=== PATIENT | male | born 1965 | race Caucasian/White ===

== ENCOUNTER 2022-02-18 18:05 | Inpatient (IN) | payer OTHER, SELFPAY ==
--- NOTE | ~2022-02-18 | US_ITS ---
EXAMINATION: US VENOUS ULTRASOUND WITH DOPPLER LOWER EXTREMITY, BILATERAL CLINICAL INFORMATION: Bilateral lower extremity pain and swelling COMPARISON: None TECHNIQUE: Ultrasound of the deep veins is performed from the hip to the calf with compression sonography and color and pulse Doppler assessment. Spectral analysis with color-flow imaging is performed. FINDINGS: RIGHT: There is normal venous compression and respiratory variation and augmented flow. The visualized common femoral vein, superficial femoral vein, profunda femoral vein, popliteal vein, and the trifurcation region shows no evidence of deep venous thrombosis. There is no significant popliteal fossa cyst. LEFT: There is normal venous compression and respiratory variation and augmented flow. The visualized common femoral vein, superficial femoral vein, profunda femoral vein, popliteal vein, and the trifurcation region shows no evidence of deep venous thrombosis. There is no significant popliteal fossa cyst. If the patient's symptoms persist, followup ultrasound in 5 days 7 days might be of value to exclude proximal propagation from a non-visualized calf vein. US/US venous duplex LE BI IMPRESSION: No DVT demonstrated in the bilateral lower extremities.
--- NOTE | ~2022-02-18 | XR_ITS ---
EXAMINATION: XR CHEST CLINICAL INFORMATION: Shortness of breath COMPARISON: None TECHNIQUE: Frontal view of the chest was obtained. FINDINGS: There is mild cardiomegaly. No evidence of CHF. There is patchy infiltrate present at the right lung base with obscuration of the right hemidiaphragm consistent with a small pneumonia. There are multiple old healed rib fractures are seen in the left chest. No pleural effusions. XR/XR chest 1V IMPRESSION: Cardiomegaly. Small area of infiltrate right lung base. Unfortunately, no prior radiographs are available for comparison.
--- NOTE | ~2022-02-18 | US_ITS ---
EXAMINATION: US ABDOMEN LIMITED CLINICAL INFORMATION: Abnormal gallbladder on previous CT scan. COMPARISON: CT scan of the abdomen and pelvis from earlier today. TECHNIQUE: Real-time imaging of the right upper quadrant abdominal viscera. FINDINGS: PANCREAS: Visualized portions unremarkable. LIVER: Unremarkable. Portal vein is patent. GALLBLADDER: Echogenic gallstone measuring up to 2.6 cm. Incompletely distended with mild mural thickening measuring up to 0.3 cm. COMMON BILE DUCT: Normal in caliber measuring 0.4 cm in diameter. RIGHT KIDNEY: 9.9 cm. A cortically based echogenic focus in the mid to upper pole measures 0.5 cm. An exophytic anechoic cyst off of the upper pole measures 1.4 cm. A smaller upper pole cyst measures 0.9 cm. Color Doppler showed no abnormal vascular flow. FREE FLUID: None. US/US abdomen limited IMPRESSION: 1. Cholelithiasis. Gallbladder wall and pericolonic changes are less pronounced compared to the CT scan and could represent chronic changes due to the presence of the larger gallstone. Mild acute cholecystitis cannot be excluded. Correlate clinically. 2. Nonobstructing right intrarenal calculus and small renal cysts demonstrate benign features.
--- NOTE | ~2022-02-18 | CT_ITS ---
EXAMINATION: CT ANGIOGRAM OF THE CHEST WITH AND WITHOUT CONTRAST (CT PULMONARY ANGIOGRAM FOR PE) CT ABDOMEN AND PELVIS WITH CONTRAST CLINICAL INFORMATION: Shortness of breath. Positive d-dimer. Right upper quadrant abdominal pain. COMPARISON: None TECHNIQUE: Prior to contrast administration, noncontrast localization images were obtained. Subsequently, multidetector volumetric imaging was performed from the thoracic inlet to the pubic symphysis following the administration of 100 mL Omnipaque 350 intravenous contrast. This was followed by multidetector acquisition of the abdomen and pelvis. No contrast reaction reported Sagittal, coronal, and MIP oblique sagittal reformatted images were obtained on the CT workstation, uploaded to PACS, and reviewed. This CT examination was performed using dose optimization techniques as appropriate, variously including the following: *Automated exposure control *Adjustment of mA and/or kV according to patient size (this includes techniques or standardized protocols for targeted exams where dose is matched to indication/reason for exam; i.e. extremities or head) *Use of iterative reconstruction technique Total exam dose-length product 829 mGy-cm FINDINGS: QUALITY OF STUDY/CONTRAST BOLUS: Satisfactory. PULMONARY ARTERIES: No central or segmental pulmonary emboli. THORACIC AORTA: No aneurysm or dissection. LUNG: The central airways are patent. Moderate centrilobular and paraseptal emphysema. Mild interlobular septal thickening. Bronchial wall thickening noted. Mild patchy opacity anteriorly in the right lower lobe along the fissure. PLEURA: No pleural effusion or pneumothorax. MEDIASTINUM: Enlarged heart size. No pericardial effusion. Prominent mediastinal lymph nodes. Precarinal node measures 1.2 cm in short axis. Subcarinal node measures 1.7 cm in short axis. No evidence of septal bowing or right heart strain. CHEST WALL/AXILLA: No axillary or internal mammary lymphadenopathy. LIVER, GALLBLADDER, AND BILIARY TREE: The liver is normal in size, shape, and attenuation. No focal hepatic lesion or biliary ductal dilatation is present. Prominent stone in the gallbladder lumen. Mild inflammation adjacent to the gallbladder noted. PANCREAS: Mild atrophy with no focal abnormality. SPLEEN: Unremarkable. ADRENAL GLANDS: 1 cm right adrenal gland nodule noted, indeterminate by Hounsfield unit measurement on this study. The left adrenal gland is unremarkable. KIDNEYS AND URETERS: The kidneys are normal in size, shape, and attenuation. No hydronephrosis, hydroureter, or calculi seen. Symmetric perinephric stranding. Simple cyst of the left kidney. No follow-up imaging recommended. Additional hypoattenuating lesions of both kidneys are too small to characterize otherwise. BLADDER: Unremarkable. GASTROINTESTINAL TRACT: The stomach is unremarkable. Normal caliber small bowel. No obstruction. No colonic wall thickening or inflammation. ABDOMINAL WALL: No significant hernia is appreciated. LYMPH NODES: Normal. VASCULAR: Reflux of contrast is seen into the hepatic veins, suggesting elevated right heart pressures. Normal size aorta. Mild atherosclerotic calcifications.. PELVIC VISCERA: The prostate and seminal vesicles are unremarkable. OSSEOUS STRUCTURES: No acute or suspicious osseous abnormality. Mild degenerative changes of the spine. CT/CT angio chest PE protocol IMPRESSION: 1. No pulmonary embolism. 2. Moderate emphysema. Mild interlobular septal thickening and bronchial wall thickening could be associated with fluid overload. Right lower lobe opacity favors atelectasis, though pneumonia is possible. 3. Prominent mediastinal lymph nodes, likely reactive. 4. Cholelithiasis. Associated inflammation around the gallbladder. This may represent acute cholecystitis. Consider ultrasound evaluation. 5. Enlarged heart. Reflux of contrast into the IVC and hepatic veins, suggesting elevated right heart pressures. 6 . Indeterminant right adrenal gland nodule. Suggest nonemergent adrenal protocol CT evaluation. VTE: negative
--- NOTE | ~2022-02-18 | NM_ITS ---
EXAMINATION: NM BILIARY TRACT WITH ORAL FATTY MEAL CLINICAL INFORMATION: Abdominal pain right upper quadrant, large gallstone, CHF. COMPARISON: No previous biliary scan is available for comparison. Abdominal ultrasound dated 02/19/[address] scan of the abdomen and pelvis dated 02/19/2022 are available for comparison. TECHNIQUE: Serial gamma scintillation camera images were obtained over the abdomen for a total observation period of 125 minutes following the intravenous administration of 5 mCi Tc-99m Mebrofenin. FINDINGS: There is good concentration of activity in the liver by 5 minutes post injection. Biliary activity is visualized by 10 minutes. The gallbladder is well visualized by 15 minutes. Small bowel is well visualized by 10 minutes. At 60 minutes post Mebrofenin injection, 8 ounces of Ensure-plus Brand was administered orally and an additional 60 minutes of images were obtained. There is good emptying of the gallbladder following ingestion of the fatty meal. At the end of the study there is good clearance of activity from the liver and visualization of diffuse small bowel activity. The calculated gallbladder ejection fraction is 71% (normal gallbladder ejection fraction using Ensure supplement orally is greater than 33%). NM/NM hepatobiliary wo pharm IMPRESSION: Visualization of the gallbladder is evidence of a patent cystic duct and strong evidence against the diagnosis of acute cholecystitis. The common bile duct is patent. Gallbladder emptying and ejection fraction are normal. Liver function appears normal.
[2022-02-18 18:09] VITALS: BP 145/89; PULSE 101; RESP 18; TEMP 36.7; O2SAT 97; BMI 26.5
--- NOTE | 2022-02-18 18:30 | ECG_ITS ---
Test Reason : ABDOMINALPAIN Blood Pressure : / mmHG Vent. Rate : 090 BPM Atrial Rate : 090 BPM P-R Int : 140 ms QRS Dur : 106 ms QT Int : 402 ms P-R-T Axes : 052 -19 103 degrees QTc Int : 491 ms Normal sinus rhythm Left atrial enlargement Left ventricular hypertrophy ( Greenfield product ) Nonspecific T wave abnormality Prolonged QT Abnormal ECG No previous ECGs available Referred By: Sweetie Montalvo Electronically Signed By:INGRID VILLEGAS
[2022-02-18 22:49] LABS: MANUAL DIFF FLAG NO
[2022-02-18 22:58] LABS: Basophils Absolute Auto 0.1 X10*3/uL (0.0-0.2); Basophils Percent Auto 0.5 % (0-2); Eosinophils Absolute Auto 0.2 X10*3/uL (0.0-0.4); Hematocrit 39.2 % (42.0-52.0); Hemoglobin 12.3 g/dl (14.0-18.0); Imm Gran Abs Auto 0.04 X10*3/uL (0.00-0.03); Imm Gran Pct Auto 0.4 % (0.0-0.4); Lymphocytes Absolute Auto 1.9 X10*3/uL (1.2-4.9); Lymphocytes Percent Auto 20.4 % (20-40); Mean Corpuscular HGB Conc 31.4 g/dl (31.0-36.0); Mean Corpuscular Hemoglobin 28.5 pg (27.0-33.0); Mean Platelet Volume 10.3 fL (9.4-12.4); Monocytes Absolute Auto 0.7 X10*3/uL (0.1-1.2); Monocytes Percent Auto 7.2 % (2-11); Neutrophils Absolute Auto 6.6 x10*3/uL (2.0-8.3); Neutrophils Percent Auto 69.5 % (45-73); Platelet Count 338 X10*3/uL (160-400); Red Blood Count 4.31 X10*6/uL (4.60-5.80); Red Cell Distribution Width 14.4 % (11.0-16.0); White Blood Count 9.5 X10*3/uL (4.8-10.8)
[2022-02-18 23:04] LABS: INTERNATIONAL NORM RATIO 1.9 (0.9-1.1); Prothrombin Time 22.5 SEC (10.0-13.1)
[2022-02-18 23:14] LABS: COVID-19 Test Negative (Negative)
[2022-02-18 23:15] LABS: Alanine Aminotransferase 30 U/L (0-40); Albumin Level 4.1 g/dL (3.5-5.0); Alkaline Phosphatase 108 U/L (39-117); Anion Gap 16 (12-20); Aspartate Amino Transferase 52 U/L (5-37); Bilirubin Total 2.1 mg/dL (0.0-1.0); Blood Urea Nitrogen 21 mg/dL (9-16); Calcium 9.1 mg/dL (8.4-10.2); Carbon Dioxide 23 mmol/L (22-29); Chloride 106 mmol/L (96-108); Creatinine Clr Calc Pharmacy 47.4; Estimated Glomerular Filt Rate 46; Glucose Random 194 mg/dL (60-115); Potassium 5.3 mmol/L (3.3-5.1); Sodium 140 mmol/L (135-145); Total Protein 7.4 g/dL (6.5-8.0)
[2022-02-18 23:18] LABS: B Type Natriuretic Peptide 2874 pg/mL (<100); Troponin-I High Sensitivity 46.3 ng/L (<3.5-35.0)
[2022-02-18 23:38] VITALS: BP 133/94; PULSE 90; RESP 28; O2SAT 98
--- NOTE | 2022-02-18 23:39 | PC.NURSE ---
IV established, VSS. Pt resting comfortably in bed @ this time awaiting primary MD gerry.
--- NOTE | 2022-02-18 23:56 | ED.SOB ---
HPI - SOB/Dyspnea General Chief Complaint: Dyspnea Stated Complaint: abd pain/diff breathing Time Seen by Provider: 02/18/22 18:29 Source: patient Mode of arrival: ambulatory Limitations: other (Patient poor historian) History of Present Illness HPI Narrative: 56-year-old male with this medical history significant for diabetes, DVTS, CHF presents today with lower extremity pain, shortness of breath, fatigue, malaise and abdominal pain. The shortness of breath is worse w/ exertion, better at rest. He states he came in today because his family was worried for him as he has been having increased work of breathing and has been having abdominal pain severe for 1 week/. Abdominal pain is reported as around the umbilicus, 01/27, and does not radiate. He states he cant keep any food down and he has been vomiting with looks like white paste. Patient has a 40+ pack year smoking history. Reports he was recently hospitalized for CHF however story is unclear. MD elicited complaint: shortness of breath Related Data Allergies Allergy/AdvReac Type Severity Reaction Status Date / Time No Known Allergies Allergy Verified 02/18/22 18:09 Review of Systems Review of Systems: Constitutional : No Weight loss, No Fever, No Chills, No Fatigue, No Malaise ENT/Mouth : No sore throat, No Rhinorrhea Eyes: No Eye Pain, No Swelling, No Redness Cardiovascular : No Chest Pain, + SOB, + Dyspnea on Exertion, No Orthopnea, No Edema, No Palpitations Respiratory : + Cough, No Sputum, No Wheezing Gastrointestinal : No Nausea, + Vomiting, No Diarrhea, No Constipation, + abdominal Pain, No Hematochezia, No Melena Genitourinary : No Dysuria, No Urinary Frequency, No Hematuria, Musculoskeletal : No joint pain, No Myalgias, No Joint Swelling Skin : No Skin Lesions, No rash Neuro : No Weakness, + Numbness of the toes, No Dizziness, No Headache Psych : No Anxiety/Panic, No Depression All other systems reviewed and are negative Yes all other systems are reviewed and are negative [facility] Past Medical History Attestation statement: The following information was validated with the patient. Source: old records reviewed and nursing notes reviewed Social History Social History Advance Directives: No Advance Directives Information Provided: Yes Physical Exam Vital Signs: Vital Signs: Last Vital Signs Temp 97.5 F 02/19/22 01:41 Pulse 88 02/19/22 01:41 Resp 20 02/19/22 01:41 BP 131/88 02/19/22 01:41 Pulse Ox 98 02/19/22 01:41 O2 Del Method 02/19/22 01:41 BMI result Body Mass Index 26.5 VSS Appearance: Alert.? Oriented X3.? No acute distress.? Head: Normocephalic, atraumatic, no step-offs or deformities Eyes: Pupils equal, round and reactive to light.? Neck: Normal inspection.? Neck supple.? CVS: Normal heart rate and rhythm.? Pulses normal.? Respiratory: Shallow respirations, No respiratory distress.? Breath sounds diminished b/l and faint crackles to RLL.? Abdomen: Soft and + tenderness to RUQ and epigastric region.? Skin: Skin warm and dry.? Normal skin color.? Normal skin turgor.? Extremities: No edema.? + calf ttp, negative luis. 5/5 strength to bilateral upper and lower extremities Neuro: Oriented X 3.? No motor deficit.? No sensory deficit. CN 2-12 intact Course Reevaluation(s) Reevaluation #1: CBC with no leukocytosis. Chemistry with a slightly elevated potassium, low, was given. Slight acute kidney injury however will not hydrate due to patient being fluid overloaded with a BNP of 2874, Lasix ordered. Patient's initial troponin was 46.3, repeat 42.6 EKG nonischemic. Patient's total bilirubin 2.1 and direct bilirubin 1.0, he does have a really tender abdomen worse in the right lower quadrant, for this reason a CT of the abdomen will be obtained with contrast. Initial lactic acid 3.0, repeat lactic acid ordered, patient's x-ray with a right lower lobe possible pneumonia. Will hold antibiotics until I receive CT of the chest to confirm pneumonia as patient has only faint crackles to right lower lobe. Time: 00:57 Reevaluation #2: Repeat lactic acid elevated 3.2, at this time infection is suspected, will hold fluids however will administer antibiotics at this time to cover for pneumonia. CT of the chest and CT of the abdomen and pelvis still pending at this time. Time: 02:08 Reevaluation #3: CT of the abdomen pelvis with cholelithiasis as well as inflammation around the gallbladder that could represent acute cholecystitis, concerning as patient does have significant right upper quadrant tenderness on exam. Patient's CT of the chest with no PE, moderate emphysema noted mediastinal lymph node likely reactive is noted and there is an enlarged heart suggesting elevated right heart pressure. I reached out to surgery Dr. Cagle and discussed there is concern for cholecystitis on this patient. He recommends to admit to the hospitalist team, he agrees with my antibiotic selection of ceftriaxone in he would not like any other antibiotics added at this time. At this time patient is to remain nothing by mouth as he may be a surgical candidate for cholecystitis. I did update Dr. Han on this. Nursing is aware that patient is NPO. Patient will be admitted to hospitalist team at this time. Time: 02:44 MDM - SOB/Dyspnea MDM Narrative Medical decision making narrative: 0000 56 yo M presents w/ LYNCH, lower extremity pain, abd pain X 1 week. Poor historian. Unclear PMHX. PE significant for diminished breath sounds bilaterally with faint crackles to the right lower lobe, shallow breathing, regular rate and rhythm, abdomen soft and tender particularly in the right upper quadrant, neuro exam nonfocal. Vital signs stable. Plan at this time is urine, labs, imaging, D-dimer, troponin, BNP will obtain blood cultures and a lactic as well. Chest x-ray will also be ordered At this time I will do not suspect infection, will wait for laboratory studies, BNP prior to initiating fluids, antibiotics. Concerns for CHF. Will rule out intra-abdominal processes such as appendicitis, cholecystitis . Unlikely acute abdomen. Medical Records Attestation: I reviewed the patient's medical records. Lab Data Attestation: I reviewed the patient's lab results. Result diagrams: 02/18/22 22:38 02/18/22 22:38 Labs: Lab Results 02/18/22 02/18/22 02/18/22 Range/Units 22:36 22:38 22:38 WBC 9.5 (4.8-10.8) X10*3/uL RBC 4.31 L (4.60-5.80) X10*6/uL Hgb 12.3 L (14.0-18.0) g/dl Hct 39.2 L (42.0-52.0) % MCV 91.0 (80.0-98.0) fL MCH 28.5 (27.0-33.0) pg MCHC 31.4 (31.0-36.0) g/dl RDW 14.4 (11.0-16.0) % Plt Count 338 (160-400) X10*3/uL MPV 10.3 (9.4-12.4) fL Immature Gran % (Auto) 0.4 (0.0-0.4) % Neut % (Auto) 69.5 (45-73) % Lymph % (Auto) 20.4 (20-40) % Mcdonald % (Auto) 7.2 (2-11) % Eos % (Auto) 2.0 (0-4) % Baso % (Auto) 0.5 (0-2) % Lymph # (Auto) 1.9 (1.2-4.9) X10*3/uL Mcdonald # (Auto) 0.7 (0.1-1.2) X10*3/uL Eos # (Auto) 0.2 (0.0-0.4) X10*3/uL Baso # (Auto) 0.1 (0.0-0.2) X10*3/uL Abs Immat Gran (auto) 0.04 H (0.00-0.03) X10*3/uL Absolute Neuts (auto) 6.6 (2.0-8.3) x10*3/uL Absolute Nucleated RBC 0.000 (0.0-0.012) X10*3/uL Nucleated RBC % (auto) 0.0 (0.0-0.2) /100WBC PT 22.5 H (10.0-13.1) SEC INR 1.9 H (0.9-1.1) D-Dimer High Sensitivty 292 NG/ML Sodium (135-145) mmol/L Potassium (3.3-5.1) mmol/L Chloride (96-108) mmol/L Carbon Dioxide (22-29) mmol/L Anion Gap (12-20) BUN (9-16) mg/dL Creatinine (0.5-1.4) mg/dL Estim Creat Clear Calc Estimated GFR Random Glucose (60-115) mg/dL Lactic Acid (0.5-2.0) mmol/L Lactic Acid F/U @ 2Hr (0.5-2.0) mmol/L Calcium (8.4-10.2) mg/dL Total Bilirubin (0.0-1.0) mg/dL Direct Bilirubin (0.0-0.5) mg/dL AST (5-37) U/L ALT (0-40) U/L Alkaline Phosphatase (39-117) U/L Troponin I High Sens (<3.5-35.0) ng/L B-Natriuretic Peptide (<100) pg/mL Total Protein (6.5-8.0) g/dL Albumin (3.5-5.0) g/dL COVID-19 ([facility]ONICA) Negative (Negative) COVID-19 Clin Com See Note 02/18/22 02/18/22 02/18/22 Range/Units 22:38 22:38 22:38 WBC (4.8-10.8) X10*3/uL RBC (4.60-5.80) X10*6/uL Hgb (14.0-18.0) g/dl Hct (42.0-52.0) % MCV (80.0-98.0) fL MCH (27.0-33.0) pg MCHC (31.0-36.0) g/dl RDW (11.0-16.0) % Plt Count (160-400) X10*3/uL MPV (9.4-12.4) fL Immature Gran % (Auto) (0.0-0.4) % Neut % (Auto) (45-73) % Lymph % (Auto) (20-40) % Mcdonald % (Auto) (2-11) % Eos % (Auto) (0-4) % Baso % (Auto) (0-2) % Lymph # (Auto) (1.2-4.9) X10*3/uL Mcdonald # (Auto) (0.1-1.2) X10*3/uL Eos # (Auto) (0.0-0.4) X10*3/uL Baso # (Auto) (0.0-0.2) X10*3/uL Abs Immat Gran (auto) (0.00-0.03) X10*3/uL Absolute Neuts (auto) (2.0-8.3) x10*3/uL Absolute Nucleated RBC (0.0-0.012) X10*3/uL Nucleated RBC % (auto) (0.0-0.2) /100WBC PT (10.0-13.1) SEC INR (0.9-1.1) D-Dimer High Sensitivty NG/ML Sodium 140 (135-145) mmol/L Potassium 5.3 H (3.3-5.1) mmol/L Chloride 106 (96-108) mmol/L Carbon Dioxide 23 (22-29) mmol/L Anion Gap 16 (12-20) BUN 21 H (9-16) mg/dL Creatinine 1.57 H (0.5-1.4) mg/dL Estim Creat Clear Calc 47.4 Estimated GFR 46 Random Glucose 194 H (60-115) mg/dL Lactic Acid 3.0 H* (0.5-2.0) mmol/L Lactic Acid F/U @ 2Hr (0.5-2.0) mmol/L Calcium 9.1 (8.4-10.2) mg/dL Total Bilirubin 2.1 H (0.0-1.0) mg/dL Direct Bilirubin 1.0 H (0.0-0.5) mg/dL AST 52 H (5-37) U/L ALT 30 (0-40) U/L Alkaline Phosphatase 108 (39-117) U/L Troponin I High Sens 46.3 H (<3.5-35.0) ng/L B-Natriuretic Peptide 2874 H (<100) pg/mL Total Protein 7.4 (6.5-8.0) g/dL Albumin 4.1 (3.5-5.0) g/dL COVID-19 ([facility]ONICA) (Negative) COVID-19 Clin Com 02/19/22 02/19/22 Range/Units 00:20 00:57 WBC (4.8-10.8) X10*3/uL RBC (4.60-5.80) X10*6/uL Hgb (14.0-18.0) g/dl Hct (42.0-52.0) % MCV (80.0-98.0) fL MCH (27.0-33.0) pg MCHC (31.0-36.0) g/dl RDW (11.0-16.0) % Plt Count (160-400) X10*3/uL MPV (9.4-12.4) fL Immature Gran % (Auto) (0.0-0.4) % Neut % (Auto) (45-73) % Lymph % (Auto) (20-40) % Mcdonald % (Auto) (2-11) % Eos % (Auto) (0-4) % Baso % (Auto) (0-2) % Lymph # (Auto) (1.2-4.9) X10*3/uL Mcdonald # (Auto) (0.1-1.2) X10*3/uL Eos # (Auto) (0.0-0.4) X10*3/uL Baso # (Auto) (0.0-0.2) X10*3/uL Abs Immat Gran (auto) (0.00-0.03) X10*3/uL Absolute Neuts (auto) (2.0-8.3) x10*3/uL Absolute Nucleated RBC (0.0-0.012) X10*3/uL Nucleated RBC % (auto) (0.0-0.2) /100WBC PT (10.0-13.1) SEC INR (0.9-1.1) D-Dimer High Sensitivty NG/ML Sodium (135-145) mmol/L Potassium (3.3-5.1) mmol/L Chloride (96-108) mmol/L Carbon Dioxide (22-29) mmol/L Anion Gap (12-20) BUN (9-16) mg/dL Creatinine (0.5-1.4) mg/dL Estim Creat Clear Calc Estimated GFR Random Glucose (60-115) mg/dL Lactic Acid (0.5-2.0) mmol/L Lactic Acid F/U @ 2Hr 3.2 H* (0.5-2.0) mmol/L Calcium (8.4-10.2) mg/dL Total Bilirubin (0.0-1.0) mg/dL Direct Bilirubin (0.0-0.5) mg/dL AST (5-37) U/L ALT (0-40) U/L Alkaline Phosphatase (39-117) U/L Troponin I High Sens 42.6 H (<3.5-35.0) ng/L B-Natriuretic Peptide (<100) pg/mL Total Protein (6.5-8.0) g/dL Albumin (3.5-5.0) g/dL COVID-19 ([facility]) (Negative) COVID-19 Clin Com Critical Care Time Critical Care Time Critical Care Time: Yes Total Critical Care Time: 45 Attestation: I attest to this time spent taking care of the patient, obtaining history, physical, reviewing labs, imaging, speaking to my attending, speaking to specialist. Discharge Plan Discharge Clinical Impression: CHF (congestive heart failure), Elevated troponin, Abdominal pain, Shortness of breath, Nausea, Pneumonia, Acute cholecystitis Patient Disposition: Admitted As Inpatient
[2022-02-19] VITALS (8 sets, daily range): BP systolic 123–140; BP diastolic 67–96; PULSE 75–89; RESP 18–23; TEMP 36.4–37.2; O2SAT 92–100
[2022-02-19 00:12] LABS: D Dimer High Sensitivity 292 NG/ML
[2022-02-19 00:48] LABS: Reflex Lactate? Lactic Acid Added
[2022-02-19] MEDS: Sodium Zirconium Cyclosilicate 5 GM POWD.PACK PO (01:00)
[2022-02-19] MEDS: Furosemide 40 MG/4 ML VIAL IVPUSH ×3 (01:00→17:06)
[2022-02-19 01:25] LABS: Troponin-I High Sensitivity 42.6 ng/L (<3.5-35.0)
[2022-02-19 01:43] LABS: ~Lactic Acid-LAB USE ONLY 3.2 mmol/L (0.5-2.0)
[2022-02-19] MEDS: iohexoL 350 MG/ML 100 ML INFUS..BTL IV (02:00)
[2022-02-19] MEDS: Morphine Sulfate 4 MG/ML CARTRIDGE IVPUSH (03:03)
[2022-02-19] MEDS: cefTRIAXone sodium 1 GM in 0.9 % Sodium Chloride 50 ML IV (03:03)
[2022-02-19 03:04] LABS: Reflex Lactate? 2 Y
[2022-02-19 04:28] LABS: Appearance Urine CLEAR; Color Urine YELLOW; Glucose Urine UA NEG (NEG); Leukocyte Esterase Urine NEG (NEG); Nitrite Urine NEG (NEG); Urine Blood NEG (NEG); Urine Ketones NEG (NEG); Urine Protein NEG (NEG-TRACE)
[2022-02-19 04:35] LABS: RBC Urine 0 /HPF (0); WBC Urine 0 /HPF (0-4)
[2022-02-19 04:35] LABS: ~Lactic Acid-LAB USE ONLY 1.3 mmol/L (0.5-2.0)
--- NOTE | 2022-02-19 06:21 | P.HPHOSP_ITS ---
History of Present Illness Date of Service: 02/19/22 Chief Complaint: Leg pain This is a 56-year-old male with past medical history of CHF, diabetes, hypertension, hyperlipidemia, PVD, CAD who presents to the hospital with complaints of bilateral leg pain. Patient reports that he has had worsening pain in his lower extremities to the point where he has difficulty walking and has to sit down every few feet in order to be able to walk again. Has been using a walker as a result. Patient also reports increased shortness of breath, cough that is dry and nonproductive, orthopnea and PND. The symptoms have wors ened over the past few weeks although he reports chronic shortness of breath since September when he was diagnosed with congestive heart failure. Patient reports that he has been moving states, he has had been admitted from hospital to hospital, he does not know his medications, it is unclear if he is compliant with his meds. Patient is also complaining of right lower quadrant pain that started few days ago, associated with some nausea, no vomiting. Pain is constant, 5/10, nonradiating. No alleviating or exacerbating factors. He denies any fever, no chills, no chest pain, no palpitations, no diarrhea constipation, no urinary symptoms. He has also noticed lower extremity edema. Normal to the ED patient hemodynamically stable with no significant abnormal vitals Labs are significant for WBC count of 9.5, hemoglobin 12.3, INR of 1.9, potassium of 5.3, BUN of 21, creatinine of 1.57, lactic acid of 3.0, troponin of 45 decreased to 42, Imaging revealed no PE on CT angiogram, moderate emphysema, mild intralobular septal thickening and bronchial wall thickness consistent with fluid overload and pulmonary congestion, cholelithiasis with associated inflammation around the gallbladder concerning for cholecystitis, Review of Systems 2 Review of Systems: Yes all other systems are reviewed and are negative [facility] Medical History (Updated 02/19/22 @ 06:28 by Irvin Han MD) CAD (coronary artery disease) CHF (congestive heart failure) Diabetes HLD (hyperlipidemia) Hypertension PVD (peripheral vascular disease) Family History (Updated 02/19/22 @ 06:29 by Irvin Han MD) Other No family history of coronary artery disease Surgical History (Updated 02/19/22 @ 06:29 by Irvin Han MD) History of angioplasty of peripheral vessel History of heart artery stent Social History Advance Directives: No Advance Directives Information Provided: Yes Meds Allergies Allergy/AdvReac Type Severity Reaction Status Date / Time No Known Allergies Allergy Verified 02/18/22 18:09 Active Medications: Current Medications Acetaminophen (Acetaminophen 325 Mg Tablet) 650 mg PO Q6H PRN PRN Reason: Pain, Mild (Pain Scale 1-3) Docusate Sodium (Docusate Sodium 100 Mg Capsule) 100 mg PO DAILY PRN PRN Reason: Constipation Furosemide (Furosemide 40 Mg/4 Ml Vial) 40 mg IVPUSH BID@0900,1800 LOUISA; Protocol Gabapentin (Gabapentin 100 Mg Capsule) 100 mg PO BID LOUISA Heparin Sodium (Porcine) (Heparin Sodium,Porcine 5,000 Unit/Ml Vial) 5,000 unit SUBCUT Q12H L[facility]ISA Ondansetron HCl (Ondansetron Hcl 4 Mg/2 Ml Vial) 4 mg IVPUSH Q8H PRN PRN Reason: Nausea and Vomiting Pharmacy Consult (Consult Rx Perform Med Rec) 1 each MISCELLANE ONCE PRN PRN Reason: Consult order Sodium Chloride (0.9 % Sodium Chloride Flush 3 Ml Syringe) 3 ml IVFLUSH QSHIFT LOUISA Physical Exam Vital Signs and Narrative: Vital Signs: Last Vital Signs Temp 98.1 F 02/19/22 06:00 Pulse 75 02/19/22 06:00 Resp 23 H 02/19/22 06:00 BP 127/84 02/19/22 06:00 Pulse Ox 92 02/19/22 06:00 O2 Del Method 02/19/22 06:00 O2 Flow Rate 2 02/19/22 04:20 BMI result Body Mass Index 26.5 Const: General: cooperative and no acute distress Orientation/consciousness: patient oriented x3 Eyes: General: appearance normal, both eyes and all related structures Resp: Effort & Inspection: normal respiratory effort Auscultation: clear to auscultation bilaterally Cardio: Rate: regular rate Rhythm: regular rhythm GI: Other: Patient has significant tenderness in the right upper quadrant, guarding, rebound Palpation (GI): Soft to palpation Auscultation: normal bowel sounds Skin: General skin exam: no rashes or lesions noted Neuro: General: patient oriented x3 Cognition (Neuro): normal cognition Extrem: Other: 1+ pitting edema General: Yes normal to inspection Results Labs CBC and Chem 7: 02/18/22 22:38 07 22:38 Labs: Laboratory Results - last 24 hr 02/18/22 02/18/22 02/18/22 22:36 22:38 22:38 MCV 91.0 MCH 28.5 MCHC 31.4 RDW 14.4 Plt Count 338 MPV 10.3 Immature Gran % (Auto) 0.4 Neut % (Auto) 69.5 Lymph % (Auto) 20.4 [place] % (Auto) 7.2 Eos % (Auto) 2.0 Baso % (Auto) 0.5 Lymph # (Auto) 1.9 [place] # (Auto) 0.7 Eos # (Auto) 0.2 Baso # (Auto) 0.1 Abs Immat Gran (auto) 0.04 H Absolute Neuts (auto) 6.6 Absolute Nucleated RBC 0.000 Nucleated RBC % (auto) 0.0 PT 22.5 H INR 1.9 H D-Dimer High Sensitivty 292 Anion Gap Estim Creat Clear Calc Estimated GFR Random Glucose Lactic Acid Lactic Acid F/U @ 2Hr Lactic Acid F/U @ 4Hr Calcium Total Bilirubin Direct Bilirubin AST ALT Alkaline Phosphatase Troponin I High Sens B-Natriuretic Peptide Total Protein Albumin Urine Color Urine Appearance Urine pH Ur Specific [place] Urine Protein Urine Glucose (UA) Urine Ketones Urine Blood Urine Nitrite Ur Leukocyte Esterase Urine RBC Urine WBC Ur Squamous Epith Cells Urine Bacteria COVID-19 (BERONICA) Negative COVID-19 Clin Com See Note 02/18/22 02/18/22 02/18/22 22:38 22:38 22:38 MCV MCH MCHC RDW Plt Count MPV Immature Gran % (Auto) Neut % (Auto) Lymph % (Auto) [place] % (Auto) Eos % (Auto) Baso % (Auto) Lymph # (Auto) [place] # (Auto) Eos # (Auto) Baso # (Auto) Abs Immat Gran (auto) Absolute Neuts (auto) Absolute Nucleated RBC Nucleated RBC % (auto) PT INR D-Dimer High Sensitivty Anion Gap 16 Estim Creat Clear Calc 47.4 Estimated GFR 46 Random Glucose 194 H Lactic Acid 3.0 H* Lactic Acid F/U @ 2Hr Lactic Acid F/U @ 4Hr Calcium 9.1 Total Bilirubin 2.1 H Direct Bilirubin 1.0 H AST 52 H ALT 30 Alkaline Phosphatase 108 Troponin I High Sens 46.3 H B-Natriuretic Peptide 2874 H Total Protein 7.4 Albumin 4.1 Urine Color Urine Appearance Urine pH Ur Specific [place] Urine Protein Urine Glucose (UA) Urine Ketones Urine Blood Urine Nitrite Ur Leukocyte Esterase Urine RBC Urine WBC Ur Squamous Epith Cells Urine Bacteria COVID-19 (BERONICA) COVID-19 Clin Com 02/19/22 02/19/22 02/19/22 00:20 00:57 04:14 MCV MCH MCHC RDW Plt Count MPV Immature Gran % (Auto) Neut % (Auto) Lymph % (Auto) [place] % (Auto) Eos % (Auto) Baso % (Auto) Lymph # (Auto) [place] # (Auto) Eos # (Auto) Baso # (Auto) Abs Immat Gran (auto) Absolute Neuts (auto) Absolute Nucleated RBC Nucleated RBC % (auto) PT INR D-Dimer High Sensitivty Anion Gap Estim Creat Clear Calc Estimated GFR Random Glucose Lactic Acid Lactic Acid F/U @ 2Hr 3.2 H* Lactic Acid F/U @ 4Hr Calcium Total Bilirubin Direct Bilirubin AST ALT Alkaline Phosphatase Troponin I High Sens 42.6 H B-Natriuretic Peptide Total Protein Albumin Urine Color YELLOW Urine Appearance CLEAR Urine pH 6.0 Ur Specific [place] 1.010 Urine Protein NEG Urine Glucose (UA) NEG Urine Ketones NEG Urine Blood NEG Urine Nitrite NEG Ur Leukocyte Esterase NEG Urine RBC 0 Urine WBC 0 Ur Squamous Epith Cells NONE Urine Bacteria NONE COVID-19 (BERONICA) COVID-19 Clin Com 02/19/22 04:19 MCV MCH MCHC RDW Plt Count MPV Immature Gran % (Auto) Neut % (Auto) Lymph % (Auto) [place] % (Auto) Eos % (Auto) Baso % (Auto) Lymph # (Auto) [place] # (Auto) Eos # (Auto) Baso # (Auto) Abs Immat Gran (auto) Absolute Neuts (auto) Absolute Nucleated RBC Nucleated RBC % (auto) PT INR D-Dimer High Sensitivty Anion Gap Estim Creat Clear Calc Estimated GFR Random Glucose Lactic Acid Lactic Acid F/U @ 2Hr Lactic Acid F/U @ 4Hr 1.3 Calcium Total Bilirubin Direct Bilirubin AST ALT Alkaline Phosphatase Troponin I High Sens B-Natriuretic Peptide Total Protein Albumin Urine Color Urine Appearance Urine pH Ur Specific [place] Urine Protein Urine Glucose (UA) Urine Ketones Urine Blood Urine Nitrite Ur Leukocyte Esterase Urine RBC Urine WBC Ur Squamous Epith Cells Urine Bacteria COVID-19 (BERONICA) COVID-19 Clin Com ECG Interpretation: EKG reviewed by me shows normal sinus rhythm with no significant ST T wave a bnormality He does have slightly prolonged QT of 491 Imaging Radiologist's Impressions: Impressions Chest X-Ray 02/18/22 18:30 IMPRESSION: Cardiomegaly. Small area of infiltrate right lung base. Unfortunately, no prior radiographs are available for comparison. Venous Duplex 02/19/22 01:15 IMPRESSION: No DVT demonstrated in the bilateral lower extremities. Chest CTA 02/19/22 01:58 IMPRESSION: 1. No pulmonary embolism. 2. Moderate emphysema. Mild interlobular septal thickening and bronchial wall thickening could be associated with fluid overload. Right lower lobe opacity favors atelectasis, though pneumonia is possible. 3. Prominent mediastinal lymph nodes, likely reactive. 4. Cholelithiasis. Associated inflammation around the gallbladder. This may represent acute cholecystitis. Consider ultrasound evaluation. 5. Enlarged heart. Reflux of contrast into the IVC and hepatic veins, suggesting elevated right heart pressures. 6 . Indeterminant right adrenal gland nodule. Suggest nonemergent adrenal protocol CT evaluation. VTE: negative Abdomen/Pelvis CT 02/19/22 02:01 IMPRESSION: 1. No pulmonary embolism. 2. Moderate emphysema. Mild interlobular septal thickening and bronchial wall thickening could be associated with fluid overload. Right lower lobe opacity favors atelectasis, though pneumonia is possible. 3. Prominent mediastinal lymph nodes, likely reactive. 4. Cholelithiasis. Associated inflammation around the gallbladder. This may represent acute cholecystitis. Consider ultrasound evaluation. 5. Enlarged heart. Reflux of contrast into the IVC and hepatic veins, suggesting elevated right heart pressures. 6 . Indeterminant right adrenal gland nodule. Suggest nonemergent adrenal protocol CT evaluation. VTE: negative Assessment and Plan (1) Acute exacerbation of CHF (congestive heart failure): Status: Acute (2) Elevated troponin: Status: Acute (3) Acute cholecystitis: Status: Acute (4) Lower extremity pain: Status: Acute Plan 56-year-old male with past medical history of CHF presents to the hospital with complaints of lower extremity pain, dyspnea, abdominal pain found to have # acute CHF exacerbation - has dyspnea, PND, orthopnea, elevated BNP, and evidence of pulmonary congestion on CT - patient reports being on Lasix 40 mg at home, but unclear if compliant - will treat with IV Lasix 40 b.i.d. -strict I&O, daily weight, low-sodium diet - obtain echocardiogram - cardiology consulted # acute cholecystitis - found to have abdominal pain, CT abdomen shows possible cholecystitis - will obtain abdominal ultrasound - surgical team consulted - will keep NPO - IV antibiotics - follow cultures # elevated troponin - likely secondary to acute CHF - no EKG seen is suggestive of ACS - monitor on telemetry # lower extremity pain - likely secondary to diabetic neuropathy - will start him on gabapentin 100 b.i.d. # diabetes - low-dose sliding scale insulin - diabetic diet # hypertension - stable -pending pharmacy consult for med review Patient does not remember his medications Pending pharmacy consult DVT prophylaxis: Heparin subQ Given the acute cholecystitis, acute CHF exacerbation, patient will require a minimum 2 night hospital stay for further management and monitoring Quality Stroke Does the patient have a stroke diagnosis?: No VTE Prior VTE?: No VTE Risk Level:: Medical - moderate - high VTE Device Contraindication: Treatment Not Indicated VTE Drug Contraindication: N/A - Med Ordered
[2022-02-19] MEDS: Heparin Sodium,Porcine 5,000 UNIT/ML VIAL 5000 UNIT SUBCUT ×2 (06:35→17:06)
[2022-02-19] MEDS: metroNIDAZOLE/NS 500 MG/100 ML PIGGYBACK 100 MG IV ×3 (06:35→20:46)
--- NOTE | 2022-02-19 06:56 | PC.NURSE ---
report given to MICHAELA Mistry
[2022-02-19 07:15] LABS: Glucose, Whole Blood 182 mg/dL (60-115)
[2022-02-19] MEDS: 0.9 % Sodium Chloride Flush 3 ML SYRINGE IVFLUSH ×3 (07:15→20:45)
[2022-02-19 07:17] LABS: MANUAL DIFF FLAG NO
[2022-02-19 07:20] LABS: Basophils Absolute Auto 0.1 X10*3/uL (0.0-0.2); Basophils Percent Auto 0.6 % (0-2); Eosinophils Absolute Auto 0.3 X10*3/uL (0.0-0.4); Eosinophils Percent Auto 3.1 % (0-4); Hematocrit 38.2 % (42.0-52.0); Hemoglobin 12.3 g/dl (14.0-18.0); Imm Gran Abs Auto 0.03 X10*3/uL (0.00-0.03); Imm Gran Pct Auto 0.4 % (0.0-0.4); Lymphocytes Absolute Auto 1.6 X10*3/uL (1.2-4.9); Lymphocytes Percent Auto 20.1 % (20-40); Mean Corpuscular HGB Conc 32.2 g/dl (31.0-36.0); Mean Corpuscular Hemoglobin 28.9 pg (27.0-33.0); Mean Corpuscular Volume 89.9 fL (80.0-98.0); Mean Platelet Volume 9.9 fL (9.4-12.4); Monocytes Absolute Auto 0.7 X10*3/uL (0.1-1.2); Monocytes Percent Auto 8.8 % (2-11); Neutrophils Absolute Auto 5.4 x10*3/uL (2.0-8.3); Platelet Count 302 X10*3/uL (160-400); Red Blood Count 4.25 X10*6/uL (4.60-5.80); Red Cell Distribution Width 14.5 % (11.0-16.0)
[2022-02-19 07:38] LABS: Anion Gap 13 (12-20); Blood Urea Nitrogen 21 mg/dL (9-16); Calcium 8.3 mg/dL (8.4-10.2); Carbon Dioxide 24 mmol/L (22-29); Chloride 105 mmol/L (96-108); Creatinine Clr Calc Pharmacy 54.7; Estimated Glomerular Filt Rate 54; Glucose Random 187 mg/dL (60-115); Magnesium 1.7 mg/dL (1.6-2.6); Potassium 4.2 mmol/L (3.3-5.1); Sodium 138 mmol/L (135-145)
--- NOTE | 2022-02-19 07:49 | PM.CNGS ---
History of Present Illness Consult details Consult date: 02/19/22 Requesting physician: Irvin Han Narrative: 56-year-old male patient presenting to the emergency department with complaints of lower extremity pain, shortness of breath fatigue, malaise and periumbilical abdominal pain. He has a past history of diabetes mellitus, DVT, congestive heart failure, and a 40 pack-year tobacco history. The abdominal pain began approximately 1 week ago and was mainly located in the umbilicus. He reports nausea, vomiting, and anorexia. He was recently hospitalized for congestive heart failure (medical records not available at the time of this evaluation). Workup in the emergency department revealed a normal WBC however his lactate was elevated at 3.2 and liver function tests were elevated with the T bili of 2.1, D bili an AST mildly elevated. Alkaline phosphatase is normal. CT of chest, abdomen and pelvis was obtained and revealed: 1. No pulmonary embolism. 2. Moderate emphysema. Mild interlobular septal thickening and bronchial wall thickening could be associated with fluid overload. Right lower lobe opacity favors atelectasis, though pneumonia is possible. 3. Prominent mediastinal lymph nodes, likely reactive. 4. Cholelithiasis. Associated inflammation around the gallbladder. This may represent acute cholecystitis. Consider ultrasound evaluation. 5. Enlarged heart. Reflux of contrast into the IVC and hepatic veins, suggesting elevated right heart pressures. 6 . Indeterminant right adrenal gland nodule. Suggest nonemergent adrenal protocol CT evaluation. ? VTE: negative The patient is admitted to the hospitalist service and surgical consultation is requested for management of the possible acute cholecystitis. Review of Systems Review of Systems: Yes Unobtainable due to mental condition [facility] Past Medical History Medical History (Updated 02/19/22 @ 08:14 by Gato Cueva MD) CAD (coronary artery disease) CHF (congestive heart failure) Diabetes HLD (hyperlipidemia) Hypertension Pulmonary embolism PVD (peripheral vascular disease) Family History Family History (Updated 02/19/22 @ 06:29 by Irvin Han MD) Other No family history of coronary artery disease Surgical History Surgical History (Updated 02/19/22 @ 06:29 by Irvin Han MD) History of angioplasty of peripheral vessel History of heart artery stent Social History Social History Advance Directives: No Advance Directives Information Provided: Yes Meds Allergies Allergy/AdvReac Type Severity Reaction Status Date / Time No Known Allergies Allergy Verified 02/18/22 18:09 Active Medications: Current Medications Acetaminophen (Acetaminophen 325 Mg Tablet) 650 mg PO Q6H PRN PRN Reason: Pain, Mild (Pain Scale 1-3) Dextrose (Dextrose 50 % 25 Gm/50 Ml Syringe) 25 gm IVPUSH Q15M PRN; Protocol PRN Reason: per Hypoglycemia Standing Ord. Docusate Sodium (Docusate Sodium 100 Mg Capsule) 100 mg PO DAILY PRN PRN Reason: Constipation Furosemide (Furosemide 40 Mg/4 Ml Vial) 40 mg IVPUSH BID@0900,1800 [facility]; Protocol Gabapentin (Gabapentin 100 Mg Capsule) 100 mg PO BID [facility] Glucose (Glucose Gel 15 Gm Gel..Gram.) 15 gm PO Q15M PRN; Protocol PRN Reason: per Hypoglycemia Standing Ord. Heparin Sodium (Porcine) (Heparin Sodium,Porcine 5,000 Unit/Ml Vial) 5,000 unit SUBCUT Q12H [facility] Last Admin: 02/19/22 06:35 Dose: 5,000 unit Ceftriaxone Sodium 1 gm/ (Sodium Chloride) 50 mls @ 100 mls/hr IV Q24H LOUISA Metronidazole (Flagyl) 500 mg in 100 mls @ 100 mls/hr IV Q8H [facility] Last Infusion: 02/19/22 07:14 Dose: Infused Insulin Human Lispro (Insulin Lispro 100 Unit/Ml 3 Ml Vial) 0 unit SUBCUT QIDACHS [facility]; Protocol Last Admin: 02/19/22 07:13 Dose: Not Given Ondansetron HCl (Ondansetron Hcl 4 Mg/2 Ml Vial) 4 mg IVPUSH Q8H PRN PRN Reason: Nausea and Vomiting Pharmacy Consult (Consult Rx Perform Med Rec) 1 each MISCELLANE ONCE PRN PRN Reason: Consult order Pharmacy Consult (Consult Rx Perform Med Rec) 1 each MISCELLANE ONCE PRN PRN Reason: Consult order Sodium Chloride (0.9 % Sodium Chloride Flush 3 Ml Syringe) 3 ml IVFLUSH QSHIFT [facility] Last Admin: 02/19/22 07:15 Dose: 3 ml Home Medications Medication Instructions Recorded Confirmed Last Taken Type atorvastatin 80 mg tablet 1 tab PO DAILY 02/19/22 Unknown History Physical Exam Vital Signs: Vital Signs: Last Vital Signs Temp 98.1 F 02/19/22 06:00 Pulse 81 02/19/22 07:15 Resp 20 02/19/22 07:15 BP 130/92 H 02/19/22 07:15 Pulse Ox 97 02/19/22 07:15 O2 Del Method 02/19/22 07:15 O2 Flow Rate 2 02/19/22 04:20 BMI result Body Mass Index 26.5 Const: Other: Appears much older than his stated age General: cooperative and ill appearing Nutritional Appearance: thin Eyes: Sclerae: sclerae normal EOM: EOMs intact bilaterally Resp: Effort & Inspection: normal respiratory effort and no respiratory distress GI: Inspection: Yes normal to inspection Palpation (GI): Soft to palpation, Tenderness to palpation present (GI) in the RUQ; Lima's sign negative, with no rebound tenderness and Rovsing's sign negative, no guarding and not rigid Percussion: Yes normal to percussion Auscultation: normal bowel sounds Rectal Exam - Male: Yes deferred Skin: Other: Normal color General skin exam: no rashes or lesions noted Psych: Appearance: well kempt Affect: Indifferent affect present Results Labs Result diagrams: 02/19/22 07:07 02/19/22 07:07 Labs: Abnormal lab results 02/18/22 02/18/22 02/18/22 Range/Units 22:38 22:38 22:38 RBC 4.31 L (4.60-5.80) X10*6/uL Hgb 12.3 L (14.0-18.0) g/dl Hct 39.2 L (42.0-52.0) % Abs Immat Gran (auto) 0.04 H (0.00-0.03) X10*3/uL PT 22.5 H (10.0-13.1) SEC INR 1.9 H (0.9-1.1) Potassium 5.3 H (3.3-5.1) mmol/L BUN 21 H (9-16) mg/dL Creatinine 1.57 H (0.5-1.4) mg/dL POC Glucose (60-115) mg/dL Random Glucose 194 H (60-115) mg/dL Lactic Acid (0.5-2.0) mmol/L Lactic Acid F/U @ 2Hr (0.5-2.0) mmol/L Calcium (8.4-10.2) mg/dL Total Bilirubin 2.1 H (0.0-1.0) mg/dL Direct Bilirubin 1.0 H (0.0-0.5) mg/dL AST 52 H (5-37) U/L Troponin I High Sens (<3.5-35.0) ng/L B-Natriuretic Peptide (<100) pg/mL 02/18/22 02/18/22 02/19/22 Range/Units 22:38 22:38 00:20 RBC (4.60-5.80) X10*6/uL Hgb (14.0-18.0) g/dl Hct (42.0-52.0) % Abs Immat Gran (auto) (0.00-0.03) X10*3/uL PT (10.0-13.1) SEC INR (0.9-1.1) Potassium (3.3-5.1) mmol/L BUN (9-16) mg/dL Creatinine (0.5-1.4) mg/dL POC Glucose (60-115) mg/dL Random Glucose (60-115) mg/dL Lactic Acid 3.0 H* (0.5-2.0) mmol/L Lactic Acid F/U @ 2Hr (0.5-2.0) mmol/L Calcium (8.4-10.2) mg/dL Total Bilirubin (0.0-1.0) mg/dL Direct Bilirubin (0.0-0.5) mg/dL AST (5-37) U/L Troponin I High Sens 46.3 H 42.6 H (<3.5-35.0) ng/L B-Natriuretic Peptide 2874 H (<100) pg/mL 02/19/22 02/19/22 02/19/22 Range/Units 00:57 07:07 07:07 RBC 4.25 L (4.60-5.80) X10*6/uL Hgb 12.3 L (14.0-18.0) g/dl Hct 38.2 L (42.0-52.0) % Abs Immat Gran (auto) (0.00-0.03) X10*3/uL PT (10.0-13.1) SEC INR (0.9-1.1) Potassium (3.3-5.1) mmol/L BUN 21 H (9-16) mg/dL Creatinine (0.5-1.4) mg/dL POC Glucose (60-115) mg/dL Random Glucose 187 H (60-115) mg/dL Lactic Acid (0.5-2.0) mmol/L Lactic Acid F/U @ 2Hr 3.2 H* (0.5-2.0) mmol/L Calcium 8.3 L D (8.4-10.2) mg/dL Total Bilirubin (0.0-1.0) mg/dL Direct Bilirubin (0.0-0.5) mg/dL AST (5-37) U/L Troponin I High Sens (<3.5-35.0) ng/L B-Natriuretic Peptide (<100) pg/mL 02/19/22 Range/Units 07:11 RBC (4.60-5.80) X10*6/uL Hgb (14.0-18.0) g/dl Hct (42.0-52.0) % Abs Immat Gran (auto) (0.00-0.03) X10*3/uL PT (10.0-13.1) SEC INR (0.9-1.1) Potassium (3.3-5.1) mmol/L BUN (9-16) mg/dL Creatinine (0.5-1.4) mg/dL POC Glucose 182 H (60-115) mg/dL Random Glucose (60-115) mg/dL Lactic Acid (0.5-2.0) mmol/L Lactic Acid F/U @ 2Hr (0.5-2.0) mmol/L Calcium (8.4-10.2) mg/dL Total Bilirubin (0.0-1.0) mg/dL Direct Bilirubin (0.0-0.5) mg/dL AST (5-37) U/L Troponin I High Sens (<3.5-35.0) ng/L B-Natriuretic Peptide (<100) pg/mL Short CBC 02/18/22 02/19/22 Range/Units 22:38 07:07 WBC 9.5 8.0 (4.8-10.8) X10*3/uL Hgb 12.3 L 12.3 L (14.0-18.0) g/dl Hct 39.2 L 38.2 L (42.0-52.0) % Plt Count 338 302 (160-400) X10*3/uL BMP 02/18/22 02/19/22 22:38 07:07 Sodium 140 138 Potassium 5.3 H 4.2 D Chloride 106 105 Carbon Dioxide 23 24 BUN 21 H 21 H Creatinine 1.57 H 1.36 Calcium 9.1 8.3 L D Liver Function 02/18/22 Range/Units 22:38 Total Bilirubin 2.1 H (0.0-1.0) mg/dL Direct Bilirubin 1.0 H (0.0-0.5) mg/dL AST 52 H (5-37) U/L ALT 30 (0-40) U/L Alkaline Phosphatase 108 (39-117) U/L Albumin 4.1 (3.5-5.0) g/dL Urine 02/19/22 Range/Units 04:14 Urine Color YELLOW Urine Appearance CLEAR Urine pH 6.0 (5.0-8.0) Ur Specific [place] 1.010 (1.005-1.025) Urine Protein NEG (NEG-TRACE) MG/DL Urine Glucose (UA) NEG (NEG) MG/DL All other labs normal. Imaging Abdomen CT scan report/results: image reviewed CT scan - chest: image reviewed CT scan - pelvis: image reviewed EKG: image reviewed Assessment and Plan (1) Acute cholecystitis: Status: Acute (2) CHF (congestive heart failure): Status: Acute (3) Pneumonia: Status: Acute Plan 56-year-old male patient presenting with a history of multiple medical problems including diabetes, CHF, smoking history with a one-week history of abdominal pain and progressive increased shortness of breath. Workup revealed a large gallstone within the gallbladder with evidence of acute cholecystitis by CT. Ultrasound of the abdomen is pending. Patient was recently admitted for CHF exacerbation appears to have a pneumonia as well. Patient may be high risk for general anesthesia at this time but will almost certainly require a cholecystectomy given the CT findings. Another option if he is unstable for surgery would be a cholecystostomy tube drainage by Interventional Radiology, with interval cholecystectomy once stable. Procedures Date of Service Date of Service: 02/19/22
--- NOTE | 2022-02-19 10:42 | HO.PM.IMPN ---
Subjective Subjective Date of Service: 02/19/22 Interval History: cc: abd pain, sob interval history: no significant changes Cardiovascular Cardiovascular: Reports no additional cardiovascular complaints Respiratory Respiratory: Reports no additional respiratory complaints Physical Exam Vital Signs: Vital Signs: Last Vital Signs Temp 98.1 F 02/19/22 06:00 Pulse 81 02/19/22 07:15 Resp 20 02/19/22 07:15 BP 130/92 H 02/19/22 07:15 Pulse Ox 97 02/19/22 07:15 O2 Del Method 02/19/22 07:15 O2 Flow Rate 2 02/19/22 04:20 BMI result Body Mass Index 26.5 General: AO X 3, dyspneic Resp: Crackles bilateral, mild accessory muscles used CVS: S1,S2,RRR, 1+ edema GI: soft, ruq tender, non distended Neuro: motor grossly intact, alert Psych: appropriate affect, appropriate insight Objective Data Active Medications Acetaminophen (Acetaminophen 325 Mg Tablet) 650 mg PO Q6H PRN PRN Reason: Pain, Mild (Pain Scale 1-3) Dextrose (Dextrose 50 % 25 Gm/50 Ml Syringe) 25 gm IVPUSH Q15M PRN; Protocol PRN Reason: per Hypoglycemia Standing Ord. Docusate Sodium (Docusate Sodium 100 Mg Capsule) 100 mg PO DAILY PRN PRN Reason: Constipation Furosemide (Furosemide 40 Mg/4 Ml Vial) 40 mg IVPUSH BID@0900,1800 [facility]; Protocol Gabapentin (Gabapentin 100 Mg Capsule) 100 mg PO BID [facility] Glucose (Glucose Gel 15 Gm Gel..Gram.) 15 gm PO Q15M PRN; Protocol PRN Reason: per Hypoglycemia Standing Ord. Heparin Sodium (Porcine) (Heparin Sodium,Porcine 5,000 Unit/Ml Vial) 5,000 unit SUBCUT Q12H [facility] Last Admin: 02/19/22 06:35 Dose: 5,000 unit Documented By: N-ANICL Ceftriaxone Sodium 1 gm/ (Sodium Chloride) 50 mls @ 100 mls/hr IV Q24H [facility] Metronidazole (Flagyl) 500 mg in 100 mls @ 100 mls/hr IV Q8H [facility] Last Infusion: 02/19/22 07:14 Dose: 0 mls/hr Documented By: COOPEB Insulin Human Lispro (Insulin Lispro 100 Unit/Ml 3 Ml Vial) 0 unit SUBCUT QIDACHS [facility]; Protocol Last Admin: 02/19/22 07:13 Dose: Not Given Documented By: ISABEL Non-Admin Reason: NPO Ondansetron HCl (Ondansetron Hcl 4 Mg/2 Ml Vial) 4 mg IVPUSH Q8H PRN PRN Reason: Nausea and Vomiting Pharmacy Consult (Consult Rx Perform Med Rec) 1 each MISCELLANE ONCE PRN PRN Reason: Consult order Pharmacy Consult (Consult Rx Perform Med Rec) 1 each MISCELLANE ONCE PRN PRN Reason: Consult order Sodium Chloride (0.9 % Sodium Chloride Flush 3 Ml Syringe) 3 ml IVFLUSH [facility] Last Admin: 02/19/22 07:15 Dose: 3 ml Documented By: ISABEL Labs CBC & Chem 7: 02/19/22 07:07 02/19/22 07:07 Labs: Laboratory Results - last 24 hr 02/18/22 02/18/22 02/18/22 22:36 22:38 22:38 MCV 91.0 MCH 28.5 MCHC 31.4 RDW 14.4 Plt Count 338 MPV 10.3 Immature Gran % (Auto) 0.4 Neut % (Auto) 69.5 Lymph % (Auto) 20.4 [place] % (Auto) 7.2 Eos % (Auto) 2.0 Baso % (Auto) 0.5 Lymph # (Auto) 1.9 [place] # (Auto) 0.7 Eos # (Auto) 0.2 Baso # (Auto) 0.1 Abs Immat Gran (auto) 0.04 H Absolute Neuts (auto) 6.6 Absolute Nucleated RBC 0.000 Nucleated RBC % (auto) 0.0 PT 22.5 H INR 1.9 H D-Dimer High Sensitivty 292 Anion Gap Estim Creat Clear Calc Estimated GFR POC Glucose Random Glucose Lactic Acid Lactic Acid F/U @ 2Hr Lactic Acid F/U @ 4Hr Calcium Magnesium Total Bilirubin Direct Bilirubin AST ALT Alkaline Phosphatase Troponin I High Sens B-Natriuretic Peptide Total Protein Albumin Urine Color Urine Appearance Urine pH Ur Specific [place] Urine Protein Urine Glucose (UA) Urine Ketones Urine Blood Urine Nitrite Ur Leukocyte Esterase Urine RBC Urine WBC Ur Squamous Epith Cells Urine Bacteria COVID-19 (BERONICA) Negative COVID-19 Clin Com See Note 02/18/22 02/18/22 02/18/22 22:38 22:38 22:38 MCV MCH MCHC RDW Plt Count MPV Immature Gran % (Auto) Neut % (Auto) Lymph % (Auto) [place] % (Auto) Eos % (Auto) Baso % (Auto) Lymph # (Auto) [place] # (Auto) Eos # (Auto) Baso # (Auto) Abs Immat Gran (auto) Absolute Neuts (auto) Absolute Nucleated RBC Nucleated RBC % (auto) PT INR D-Dimer High Sensitivty Anion Gap 16 Estim Creat Clear Calc 47.4 Estimated GFR 46 POC Glucose Random Glucose 194 H Lactic Acid 3.0 H* Lactic Acid F/U @ 2Hr Lactic Acid F/U @ 4Hr Calcium 9.1 Magnesium Total Bilirubin 2.1 H Direct Bilirubin 1.0 H AST 52 H ALT 30 Alkaline Phosphatase 108 Troponin I High Sens 46.3 H B-Natriuretic Peptide 2874 H Total Protein 7.4 Albumin 4.1 Urine Color Urine Appearance Urine pH Ur Specific [place] Urine Protein Urine Glucose (UA) Urine Ketones Urine Blood Urine Nitrite Ur Leukocyte Esterase Urine RBC Urine WBC Ur Squamous Epith Cells Urine Bacteria COVID-19 (BERONICA) COVID-[place] 02/19/22 02/19/22 02/19/22 00:20 00:57 04:14 MCV MCH MCHC RDW Plt Count MPV Immature Gran % (Auto) Neut % (Auto) Lymph % (Auto) [place] % (Auto) Eos % (Auto) Baso % (Auto) Lymph # (Auto) [place] # (Auto) Eos # (Auto) Baso # (Auto) Abs Immat Gran (auto) Absolute Neuts (auto) Absolute Nucleated RBC Nucleated RBC % (auto) PT INR D-Dimer High Sensitivty Anion Gap Estim Creat Clear Calc Estimated GFR POC Glucose Random Glucose Lactic Acid Lactic Acid F/U @ 2Hr 3.2 H* Lactic Acid F/U @ 4Hr Calcium Magnesium Total Bilirubin Direct Bilirubin AST ALT Alkaline Phosphatase Troponin I High Sens 42.6 H B-Natriuretic Peptide Total Protein Albumin Urine Color YELLOW Urine Appearance CLEAR Urine pH 6.0 Ur Specific [place] 1.010 Urine Protein NEG Urine Glucose (UA) NEG Urine Ketones NEG Urine Blood NEG Urine Nitrite NEG Ur Leukocyte Esterase NEG Urine RBC 0 Urine WBC 0 Ur Squamous Epith Cells NONE Urine Bacteria NONE COVID-19 (BERONICA) COVID-19 [employer] 02/19/22 02/19/22 02/19/22 04:19 07:07 07:07 MCV 89.9 MCH 28.9 MCHC 32.2 RDW 14.5 Plt Count 302 MPV 9.9 Immature Gran % (Auto) 0.4 Neut % (Auto) 67.0 Lymph % (Auto) 20.1 [place] % (Auto) 8.8 Eos % (Auto) 3.1 Baso % (Auto) 0.6 Lymph # (Auto) 1.6 [place] # (Auto) 0.7 Eos # (Auto) 0.3 Baso # (Auto) 0.1 Abs Immat Gran (auto) 0.03 Absolute Neuts (auto) 5.4 Absolute Nucleated RBC 0.000 Nucleated RBC % (auto) 0.0 PT INR D-Dimer High Sensitivty Anion Gap 13 Estim Creat Clear Calc 54.7 Estimated GFR 54 POC Glucose Random Glucose 187 H Lactic Acid Lactic Acid F/U @ 2Hr Lactic Acid F/U @ 4Hr 1.3 Calcium 8.3 L D Magnesium 1.7 Total Bilirubin Direct Bilirubin AST ALT Alkaline Phosphatase Troponin I High Sens B-Natriuretic Peptide Total Protein Albumin Urine Color Urine Appearance Urine pH Ur Specific [place] Urine Protein Urine Glucose (UA) Urine Ketones Urine Blood Urine Nitrite Ur Leukocyte Esterase Urine RBC Urine WBC Ur Squamous Epith Cells Urine Bacteria COVID-19 (BERONICA) COVID-19 Clin Com 02/19/22 07:11 MCV MCH MCHC RDW Plt Count MPV Immature Gran % (Auto) Neut % (Auto) Lymph % (Auto) [place] % (Auto) Eos % (Auto) Baso % (Auto) Lymph # (Auto) [place] # (Auto) Eos # (Auto) Baso # (Auto) Abs Immat Gran (auto) Absolute Neuts (auto) Absolute Nucleated RBC Nucleated RBC % (auto) PT INR D-Dimer High Sensitivty Anion Gap Estim Creat Clear Calc Estimated GFR POC Glucose 182 H Random Glucose Lactic Acid Lactic Acid F/U @ 2Hr Lactic Acid F/U @ 4Hr Calcium Magnesium Total Bilirubin Direct Bilirubin AST ALT Alkaline Phosphatase Troponin I High Sens B-Natriuretic Peptide Total Protein Albumin Urine Color Urine Appearance Urine pH Ur Specific [place] Urine Protein Urine Glucose (UA) Urine Ketones Urine Blood Urine Nitrite Ur Leukocyte Esterase Urine RBC Urine WBC Ur Squamous Epith Cells Urine Bacteria COVID-19 (BERONICA) COVID-19 Clin Com Assessment and Plan (1) Acute exacerbation of CHF (congestive heart failure): Status: Acute Plan 56M presented with sob and abd pain acute on chronic chf (suspect ischemic cardiomyopathy with reduced EF) IV lasix, follow up echo cardio following abd pain due to acute cholecystitis continue rocephin, flagyl follow up abd US monitor lfts history of pulmonary embolism holding eliquis for possible surgical intervention DM insulin medrec pending dvt prophylaxis - hep sq full code reason for continued hospitalization: iv diuresis Quality Stroke Does the patient have a stroke diagnosis?: No VTE Prior VTE?: No VTE Risk Level:: Medical - moderate - high VTE Device Contraindication: Treatment Not Indicated VTE Drug Contraindication: N/A - Med Ordered
--- NOTE | 2022-02-19 10:45 | PM.CNCAR ---
History of Present Illness History of Present Illness Date of Service: 02/19/22 Chief complaint: Acute CHF Choleysititis Narrative: This is a cardiology consultation regarding congestive heart failure. Patient is admitted to the hospital with bilateral leg pain. Additionally, has some shortness of breath as well as nonproductive cough. Described to have orthopnea and PND. Patient herself is somewhat vague with his symptoms. He states that he has cardiac issues but not able to describe them. He additionally states that he used to be in [place] where he has seen harness fitter and probably has had stents but again history is very nonspecific. He thinks he might have congestive heart failure to. As above, admitted for shortness of breath and generalized weakness. According to H and P, he has been moving between different states and has been admitted from hospital to hospital, does not know his medications and possibly noncompliant as well. Review of Systems Review of Systems: Yes all other systems are reviewed and are negative Constitutional: Constitutional: Reports as per HPI Eyes: Eyes: Reports as per HPI ENT: Reports as per HPI Cardiovascular: Cardiovascular: Reports as per HPI, Denies acrocyanosis, Denies cool extremities, Denies chest pain, Denies leg edema, Denies lightheadedness, Denies palpitations and Reports dyspnea Respiratory: Respiratory: Reports as per HPI, Reports no additional respiratory complaints and Reports dyspnea Gastrointestinal: Gastrointestinal: Reports as per HPI and Reports no additional gastrointestinal complaints Genitourinary: Genitourinary: Reports no additional male genitourinary complaints and Reports as per HPI Musculoskeletal: Musculoskeletal: Reports no additional musculoskeletal complaints (leg pain) and Reports as per HPI Integumentary/Breasts: Skin/Breast: Reports system reviewed and no additional complaints, except as docu Neurologic: Reports system reviewed and no additional complaints, except as documented and Reports as per HPI Psychiatric: Psychiatric: Reports no additional psychiatric complaints and Reports as per HPI Endocrine: Endocrine: Reports no additional endocrine complaints, Reports as per HPI and Denies palpitations Hematologic/Lymphatic: Hematologic/Lymphatic: Reports no additional hematologic/lymphatic complaints and Reports as per HPI Allergic/Immunologic: Allergic/Immunologic: Reports no additional allergic/immunologic complaints and Reports as per HPI [facility] Past Medical History Medical History (Updated 02/19/22 @ 08:14 by Gato Cueva MD) CAD (coronary artery disease) CHF (congestive heart failure) Diabetes HLD (hyperlipidemia) Hypertension Pulmonary embolism PVD (peripheral vascular disease) Family History Family History (Updated 02/19/22 @ 06:29 by Irvin Han MD) Other No family history of coronary artery disease Pertinent family history: Patient is not very clear about his family history and does not know much. Surgical History Surgical History (Updated 02/19/22 @ 06:29 by Irvin Han MD) History of angioplasty of peripheral vessel History of heart artery stent Social History Social History (Updated 02/19/22 @ 10:49 by Montez Trimble MD) Alcohol intake: former Patient Tobacco Use Status: Current everyday Tobacco user Meds Allergies Allergy/AdvReac Type Severity Reaction Status Date / Time No Known Allergies Allergy Verified 02/18/22 18:09 Active Medications: Current Medications Acetaminophen (Acetaminophen 325 Mg Tablet) 650 mg PO Q6H PRN PRN Reason: Pain, Mild (Pain Scale 1-3) Dextrose (Dextrose 50 % 25 Gm/50 Ml Syringe) 25 gm IVPUSH Q15M PRN; Protocol PRN Reason: per Hypoglycemia Standing Ord. Docusate Sodium (Docusate Sodium 100 Mg Capsule) 100 mg PO DAILY PRN PRN Reason: Constipation Furosemide (Furosemide 40 Mg/4 Ml Vial) 40 mg IVPUSH BID@0900,1800 [facility]; Protocol Gabapentin (Gabapentin 100 Mg Capsule) 100 mg PO BID [facility] Glucose (Glucose Gel 15 Gm Gel..Gram.) 15 gm PO Q15M PRN; Protocol PRN Reason: per Hypoglycemia Standing Ord. Heparin Sodium (Porcine) (Heparin Sodium,Porcine 5,000 Unit/Ml Vial) 5,000 unit SUBCUT Q12H [facility] Last Admin: 02/19/22 06:35 Dose: 5,000 unit Ceftriaxone Sodium 1 gm/ (Sodium Chloride) 50 mls @ 100 mls/hr IV Q24H [facility] Metronidazole (Flagyl) 500 mg in 100 mls @ 100 mls/hr IV Q8H [facility] Last Infusion: 02/19/22 07:14 Dose: Infused Insulin Human Lispro (Insulin Lispro 100 Unit/Ml 3 Ml Vial) 0 unit SUBCUT QIDACHS [facility]; Protocol Last Admin: 02/19/22 07:13 Dose: Not Given Ondansetron HCl (Ondansetron Hcl 4 Mg/2 Ml Vial) 4 mg IVPUSH Q8H PRN PRN Reason: Nausea and Vomiting Pharmacy Consult (Consult Rx Perform Med Rec) 1 each MISCELLANE ONCE PRN PRN Reason: Consult order Pharmacy Consult (Consult Rx Perform Med Rec) 1 each MISCELLANE ONCE PRN PRN Reason: Consult order Sodium Chloride (0.9 % Sodium Chloride Flush 3 Ml Syringe) 3 ml IVFLUSH QSHIFT [facility] Last Admin: 02/19/22 07:15 Dose: 3 ml Home Medications Medication Instructions Recorded Confirmed Last Taken Type apixaban 2.5 mg tablet (Eliquis) 1 tab PO BID 02/19/22 02/19/22 Unknown History aspirin 81 mg chewable tablet 1 tab PO DAILY 02/19/22 02/19/22 Unknown History atorvastatin 80 mg tablet 1 tab PO DAILY 02/19/22 Unknown History carvedilol 25 mg tablet 1 tab PO DAILY 02/19/22 02/19/22 Unknown History doxepin 25 mg capsule 1 cap PO BEDTIME 02/19/22 02/19/22 Unknown History furosemide 40 mg tablet 1 tab PO BID 02/19/22 02/19/22 Unknown History insulin detemir U-100 100 unit/mL 45 unit subcut DAILY 02/19/22 02/19/22 Unknown History (3 mL) subcutaneous pen (Levemir FlexTouch U-100 Insulin) nitroglycerin 0.4 mg sublingual 1 tab sublingual USEASDIRECTD 02/19/22 02/19/22 Unknown History tablet olmesartan 20 mg tablet 1 tab PO DAILY 02/19/22 02/19/22 Unknown History semaglutide 1 mg/dose (4 mg/3 mL) 1 mg subcut QWEEK 02/19/22 02/19/22 Unknown History subcutaneous pen injector (Ozempic) sitagliptin 50 mg-metformin ER 500 1 tab PO QPM 02/19/22 02/19/22 Unknown History mg tablet,extended release 24h mp (Janumet XR) Physical Exam Vital Signs: Vital Signs: Last Vital Signs Temp 98.1 F 02/19/22 06:00 Pulse 81 02/19/22 07:15 Resp 20 02/19/22 07:15 BP 130/92 H 02/19/22 07:15 Pulse Ox 97 02/19/22 07:15 O2 Del Method 02/19/22 07:15 O2 Flow Rate 2 02/19/22 04:20 BMI result Body Mass Index 26.5 Const: General: cooperative, comfortable, no acute distress, alert, awake, ill appearing, poor hygiene and tired appearing Orientation/consciousness: patient oriented x3 HEENT: Other: Unremarkable Head: Yes normal to inspection Neck: Neck: Yes normal visual inspection Chest: Chest palpation & inspection: normal inspection of the chest Resp: Auscultation: rhonchi Cardio: Palpation: normal PMI Heart sounds: S1 normal heart sound present, S2 normal heart sound present, no gallops, no murmurs and no rubs GI: Palpation (GI): Soft to palpation Back/Spine/Pelvis: Other: unremarkable Skin: General skin exam: no rashes or lesions noted Neuro: General: patient oriented x3 Extrem: Other: Trace edema General: Yes normal to inspection Psych: Mental Status: mental status grossly normal Objective Labs and Meds Result diagrams: 02/19/22 07:07 02/19/22 07:07 Lab results: Laboratory Results - last 24 hr 02/18/22 02/18/22 02/18/22 22:36 22:38 22:38 WBC 9.5 RBC 4.31 L Hgb 12.3 L Hct 39.2 L MCV 91.0 MCH 28.5 MCHC 31.4 RDW 14.4 Plt Count 338 MPV 10.3 Immature Gran % (Auto) 0.4 Neut % (Auto) 69.5 Lymph % (Auto) 20.4 [place] % (Auto) 7.2 Eos % (Auto) 2.0 Baso % (Auto) 0.5 Lymph # (Auto) 1.9 [place] # (Auto) 0.7 Eos # (Auto) 0.2 Baso # (Auto) 0.1 Abs Immat Gran (auto) 0.04 H Absolute Neuts (auto) 6.6 Absolute Nucleated RBC 0.000 Nucleated RBC % (auto) 0.0 PT 22.5 H INR 1.9 H D-Dimer High Sensitivty 292 Sodium Potassium Chloride Carbon Dioxide Anion Gap BUN Creatinine Estim Creat Clear Calc Estimated GFR POC Glucose Random Glucose Lactic Acid Lactic Acid F/U @ 2Hr Lactic Acid F/U @ 4Hr Calcium Magnesium Total Bilirubin Direct Bilirubin AST ALT Alkaline Phosphatase Troponin I High Sens B-Natriuretic Peptide Total Protein Albumin Urine Color Urine Appearance Urine pH Ur Specific [place] Urine Protein Urine Glucose (UA) Urine Ketones Urine Blood Urine Nitrite Ur Leukocyte Esterase Urine RBC Urine WBC Ur Squamous Epith Cells Urine Bacteria COVID-19 (BEORNICA) Negative COVID-19 Clin Com See Note 02/18/22 02/18/22 02/18/22 22:38 22:38 22:38 WBC RBC Hgb Hct MCV MCH MCHC RDW Plt Count MPV Immature Gran % (Auto) Neut % (Auto) Lymph % (Auto) [place] % (Auto) Eos % (Auto) Baso % (Auto) Lymph # (Auto) [place] # (Auto) Eos # (Auto) Baso # (Auto) Abs Immat Gran (auto) Absolute Neuts (auto) Absolute Nucleated RBC Nucleated RBC % (auto) PT INR D-Dimer High Sensitivty Sodium 140 Potassium 5.3 H Chloride 106 Carbon Dioxide 23 Anion Gap 16 BUN 21 H Creatinine 1.57 H Estim Creat Clear Calc 47.4 Estimated GFR 46 POC Glucose Random Glucose 194 H Lactic Acid 3.0 H* Lactic Acid F/U @ 2Hr Lactic Acid F/U @ 4Hr Calcium 9.1 Magnesium Total Bilirubin 2.1 H Direct Bilirubin 1.0 H AST 52 H ALT 30 Alkaline Phosphatase 108 Troponin I High Sens 46.3 H B-Natriuretic Peptide 2874 H Total Protein 7.4 Albumin 4.1 Urine Color Urine Appearance Urine pH Ur Specific [place] Urine Protein Urine Glucose (UA) Urine Ketones Urine Blood Urine Nitrite Ur Leukocyte Esterase Urine RBC Urine WBC Ur Squamous Epith Cells Urine Bacteria COVID-19 (BERONICA) COVID-19 Clin Com 02/19/22 02/19/22 02/19/22 00:20 00:57 04:14 WBC RBC Hgb Hct MCV MCH MCHC RDW Plt Count MPV Immature Gran % (Auto) Neut % (Auto) Lymph % (Auto) [place] % (Auto) Eos % (Auto) Baso % (Auto) Lymph # (Auto) [place] # (Auto) Eos # (Auto) Baso # (Auto) Abs Immat Gran (auto) Absolute Neuts (auto) Absolute Nucleated RBC Nucleated RBC % (auto) PT INR D-Dimer High Sensitivty Sodium Potassium Chloride Carbon Dioxide Anion Gap BUN Creatinine Estim Creat Clear Calc Estimated GFR POC Glucose Random Glucose Lactic Acid Lactic Acid F/U @ 2Hr 3.2 H* Lactic Acid F/U @ 4Hr Calcium Magnesium Total Bilirubin Direct Bilirubin AST ALT Alkaline Phosphatase Troponin I High Sens 42.6 H B-Natriuretic Peptide Total Protein Albumin Urine Color YELLOW Urine Appearance CLEAR Urine pH 6.0 Ur Specific [place] 1.010 Urine Protein NEG Urine Glucose (UA) NEG Urine Ketones NEG Urine Blood NEG Urine Nitrite NEG Ur Leukocyte Esterase NEG Urine RBC 0 Urine WBC 0 Ur Squamous Epith Cells NONE Urine Bacteria NONE COVID-19 ([facility]ONICA) COVID-19 Clin Com 02/19/22 02/19/22 02/19/22 04:19 07:07 07:07 WBC 8.0 RBC 4.25 L Hgb 12.3 L Hct 38.2 L MCV 89.9 MCH 28.9 MCHC 32.2 RDW 14.5 Plt Count 302 MPV 9.9 Immature Gran % (Auto) 0.4 Neut % (Auto) 67.0 Lymph % (Auto) 20.1 [place] % (Auto) 8.8 Eos % (Auto) 3.1 Baso % (Auto) 0.6 Lymph # (Auto) 1.6 [place] # (Auto) 0.7 Eos # (Auto) 0.3 Baso # (Auto) 0.1 Abs Immat Gran (auto) 0.03 Absolute Neuts (auto) 5.4 Absolute Nucleated RBC 0.000 Nucleated RBC % (auto) 0.0 PT INR D-Dimer High Sensitivty Sodium 138 Potassium 4.2 D Chloride 105 Carbon Dioxide 24 Anion Gap 13 BUN 21 H Creatinine 1.36 Estim Creat Clear Calc 54.7 Estimated GFR 54 POC Glucose Random Glucose 187 H Lactic Acid Lactic Acid F/U @ 2Hr Lactic Acid F/U @ 4Hr 1.3 Calcium 8.3 L D Magnesium 1.7 Total Bilirubin Direct Bilirubin AST ALT Alkaline Phosphatase Troponin I High Sens B-Natriuretic Peptide Total Protein Albumin Urine Color Urine Appearance Urine pH Ur Specific [place] Urine Protein Urine Glucose (UA) Urine Ketones Urine Blood Urine Nitrite Ur Leukocyte Esterase Urine RBC Urine WBC Ur Squamous Epith Cells Urine Bacteria COVID-19 ([facility]ONICA) COVID-19 Clin Com 02/19/22 07:11 WBC RBC Hgb Hct MCV MCH MCHC RDW Plt Count MPV Immature Gran % (Auto) Neut % (Auto) Lymph % (Auto) [place] % (Auto) Eos % (Auto) Baso % (Auto) Lymph # (Auto) [place] # (Auto) Eos # (Auto) Baso # (Auto) Abs Immat Gran (auto) Absolute Neuts (auto) Absolute Nucleated RBC Nucleated RBC % (auto) PT INR D-Dimer High Sensitivty Sodium Potassium Chloride Carbon Dioxide Anion Gap BUN Creatinine Estim Creat Clear Calc Estimated GFR POC Glucose 182 H Random Glucose Lactic Acid Lactic Acid F/U @ 2Hr Lactic Acid F/U @ 4Hr Calcium Magnesium Total Bilirubin Direct Bilirubin AST ALT Alkaline Phosphatase Troponin I High Sens B-Natriuretic Peptide Total Protein Albumin Urine Color Urine Appearance Urine pH Ur Specific [place] Urine Protein Urine Glucose (UA) Urine Ketones Urine Blood Urine Nitrite Ur Leukocyte Esterase Urine RBC Urine WBC Ur Squamous Epith Cells Urine Bacteria COVID-19 (BERONICA) COVID-19 Clin Com ECG Interpretation: EKG with sinus rhythm at 90/Min; left ventricular hypertrophy; left atrial enlargement and nonspecific ST-T changes. Imaging Radiologist's impression: Impressions Chest X-Ray 02/18/22 18:30 IMPRESSION: Cardiomegaly. Small area of infiltrate right lung base. Unfortunately, no prior radiographs are available for comparison. Venous Duplex 02/19/22 01:15 IMPRESSION: No DVT demonstrated in the bilateral lower extremities. Chest CTA 02/19/22 01:58 IMPRESSION: 1. No pulmonary embolism. 2. Moderate emphysema. Mild interlobular septal thickening and bronchial wall thickening could be associated with fluid overload. Right lower lobe opacity favors atelectasis, though pneumonia is possible. 3. Prominent mediastinal lymph nodes, likely reactive. 4. Cholelithiasis. Associated inflammation around the gallbladder. This may represent acute cholecystitis. Consider ultrasound evaluation. 5. Enlarged heart. Reflux of contrast into the IVC and hepatic veins, suggesting elevated right heart pressures. 6 . Indeterminant right adrenal gland nodule. Suggest nonemergent adrenal protocol CT evaluation. VTE: negative Abdomen/Pelvis CT 02/19/22 02:01 IMPRESSION: 1. No pulmonary embolism. 2. Moderate emphysema. Mild interlobular septal thickening and bronchial wall thickening could be associated with fluid overload. Right lower lobe opacity favors atelectasis, though pneumonia is possible. 3. Prominent mediastinal lymph nodes, likely reactive. 4. Cholelithiasis. Associated inflammation around the gallbladder. This may represent acute cholecystitis. Consider ultrasound evaluation. 5. Enlarged heart. Reflux of contrast into the IVC and hepatic veins, suggesting elevated right heart pressures. 6 . Indeterminant right adrenal gland nodule. Suggest nonemergent adrenal protocol CT evaluation. VTE: negative Abdomen Ultrasound 02/19/22 08:34 IMPRESSION: 1. Cholelithiasis. Gallbladder wall and pericolonic changes are less pronounced compared to the CT scan and could represent chronic changes due to the presence of the larger gallstone. Mild acute cholecystitis cannot be excluded. Correlate clinically. 2. Nonobstructing right intrarenal calculus and small renal cysts demonstrate benign features. Assessment and Plan (1) Acute exacerbation of CHF (congestive heart failure): Status: Acute Plan Cardiac BNP is quite abnormal at 2874. High sensitivity troponins are [address] chest reported to have moderate emphysema, possible fluid overload; enlarged heart; possible elevated right heart pressures. Possible cholecystitis. At this time, we can treat him for presumed congestive heart failure based on high cardiac BNP as well as CT scan findings. We can diurese him as you are currently doing. If able, can contact his previous physicians and obtain available cardiac information. Echocardiogram tomorrow. Will follow up with you. Discussed . Procedures Date of Service Date of Service: 02/19/22
--- NOTE | 2022-02-19 10:50 | PHA.MEDREC ---
Pharmacy Consult ? Medication Reconciliation Pharmacy has completed the medication reconciliation. Patient reports taking his medication, but hasnt filled (anything except atorvastatin) since october, confirmed fill history with pharmacy
[2022-02-19 11:53] LABS: Glucose, Whole Blood 164 mg/dL (60-115)
[2022-02-19] MEDS: Gabapentin 100 MG CAPSULE PO ×2 (12:11→20:45)
[2022-02-19] MEDS: Insulin Lispro 100 UNIT/ML 3 ML VIAL SUBCUT (12:11)
[2022-02-19] MEDS: Acetaminophen 325 MG TABLET 650 MG PO (14:45)
[2022-02-19] MEDS: Docusate Sodium 100 MG CAPSULE PO (14:46)
[2022-02-19 16:07] LABS: Glucose, Whole Blood 128 mg/dL (60-115)
--- NOTE | 2022-02-19 16:15 | MHC.CM.PN ---
Addendum entered by Bushra Pinto 02/20/22 08:22: PER VANTAGE OF JERRY HOLLAND, PTS [employer] INSURANCE IS NO LONGER ACTIVE. SNF CURRENTLY RUNNING HIS MEDICARE TO DETERMINE STR ELIGIBILITY Original Note: PT REPORTS HE MOVED HERE TO LIVE WITH HIS MOTHER IN OCTOBER HE REPORTS HE WAS IN THE HOSPITAL IN [place] AND THEY WOULD NOT DISCHARGE HIM UNLESS HE MOVED CLOSER TO FAMILY. HE REPORTS THEY WERE TRYING TO PLACE HIM FROM THE HOSPITAL IN [place], BUT THERE WAS HEROIN IN HIS SYSTEM. HE REPORTS HE DOES NOT KNOW HOW THAT GOT THERE BECAUSE HE DOES NOT USE THOSE DRUGS. HE REPORTS HE IS CURRENTLY USING A [facility] TO AMBULATE BUT HAS TO STOP FREQUENTLY FOR BREAKS. HE DOES NOT HAVE HOME SERVICES. HE REPORTS HE DID HAVE THEM IN [place] WELL INSURANCE COVERED RIDES TO [employer], HE IS NOW AWARE HE WILL NEED TO APPLY FOR [employer] FOR SIMILAR COVERAGE. A REFERR[place] S[place] [facility] [place] REPORTS HE WOULD LIKE TO GO TO A SNF FROM HERE, OR A RETIREMENT. CM INFORMED HIM A RETIREMENT WOULD NOT BE AN OPTION AND THAT HE WOULD NOT BE ABLE TO FIND ALTERNATE HOUSING WHILE HERE, BUT HE MAY BE ABLE TO GO TO [facility]. A BROAD REFERRAL WAS MADE. PT REPORTS HE IS COVID VACCINATED BUT DOES NOT REMEMBER THE BRAND OR DATES AND GOT THEM IN [place]. PT DOES HAVE A PCP: [facility]. IMM DELIVERED CURRENT DC PLAN IS TBD PENDING PT FIONA. STR VS RETURN TO MOTHERS HOME TRANSPORT TBD BY DISPO
[2022-02-19 20:39] LABS: Glucose, Whole Blood 184 mg/dL (60-115)
[2022-02-19] MEDS: Doxepin HCl 25 MG CAPSULE PO (20:45)
[2022-02-20] MEDS: cefTRIAXone sodium 1 GM in 0.9 % Sodium Chloride 50 ML IV (02:08)
[2022-02-20 03:28] VITALS: BP 140/89; PULSE 87; RESP 18; TEMP 37.1; O2SAT 98
[2022-02-20] MEDS: Heparin Sodium,Porcine 5,000 UNIT/ML VIAL 5000 UNIT SUBCUT (05:21)
[2022-02-20] MEDS: metroNIDAZOLE/NS 500 MG/100 ML PIGGYBACK 100 MG IV ×3 (05:21→22:06)
[2022-02-20 07:23] VITALS: BP 125/69; PULSE 78; RESP 20; TEMP 36.9; O2SAT 93
[2022-02-20 07:25] LABS: Hematocrit 40.9 % (42.0-52.0); Hemoglobin 12.9 g/dl (14.0-18.0); Mean Corpuscular HGB Conc 31.5 g/dl (31.0-36.0); Mean Corpuscular Hemoglobin 28.6 pg (27.0-33.0); Mean Corpuscular Volume 90.7 fL (80.0-98.0); Mean Platelet Volume 10.5 fL (9.4-12.4); Platelet Count 297 X10*3/uL (160-400); Red Blood Count 4.51 X10*6/uL (4.60-5.80); Red Cell Distribution Width 14.3 % (11.0-16.0); White Blood Count 8.3 X10*3/uL (4.8-10.8)
[2022-02-20 07:32] LABS: Glucose, Whole Blood 159 mg/dL (60-115)
[2022-02-20 07:40] LABS: Alanine Aminotransferase 25 U/L (0-40); Albumin Level 3.6 g/dL (3.5-5.0); Alkaline Phosphatase 99 U/L (39-117); Anion Gap 16 (12-20); Aspartate Amino Transferase 33 U/L (5-37); Bilirubin Direct 0.6 mg/dL (0.0-0.5); Bilirubin Total 1.2 mg/dL (0.0-1.0); Blood Urea Nitrogen 27 mg/dL (9-16); Calcium 8.7 mg/dL (8.4-10.2); Carbon Dioxide 28 mmol/L (22-29); Chloride 103 mmol/L (96-108); Creatinine Clr Calc Pharmacy 50.6; Estimated Glomerular Filt Rate 50; Glucose Fasting 149 mg/dL (60-99); Magnesium 1.8 mg/dL (1.6-2.6); Potassium 3.8 mmol/L (3.3-5.1); Sodium 143 mmol/L (135-145); Total Protein 6.8 g/dL (6.5-8.0)
[2022-02-20] MEDS: Insulin Lispro 100 UNIT/ML 3 ML VIAL SUBCUT ×3 (07:52→22:07)
[2022-02-20] MEDS: carvediloL 25 MG TABLET PO (07:52)
[2022-02-20] MEDS: Furosemide 40 MG/4 ML VIAL IVPUSH ×2 (07:52→18:50)
[2022-02-20] MEDS: Gabapentin 100 MG CAPSULE PO ×2 (07:53→22:06)
[2022-02-20] MEDS: Aspirin 81 MG TAB.CHEW PO (07:53)
[2022-02-20] MEDS: 0.9 % Sodium Chloride Flush 3 ML SYRINGE IVFLUSH ×3 (08:01→22:07)
--- NOTE | 2022-02-20 08:46 | P.PNIM_ITS ---
Subjective Subjective Date of Service: 02/20/22 Interval History: cc: follow-up on cholecystitis, heart failure. interval history: Some abdominal pain, mild shortness of breath. Review of Systems Abdominal pain, shortness of breath, no fever Physical Exam Vital Signs: Vital Signs: Last Vital Signs Temp 98.4 F 02/20/22 07:23 Pulse 78 02/20/22 07:23 Resp 20 02/20/22 07:23 BP 125/69 02/20/22 07:23 Pulse Ox 93 02/20/22 07:23 O2 Del Method 02/20/22 07:23 O2 Flow Rate 2.5 02/19/22 11:52 BMI result Body Mass Index 26.5 Const: Other: General: AO X 3, no acute distress Resp: Clear, no rales CVS: S1,S2,RRR GI: +BS, mild RUQ tenderness, no distention Skin: No rash Neuro: motor grossly intact Psych: appropriate affect Objective Data Active Medications Acetaminophen (Acetaminophen 325 Mg Tablet) 650 mg PO Q6H PRN PRN Reason: Pain, Mild (Pain Scale 1-3) Last Admin: 02/19/22 14:45 Dose: 650 mg Documented By: JONATHAN Aspirin (Aspirin 81 Mg Tab.Chew) 81 mg PO DAILY COUNT INCLUDES [facility] Last Admin: 02/20/22 07:53 Dose: 81 mg Documented By: MARIANNA Atorvastatin Calcium (Atorvastatin Calcium 80 Mg Tablet) 80 mg PO BEDTIME LOUISA Carvedilol (Carvedilol 25 Mg Tablet) 25 mg PO DAILY COUNT INCLUDES THE [facility]; Protocol Last Admin: 02/20/22 07:52 Dose: 25 mg Documented By: MARIANNA Dextrose (Dextrose 50 % 25 Gm/50 Ml Syringe) 25 gm IVPUSH Q15M PRN; Protocol PRN Reason: per Hypoglycemia Standing Ord. Docusate Sodium (Docusate Sodium 100 Mg Capsule) 100 mg PO DAILY PRN PRN Reason: Constipation Last Admin: 02/19/22 14:46 Dose: 100 mg Documented By: JONATHAN Doxepin HCl (Doxepin Hcl 25 Mg Capsule) 25 mg PO BEDTIME COUNT INCLUDES THE [facility] Last Admin: 02/19/22 20:45 Dose: 25 mg Documented By: ISABELA Furosemide (Furosemide 40 Mg/4 Ml Vial) 40 mg IVPUSH BID@0900,1800 COUNT INCLUDES THE [facility]; Pro tocol Last Admin: 02/20/22 07:52 Dose: 40 mg Documented By: MARIANNA Gabapentin (Gabapentin 100 Mg Capsule) 100 mg PO BID COUNT INCLUDES THE [facility] Last Admin: 02/20/22 07:53 Dose: 100 mg Documented By: MARIANNA Glucose (Glucose Gel 15 Gm Gel..Gram.) 15 gm PO Q15M PRN; Protocol PRN Reason: per Hypoglycemia Standing Ord. Heparin Sodium (Porcine) (Heparin Sodium,Porcine 5,000 Unit/Ml Vial) 5,000 unit SUBCUT Q12H COUNT INCLUDES THE [facility] Last Admin: 02/20/22 05:21 Dose: 5,000 unit Documented By: ISABELA Ceftriaxone Sodium 1 gm/ (Sodium Chloride) 50 mls @ 100 mls/hr IV Q24H COUNT INCLUDES THE [facility] Last Infusion: 02/20/22 02:39 Dose: 0 mls/hr Documented By: ISABELA Metronidazole (Flagyl) 500 mg in 100 mls @ 100 mls/hr IV Q8H COUNT INCLUDES THE [facility] Last Infusion: 02/20/22 06:22 Dose: 0 mls/hr Documented By: ISABELA Insulin Human Lispro (Insulin Lispro 100 Unit/Ml 3 Ml Vial) 0 unit SUBCUT QIDACHS COUNT INCLUDES THE [facility]; Protocol Last Admin: 02/20/22 07:52 Dose: 2 unit Documented By: MARIANNA Ondansetron HCl (Ondansetron Hcl 4 Mg/2 Ml Vial) 4 mg IVPUSH Q8H PRN PRN Reason: Nausea and Vomiting Pharmacy Consult (Consult Rx Perform Med Rec) 1 each MISCELLANE ONCE PRN PRN Reason: Consult order Pharmacy Consult (Consult Rx Perform Med Rec) 1 each MISCELLANE ONCE PRN PRN Reason: Consult order Sodium Chloride (0.9 % Sodium Chloride Flush 3 Ml Syringe) 3 ml IVFLUSH QSHIFT COUNT INCLUDES THE [facility] Last Admin: 02/20/22 08:01 Dose: 3 ml Documented By: MARIANNA Labs CBC & Chem 7: 02/20/22 06:38 02/20/22 06:38 Labs: Laboratory Results - last 24 hr 02/19/22 02/19/22 02/19/22 11:50 15:54 20:33 MCV MCH MCHC RDW Plt Count MPV Absolute Nucleated RBC Nucleated RBC % (auto) Anion Gap Estim Creat Clear Calc Estimated GFR POC Glucose 164 H 128 H 184 H Fasting Glucose Calcium Magnesium Total Bilirubin Direct Bilirubin AST ALT Alkaline Phosphatase Total Protein Albumin 02/20/22 02/20/22 02/20/22 06:38 06:38 07:25 MCV 90.7 MCH 28.6 MCHC 31.5 RDW 14.3 Plt Count 297 MPV 10.5 Absolute Nucleated RBC 0.000 Nucleated RBC % (auto) 0.0 Anion Gap 16 Estim Creat Clear Calc 50.6 Estimated GFR 50 POC Glucose 159 H Fasting Glucose 149 H Calcium 8.7 Magnesium 1.8 Total Bilirubin 1.2 H Direct Bilirubin 0.6 H AST 33 ALT 25 Alkaline Phosphatase 99 Total Protein 6.8 Albumin 3.6 Microbiology Microbiology Results: Microbiology 02/19/22 00:20 Blood Culture - Preliminary Blood - Venous No growth after 24 hours. 02/18/22 22:39 Blood Culture - Preliminary Blood - Venous No growth after 24 hours. Assessment and Plan (1) Acute exacerbation of CHF (congestive heart failure): Status: Acute Plan 56M presented with sob and abd pain acute on chronic chf (suspect ischemic cardiomyopathy with reduced EF) IV lasix, follow up echo today cardio following abd pain -due to acute cholecystitis continue rocephin, flagyl follow up abd US monitor lfts CCy tomorrrow or day after if clears by surgery history of pulmonary embolism holding eliquis for possible surgical intervention DM insulin medrec pending dvt prophylaxis - hep sq full code reason for continued hospitalization: iv diuresis, and awaiting of ccy Quality Stroke Does the patient have a stroke diagnosis?: No VTE Prior VTE?: No VTE Risk Level:: Medical - moderate - high VTE Device Contraindication: Treatment Not Indicated VTE Drug Contraindication: N/A - Med Ordered
--- NOTE | 2022-02-20 08:53 | PM.PNGS ---
Subjective Subjective Date of Service: 02/20/22 Interval history: Patient denies shortness of breath or abdominal pain. Physical Exam Vital Signs: Vital Signs: Last Vital Signs Temp 98.4 F 02/20/22 07:23 Pulse 78 02/20/22 07:23 Resp 20 02/20/22 07:23 BP 125/69 02/20/22 07:23 Pulse Ox 93 02/20/22 07:23 O2 Del Method 02/20/22 07:23 O2 Flow Rate 2.5 02/19/22 11:52 BMI result Body Mass Index 26.5 Const: General: cooperative and no acute distress Nutritional Appearance: thin Orientation/consciousness: patient oriented x3 Eyes: Sclerae: sclerae normal GI: Other: Soft, tender in the right upper quadrant with a positive Lima sign, no rebound, guarding or rigidity. Skin: Other: Warm, dry, no rash Neuro: General: patient oriented x3 Extrem: Other: Pedal edema Objective Data Active Medications Acetaminophen (Acetaminophen 325 Mg Tablet) 650 mg PO Q6H PRN PRN Reason: Pain, Mild (Pain Scale 1-3) Last Admin: 02/19/22 14:45 Dose: 650 mg Documented By: JONATHAN Aspirin (Aspirin 81 Mg Tab.Chew) 81 mg PO DAILY [facility] Last Admin: 02/20/22 07:53 Dose: 81 mg Documented By: MARIANNA Atorvastatin Calcium (Atorvastatin Calcium 80 Mg Tablet) 80 mg PO BEDTIME LOUISA Carvedilol (Carvedilol 25 Mg Tablet) 25 mg PO DAILY [facility]; Protocol Last Admin: 02/20/22 07:52 Dose: 25 mg Documented By: MARIANNA Dextrose (Dextrose 50 % 25 Gm/50 Ml Syringe) 25 gm IVPUSH Q15M PRN; Protocol PRN Reason: per Hypoglycemia Standing Ord. Docusate Sodium (Docusate Sodium 100 Mg Capsule) 100 mg PO DAILY PRN PRN Reason: Constipation Last Admin: 02/19/22 14:46 Dose: 100 mg Documented By: JONATHAN Doxepin HCl (Doxepin Hcl 25 Mg Capsule) 25 mg PO BEDTIME [facility] Last Admin: 02/19/22 20:45 Dose: 25 mg Documented By: ISABELA Furosemide (Furosemide 40 Mg/4 Ml Vial) 40 mg IVPUSH BID@0900,1800 [facility]; Protocol Last Admin: 02/20/22 07:52 Dose: 40 mg Documented By: MARIANNA Gabapentin (Gabapentin 100 Mg Capsule) 100 mg PO BID [facility] Last Admin: 02/20/22 07:53 Dose: 100 mg Documented By: MARIANNA Glucose (Glucose Gel 15 Gm Gel..Gram.) 15 gm PO Q15M PRN; Protocol PRN Reason: per Hypoglycemia Standing Ord. Heparin Sodium (Porcine) (Heparin Sodium,Porcine 5,000 Unit/Ml Vial) 5,000 unit SUBCUT Q12H [facility] Last Admin: 02/20/22 05:21 Dose: 5,000 unit Documented By: ISABELA Ceftriaxone Sodium 1 gm/ (Sodium Chloride) 50 mls @ 100 mls/hr IV Q24H [facility] Last Infusion: 02/20/22 02:39 Dose: 0 mls/hr Documented By: ISABELA Metronidazole (Flagyl) 500 mg in 100 mls @ 100 mls/hr IV Q8H [facility] Last Infusion: 02/20/22 06:22 Dose: 0 mls/hr Documented By: ISABELA Insulin Human Lispro (Insulin Lispro 100 Unit/Ml 3 Ml Vial) 0 unit SUBCUT QIDACHS [facility]; Protocol Last Admin: 02/20/22 07:52 Dose: 2 unit Documented By: MARIANNA Ondansetron HCl (Ondansetron Hcl 4 Mg/2 Ml Vial) 4 mg IVPUSH Q8H PRN PRN Reason: Nausea and Vomiting Pharmacy Consult (Consult Rx Perform Med Rec) 1 each MISCELLANE ONCE PRN PRN Reason: Consult order Pharmacy Consult (Consult Rx Perform Med Rec) 1 each MISCELLANE ONCE PRN PRN Reason: Consult order Sodium Chloride (0.9 % Sodium Chloride Flush 3 Ml Syringe) 3 ml IVFLUSH QSHIFT [facility] Last Admin: 02/20/22 08:01 Dose: 3 ml Documented By: MARIANNA Labs CBC & Chem 7: 02/20/22 06:38 02/20/22 06:38 Labs: Laboratory Results - last 24 hr 02/19/22 02/19/22 02/19/22 11:50 15:54 20:33 MCV MCH MCHC RDW Plt Count MPV Absolute Nucleated RBC Nucleated RBC % (auto) Anion Gap Estim Creat Clear Calc Estimated GFR POC Glucose 164 H 128 H 184 H Fasting Glucose Calcium Magnesium Total Bilirubin Direct Bilirubin AST ALT Alkaline Phosphatase Total Protein Albumin 02/20/22 02/20/22 02/20/22 06:38 06:38 07:25 MCV 90.7 MCH 28.6 MCHC 31.5 RDW 14.3 Plt Count 297 MPV 10.5 Absolute Nucleated RBC 0.000 Nucleated RBC % (auto) 0.0 Anion Gap 16 Estim Creat Clear Calc 50.6 Estimated GFR 50 POC Glucose 159 H Fasting Glucose 149 H Calcium 8.7 Magnesium 1.8 Total Bilirubin 1.2 H Direct Bilirubin 0.6 H AST 33 ALT 25 Alkaline Phosphatase 99 Total Protein 6.8 Albumin 3.6 Microbiology Microbiology Results: Microbiology 02/19/22 00:20 Blood Culture - Preliminary Blood - Venous No growth after 24 hours. 02/18/22 22:39 Blood Culture - Preliminary Blood - Venous No growth after 24 hours. Procedures Date of Service Date of Service: 02/20/22 Progress Note: A&P Assessment and plan (1) Acute cholecystitis: Status: Acute Plan 56-year-old male patient with history of CHF and DVT, presenting with 1 week history of abdominal pain, found to have a large gallstone in the gallbladder. Patient with markedly elevated BNP and and high sensitivity troponins. Ultrasound of the abdomen confirmed a gallstone within the gallbladder and marginally thickened gallbladder wall. I requested a HIDA scan to evaluate for cholecystitis in this high risk patient. Time Spent With Patient Time: Total time spent is greater than 50% in coordination of care (as documented) at patient's floor/unit and/or counseling patient: Quality Stroke Does the patient have a stroke diagnosis?: No VTE Prior VTE?: No VTE Risk Level:: Medical - moderate - high VTE Device Contraindication: Treatment Not Indicated VTE Drug Contraindication: N/A - Med Ordered
--- NOTE | 2022-02-20 09:45 | CA_ITS ---
Transthoracic Echocardiogram Patient (Last, First, Middle): Nate Ramirez, Gender: Male Date of : 1965 Age: 56 Procedure Date: 02/20/2022 Procedure Type: Transthoracic E[place]ocardiogram [place] [facility] [place]: 167.64 cm Weight: 75.75 kg BSA: 1.85 m2 Heart Rate: 82 bpm BP: 140 / 89 mmHg Beam Racker: SB Referring MD: Irvin Han MD Symptoms: CHF Study Quality: Adequate ECG Rhythm: Sinus Conclusions: - The left ventricular systolic function is severely decreased. The visually estimated ejection fraction is between 10-15%. - Evidence suggests grade II (moderate) diastolic dysfunction. - There is evidence of regional wall motion abnormalities. - There is moderate to severely decreased right ventricular systolic function. - No obvious valvular pathology seen on this study. Findings Procedure Information Contrast agent, definity, is being given per protocol without apparent complications. Left Ventricle Severely increased left ventricular cavity size. The left ventricular systolic function is severely decreased. The visually estimated ejection fraction is between 10-15%. There is evidence of regional wall motion abnormalities. There is severe global hypokinesis. E/E prime ratio is >15, consistent with elevated filling pressures. Evidence suggests grade II (moderate) diastolic dysfunction. There is mild septal asymmetric hypertrophy. Wall Motion Rest Echo Findings The basal inferior, mid anterior, mid inferior, basal inferoseptal, basal anteroseptal, and mid anteroseptal segments are akinetic. Right Ventricle Normal right ventricular cavity size. There is moderate to severely decreased right ventricular systolic function. Atria Both atria are normal in size. Aortic Valve There is a normal trileaflet aortic valve. There is mild calcification of the aortic valve. There is no aortic valve stenosis. There is no aortic valve regurgitation. Mitral Valve The mitral valve appears normal. There is mild mitral annular calcification. There is trace mitral valve regurgitation. There is no mitral valve stenosis. Pulmonic Valve The pulmonic valve is likely normal. Tricuspid Valve Normal tricuspid valve structure. There is trace tricuspid valve regurgitation. The pulmonary artery systolic pressure is normal. Great Vessels The aortic annulus, sinuses of valsalva, and asc aorta are normal in size. Venous The inferior vena cava is normal in size and collapses greater than 50% with inspiration. Pericardium/Pleural There is no evidence of pericardial effusion. Prior Study Comparison No prior study available for comparison. Recommendations, Care & Conclusions No obvious valvular pathology seen on this study. Measurements 2D Linear Measurements IVSd: 1.12 0.6-0.9/0.6-1.0 cm LVIDd: 6.39 3.9-5.3/4.2-5.9 cm LVIDd Index: 3.45 2.4-3.2/2.2-3.1 cm/m2 LVIDs: 5.77 2.0-3.6 cm LVPWd: 0.84 0.7-1.1 cm LA Diam: 3.90 2.7-3.8/3.0-4.0 cm LAIDs Index: 2.11 1.5-2.3 cm/m2 LV Mass: 333.90 67-162/88-224 g LV Mass Index: 180.49 43-95/49-115 g/m2 LVOT Diam: 2.30 3.0+(-)1.3 cm 2D Systolic Function EF 4C: 23.30 >55% EF 2C: 23.80 >55% EF BiP: 24.90 >55% Mitral Valve MV Pk E: 0.66 MV PK A: 0.35 MV Decel Time: 148.00 E/A: 1.90 E'Medial: 3.66 E/E' Med: 17.90 PHT: 43.00 MVA PHT: 5.12 Decel Lenoir: 4.43 Aortic Valve AoV Pk Jcarlos: 0.98 AoV Mn Jcarlos: 0.74 AoV VTI: 0.15 AoV Pk Grad: 4.00 Aov Mn Grad: 3.00 GEETHA Cont.VTI: 2.49 LVOT LVOT Pk Jcarlos: 0.64 LVOT Mn Jcarlos: 0.45 LVOT VTI: 0.09 LVOT Pk Grad: 2.00 LVOT Mn Grad: 1.00 LVOT Diam: 2.30 LVOT Area: 4.15 Diastolic Function MV Pk E: 0.66 MV Pk A: 0.35 E/A: 1.90 E'Medial: 3.66 E/E' Med: 17.90 Right Ventricle TAPSE (mm): 10.70 TVS' Jcarlos: 6.70 Tricuspid Valve RA Press: 3.00 Great Vessels Aorta Sinus of Valsalva: 3.60 2.0-3.5 cm Ao Asc: 3.50 2.1-3.4 cm Pulmonary Veins Pulm Vein S/D 0.80 Pulmonary Valve PV Pk Jcarlos: 0.60 Peak PV Grad: 1.00 Updated in Other Vendor System with Status of Final Montez Trimble MD electronically signed on 02/20/2022 11:08:44 AM with status of Final
--- NOTE | 2022-02-20 11:23 | P.PNCA_ITS ---
Subjective Subjective Date of Service: 02/20/22 Interval history: He is complaining of generalized pain but more so in his lower extremities. Shortness of breath is that of baseline. But he has not moved much. Review of Systems Review of Systems Yes all other systems are reviewed and are negative Constitutional: Reports as per HPI Eyes: Reports as per HPI Reports as per HPI Cardiovascular: Reports as per HPI, Denies acrocyanosis, Denies cool extrem ities, Denies chest pain, Denies leg edema, Denies lightheadedness, Denies palpitations and Reports dyspnea Respiratory: Reports as per HPI, Reports no additional respiratory complaints and Reports dyspnea Gastrointestinal: Reports as per HPI and Reports no additional gastrointestinal complaints Genitourinary: Reports no additional male genitourinary complaints and Reports as per HPI Musculoskeletal: Reports no additional musculoskeletal complaints (leg pain) and Reports as per HPI Skin/Breast: Reports system reviewed and no additional complaints, except as docu Reports system reviewed and no additional complaints, except as documented and Reports as per HPI Psychiatric: Reports no additional psychiatric complaints and Reports as per HPI Endocrine: Reports no additional endocrine complaints, Reports as per HPI and Denies palpitations Hematologic/Lymphatic: Reports no additional hematologic/lymphatic complaints and Reports as per HPI Allergic/Immunologic: Reports no additional allergic/immunologic complaints and Reports as per HPI Physical Exam Vital Signs: Last Vital Signs Temp 98.4 F 02/20/22 07:23 Pulse 78 02/20/22 07:23 Resp 20 02/20/22 07:23 BP 125/69 02/20/22 07:23 Pulse Ox 93 02/20/22 07:23 O2 Del Method 02/20/22 07:23 O2 Flow Rate 2.5 02/19/22 11:52 BMI result Body Mass Index 26.5 Const General: cooperative, comfortable, no acute distress, alert, awake, ill appearing, poor hygiene and tired appearing Orientation/consciousness: patient oriented x3 HEENT Other: Unremarkable Head: Yes normal to inspection Neck Neck: Yes normal visual inspection Chest Chest palpation & inspection: normal inspection of the chest Resp Auscultation: rhonchi Cardio Palpation: normal PMI Heart sounds: S1 normal heart sound present, S2 normal heart sound present, no gallops, no murmurs and no rubs GI Palpation (GI): Soft to palpation Back/Spine/Pelvis Other: unremarkable Skin General skin exam: no rashes or lesions noted Neuro General: patient oriented x3 Extrem Other: Trace edema General: Yes normal to inspection Psych Mental Status: mental status grossly normal Objective Labs and Meds Result diagrams: 02/20/22 06:38 02/20/22 06:38 Lab results: Laboratory Results - last 24 hr 02/19/22 02/19/22 02/19/22 11:50 15:54 20:33 WBC RBC Hgb Hct MCV MCH MCHC RDW Plt Count MPV Absolute Nucleated RBC Nucleated RBC % (auto) Sodium Potassium Chloride Carbon Dioxide Anion Gap BUN Creatinine Estim Creat Clear Calc Estimated GFR POC Glucose 164 H 128 H 184 H Fasting Glucose Calcium Magnesium Total Bilirubin Direct Bilirubin AST ALT Alkaline Phosphatase Total Protein Albumin 02/20/22 02/20/22 02/20/22 06:38 06:38 07:25 WBC 8.3 RBC 4.51 L Hgb 12.9 L Hct 40.9 L MCV 90.7 MCH 28.6 MCHC 31.5 RDW 14.3 Plt Count 297 MPV 10.5 Absolute Nucleated RBC 0.000 Nucleated RBC % (auto) 0.0 Sodium 143 Potassium 3.8 Chloride 103 Carbon Dioxide 28 Anion Gap 16 BUN 27 H Creatinine 1.47 H Estim Creat Clear Calc 50.6 Estimated GFR 50 POC Glucose 159 H Fasting Glucose 149 H Calcium 8.7 Magnesium 1.8 Total Bilirubin 1.2 H Direct Bilirubin 0.6 H AST 33 ALT 25 Alkaline Phosphatase 99 Total Protein 6.8 Albumin 3.6 Progress Note: A&P Assessment and plan (1) Acute on chronic systolic CHF (congestive heart failure): Status: Acute Plan Echocardiogram with severely impaired LVEF at 10-15%. There is evidence of diastolic dysfunction as well as wall motion abnormalities and right ventricular dysfunction. Cardiac BNP is also quite high. Slight elevation of high sensitivity troponins. CT chest reported to have moderate emphysema, possible fluid overload; enlarged heart; possible elevated right heart pressures. Possible cholecystitis. Overall, likely all from acute on chronic heart failure. Even the right upper quadrant findings could be related to this. If no absolute indication for surgery on the gallbladder can, can hold off. IV diuretics for the heart failure. He also has renal dysfunction and hence need to monitor creatinine closely. Eventually, YAA inhibitors or ARB if renal function loss. According to patient, he has been to different hospitals in [place] as well as [place] but no details available. Hence unknown coronary status was most likely has underlying CAD. Discussed with Dr. Cagle as well as Dr. Denton. Time Spent With Patient Time: Total time spent is greater than 50% in coordination of care (as documented) at patient's floor/unit and/or counseling patient: 35min. Progress Note: Quality Stroke Does the patient have a stroke diagnosis?: No Procedures Date of Service Date of Service: 02/20/22
[2022-02-20 11:26] VITALS: BP 96/68; PULSE 57; RESP 20; TEMP 36.5; O2SAT 98
[2022-02-20 11:32] LABS: Glucose, Whole Blood 237 mg/dL (60-115)
[2022-02-20 15:26] VITALS: BP 127/69; PULSE 79; RESP 20; TEMP 37.2; O2SAT 99
[2022-02-20 16:16] LABS: Glucose, Whole Blood 148 mg/dL (60-115)
[2022-02-20 19:31] VITALS: BP 168/79; PULSE 90; RESP 20; TEMP 36.2; O2SAT 97
--- NOTE | 2022-02-20 20:17 | PC.NURSE ---
Pt became verbally abusive towards staff in regards to clear liquid diet status. TW tried educating pt on importance of diet status for procedure scheduled for 02/21/22. Pt still requesting to eat solids, gave food from unit fridge. aware.
[2022-02-20 20:26] LABS: Glucose, Whole Blood 198 mg/dL (60-115)
[2022-02-20] MEDS: Doxepin HCl 25 MG CAPSULE PO (22:06)
[2022-02-20] MEDS: carvediloL 6.25 MG TABLET PO (22:06)
[2022-02-20] MEDS: Atorvastatin Calcium 80 MG TABLET PO (22:06)
[2022-02-20 23:00] VITALS: BP 116/65; PULSE 65; RESP 18; TEMP 36.5; O2SAT 98
[2022-02-21] VITALS (7 sets, daily range): BP systolic 98–126; BP diastolic 56–74; PULSE 60–75; RESP 18–19; TEMP 36.1–36.7; O2SAT 92–98
[2022-02-21] MEDS: cefTRIAXone sodium 1 GM in 0.9 % Sodium Chloride 50 ML IV (03:43)
[2022-02-21] MEDS: metroNIDAZOLE/NS 500 MG/100 ML PIGGYBACK 100 MG IV ×3 (06:21→22:13)
[2022-02-21 07:20] LABS: Glucose, Whole Blood 134 mg/dL (60-115)
--- NOTE | 2022-02-21 09:25 | HO.PM.IMPN ---
Subjective Subjective Date of Service: 02/21/22 Interval History: cc: follow-up on cholecystitis, heart failure. interval history: no sob, feels hungry Review of Systems Abdominal pain, shortness of breath, no fever Physical Exam Vital Signs: Vital Signs: Last Vital Signs Temp 97.8 F 02/21/22 08:00 Pulse 62 02/21/22 08:00 Resp 18 02/21/22 08:00 BP 102/66 02/21/22 08:00 Pulse Ox 98 02/21/22 08:00 O2 Del Method 02/21/22 08:00 O2 Flow Rate 2 02/21/22 08:00 BMI result Body Mass Index 26.5 Const: Other: General: AO X 3, no acute distress Resp: Clear, no rales CVS: S1,S2,RRR GI: +BS, mild RUQ tenderness, no distention Skin: No rash Neuro: motor grossly intact Psych: appropriate affect Objective Data Active Medications Acetaminophen (Acetaminophen 325 Mg Tablet) 650 mg PO Q6H PRN PRN Reason: Pain, Mild (Pain Scale 1-3) Last Admin: 02/19/22 14:45 Dose: 650 mg Documented By: JONATHAN Aspirin (Aspirin 81 Mg Tab.Chew) 81 mg PO DAILY [facility] Last Admin: 02/20/22 07:53 Dose: 81 mg Documented By: MARIANNA Atorvastatin Calcium (Atorvastatin Calcium 80 Mg Tablet) 80 mg PO BEDTIME [facility] Last Admin: 02/20/22 22:06 Dose: 80 mg Documented By: DOUG Carvedilol (Carvedilol 6.25 Mg Tablet) 6.25 mg PO BID [facility]; Protocol Last Admin: 02/20/22 22:06 Dose: 6.25 mg Documented By: DOUG Dextrose (Dextrose 50 % 25 Gm/50 Ml Syringe) 25 gm IVPUSH Q15M PRN; Protocol PRN Reason: per Hypoglycemia Standing Ord. Docusate Sodium (Docusate Sodium 100 Mg Capsule) 100 mg PO DAILY PRN PRN Reason: Constipation Last Admin: 02/19/22 14:46 Dose: 100 mg Documented By: JONATHAN Doxepin HCl (Doxepin Hcl 25 Mg Capsule) 25 mg PO BEDTIME [facility] Last Admin: 02/20/22 22:06 Dose: 25 mg Documented By: DOUG Furosemide (Furosemide 40 Mg/4 Ml Vial) 40 mg IVPUSH BID@0900,1800 [facility]; Protocol Last Admin: 02/20/22 18:50 Dose: 40 mg Documented By: MARIANNA Gabapentin (Gabapentin 100 Mg Capsule) 100 mg PO BID [facility] Last Admin: 02/20/22 22:06 Dose: 100 mg Documented By: DOUG Glucose (Glucose Gel 15 Gm Gel..Gram.) 15 gm PO Q15M PRN; Protocol PRN Reason: per Hypoglycemia Standing Ord. Heparin Sodium (Porcine) (Heparin Sodium,Porcine 5,000 Unit/Ml Vial) 5,000 unit SUBCUT Q12H [facility] Last Admin: 02/21/22 05:48 Dose: Not Given Documented By: NANCY Non-Admin Reason: possible OR Ceftriaxone Sodium 1 gm/ (Sodium Chloride) 50 mls @ 100 mls/hr IV Q24H [facility] Last Infusion: 02/21/22 04:31 Dose: 0 mls/hr Documented By: NANCY Metronidazole (Flagyl) 500 mg in 100 mls @ 100 mls/hr IV Q8H [facility] Last Infusion: 02/21/22 08:04 Dose: 0 mls/hr Documented By: CASIE Insulin Human Lispro (Insulin Lispro 100 Unit/Ml 3 Ml Vial) 0 unit SUBCUT QIDACHS [facility]; Protocol Last Admin: 02/21/22 07:32 Dose: Not Given Documented By: CASIE Non-Admin Reason: No Insulin Coverage Ondansetron HCl (Ondansetron Hcl 4 Mg/2 Ml Vial) 4 mg IVPUSH Q8H PRN PRN Reason: Nausea and Vomiting Pharmacy Consult (Consult Rx Perform Med Rec) 1 each MISCELLANE ONCE PRN PRN Reason: Consult order Pharmacy Consult (Consult Rx Perform Med Rec) 1 each MISCELLANE ONCE PRN PRN Reason: Consult order Sodium Chloride (0.9 % Sodium Chloride Flush 3 Ml Syringe) 3 ml IVFLUSH QSHIFT [facility] Last Admin: 02/20/22 22:07 Dose: 3 ml Documented By: DOUG Labs CBC & Chem 7: 02/20/22 06:38 02/20/22 06:38 Labs: Laboratory Results - last 24 hr 02/20/22 02/20/22 02/20/22 11:26 16:12 20:21 POC Glucose 237 H 148 H 198 H 02/21/22 07:09 POC Glucose 134 H Microbiology Microbiology Results: Microbiology 02/19/22 00:20 Blood Culture - Preliminary Blood - Venous No growth after 48 hours. 02/18/22 22:39 Blood Culture - Preliminary Blood - Venous No growth after 48 hours. Assessment and Plan (1) Acute exacerbation of CHF (congestive heart failure): Status: Acute Plan 56M presented with sob and abd pain acute on chronic chf (suspect ischemic cardiomyopathy with reduced EF)--EF 10 to 15 IV lasix to PO Lasix now cardio following abd pain -due to acute vs chronic cholecystitis continue rocephin, flagyl US finding were less promienent than CT, HIDA scan tody and if no surgery planned will advance diet and discharge history of pulmonary embolism holding eliquis for possible surgical intervention DM insulin medrec pending dvt prophylaxis - hep sq full code reason for continued hospitalization: iv diuresis, and awaiting of ccy Quality Stroke Does the patient have a stroke diagnosis?: No VTE Prior VTE?: No VTE Risk Level:: Medical - moderate - high VTE Device Contraindication: Treatment Not Indicated VTE Drug Contraindication: N/A - Med Ordered
--- NOTE | 2022-02-21 11:20 | PM.PNCARD ---
Subjective Subjective Date of Service: 02/21/22 Interval history: Seen and examined at bedside. No symptoms currently. He just had HIDA scan. Physical Exam Vital Signs: Last Vital Signs Temp 97.8 F 02/21/22 08:00 Pulse 62 02/21/22 08:00 Resp 18 02/21/22 08:00 BP 102/66 02/21/22 08:00 Pulse Ox 98 02/21/22 08:00 O2 Del Method 02/21/22 08:00 O2 Flow Rate 2 02/21/22 08:00 BMI result Body Mass Index 26.5 GENERAL APPEARANCE: in no acute distress, pleasant. NECK: no carotid bruit, no jugular venous distention. SKIN: no suspicious lesions, warm and dry. HEART: no murmurs, regular rate and rhythm. LUNGS: clear to auscultation bilaterally. ABDOMEN: soft, nontender. EXTREMITIES: no edema. PERIPHERAL PULSES: equal. NEUROLOGIC: No gross deficits, AAO X 3 Objective Labs and Meds Result diagrams: 02/20/22 06:38 02/20/22 06:38 Lab results: Laboratory Results - last 24 hr 02/20/22 02/20/22 02/20/22 11:26 16:12 20:21 POC Glucose 237 H 148 H 198 H 02/21/22 07:09 POC Glucose 134 H Progress Note: A&P Assessment and plan (1) Acute on chronic systolic CHF (congestive heart failure): Status: Acute Plan [age] year gentleman with congestive heart failure. Echocardiography has shown severe LV dysfunction. He had previous NSTEMI he has and underwent PCI in [place] and [place]. He has been experiencing some chest discomfort off and on which is a left-sided dull ache. He said he had left-sided sharp pains before NSTEMI. He is being worked up for cholecystitis and underwent HIDA scan today. Clinically does not look volume overloaded right now. I think he can be changed to oral furosemide. I think his ARB should be resumed. We will eventually change him to Entresto. We discussed about cardiac catheterization as he has known coronary disease and has severe LV dysfunction at this point. He is agreeable. As we have clarity about his gallbladder issue, we will decide about cardiac catheterization. Thank you for allowing me to participate in the care of your patient. Please feel free to contact me if you have any questions. Time Spent With Patient Time: Total time spent is greater than 50% in coordination of care (as documented) at patient's floor/unit and/or counseling patient: Progress Note: Quality Stroke Does the patient have a stroke diagnosis?: No Procedures Date of Service Date of Service: 02/21/22
[2022-02-21 11:31] LABS: Glucose, Whole Blood 225 mg/dL (60-115)
--- NOTE | 2022-02-21 12:33 | PM.PNGS ---
Subjective Subjective Date of Service: 02/21/22 Interval history: Patient reports feeling hungry Physical Exam Vital Signs: Vital Signs: Last Vital Signs Temp 97.6 F 02/21/22 11:25 Pulse 71 02/21/22 11:25 Resp 18 02/21/22 11:25 BP 117/73 02/21/22 11:25 Pulse Ox 95 02/21/22 11:25 O2 Del Method 02/21/22 11:25 O2 Flow Rate 2 02/21/22 11:25 BMI result Body Mass Index 26.5 Const: General: comfortable and no acute distress Nutritional Appearance: thin Orientation/consciousness: patient oriented x3 Eyes: Sclerae: sclerae normal GI: Inspection: Yes normal to inspection Palpation (GI): Soft to palpation, nontender, no guarding and not rigid Neuro: General: patient oriented x3 Extrem: General: Yes normal to inspection Objective Data Active Medications Acetaminophen (Acetaminophen 325 Mg Tablet) 650 mg PO Q6H PRN PRN Reason: Pain, Mild (Pain Scale 1-3) Last Admin: 02/19/22 14:45 Dose: 650 mg Documented By: JONATHAN Aspirin (Aspirin 81 Mg Tab.Chew) 81 mg PO DAILY [facility] Last Admin: 02/21/22 11:14 Dose: Not Given Documented By: CASIE Non-Admin Reason: Not In Room Atorvastatin Calcium (Atorvastatin Calcium 80 Mg Tablet) 80 mg PO BEDTIME [facility] Last Admin: 02/20/22 22:06 Dose: 80 mg Documented By: DOUG Carvedilol (Carvedilol 6.25 Mg Tablet) 6.25 mg PO BID [facility]; Protocol Last Admin: 02/21/22 11:14 Dose: Not Given Documented By: CASIE Non-Admin Reason: Not In Room Dextrose (Dextrose 50 % 25 Gm/50 Ml Syringe) 25 gm IVPUSH Q15M PRN; Protocol PRN Reason: per Hypoglycemia Standing Ord. Docusate Sodium (Docusate Sodium 100 Mg Capsule) 100 mg PO DAILY PRN PRN Reason: Constipation Last Admin: 02/19/22 14:46 Dose: 100 mg Documented By: JONATHAN Doxepin HCl (Doxepin Hcl 25 Mg Capsule) 25 mg PO BEDTIME [facility] Last Admin: 02/20/22 22:06 Dose: 25 mg Documented By: DOUG Furosemide (Furosemide 40 Mg/4 Ml Vial) 40 mg IVPUSH BID@0900,1800 [facility]; Protocol Last Admin: 02/21/22 11:14 Dose: Not Given Documented By: CASIE Non-Admin Reason: Not In Room Gabapentin (Gabapentin 100 Mg Capsule) 100 mg PO BID [facility] Last Admin: 02/21/22 11:14 Dose: Not Given Documented By: CASIE Non-Admin Reason: Not In Room Glucose (Glucose Gel 15 Gm Gel..Gram.) 15 gm PO Q15M PRN; Protocol PRN Reason: per Hypoglycemia Standing Ord. Heparin Sodium (Porcine) (Heparin Sodium,Porcine 5,000 Unit/Ml Vial) 5,000 unit SUBCUT Q12H [facility] Last Admin: 02/21/22 05:48 Dose: Not Given Documented By: NANCY Non-Admin Reason: possible OR Ceftriaxone Sodium 1 gm/ (Sodium Chloride) 50 mls @ 100 mls/hr IV Q24H [facility] Last Infusion: 02/21/22 04:31 Dose: 0 mls/hr Documented By: NANCY Metronidazole (Flagyl) 500 mg in 100 mls @ 100 mls/hr IV Q8H [facility] Last Infusion: 02/21/22 08:04 Dose: 0 mls/hr Documented By: CASIE Insulin Human Lispro (Insulin Lispro 100 Unit/Ml 3 Ml Vial) 0 unit SUBCUT QIDACHS [facility]; Protocol Last Admin: 02/21/22 07:32 Dose: Not Given Documented By: CASIE Non-Admin Reason: No Insulin Coverage Ondansetron HCl (Ondansetron Hcl 4 Mg/2 Ml Vial) 4 mg IVPUSH Q8H PRN PRN Reason: Nausea and Vomiting Pharmacy Consult (Consult Rx Perform Med Rec) 1 each MISCELLANE ONCE PRN PRN Reason: Consult order Pharmacy Consult (Consult Rx Perform Med Rec) 1 each MISCELLANE ONCE PRN PRN Reason: Consult order Sodium Chloride (0.9 % Sodium Chloride Flush 3 Ml Syringe) 3 ml IVFLUSH QSHIFT [facility] Last Admin: 02/21/22 11:14 Dose: Not Given Documented By: CASIE Non-Admin Reason: Not In Room Labs CBC & Chem 7: 02/20/22 06:38 02/20/22 06:38 Labs: Laboratory Results - last 24 hr 02/20/22 02/20/22 02/21/22 16:12 20:21 07:09 POC Glucose 148 H 198 H 134 H 02/21/22 11:26 POC Glucose 225 H Imaging HIDA: Radiologist's impression: Impressions Hepatobiliary Scan Nuclear Medicine 02/21/22 11:00 IMPRESSION: Visualization of the gallbladder is evidence of a patent cystic duct and strong evidence against the diagnosis of acute cholecystitis. The common bile duct is patent. Gallbladder emptying and ejection fraction are normal. Liver function appears normal. Microbiology Microbiology Results: Microbiology 02/19/22 00:20 Blood Culture - Preliminary Blood - Venous No growth after 48 hours. 02/18/22 22:39 Blood Culture - Preliminary Blood - Venous No growth after 48 hours. Procedures Date of Service Date of Service: 02/21/22 Progress Note: A&P Assessment and plan (1) Acute cholecystitis: Status: Acute Plan 56-year-old male patient with complaints of abdominal pain in the upper abdomen found to have gallstones within the gallbladder. HIDA scan reviewed today. There is normal filling of the gallbladder as well as normal emptying which is strong evidence against acute cholecystitis or biliary dyskinesia. Patient may eat a regular diet and no surgical intervention is required at this time. I will sign off. Please re-consult for any new concerns. Time Spent With Patient Time: Total time spent is greater than 50% in coordination of care (as documented) at patient's floor/unit and/or counseling patient: Quality Stroke Does the patient have a stroke diagnosis?: No VTE Prior VTE?: No VTE Risk Level:: Medical - moderate - high VTE Device Contraindication: Treatment Not Indicated VTE Drug Contraindication: N/A - Med Ordered
[2022-02-21] MEDS: Losartan Potassium 25 MG TABLET PO (14:16)
[2022-02-21 16:40] LABS: Glucose, Whole Blood 231 mg/dL (60-115)
[2022-02-21] MEDS: 0.9 % Sodium Chloride Flush 3 ML SYRINGE IVFLUSH ×2 (16:52→21:01)
[2022-02-21] MEDS: Insulin Lispro 100 UNIT/ML 3 ML VIAL SUBCUT ×2 (16:52→20:56)
[2022-02-21] MEDS: Furosemide 40 MG TABLET PO (18:11)
[2022-02-21] MEDS: Heparin Sodium,Porcine 5,000 UNIT/ML VIAL 5000 UNIT SUBCUT (18:11)
[2022-02-21 20:00] LABS: Glucose, Whole Blood 173 mg/dL (60-115)
[2022-02-21] MEDS: Doxepin HCl 25 MG CAPSULE PO (20:55)
[2022-02-21] MEDS: Atorvastatin Calcium 80 MG TABLET PO (20:55)
[2022-02-21] MEDS: carvediloL 6.25 MG TABLET PO (20:55)
[2022-02-21] MEDS: Gabapentin 100 MG CAPSULE PO (20:55)
[2022-02-22] MEDS: cefTRIAXone sodium 1 GM in 0.9 % Sodium Chloride 50 ML IV (02:58)
[2022-02-22 03:05] VITALS: BP 112/69; PULSE 68; RESP 18; TEMP 36.8; O2SAT 87
[2022-02-22 03:42] VITALS: O2SAT 93
[2022-02-22] MEDS: metroNIDAZOLE/NS 500 MG/100 ML PIGGYBACK 100 MG IV (06:08)
[2022-02-22] MEDS: Heparin Sodium,Porcine 5,000 UNIT/ML VIAL 5000 UNIT SUBCUT (06:08)
[2022-02-22 07:21] LABS: Glucose, Whole Blood 262 mg/dL (60-115)
[2022-02-22 07:40] VITALS: BP 117/71; PULSE 66; RESP 16; TEMP 36.4; O2SAT 92
[2022-02-22] MEDS: Insulin Lispro 100 UNIT/ML 3 ML VIAL SUBCUT (09:06)
[2022-02-22] MEDS: Furosemide 40 MG TABLET PO (09:07)
[2022-02-22] MEDS: Losartan Potassium 25 MG TABLET PO (09:07)
[2022-02-22] MEDS: Gabapentin 100 MG CAPSULE PO (09:07)
[2022-02-22] MEDS: carvediloL 6.25 MG TABLET PO (09:07)
[2022-02-22] MEDS: Aspirin 81 MG TAB.CHEW PO (09:07)
[2022-02-22] MEDS: 0.9 % Sodium Chloride Flush 3 ML SYRINGE IVFLUSH (09:08)
[2022-02-22 10:55] LABS: Glucose, Whole Blood 205 mg/dL (60-115)
[2022-02-22 11:20] VITALS: BP 112/70; PULSE 60; RESP 16; TEMP 36.4; O2SAT 93
--- NOTE | 2022-02-22 12:35 | P.PNIM_ITS ---
Subjective Subjective Date of Service: 02/22/22 Interval History: cc: follow-up on cholecystitis, heart failure. interval history: no cp, no so, no abd pain, hida negative for cholecystitis Review of Systems no abd pain no sob Physical Exam Vital Signs: Vital Signs: Last Vital Signs Temp 97.5 F 02/22/22 11:20 Pulse 60 02/22/22 11:20 Resp 16 02/22/22 11:20 BP 112/70 02/22/22 11:20 Pulse Ox 93 02/22/22 11:20 O2 Del Method 02/22/22 11:20 O2 Flow Rate 2 02/21/22 15:44 BMI result Body Mass Index 26.5 Const: Other: General: AO X 3, no acute distress Resp: Clear, no rales CVS: S1,S2,RRR GI: +BS, no ruggiero Skin: No rash Neuro: motor grossly intact Psych: appropriate affect Objective Data Active Medications Acetaminophen (Acetaminophen 325 Mg Tablet) 650 mg PO Q6H PRN PRN Reason: Pain, Mild (Pain Scale 1-3) Last Admin: 02/19/22 14:45 Dose: 650 mg Documented By: JONATHAN Aspirin (Aspirin 81 Mg Tab.Chew) 81 mg PO DAILY [facility] Last Admin: 02/22/22 09:07 Dose: 81 mg Documented By: JAMMIE Atorvastatin Calcium (Atorvastatin Calcium 80 Mg Tablet) 80 mg PO BEDTIME [facility] Last Admin: 02/21/22 20:55 Dose: 80 mg Documented By: PAYAM Carvedilol (Carvedilol 6.25 Mg Tablet) 6.25 mg PO BID [facility]; Protocol Last Admin: 02/22/22 09:07 Dose: 6.25 mg Documented By: JAMMIE Dextrose (Dextrose 50 % 25 Gm/50 Ml Syringe) 25 gm IVPUSH Q15M PRN; Protocol PRN Reason: per Hypoglycemia Standing Ord. Docusate Sodium (Docusate Sodium 100 Mg Capsule) 100 mg PO DAILY PRN PRN Reason: Constipation Last Admin: 02/19/22 14:46 Dose: 100 mg Documented By: JONATHAN Doxepin HCl (Doxepin Hcl 25 Mg Capsule) 25 mg PO BEDTIME [facility] Last Admin: 02/21/22 20:55 Dose: 25 mg Documented By: PAYAM Furosemide (Furosemide 40 Mg Tablet) 40 mg PO BID@0900,1800 [facility]; Protocol Last Admin: 02/22/22 09:07 Dose: 40 mg Documented By: JAMMIE Gabapentin (Gabapentin 100 Mg Capsule) 100 mg PO BID [facility] Last Admin: 02/22/22 09:07 Dose: 100 mg Documented By: JAMMIE Glucose (Glucose Gel 15 Gm Gel..Gram.) 15 gm PO Q15M PRN; Protocol PRN Reason: per Hypoglycemia Standing Ord. Heparin Sodium (Porcine) (Heparin Sodium,Porcine 5,000 Unit/Ml Vial) 5,000 unit SUBCUT Q12H [facility] Last Admin: 02/22/22 06:08 Dose: 5,000 unit Documented By: PAYAM Ceftriaxone Sodium 1 gm/ (Sodium Chloride) 50 mls @ 100 mls/hr IV Q24H [facility] Last Infusion: 02/22/22 03:30 Dose: 0 mls/hr Documented By: PAYAM Metronidazole (Flagyl) 500 mg in 100 mls @ 100 mls/hr IV Q8H [facility] Last Admin: 02/22/22 06:08 Dose: 100 mls/hr Documented By: PAYAM Insulin Human Lispro (Insulin Lispro 100 Unit/Ml 3 Ml Vial) 0 unit SUBCUT QIDACHS [facility]; Protocol Last Admin: 02/22/22 09:06 Dose: 6 unit Documented By: JAMMIE Losartan Potassium (Losartan Potassium 25 Mg Tablet) 25 mg PO DAILY [facility]; Protocol Last Admin: 02/22/22 09:07 Dose: 25 mg Documented By: JAMMIE Ondansetron HCl (Ondansetron Hcl 4 Mg/2 Ml Vial) 4 mg IVPUSH Q8H PRN PRN Reason: Nausea and Vomiting Pharmacy Consult (Consult Rx Perform Med Rec) 1 each MISCELLANE ONCE PRN PRN Reason: Consult order Pharmacy Consult (Consult Rx Perform Med Rec) 1 each MISCELLANE ONCE PRN PRN Reason: Consult order Sodium Chloride (0.9 % Sodium Chloride Flush 3 Ml Syringe) 3 ml IVFLUSH QSHIFT [facility] Last Admin: 02/22/22 09:08 Dose: 3 ml Documented By: JAMMIE Labs CBC & Chem 7: 02/20/22 06:38 02/20/22 06:38 Labs: Laboratory Results - last 24 hr 02/21/22 02/21/22 02/22/22 16:36 19:23 07:13 POC Glucose 231 H 173 H 262 H 02/22/22 10:48 POC Glucose 205 H Assessment and Plan (1) Acute exacerbation of CHF (congestive heart failure): Status: Acute Plan 56M presented with sob and abd pain acute on chronic chf (suspect ischemic cardiomyopathy with reduced EF)--EF 10 to 15 PO Laisix, cardio evaluating for possible cath abd pain -due to acute vs chronic cholecystitis continue rocephin, flagyl US finding were less promienent than CT, HIDA yesterday was negative for cholecystitis history of pulmonary embolism holding eliquis for possible surgical intervention DM insulin medrec pending dvt prophylaxis - hep sq full code reason for continued hospitalization: iv diuresis, ischemic evaluation for cath in progress Quality Stroke Does the patient have a stroke diagnosis?: No VTE Prior VTE?: No VTE Risk Level:: Medical - moderate - high VTE Device Contraindication: Treatment Not Indicated VTE Drug Contraindication: N/A - Med Ordered
--- NOTE | 2022-02-22 12:40 | P.DS_ITS ---
DS: Providers Provider Date of Service: 02/22/22 Date of admission: 02/19/22 06:00 Primary care physician: JOSSE Caro Consults: 02/19/22 06:02 Consult to Cardiology Routine Consulting Provider: Montez Trimble Reason for consultation: CHF Has provider been notified: No 02/19/22 06:25 Consult to General Surgery Routine Consulting Provider: Aldo Cagle Reason for consultation: Cholecystitis Has provider been notified: Yes DS: Diagnosis Discharge Diagnosis (1) Acute exacerbation of CHF (congestive heart failure): Status: Acute DS: Summary Hospital Course Hospital Course: Chief Complaint: Leg pain This is a 56-year-old male with past medical history of CHF, diabetes, hypertension, hyperlipidemia, PVD, CAD who presents to the hospital with complaints of bilateral leg pain.? Patient reports that he has had worsening pain in his lower extremities to the point where he has difficulty walking and has to sit down every few feet in order to be able to walk again.? Has been using a walker as a result.? Patient also reports increased shortness of breath, cough that is dry and nonproductive, orthopnea and PND.? The symptoms have worsened over the past few weeks although he reports chronic shortness of breath since September when he was diagnosed with congestive heart failure.? Patient reports that he has been moving states, he has had been admitted from hospital to hospital, he does not know his medications, it is unclear if he is compliant with his meds. Patient is also complaining of right lower quadrant pain that started few days ago, associated with some nausea, no vomiting.? Pain is constant, 5/10, nonradiating.? No alleviating or exacerbating factors. He denies any fever, no chills, no chest pain, no palpitations, no diarrhea constipation, no urinary symptoms.? He has also noticed lower extremity edema.? Normal to the ED patient hemodynamically stable with no significant abnormal vitals Labs are significant for WBC count of 9.5, hemoglobin 12.3, INR of 1.9, potassium of 5.3, BUN of 21, creatinine of 1.57, lactic acid of 3.0, troponin of 45 decreased to 42, Imaging revealed no PE on CT angiogram, moderate emphysema, mild intralobular se ptal thickening and bronchial wall thickness consistent with fluid overload and pulmonary congestion, cholelithiasis with associated inflammation around the gallbladder concerning for cholecystitis, Hospital course: cute on chronic chf (suspect ischemic cardiomyopathy with reduced EF)--EF 10 to 15 PO Laisix, cardio evaluating for possible cath abd pain -due to acute? vs chronic cholecystitis continue rocephin, flagyl US finding were less promienent than CT, HIDA yesterday was negative for cholecystitis history of pulmonary embolism holding eliquis for possible surgical intervention DM insulin medrec pending dvt prophylaxis - hep sq full code Time Spent with Patient Time attestation: Total time spent providing and/or coordinating discharge services: Discharge coordination time: Greater than 30 minutes Quality: Safe Use of Opioids Does Pt have an Active Cancer Diagnosis on the Problem List?: No Quality: Stroke Does the patient have a stroke diagnosis?: No Physical Exam Vital Signs: Vital Signs: Last Vital Signs Temp 97.5 F 02/22/22 11:20 Pulse 60 02/22/22 11:20 Resp 16 02/22/22 11:20 BP 112/70 02/22/22 11:20 Pulse Ox 93 02/22/22 11:20 O2 Del Method 02/22/22 11:20 O2 Flow Rate 2 02/21/22 15:44 BMI result Body Mass Index 26.5 DS: Data Data Completed and Pending Labs on day of discharge: Laboratory Results - last 24 hr 02/21/22 02/21/22 02/22/22 16:36 19:23 07:13 POC Glucose 231 H 173 H 262 H 02/22/22 10:48 POC Glucose 205 H Preliminary micro results at discharge 02/19/22 00:20 Blood Culture - Preliminary Blood - Venous No growth after 48 hours. 02/18/22 22:39 Blood Culture - Preliminary Blood - Venous No growth after 48 hours. Discharge Plan Discharge Anticipated Discharge Date/Time: 02/22/22 15:48 Patient Disposition: Home, Self-Care Discharge Diagnosis: CHF, Referrals: Aldo Gonzalez FNP-RAD[facility] [Primary Care Provider] - 1 Week Discharge Medications: New carvedilol 6.25 mg Tablet 6.25 mg PO BID Qty: 60 0RF Protocol: Hold for SBP/HR < HOLD for SBP < : 90 HOLD for HR < : 60 Continued atorvastatin 80 mg tablet 1 tab PO DAILY furosemide 40 mg tablet 1 tab PO BID doxepin 25 mg capsule 1 cap PO BEDTIME nitroglycerin 0.4 mg tablet, sublingual 1 tab sublingual USEASDIRECTD aspirin 81 mg tablet,chewable 1 tab PO DAILY olmesartan 20 mg tablet 1 tab PO DAILY Levemir FlexTouch U-100 Insuln 100 unit/mL (3 mL) insulin pen 45 unit subcut DAILY Janumet XR 50-500 mg tablet, ER multiphase 24 hr 1 tab PO QPM Eliquis 2.5 mg tablet 1 tab PO BID Ozempic 1 mg/dose (4 mg/3 mL) pen injector 1 mg subcut QWEEK Discontinued carvedilol 25 mg tablet 1 tab PO DAILY Discharge Orders: Discharge Order (Routine); Ordered 02/22/22 Ordered By: Donavan Denton Diet: Diabetic diet Activity on Discharge: As tolerated Stand Alone Forms: Patient Portal Discharge page Care Plan Goals: recovery from heart failure and cardiac work up Health Concerns: CHF Plan of Treatment: follow up with Dr. Contreras in cardiac clinic Please note that Coreg dose has been reduce from 25 daily to 6.25 twice daily Assessment: As above
--- NOTE | 2022-02-22 14:51 | P.PNCA_ITS ---
Subjective Subjective Date of Service: 02/22/22 Interval history: Asymptomatic Physical Exam Vital Signs: Last Vital Signs Temp 97.5 F 02/22/22 11:20 Pulse 60 02/22/22 11:20 Resp 16 02/22/22 11:20 BP 112/70 02/22/22 11:20 Pulse Ox 93 02/22/22 11:20 O2 Del Method 02/22/22 11:20 O2 Flow Rate 2 02/21/22 15:44 BMI result Body Mass Index 26.5 GENERAL APPEARANCE: in no acute distress, pleasant. NECK: no carotid bruit, no jugular venous distention. SKIN: no suspicious lesions, warm and dry. HEART: no murmurs, regular rate and rhythm. LUNGS: clear to auscultation bilaterally. ABDOMEN: soft, nontender. EXTREMITIES: no edema. PERIPHERAL PULSES: equal. NEUROLOGIC: No gross deficits, AAO X 3 Objective Labs and Meds Result diagrams: 02/20/22 06:38 02/20/22 06:38 Lab results: Laboratory Results - last 24 hr 02/21/22 02/21/22 02/22/22 16:36 19:23 07:13 POC Glucose 231 H 173 H 262 H 02/22/22 10:48 POC Glucose 205 H Progress Note: A&P Assessment and plan (1) Acute on chronic systolic CHF (congestive heart failure): Status: Acute Plan 56-year-old gentleman with congestive heart failure. Echocardiography has shown severe LV dysfunction. He had previous NSTEMI and underwent PCI in [place] and [place]. He has been experiencing some chest discomfort off and on which is a left-sided dull ache. He said he had left-sided sharp pains before NSTEMI. Clinically compensated. We have added losartan 25 mg to his regimen. On oral diuretics at this point. Plan is to let him go and follow up with us as outpatient and we will arrange a diagnostic angiogram for him to understand if he has progressive coronary disease as potential cause for his LV dysfunction. Thank you for allowing me to participate in the care of your patient. Please feel free to contact me if you have any questions. Time Spent With Patient Time: Total time spent is greater than 50% in coordination of care (as documented) at patient's floor/unit and/or counseling patient: Progress Note: Quality Stroke Does the patient have a stroke diagnosis?: No Procedures Date of Service Date of Service: 02/22/22
[2022-02-22 15:47] VITALS: BP 115/75; PULSE 67; RESP 14; TEMP 36.8; O2SAT 93
--- NOTE | 2022-02-22 16:17 | MHC.CM.PN ---
Patient has been medically cleared for dc to home today, self care. IMM addressed with Patient at bedside and original has been given to him and a copy has been placed on the chart. Patient's Brother is providing transportation.
[2022-02-22 16:33] LABS: Glucose, Whole Blood 223 mg/dL (60-115)
== END 2022-02-22 16:49 | disposition home or self-care (01) | DRG 291 ==
LOC: HO.ED 02-19 02:16 → HO.EDOVER 02-19 06:17 → HO.IMC 02-19 08:49
PROVIDERS: Internal Medicine; Physician Assistant; Admitting Provider Internal Medicine; Emergency Provider Emergency Medicine; PCP Nurse Practitioner Family; Visit Provider Internal Medicine
DX: I11.0 Hypertensive heart disease with heart failure (principal); I50.23 Acute on chronic systolic (congestive) heart failure; N17.9 Acute kidney failure, unspecified; E11.51 Type 2 diabetes mellitus with diabetic peripheral angiopathy without gangrene; I25.10 Atherosclerotic heart disease of native coronary artery without angina pectoris; I25.5 Ischemic cardiomyopathy; J43.9 Emphysema, unspecified; E78.5 Hyperlipidemia, unspecified; Z20.822 Contact with and (suspected) exposure to COVID-19; Z86.711 Personal history of pulmonary embolism; Z79.4 Long term (current) use of insulin; Z79.01 Long term (current) use of anticoagulants; Z79.82 Long term (current) use of aspirin; Z79.899 Other long term (current) drug therapy
CPT/HCPCS: 36415; 71045; 71275; 74177; 76705; 78226; 80048; 80076; 81001; 82947; 83605; 83735; 83880; 84484; 85025; 85027; 85379; 85610; 87040; 87635; 93005; 93306; 93970; 96365; 96375; 99285; A9537; J0696; J1940; J2270; Q9957; Q9967

== ENCOUNTER → 2022-04-06 15:18 | Outpatient (BNVA) | payer OTHER, SELFPAY | PROVIDERS: PCP Nurse Practitioner Family; Referring Provider Nurse Practitioner Family; Visit Provider Internal Medicine | DX: I50.9 Heart failure, unspecified (principal); I25.10 Atherosclerotic heart disease of native coronary artery without angina pectoris; I25.5 Ischemic cardiomyopathy; E11.8 Type 2 diabetes mellitus with unspecified complications | CPT/HCPCS: 99212 ==

== ENCOUNTER 2022-05-02 12:03 | Outpatient (REF) | payer OTHER, SELFPAY ==
[2022-05-02 13:45] LABS: MANUAL DIFF FLAG NO
[2022-05-02 13:52] LABS: Appearance Urine Clear; Color Urine Dark Yellow; Glucose Urine UA Negative (Negative); Leukocyte Esterase Urine Negative (Negative); Nitrite Urine Negative (Negative); PH 5.5 (5.0-9.0); Specific Gravity - Urine 1.025 (1.005-1.025); UMIC TRIGGER UACC YES; Urine Blood Negative (Negative); Urine Ketones Negative (Negative); Urine Protein 100 (2+) mg/dL (Neg-Trace)
[2022-05-02 13:55] LABS: Bacteria Urine None Seen (None Seen); RBC Urine 0-2 /HPF (0-2); Squamous Epithelial Cell Urine 0-2 /HPF (0-2); WBC Urine 0-5 /HPF (0-5)
[2022-05-02 14:00] LABS: Estimated Average Glucose 192 mg/dL; Hemoglobin A1c % 8.3 %
[2022-05-02 14:07] LABS: Alanine Aminotransferase 14 U/L (0-40); Alkaline Phosphatase 77 U/L (39-117); Anion Gap 15 (12-20); Aspartate Amino Transferase 26 U/L (5-37); Bilirubin Total 0.6 mg/dL (0.0-1.0); Blood Urea Nitrogen 18 mg/dL (9-16); Calcium 9.1 mg/dL (8.4-10.2); Carbon Dioxide 25 mmol/L (22-29); Chloride 108 mmol/L (96-108); Cholesterol 159 mg/dL; Estimated Glomerular Filt Rate 57; Glucose Fasting 178 mg/dL (60-99); HDL Cholesterol 30 mg/dL; LDL Cholesterol Calculated 82 mg/dl; Potassium 4.9 mmol/L (3.3-5.1); Sodium 143 mmol/L (135-145); Total Protein 7.3 g/dL (6.5-8.0); Triglycerides 235 mg/dL
[2022-05-02 14:16] LABS: Basophils Absolute Auto 0.1 X10*3/uL (0.0-0.2); Basophils Percent Auto 0.5 % (0-2); Eosinophils Absolute Auto 0.3 X10*3/uL (0.0-0.4); Eosinophils Percent Auto 2.7 % (0-4); Hematocrit 37.8 % (42.0-52.0); Hemoglobin 11.7 g/dl (14.0-18.0); Imm Gran Abs Auto 0.06 X10*3/uL (0.00-0.03); Imm Gran Pct Auto 0.6 % (0.0-0.4); Lymphocytes Absolute Auto 1.3 X10*3/uL (1.2-4.9); Lymphocytes Percent Auto 13.4 % (20-40); Mean Corpuscular Hemoglobin 27.5 pg (27.0-33.0); Mean Corpuscular Volume 88.9 fL (80.0-98.0); Mean Platelet Volume 10.9 fL (9.4-12.4); Monocytes Absolute Auto 0.7 X10*3/uL (0.1-1.2); Monocytes Percent Auto 6.7 % (2-11); Neutrophils Absolute Auto 7.4 x10*3/uL (2.0-8.3); Neutrophils Percent Auto 76.1 % (45-73); Platelet Count 297 X10*3/uL (160-400); Red Blood Count 4.25 X10*6/uL (4.60-5.80); Red Cell Distribution Width 17.2 % (11.0-16.0); White Blood Count 9.8 X10*3/uL (4.8-10.8)
[2022-05-02 14:18] LABS: Creatinine Urine 228.01 mg/dL
[2022-05-02 14:27] LABS: Prostate Specific Antigen Scr 0.52 ng/mL (<0.05-4.0); TSH reflex Free T4 0.53 uIU/mL (0.32-4.0)
[2022-05-02 14:33] LABS: Microalbum/Creatinine Ratio Ur 229.3 ug/mg cr
== END 2022-05-02 12:04 | disposition home or self-care (01) ==
LOC: HO.HMGCLDS 12:03
PROVIDERS: PCP Nurse Practitioner Family; Visit Provider Nurse Practitioner Family
DX: Z12.5 Encounter for screening for malignant neoplasm of prostate (principal); E11.9 Type 2 diabetes mellitus without complications
CPT/HCPCS: 36415; 80053; 80061; 81001; 82043; 83036; 84153; 84443; 85025

== ENCOUNTER 2022-06-15 12:04 | Outpatient (REF) | payer OTHER, SELFPAY ==
[2022-06-15 13:55] LABS: Appearance Urine Clear; Color Urine Dark Yellow; Glucose Urine UA Negative (Negative); Leukocyte Esterase Urine Negative (Negative); Nitrite Urine Negative (Negative); PH 6.5 (5.0-9.0); Specific Gravity - Urine 1.015 (1.005-1.025); UMIC TRIGGER UACC YES; Urine Blood Negative (Negative); Urine Ketones Negative (Negative); Urine Protein 100 (2+) mg/dL (Neg-Trace)
[2022-06-15 14:31] LABS: FIT Int Ctl YES; FIT1 NEGATIVE (NEGATIVE); FIT2 NEGATIVE (NEGATIVE)
[2022-06-15 16:22] LABS: Bacteria Urine None Seen (None Seen); Hyaline Casts Urine 0-2 /LPF (0-2); RBC Urine 0-2 /HPF (0-2); Squamous Epithelial Cell Urine 0-2 /HPF (0-2); WBC Urine 0-5 /HPF (0-5)
== END 2022-06-15 12:05 | disposition home or self-care (01) ==
LOC: HO.HMGCLDS 12:04
PROVIDERS: PCP Nurse Practitioner Family; Visit Provider Nurse Practitioner Family
DX: D64.9 Anemia, unspecified (principal); E11.9 Type 2 diabetes mellitus without complications
CPT/HCPCS: 81001; 82274

== ENCOUNTER 2022-10-09 02:52 | Inpatient (IN) | payer OTHER, MEDICAID, SELFPAY ==
[2022-10-09] VITALS (10 sets, daily range): BP systolic 103–140; BP diastolic 61–98; PULSE 60–100; RESP 12–28; TEMP 36.4–37.4; O2SAT 90–97; BMI 26.6; BMI 24.7
--- NOTE | ~2022-10-09 | US_ITS ---
EXAMINATION: NONINVASIVE ASSESSMENT OF THE ARTERIES OF THE RIGHT LOWER EXTREMITY Carroll Meehan MD CLINICAL INFORMATION: Status post SFA stent. TECHNIQUE: Right lower extremity duplex ultrasound was performed with velocity measurements and waveform analysis in the common femoral arteries, profunda femoris arteries, proximal mid and distal superficial femoral arteries, popliteal arteries and tibial vessels. This study was performed only at rest. COMPARISON: CT abdomen and pelvis 02/19/2022 FINDINGS: Velocities in cm/sec and phasicity as well as the presence of plaque are reported below. RIGHT LEG: Plaque is present throughout. There is biphasic flow seen in the common femoral artery but extremely low velocity. Monophasic flow is noted throughout the remainder. Common Femoral: 12 Profunda Femoris: 38 Proximal SFA: 17 Mid SFA: Occluded with stent patent but with extremely slow monophasic flow. Distal SFA: 11 Popliteal: 11 Tibial: 5 US/US arterial duplex LE RT IMPRESSION: The SFA stent is patent but with extremely slow monophasic flow. Slow monophasic flow noted throughout the remainder of the lower extremity with the exception of the common femoral artery which demonstrates biphasic flow.
--- NOTE | ~2022-10-09 | CT_ITS ---
EXAMINATION: CT ANGIOGRAM OF THE CHEST WITH AND WITHOUT CONTRAST (CT PULMONARY ANGIOGRAM FOR PE) CLINICAL INFORMATION: Reason for Exam sob hx of dvt COMPARISON: 02/19/2022 TECHNIQUE: Prior to contrast administration, noncontrast localization images were obtained. Subsequently, multidetector volumetric imaging was performed from the thoracic inlet to below the diaphragms following the administration of 65 mL Omnipaque 350 intravenous contrast. No contrast reaction reported Sagittal, coronal, and MIP oblique sagittal reformatted images were obtained on the CT workstation, uploaded to PACS, and reviewed. This CT examination was performed using dose optimization techniques as appropriate, variously including the following: *Automated exposure control *Adjustment of mA and/or kV according to patient size (this includes techniques or standardized protocols for targeted exams where dose is matched to indication/reason for exam; i.e. extremities or head) *Use of iterative reconstruction technique Total exam dose-length product 273 mGy-cm FINDINGS: QUALITY OF STUDY/CONTRAST BOLUS: Satisfactory. PULMONARY ARTERIES: Left lower lobe segmental level pulmonary embolism starts on series 7 image 244 extending into subsegmental branches. Right upper lobe segmental level pulmonary embolism is seen on series 7 image 218. There are right lower lobe and right middle lobe segmental emboli as well, for instance series 7 image 301. THORACIC AORTA: No aneurysm or dissection. LUNG: The central airways are patent. Moderate centrilobular emphysema. Small right pleural effusion. Right lower lobe groundglass opacities which are confluent. Mild septal thickening. No pneumothorax. MEDIASTINUM: Enlarged heart size. No pericardial effusion. No hilar or mediastinal lymphadenopathy. No evidence of septal bowing or right heart strain. CORONARY ARTERY CALCIFICATION: Present. CHEST WALL/AXILLA: No axillary or internal mammary lymphadenopathy. OSSEOUS STRUCTURES: No acute or suspicious osseous abnormality. UPPER ABDOMEN: Mild reflux of contrast into the hepatic veins to suggest elevated right heart pressures. Cholelithiasis. CT/CT angio chest PE protocol IMPRESSION: 1. Bilateral segmental pulmonary emboli. 2. Small right pleural effusion. Groundglass opacities in the right lower lobe with septal thickening. This could be infectious or inflammatory. There is also likely a component of edema. 3. Enlarged heart. Evidence of elevated right heart pressures. This critical result was discussed with Skip Martinez MD by telephone at 10/09/2022 6:27 AM and it was ascertained that the content and urgency of the report was understood at the time of direct communication. VTE: positive
--- NOTE | ~2022-10-09 | XR_ITS ---
EXAMINATION: XR CHEST CLINICAL INFORMATION: Short of breath COMPARISON: 02/18/2022 TECHNIQUE: Frontal view of the chest was obtained. FINDINGS: Cardiac leads overlie the chest. The lungs are well expanded. Blunting at the right costophrenic angle. Minimal streaky basilar opacity. No edema. No pneumothorax. The cardiomediastinal silhouette is within normal limits. No acute osseous abnormality. XR/XR chest 1V IMPRESSION: Small right pleural effusion. Streaky basilar opacity associated likely represents atelectasis.
--- NOTE | ~2022-10-09 | US_ITS ---
EXAMINATION: US VENOUS ULTRASOUND WITH DOPPLER LOWER EXTREMITY, BILATERAL CLINICAL INFORMATION: History of DVT. Elevated d-dimer. Lower extremity swelling. COMPARISON: None TECHNIQUE: Ultrasound of the deep veins is performed from the hip to the calf with compression sonography and color and pulse Doppler assessment. Spectral analysis with color-flow imaging is performed. FINDINGS: RIGHT: There is normal venous compression and respiratory variation and augmented flow. The visualized common femoral vein, superficial femoral vein, profunda femoral vein, popliteal vein, and the trifurcation region shows no evidence of deep venous thrombosis. There is no significant popliteal fossa cyst. LEFT: There is normal venous compression and respiratory variation and augmented flow. The visualized common femoral vein, superficial femoral vein, profunda femoral vein, popliteal vein, and the trifurcation region shows no evidence of deep venous thrombosis. There is no significant popliteal fossa cyst. If the patient's symptoms persist, followup ultrasound in 5 days 7 days might be of value to exclude proximal propagation from a non-visualized calf vein. US/US venous duplex LE BI IMPRESSION: No DVT demonstrated in the bilateral lower extremities.
--- NOTE | 2022-10-09 03:32 | ED_ITS ---
HPI - General Adult General Chief complaint: General Medical Stated complaint: Leg pain Time Seen by Provider: 10/09/22 03:32 Source: patient Mode of arrival: ambulatory Limitations: no limitations History of Present Illness HPI narrative: Patient 57 years old with history of coronary disease, CHF, diabetes, hypert ension, PE, right leg DVT peripheral vascular disease chronic smoker complaining of bilateral lower extremity pain with increased swelling for some time which is getting worse , he feels different than claudication pain which he gets on ambulation. Patient does have chronic leg edema. Also complain of shortness of breath which seems to be chronic no chest pain or palpitation patient has history of PE and right leg DVT about 6 months ago on Eliquis Related Data Home Medications Medication Instructions Recorded Confirmed doxepin 25 mg capsule 1 cap PO BEDTIME 02/19/22 04/26/22 nitroglycerin 0.4 mg sublingual 1 tab sublingual USEASDIRECTD 02/19/22 04/26/22 tablet furosemide 80 mg tablet 80 mg PO DAILY 03/22/22 04/26/22 metoprolol succinate 50 mg 50 mg PO DAILY 03/22/22 04/26/22 tablet,extended release 24 hr sacubitril 24 mg-valsartan 26 mg 1 tab PO BID 03/22/22 04/26/22 tablet (Entresto) apixaban 2.5 mg tablet (Eliquis) 2.5 mg PO BID 04/06/22 04/26/22 aspirin 81 mg chewable tablet 81 mg PO DAILY 04/06/22 04/26/22 atorvastatin 80 mg tablet 80 mg PO DAILY 04/06/22 04/26/22 Previous Rx's Medication Instructions Recorded empagliflozin 10 mg tablet 10 mg PO DAILY 30 days #30 tabs 03/22/22 (Jardiance) insulin detemir U-100 100 unit/mL 25 unit (0.25 mL) subcut BEDTIME 03/22/22 (3 mL) subcutaneous pen (Levemir 30 days #7.5 mL FlexTouch U-100 Insulin) sitagliptin phos 50 mg-metformin 1 tab PO QPM #30 tabs 03/22/22 ER 500 mg tablet,extended rel 24h mp (Janumet XR) dulaglutide 0.75 mg/0.5 mL 0.75 mg (0.5 mL) subcut QWEEK 30 07/20/22 subcutaneous pen injector days #2.5 mL (Trulicity) Allergies Allergy/AdvReac Type Severity Reaction Status Date / Time No Known Allergies Allergy Verified 04/26/22 12:24 Review of Systems Review of Systems: Yes all other systems are reviewed and are negative REPLACED BY [facility] Past Medical History Medical History Abdominal pain CAD (coronary artery disease) CHF (congestive heart failure) Diabetes Elevated troponin HLD (hyperlipidemia) Hypertension Pulmonary embolism PVD (peripheral vascular disease) Surgical History History of angioplasty of peripheral vessel History of heart artery stent Family History Family History Other No family history of coronary artery disease Social History Social History Household Members: Family Housing: Other Do you presently have visiting nurse or other home services: No Alcohol intake: former Patient Tobacco Use Status: Current everyday Tobacco user Tobacco use type: Cigarette Cigarettes Per Day: 10 e-Cigarette/Vaping Use: Never Used Second Hand Smoke Exposure: Yes Advance Directives: No Advance Directives Information Provided: Yes service: No Current occupational status: unemployed Cognitive needs: No Hearing needs: No Vision needs: No Physical Exam ED Vital Signs: Vital Signs - 24 hr 10/09/22 03:00 10/09/22 03:35 10/09/22 04:36 Temperature 99.4 F 99.4 F Pulse Rate 100 88 Respiratory Rate 28 H 17 22 H Blood Pressure 138/98 H 128/84 Pulse Oximetry 95 94 Oxygen Delivery Method Room Air Room Air 10/09/22 04:00 Temperature Pulse Rate 86 Respiratory Rate 22 H Blood Pressure 127/81 Pulse Oximetry 96 Oxygen Delivery Method Room Air BMI result Body Mass Index 26.6 Appearance: Alert. Oriented X3. No acute distress. Eyes: PERRLA, No Nystagmus ENT: Pharynx normal. Oral Mucosa moist Neck: Normal inspection. Neck supple. CVS: Normal heart rate and rhythm. Pulses normal. Respiratory: No respiratory distress. Equal air entry bilateral, no wheezing/rales/rhonchi Abdomen: Soft and nontender. Bowel sounds are present, no mass palpable, no CVA tenderness Skin: Skin warm and dry. Normal skin color. Normal skin turgor. Extremities:2+ lower extremity edema. No calf tenderness Neuro: Oriented X 3. No motor deficit. No sensory deficit.No cerebellar signs , cranial nerves II-XII intact Medications Administered Discontinued Medications Generic Name Dose Route Start Last Admin Trade Name Freq PRN Reason Stop Dose Admin Furosemide 40 mg 10/09/22 03:59 10/09/22 04:35 Furosemide 40 Mg/4 Ml Vial IVPUSH 10/09/22 04:00 40 mg ONCE ONE Administration Protocol Insulin Human Lispro 8 unit 10/09/22 04:27 10/09/22 04:37 Insulin Lispro 100 Unit/Ml 3 Ml Vial SUBCUT 10/09/22 04:28 8 unit ONCE ONE Administration Iohexol 65 ml 10/09/22 06:07 10/09/22 06:08 Iohexol 350 Mg/Ml 100 Ml Infus..Btl IV 10/09/22 06:08 65 ml ONCE ONE Administration Morphine Sulfate 2 mg 10/09/22 03:59 10/09/22 04:36 Morphine Sulfate 4 Mg/Ml Cartridge IVPUSH 10/09/22 04:00 2 mg ONCE ONE Administration Protocol Medical Decision Making Medical Decision Making [facility] Narrative: Patient would increased shortness of breath with leg swelling with increased BNP suggestive of CHF will give IV Lasix. Patient D-dimer is also elevated possible patient has PE will start patient on heparin CTA chest to rule out PE also with the venous Doppler from both lower extremities to rule out DVT will admit patient for further evaluation 06:[address] showed bilateral PE no saddle emboli started on heparin drip hospitalist aware Differential Diagnosis CHF/PE/DVT/ACS Consult Healthcare Provider Management of the patient was discussed with: Hospitalist Lab Data [facility] Lab Attestation statement: I reviewed the patient's lab results. 10/09/22 03:59 10/09/22 03:59 Labs: Lab Results 10/09/22 10/09/22 10/09/22 Range/Units 03:43 03:59 03:59 WBC 12.5 H (4.8-10.8) X10*3/uL RBC 4.45 L (4.60-5.80) X10*6/uL Hgb 11.9 L (14.0-18.0) g/dl Hct 37.9 L (42.0-52.0) % MCV 85.2 (80.0-98.0) fL MCH 26.7 L (27.0-33.0) pg MCHC 31.4 (31.0-36.0) g/dl RDW 18.7 H (11.0-16.0) % Plt Count 251 (160-400) X10*3/uL MPV 10.6 (9.4-12.4) fL Immature Gran % (Auto) 0.5 H (0.0-0.4) % Neut % (Auto) 86.9 H (45-73) % Lymph % (Auto) 3.7 L (20-40) % [place] % (Auto) 7.9 (2-11) % Eos % (Auto) 0.9 (0-4) % Baso % (Auto) 0.1 (0-2) % Lymph # (Auto) 0.5 L (1.2-4.9) X10*3/uL [place] # (Auto) 1.0 (0.1-1.2) X10*3/uL Eos # (Auto) 0.1 (0.0-0.4) X10*3/uL Baso # (Auto) 0.0 (0.0-0.2) X10*3/uL Abs Immat Gran (auto) 0.06 H (0.00-0.03) X10*3/uL Absolute Neuts (auto) 10.8 H (2.0-8.3) x10*3/uL Absolute Nucleated RBC 0.000 (0.0-0.012) X10*3/uL Nucleated RBC % (auto) 0.0 (0.0-0.2) /100WBC PT (10.0-13.1) SEC INR (0.9-1.1) D-Dimer High Sensitivty NG/ML Sodium 139 (135-145) mmol/L Potassium 4.9 (3.3-5.1) mmol/L Chloride 106 (96-108) mmol/L Carbon Dioxide 22 (22-29) mmol/L Anion Gap 16 (12-20) BUN 36 H (9-16) mg/dL Creatinine 1.13 (0.5-1.4) mg/dL Estim Creat Clear Calc 65.0 Estimated GFR > 60 POC Glucose 313 H (60-115) mg/dL Random Glucose 353 H* (60-115) mg/dL Calcium 8.2 L D (8.4-10.2) mg/dL Total Bilirubin 1.5 H (0.0-1.0) mg/dL AST 44 H (5-37) U/L ALT 73 H (0-40) U/L Alkaline Phosphatase 83 (39-117) U/L Troponin I High Sens (<3.5-35.0) ng/L B-Natriuretic Peptide (<100) pg/mL Total Protein 5.5 L (6.5-8.0) g/dL Albumin 2.7 L (3.5-5.0) g/dL COVID-19 (BERONICA) (Negative) COVID-19 Clin Com 10/09/22 10/09/22 10/09/22 Range/Units 03:59 03:59 03:59 WBC (4.8-10.8) X10*3/uL RBC (4.60-5.80) X10*6/uL Hgb (14.0-18.0) g/dl Hct (42.0-52.0) % MCV (80.0-98.0) fL MCH (27.0-33.0) pg MCHC (31.0-36.0) g/dl RDW (11.0-16.0) % Plt Count (160-400) X10*3/uL MPV (9.4-12.4) fL Immature Gran % (Auto) (0.0-0.4) % Neut % (Auto) (45-73) % Lymph % (Auto) (20-40) % [place] % (Auto) (2-11) % Eos % (Auto) (0-4) % Baso % (Auto) (0-2) % Lymph # (Auto) (1.2-4.9) X10*3/uL [place] # (Auto) (0.1-1.2) X10*3/uL Eos # (Auto) (0.0-0.4) X10*3/uL Baso # (Auto) (0.0-0.2) X10*3/uL Abs Immat Gran (auto) (0.00-0.03) X10*3/uL Absolute Neuts (auto) (2.0-8.3) x10*3/uL Absolute Nucleated RBC (0.0-0.012) X10*3/uL Nucleated RBC % (auto) (0.0-0.2) /100WBC PT 22.9 H (10.0-13.1) SEC INR 1.9 H (0.9-1.1) D-Dimer High Sensitivty 3536 NG/ML Sodium (135-145) mmol/L Potassium (3.3-5.1) mmol/L Chloride (96-108) mmol/L Carbon Dioxide (22-29) mmol/L Anion Gap (12-20) BUN (9-16) mg/dL Creatinine (0.5-1.4) mg/dL Estim Creat Clear Calc Estimated GFR POC Glucose (60-115) mg/dL Random Glucose (60-115) mg/dL Calcium (8.4-10.2) mg/dL Total Bilirubin (0.0-1.0) mg/dL AST (5-37) U/L ALT (0-40) U/L Alkaline Phosphatase (39-117) U/L Troponin I High Sens 672.3 H* (<3.5-35.0) ng/L B-Natriuretic Peptide 4244 H (<100) pg/mL Total Protein (6.5-8.0) g/dL Albumin (3.5-5.0) g/dL COVID-19 (BERONICA) (Negative) COVID-19 Clin Com 10/09/22 Range/Units 04:00 WBC (4.8-10.8) X10*3/uL RBC (4.60-5.80) X10*6/uL Hgb (14.0-18.0) g/dl Hct (42.0-52.0) % MCV (80.0-98.0) fL MCH (27.0-33.0) pg MCHC (31.0-36.0) g/dl RDW (11.0-16.0) % Plt Count (160-400) X10*3/uL MPV (9.4-12.4) fL Immature Gran % (Auto) (0.0-0.4) % Neut % (Auto) (45-73) % Lymph % (Auto) (20-40) % [place] % (Auto) (2-11) % Eos % (Auto) (0-4) % Baso % (Auto) (0-2) % Lymph # (Auto) (1.2-4.9) X10*3/uL [place] # (Auto) (0.1-1.2) X10*3/uL Eos # (Auto) (0.0-0.4) X10*3/uL Baso # (Auto) (0.0-0.2) X10*3/uL Abs Immat Gran (auto) (0.00-0.03) X10*3/uL Absolute Neuts (auto) (2.0-8.3) x10*3/uL Absolute Nucleated RBC (0.0-0.012) X10*3/uL Nucleated RBC % (auto) (0.0-0.2) /100WBC PT (10.0-13.1) SEC INR (0.9-1.1) D-Dimer High Sensitivty NG/ML Sodium (135-145) mmol/L Potassium (3.3-5.1) mmol/L Chloride (96-108) mmol/L Carbon Dioxide (22-29) mmol/L Anion Gap (12-20) BUN (9-16) mg/dL Creatinine (0.5-1.4) mg/dL Estim Creat Clear Calc Estimated GFR POC Glucose (60-115) mg/dL Random Glucose (60-115) mg/dL Calcium (8.4-10.2) mg/dL Total Bilirubin (0.0-1.0) mg/dL AST (5-37) U/L ALT (0-40) U/L Alkaline Phosphatase (39-117) U/L Troponin I High Sens (<3.5-35.0) ng/L B-Natriuretic Peptide (<100) pg/mL Total Protein (6.5-8.0) g/dL Albumin (3.5-5.0) g/dL COVID-19 (BERONICA) Negative (Negative) COVID-19 Clin Com See Note Independent Interpretation I performed an independent interpretation of an: EKG Interpretation: Normal sinus rhythm heart rate 87 beats per incomplete right bundle-branch block poor progression of R-wave no acute ST T wave changes Radiology Impression Discussion of test interpretation with radiology: I discussed test interpretation with the radiologist External Record Review External record reviewed: Inpatient record Critical Care Time Critical Care Time Critical Care Time: Yes Total Critical Care Time: 55 Attestation: The patient was critically ill with a high probability of imminent or life thr eatening deterioration. I spent greater than 60 minutes of discontinuous time evaluating the patient,delivering critical care at the bedside, discussing and evaluating pertinent data with consultants. Critical care time does not include time spent performing separately billable procedures or teaching. Total time spent performing critical care was 55 minutes. Discharge Plan Discharge Clinical Impression: Pulmonary embolism, CHF (congestive heart failure) Patient Disposition: Admitted As Inpatient Interventions: Admission Worksheet (ED) Last Done: 10/09/22 06:20
--- NOTE | 2022-10-09 03:45 | ECG_ITS ---
Test Reason : SOB Blood Pressure : / mmHG Vent. Rate : 087 BPM Atrial Rate : 087 BPM P-R Int : 140 ms QRS Dur : 102 ms QT Int : 386 ms P-R-T Axes : 056 -53 070 degrees QTc Int : 464 ms Normal sinus rhythm Possible Left atrial enlargement Anteroseptal infarct , age undetermined Abnormal ECG When compared with ECG of 18-FEB-2022 22:40, No significant changes seen Referred By: Skip Martinez Electronically Signed By:INGRID VILLEGAS
[2022-10-09 03:48] LABS: Glucose, Whole Blood 313 mg/dL (60-115)
[2022-10-09 04:04] LABS: MANUAL DIFF FLAG NO
[2022-10-09 04:07] LABS: Basophils Percent Auto 0.1 % (0-2); Eosinophils Absolute Auto 0.1 X10*3/uL (0.0-0.4); Eosinophils Percent Auto 0.9 % (0-4); Hematocrit 37.9 % (42.0-52.0); Hemoglobin 11.9 g/dl (14.0-18.0); Imm Gran Abs Auto 0.06 X10*3/uL (0.00-0.03); Imm Gran Pct Auto 0.5 % (0.0-0.4); Lymphocytes Absolute Auto 0.5 X10*3/uL (1.2-4.9); Lymphocytes Percent Auto 3.7 % (20-40); Mean Corpuscular HGB Conc 31.4 g/dl (31.0-36.0); Mean Corpuscular Hemoglobin 26.7 pg (27.0-33.0); Mean Corpuscular Volume 85.2 fL (80.0-98.0); Mean Platelet Volume 10.6 fL (9.4-12.4); Monocytes Percent Auto 7.9 % (2-11); Neutrophils Absolute Auto 10.8 x10*3/uL (2.0-8.3); Neutrophils Percent Auto 86.9 % (45-73); Platelet Count 251 X10*3/uL (160-400); Red Blood Count 4.45 X10*6/uL (4.60-5.80); Red Cell Distribution Width 18.7 % (11.0-16.0); White Blood Count 12.5 X10*3/uL (4.8-10.8)
[2022-10-09 04:16] LABS: INTERNATIONAL NORM RATIO 1.9 (0.9-1.1); Prothrombin Time 22.9 SEC (10.0-13.1)
[2022-10-09 04:18] LABS: D Dimer High Sensitivity 3536 NG/ML
[2022-10-09 04:23] LABS: COVID-19 Test Negative (Negative); IDNOW Serial# BCCEAD1C
[2022-10-09 04:27] LABS: Alanine Aminotransferase 73 U/L (0-40); Albumin Level 2.7 g/dL (3.5-5.0); Alkaline Phosphatase 83 U/L (39-117); Anion Gap 16 (12-20); Aspartate Amino Transferase 44 U/L (5-37); Bilirubin Total 1.5 mg/dL (0.0-1.0); Blood Urea Nitrogen 36 mg/dL (9-16); Calcium 8.2 mg/dL (8.4-10.2); Carbon Dioxide 22 mmol/L (22-29); Chloride 106 mmol/L (96-108); Estimated Glomerular Filt Rate > 60; Glucose Random 353 mg/dL (60-115); Potassium 4.9 mmol/L (3.3-5.1); Sodium 139 mmol/L (135-145); Total Protein 5.5 g/dL (6.5-8.0)
[2022-10-09 04:28] LABS: B Type Natriuretic Peptide 4244 pg/mL (<100)
[2022-10-09] MEDS: Furosemide 40 MG/4 ML VIAL IVPUSH ×3 (04:35→18:35)
[2022-10-09] MEDS: Morphine Sulfate 4 MG/ML CARTRIDGE 2 MG IVPUSH (04:36)
[2022-10-09] MEDS: Insulin Lispro 100 UNIT/ML 3 ML VIAL 8 UNIT SUBCUT (04:37)
[2022-10-09 04:42] LABS: Troponin-I High Sensitivity 672.3 ng/L (<3.5-35.0)
--- NOTE | 2022-10-09 05:16 | PM.IMHP ---
History of Present Illness Date of Service: 10/09/22 Chief Complaint: Bilateral edema This is a 57-year-old female with pertinent history of insulin-dependent diabetes mellitus, essential hypertension, mixed hyperlipidemia, combined systolic and diastolic congestive heart failure, coronary artery disease who presents to the emergency department for evaluation of bilateral lower extremity edema. Patient states he has had worsening lower extremity edema for the last 2 weeks. Also complains of dyspnea which is worse with exertion and has been progressive over the last 2 weeks. Does complain of orthopnea and PND. States he is compliant with medications and diet. Patient denies fever, chills, chest discomfort, palpitations, abdominal pain, changes in urinary or bowel habits. In the emergency department, BNP was found to be significantly elevated and patient was given Lasix 40 mg IV Review of Systems Cardiovascular: Cardiovascular: Reports dyspnea on exertion, Reports orthopnea and Reports paroxysmal nocturnal dyspnea Respiratory: Respiratory: Reports dyspnea on exertion Gastrointestinal: Gastrointestinal: Reports no additional gastrointestinal complaints Genitourinary: Genitourinary: Reports no additional male genitourinary complaints Neurologic: Reports system reviewed and no additional complaints, except as documented [facility] Medical History Abdominal pain CAD (coronary artery disease) CHF (congestive heart failure) Diabetes Elevated troponin HLD (hyperlipidemia) Hypertension Pulmonary embolism PVD (peripheral vascular disease) Family History Other No family history of coronary artery disease Surgical History History of angioplasty of peripheral vessel History of heart artery stent Social History Household Members: Family Housing: Other Do you presently have visiting nurse or other home services: No Alcohol intake: former Patient Tobacco Use Status: Current everyday Tobacco user Tobacco use type: Cigarette Cigarettes Per Day: 10 e-Cigarette/Vaping Use: Never Used Second Hand Smoke Exposure: Yes Advance Directives: No Advance Directives Information Provided: Yes service: No Current occupational status: unemployed Cognitive needs: No Hearing needs: No Vision needs: No Meds Allergies Allergy/AdvReac Type Severity Reaction Status Date / Time No Known Allergies Allergy Verified 04/26/22 12:24 Home Medications Medication Instructions Recorded Confirmed Last Taken Type doxepin 25 mg capsule 1 cap PO BEDTIME 02/19/22 04/26/22 Unknown History nitroglycerin 0.4 mg sublingual 1 tab sublingual USEASDIRECTD 02/19/22 04/26/22 Unknown History tablet furosemide 80 mg tablet 80 mg PO DAILY 03/22/22 04/26/22 Unknown History metoprolol succinate 50 mg 50 mg PO DAILY 03/22/22 04/26/22 Unknown History tablet,extended release 24 hr sacubitril 24 mg-valsartan 26 mg 1 tab PO BID 03/22/22 04/26/22 Unknown History tablet (Entresto) apixaban 2.5 mg tablet (Eliquis) 2.5 mg PO BID 04/06/22 04/26/22 Unknown History aspirin 81 mg chewable tablet 81 mg PO DAILY 04/06/22 04/26/22 Unknown History atorvastatin 80 mg tablet 80 mg PO DAILY 04/06/22 04/26/22 Unknown History Physical Exam Vital Signs and Narrative: Vital Signs: Last Vital Signs Temp 99.4 F 10/09/22 03:35 Pulse 86 10/09/22 04:00 Resp 22 H 10/09/22 04:36 BP 127/81 10/09/22 04:00 Pulse Ox 96 10/09/22 04:00 O2 Del Method 10/09/22 04:00 BMI result Body Mass Index 26.6 Middle-aged male lying in bed in mild distress Neck supple Regular rate and rhythm, S1-S2 heard Bilateral crackles Abdomen distended nontender, no guarding, no rigidity Patient is awake, alert and oriented to self, place, time and person ; no focal motor deficit Psych: Normal mood Bilateral pedal edema Results Labs 10/09/22 03:59 10/09/22 03:59 Labs: Laboratory Results - last 24 hr 10/09/22 10/09/22 10/09/22 03:43 03:59 03:59 MCV 85.2 MCH 26.7 L MCHC 31.4 RDW 18.7 H Plt Count 251 MPV 10.6 Immature Gran % (Auto) 0.5 H Neut % (Auto) 86.9 H Lymph % (Auto) 3.7 L [place] % (Auto) 7.9 Eos % (Auto) 0.9 Baso % (Auto) 0.1 Lymph # (Auto) 0.5 L [place] # (Auto) 1.0 Eos # (Auto) 0.1 Baso # (Auto) 0.0 Abs Immat Gran (auto) 0.06 H Absolute Neuts (auto) 10.8 H Absolute Nucleated RBC 0.000 Nucleated RBC % (auto) 0.0 PT INR D-Dimer High Sensitivty Anion Gap 16 Estim Creat Clear Calc 65.0 Estimated GFR > 60 POC Glucose 313 H Random Glucose 353 H* Calcium 8.2 L D Total Bilirubin 1.5 H AST 44 H ALT 73 H Alkaline Phosphatase 83 Troponin I High Sens B-Natriuretic Peptide Total Protein 5.5 L Albumin 2.7 L COVID-19 (BERONICA) COVID-19 [employer] Com 10/09/22 10/09/22 10/09/22 03:59 03:59 03:59 MCV MCH MCHC RDW Plt Count MPV Immature Gran % (Auto) Neut % (Auto) Lymph % (Auto) [place] % (Auto) Eos % (Auto) Baso % (Auto) Lymph # (Auto) [place] # (Auto) Eos # (Auto) Baso # (Auto) Abs Immat Gran (auto) Absolute Neuts (auto) Absolute Nucleated RBC Nucleated RBC % (auto) PT 22.9 H INR 1.9 H D-Dimer High Sensitivty 3536 Anion Gap Estim Creat Clear Calc Estimated GFR POC Glucose Random Glucose Calcium Total Bilirubin AST ALT Alkaline Phosphatase Troponin I High Sens 672.3 H* B-Natriuretic Peptide 4244 H Total Protein Albumin COVID-19 (BERONICA) COVID-[employer] Com 10/09/22 04:00 MCV MCH MCHC RDW Plt Count MPV Immature Gran % (Auto) Neut % (Auto) Lymph % (Auto) [place] % (Auto) Eos % (Auto) Baso % (Auto) Lymph # (Auto) [place] # (Auto) Eos # (Auto) Baso # (Auto) Abs Immat Gran (auto) Absolute Neuts (auto) Absolute Nucleated RBC Nucleated RBC % (auto) PT INR D-Dimer High Sensitivty Anion Gap Estim Creat Clear Calc Estimated GFR POC Glucose Random Glucose Calcium Total Bilirubin AST ALT Alkaline Phosphatase Troponin I High Sens B-Natriuretic Peptide Total Protein Albumin COVID-19 (BERONICA) Negative COVID-19 [employer] Com See Note Imaging Radiologist's Impressions: Impressions Chest X-Ray 10/09/22 04:15 IMPRESSION: Small right pleural effusion. Streaky basilar opacity associated likely represents atelectasis. Assessment and Plan (1) CHF (congestive heart failure): Status: Acute Plan This is a 57-year-old female with pertinent history of insulin-dependent diabetes mellitus, essential hypertension, mixed hyperlipidemia, combined systolic and diastolic congestive heart failure, coronary artery disease who presents to the emergency department for evaluation of bilateral lower extremity edema and dyspnea. #. Acute on chronic combined systolic and diastolic heart failure: Will admit patient and initiate IV Lasix. Transition to p.o. Lasix once euvolemia is achieved. Consulting Cardiology and obtaining echo. Strict I's and O's and low-salt diet. Continue beta-jonnathan and Entresto #. NSTEMI: Initiated on heparin drip in the ER. Appreciate cardiology assistance #. Insulin-dependent diabetes mellitus with hyperglycemia: Initiating basal plus regimen. #. Essential hypertension: Continue home antihypertensives #. Mixed hyperlipidemia: On statin #. Tobacco use disorder: Nicotine patch Med rec pending DVT prophylaxis: Heparin drip Cardiac diet Full code Admit as inpatient and will require two night minimum hospital stay for IV heparin and IV Lasix Time Spent With Patient Time: Total time managing care of this patient today ____ minutes. Quality Stroke Does the patient have a stroke diagnosis?: No VTE Prior VTE?: No VTE Risk Level:: Medical - moderate - high VTE Device Contraindication: Treatment Not Indicated VTE Drug Contraindication: N/A - Med Ordered
[2022-10-09 05:38] LABS: Appearance Urine Clear; Color Urine Yellow; Glucose Urine UA >=1000 mg/dL (Negative); Leukocyte Esterase Urine Negative (Negative); Nitrite Urine Negative (Negative); PH 5.5 (5.0-9.0); Specific Gravity - Urine 1.015 (1.005-1.025); UMIC TRIGGER UACC YES; Urine Blood Negative (Negative); Urine Ketones Negative (Negative); Urine Protein 100 (2+) mg/dL (Neg-Trace)
[2022-10-09 05:43] LABS: Bacteria Urine None Seen (None Seen); Hyaline Casts Urine 0-2 /LPF (0-2); RBC Urine 0-2 /HPF (0-2); Squamous Epithelial Cell Urine 0-2 /HPF (0-2); WBC Urine 0-5 /HPF (0-5)
--- NOTE | 2022-10-09 05:52 | PC.NURSE ---
poc reported to dr kaufman and insulin order being changed in the system at this time. pt is in ct at this time.
[2022-10-09 05:53] LABS: Glucose, Whole Blood 290 mg/dL (60-115)
--- NOTE | 2022-10-09 06:04 | PC.NURSE ---
pt in ct at this time.
[2022-10-09] MEDS: iohexoL 350 MG/ML 100 ML INFUS..BTL 65 ML IV (06:08)
[2022-10-09 06:38] LABS: Partial Thromboplastin Time 30.1 SEC (26.0-36.4)
[2022-10-09] MEDS: Heparin Sodium,Porcine/1/2NS 25,000 UNIT/250 ML IV.SOLN 8.33 UNIT IVCONT (06:44)
[2022-10-09] MEDS: Heparin Sodium,Porcine 5,000 UNIT/ML VIAL 4000 UNIT IVPUSH (06:46)
[2022-10-09] MEDS: Insulin Glargine,Hum.rec.anlog 100 UNIT/ML 10 ML VIAL 20 UNIT SUBCUT ×2 (06:50→21:11)
--- NOTE | 2022-10-09 06:53 | PC.NURSE ---
pt returned and heparin and insulin given. pt is ready for transport. ptt pending and aware.
--- NOTE | 2022-10-09 07:00 | CA_ITS ---
Transthoracic Echocardiogram Patient (Last, First, Middle): Nate Ramirez, Gender: Male Date of : 1965 Age: 57 Procedure Date: 10/09/2022 Procedure Type: Transthoracic Echocardiogram Location: [facility] [place] Height: 167.64 cm Weight: 69.4 kg BSA: 1.78 m2 Heart Rate: 60 bpm BP: 140 / 77 mmHg Translator/Interpreter: BRANDON Referring MD: Junie Bermeo MD Symptoms: CHF Study Quality: Adequate/Contrast ECG Rhythm: Sinus Conclusions: - The left ventricular systolic function is severely decreased. The visually estimated ejection fraction is between 10-15%. - Apical thrombi noted- 1.6 x 1.1cm and 1.4 x 0.5cm. - No obvious valvular pathology seen on this study. Findings Procedure Information Contrast agent, definity, is being given per protocol without apparent complications. Left Ventricle Moderately increased left ventricular cavity size. The left ventricular systolic function is severely decreased. The visually estimated ejection fraction is between 10-15%. There is severe global hypokinesis. E/E prime ratio is >15, consistent with elevated filling pressures. Evidence suggests grade III (severe) diastolic dysfunction. Apical thrombi noted- 1.6 x 1.1cm and 1.4 x 0.5cm. Wall Motion Rest Echo Findings The basal inferior, mid inferior, and basal anteroseptal segments are akinetic. Right Ventricle Mildly increased right ventricular cavity size. There is mild to moderately decreased right ventricular systolic function. Atria Mild biatrial enlargement. Aortic Valve There is a normal trileaflet aortic valve. There is mild thickening on the right coronary cusp of the aortic valve. There is no aortic valve stenosis. There is no aortic valve regurgitation. Mitral Valve There is mild mitral annular calcification. There is trace mitral valve regurgitation. There is no mitral valve stenosis. Pulmonic Valve The pulmonic valve is likely normal. Tricuspid Valve Normal tricuspid valve structure. There is trace tricuspid valve regurgitation. There is no evidence of pulmonary hypertension. Great Vessels The asc aorta is normal in size. Venous The inferior vena cava is mildly dilated and collapses greater than 50% with inspiration. Pericardium/Pleural There is no evidence of pericardial effusion. Prior Study Comparison Changes noted compared to prior study dated: 02/20/2022. Thrombus not noted before. Recommendations, Care & Conclusions No obvious valvular pathology seen on this study. Measurements 2D Linear Measurements IVSd: 0.74 0.6-0.9/0.6-1.0 cm LVIDd: 6.41 3.9-5.3/4.2-5.9 cm LVIDd Index: 3.60 2.4-3.2/2.2-3.1 cm/m2 LVIDs: 5.78 2.0-3.6 cm LVPWd: 1.05 0.7-1.1 cm LA Diam: 3.30 2.7-3.8/3.0-4.0 cm LAIDs Index: 1.85 1.5-2.3 cm/m2 LV Mass: 298.67 67-162/88-224 g LV Mass Index: 167.79 43-95/49-115 g/m2 LVOT Diam: 2.20 3.0+(-)1.3 cm 2D Systolic Function EF 4C: 17.60 >55% EF 2C: 20.60 >55% EF BiP: 20.40 >55% Mitral Valve MV Pk E: 0.82 MV PK A: 0.20 MV Decel Time: 137.00 E/A: 4.10 E'Lateral: 5.68 E'Medial: 2.03 E/E' Med: 40.40 E/E' Lat: 14.50 PHT: 40.00 MVA PHT: 5.50 Decel Taliaferro: 5.99 Aortic Valve AoV Pk Jcarlos: 1.11 AoV Mn Jcarlos: 0.76 AoV VTI: 0.21 AoV Pk Grad: 5.00 Aov Mn Grad: 3.00 GEETHA Cont.VTI: 1.98 LVOT LVOT Pk Jcarlos: 0.68 LVOT Mn Jcarlos: 0.44 LVOT VTI: 0.11 LVOT Pk Grad: 2.00 LVOT Mn Grad: 1.00 LVOT Diam: 2.20 LVOT Area: 3.80 Diastolic Function MV Pk E: 0.82 MV Pk A: 0.20 E/A: 4.10 E'Medial: 2.03 E/E' Med: 40.40 E' Laterial: 5.68 E/E' Lat: 14.50 Right Ventricle TAPSE (mm): 14.20 TVS' Jcarlos: 7.30 Tricuspid Valve TR Pk Jcarlos: 2.23 TR Pk Grad: 20.00 RA Press: 8.00 RVSP: 28.00 Great Vessels Aorta Sinus of Valsalva: 3.40 2.0-3.5 cm Ao Asc: 3.60 2.1-3.4 cm Pulmonary Valve PV Pk Jcarlos: 0.43 Peak PV Grad: 1.00 Updated in Other Vendor System with Status of Final Montez Trimble MD electronically signed on 10/10/2022 8:35:26 AM with status of Final
[2022-10-09 07:42] LABS: Glucose, Whole Blood 213 mg/dL (60-115)
[2022-10-09 07:52] LABS: Troponin-I High Sensitivity 765.3 ng/L (<3.5-35.0)
[2022-10-09] MEDS: Insulin Lispro 100 UNIT/ML 3 ML VIAL SUBCUT ×3 (08:01→21:12)
[2022-10-09] MEDS: Acetaminophen 325 MG TABLET 650 MG PO ×2 (08:01→18:48)
[2022-10-09] MEDS: Nicotine 14 MG PATCH.TD24 TRANSDERMA (08:01)
[2022-10-09] MEDS: 0.9 % Sodium Chloride Flush 3 ML SYRINGE IVFLUSH ×3 (08:02→23:46)
[2022-10-09] MEDS: Tamsulosin HCL 0.4 MG CAPSULE PO (09:08)
--- NOTE | 2022-10-09 09:33 | PHA.MEDREC ---
MED REC COMPLETE, PATIENT MAY POSSIBLY BE NON COMPLIANT, NOTHING HAS BEEN FILLED SINCE MAY AT HIS PHARMACY AND UPON QUESTIONING HE AGREES TO EVERY MED AND SAYS HE HAS SEVERAL BOTTLES OF ALL THE MEDS AT HOME Pharmacy Consult ? Medication Reconciliation Pharmacy has completed the medication reconciliation.
--- NOTE | 2022-10-09 09:41 | HO.PM.IMPN ---
Subjective Subjective Date of Service: 10/09/22 Interval History: sob Physical Exam Vital Signs: Vital Signs: Last Vital Signs Temp 98.2 F 10/09/22 07:33 Pulse 85 10/09/22 07:33 Resp 20 10/09/22 07:33 BP 140/77 H 10/09/22 07:33 Pulse Ox 97 10/09/22 07:33 O2 Del Method 10/09/22 07:33 O2 Flow Rate 3 10/09/22 07:33 BMI result Body Mass Index 24.7 dissheveled, hard of hearing, crackles bilateral, 2-3+ bilateral edema Objective Data Active Medications Acetaminophen (Acetaminophen 325 Mg Tablet) 650 mg PO Q6H PRN PRN Reason: Pain, Mild (Pain Scale 1-3) Last Admin: 10/09/22 08:01 Dose: 650 mg Documented By: ERASMO Dextrose (Dextrose 50 % 25 Gm/50 Ml Syringe) 25 gm IVPUSH Q15M PRN; Protocol PRN Reason: per Hypoglycemia Standing Ord. Furosemide (Furosemide 40 Mg/4 Ml Vial) 40 mg IVPUSH BID@0900,1800 LOUISA; Protocol Last Admin: 10/09/22 08:02 Dose: 40 mg Documented By: ERASMO Glucose (Glucose Gel 15 Gm Gel..Gram.) 15 gm PO Q15M PRN; Protocol PRN Reason: per Hypoglycemia Standing Ord. Heparin Sodium (Porcine) (Heparin Sodium,Porcine 5,000 Unit/Ml Vial) 2,800 unit 40 unit/kg (2800 unit) IVPUSH PROTOCOL BOLUS PRN; Protocol PRN Reason: 40 unit/kg - Heparin Protocol Heparin Sodium (Porcine) (Heparin Sodium,Porcine 5,000 Unit/Ml Vial) 5,600 unit 80 unit/kg (5600 unit) IVPUSH PROTOCOL BOLUS PRN; Protocol PRN Reason: 80 unit/kg - Heparin Protocol Heparin Sodium/Sodium Chloride (Heparin Sodium,Porcine/1/2ns) 25,000 unit in 250 mls @ 0 mls/hr IVCONT .Q0M LOUISA; Protocol Last Admin: 10/09/22 06:44 Dose: 12 units/kg/hr, 8.33 mls/hr Documented By: JEYSON Co-signed By: FERNANDO Insulin Glargine (Insulin Glargine,Hum.Rec.Anlog 100 Unit/Ml 10 Ml Vial) 20 unit SUBCUT BEDTIME [facility] Insulin Human Lispro (Insulin Lispro 100 Unit/Ml 3 Ml Vial) 0 unit SUBCUT QIDACHS [facility]; Protocol Last Admin: 10/09/22 08:01 Dose: 4 unit Documented By: ERASMO Melatonin (Melatonin 3 Mg Tablet) 6 mg PO BEDTIME PRN PRN Reason: Insomnia Nicotine (Nicotine 14 Mg Patch.Td24) 14 mg TRANSDERMA DAILY [facility] Last Admin: 10/09/22 08:01 Dose: 14 mg Documented By: ERASMO Ondansetron HCl (Ondansetron Hcl 4 Mg/2 Ml Vial) 4 mg IVPUSH Q8H PRN PRN Reason: Nausea and Vomiting Pharmacy Consult (Consult Rx Perform Med Rec) 1 each MISCELLANE ONCE PRN PRN Reason: Consult order Sodium Chloride (0.9 % Sodium Chloride Flush 3 Ml Syringe) 3 ml IVFLUSH QSHIFT [facility] Last Admin: 10/09/22 08:02 Dose: 3 ml Documented By: ERASMO Tamsulosin HCl (Tamsulosin Hcl 0.4 Mg Capsule) 0.4 mg PO DAILY [facility] Last Admin: 10/09/22 09:08 Dose: 0.4 mg Documented By: ERASMO Labs 10/09/22 03:59 10/09/22 03:59 Labs: Laboratory Results - last 24 hr 10/09/22 10/09/22 10/09/22 03:43 03:59 03:59 MCV 85.2 MCH 26.7 L MCHC 31.4 RDW 18.7 H Plt Count 251 MPV 10.6 Immature Gran % (Auto) 0.5 H Neut % (Auto) 86.9 H Lymph % (Auto) 3.7 L [place] % (Auto) 7.9 Eos % (Auto) 0.9 Baso % (Auto) 0.1 Lymph # (Auto) 0.5 L [place] # (Auto) 1.0 Eos # (Auto) 0.1 Baso # (Auto) 0.0 Abs Immat Gran (auto) 0.06 H Absolute Neuts (auto) 10.8 H Absolute Nucleated RBC 0.000 Nucleated RBC % (auto) 0.0 PT INR APTT D-Dimer High Sensitivty Anion Gap 16 Estim Creat Clear Calc 65.0 Estimated GFR > 60 POC Glucose 313 H Random Glucose 353 H* Calcium 8.2 L D Total Bilirubin 1.5 H AST 44 H ALT 73 H Alkaline Phosphatase 83 Troponin I High Sens B-Natriuretic Peptide Total Protein 5.5 L Albumin 2.7 L Urine Color Urine Appearance Urine pH Ur Specific [place] Urine Protein Urine Glucose (UA) Urine Ketones Urine Blood Urine Nitrite Ur Leukocyte Esterase Urine RBC Urine WBC Ur Squamous Epith Cells Urine Bacteria Hyaline Casts COVID-19 (BERONICA) COVID-19 Clin Com 10/09/22 10/09/22 10/09/22 03:59 03:59 03:59 MCV MCH MCHC RDW Plt Count MPV Immature Gran % (Auto) Neut % (Auto) Lymph % (Auto) [place] % (Auto) Eos % (Auto) Baso % (Auto) Lymph # (Auto) [place] # (Auto) Eos # (Auto) Baso # (Auto) Abs Immat Gran (auto) Absolute Neuts (auto) Absolute Nucleated RBC Nucleated RBC % (auto) PT 22.9 H INR 1.9 H APTT 30.1 D-Dimer High Sensitivty 3536 Anion Gap Estim Creat Clear Calc Estimated GFR POC Glucose Random Glucose Calcium Total Bilirubin AST ALT Alkaline Phosphatase Troponin I High Sens 672.3 H* B-Natriuretic Peptide 4244 H Total Protein Albumin Urine Color Urine Appearance Urine pH Ur Specific [place] Urine Protein Urine Glucose (UA) Urine Ketones Urine Blood Urine Nitrite Ur Leukocyte Esterase Urine RBC Urine WBC Ur Squamous Epith Cells Urine Bacteria Hyaline Casts COVID-19 (BERONICA) COVID-19 Clin Com 10/09/22 10/09/22 10/09/22 04:00 05:33 05:49 MCV MCH MCHC RDW Plt Count MPV Immature Gran % (Auto) Neut % (Auto) Lymph % (Auto) [place] % (Auto) Eos % (Auto) Baso % (Auto) Lymph # (Auto) [place] # (Auto) Eos # (Auto) Baso # (Auto) Abs Immat Gran (auto) Absolute Neuts (auto) Absolute Nucleated RBC Nucleated RBC % (auto) PT INR APTT D-Dimer High Sensitivty Anion Gap Estim Creat Clear Calc Estimated GFR POC Glucose 290 H Random Glucose Calcium Total Bilirubin AST ALT Alkaline Phosphatase Troponin I High Sens B-Natriuretic Peptide Total Protein Albumin Urine Color Yellow Urine Appearance Clear Urine pH 5.5 Ur Specific [place] 1.015 Urine Protein 100 (2+) H Urine Glucose (UA) >=1000 H Urine Ketones Negative Urine Blood Negative Urine Nitrite Negative Ur Leukocyte Esterase Negative Urine RBC 0-2 Urine WBC 0-5 Ur Squamous Epith Cells 0-2 Urine Bacteria None Seen Hyaline Casts 0-2 COVID-19 (BERONICA) Negative COVID-19 Clin Com See Note 10/09/22 10/09/22 07:07 07:39 MCV MCH MCHC RDW Plt Count MPV Immature Gran % (Auto) Neut % (Auto) Lymph % (Auto) [place] % (Auto) Eos % (Auto) Baso % (Auto) Lymph # (Auto) [place] # (Auto) Eos # (Auto) Baso # (Auto) Abs Immat Gran (auto) Absolute Neuts (auto) Absolute Nucleated RBC Nucleated RBC % (auto) PT INR APTT D-Dimer High Sensitivty Anion Gap Estim Creat Clear Calc Estimated GFR POC Glucose 213 H Random Glucose Calcium Total Bilirubin AST ALT Alkaline Phosphatase Troponin I High Sens 765.3 H* B-Natriuretic Peptide Total Protein Albumin Urine Color Urine Appearance Urine pH Ur Specific [place] Urine Protein Urine Glucose (UA) Urine Ketones Urine Blood Urine Nitrite Ur Leukocyte Esterase Urine RBC Urine WBC Ur Squamous Epith Cells Urine Bacteria Hyaline Casts COVID-19 (BERONICA) COVID-19 Clin Com Assessment and Plan (1) Pulmonary embolism: Status: Acute Plan 57-year-old male with pertinent history of insulin-dependent diabetes mellitus, essential hypertension, mixed hyperlipidemia, combined systolic and diastolic congestive heart failure, coronary artery disease presented for evaluation of bilateral lower extremity edema and dyspnea. acute hypoxic respiratory failure due to Acute on chronic combined systolic and diastolic heart failure and acute pulmonary embolism iv lasix, iv heparin, echo, cardio eval continue beta jonnathan, entresto, jardiance NSTEMI Initiated on heparin drip asa, statin cardio Insulin-dependent diabetes mellitus with hyperglycemia insulin, pocs CAD asa, statin hypertension metoprolol, entresto hyperlipidemia On statin Tobacco use disorder: Nicotine patch DVT prophylaxis: Heparin drip Full code reason for continued hospitalization:hypoxia Time Spent With Patient Time: Total time managing care of this patient today ____ minutes. Quality Stroke Does the patient have a stroke diagnosis?: No VTE Prior VTE?: No VTE Risk Level:: Medical - moderate - high VTE Device Contraindication: Treatment Not Indicated VTE Drug Contraindication: N/A - Med Ordered
[2022-10-09 11:06] LABS: Glucose, Whole Blood 183 mg/dL (60-115)
[2022-10-09] MEDS: Metoprolol Succinate ER 50 MG TAB.ER.24H PO (11:38)
[2022-10-09] MEDS: Empagliflozin 10 MG TABLET PO (11:38)
[2022-10-09] MEDS: Atorvastatin Calcium 80 MG TABLET PO (11:38)
[2022-10-09] MEDS: Aspirin Enteric Coated 81 MG TABLET.DR PO (11:39)
--- NOTE | 2022-10-09 12:49 | MHC.CM.PN ---
met with pt who reports living with his mother and sister he is covid vax x 2 he had no previous servcies in place prior to hospitilzation dc plan tbd buy pts hospitial course
[2022-10-09 13:37] LABS: PTT Heparin Drip 39.9 SEC (53-77.9)
[2022-10-09] MEDS: Heparin Sodium,Porcine 5,000 UNIT/ML VIAL 2800 UNIT IVPUSH (14:35)
[2022-10-09 16:33] LABS: Glucose, Whole Blood 147 mg/dL (60-115)
[2022-10-09 19:23] LABS: Glucose, Whole Blood 218 mg/dL (60-115)
[2022-10-09 21:02] LABS: PTT Heparin Drip 35.2 SEC (53-77.9)
[2022-10-09] MEDS: Gabapentin 100 MG CAPSULE PO (21:11)
[2022-10-09] MEDS: Sacubitril/Valsartan 24/26 1 TAB TABLET PO (21:11)
[2022-10-09] MEDS: Heparin Sodium,Porcine 5,000 UNIT/ML VIAL 5600 UNIT IVPUSH (21:25)
[2022-10-10 03:34] LABS: MANUAL DIFF FLAG NO
[2022-10-10 03:36] LABS: Basophils Percent Auto 0.3 % (0-2); Eosinophils Absolute Auto 0.4 X10*3/uL (0.0-0.4); Eosinophils Percent Auto 2.9 % (0-4); Hematocrit 46.8 % (42.0-52.0); Hemoglobin 14.5 g/dl (14.0-18.0); Imm Gran Abs Auto 0.06 X10*3/uL (0.00-0.03); Imm Gran Pct Auto 0.5 % (0.0-0.4); Lymphocytes Absolute Auto 0.6 X10*3/uL (1.2-4.9); Lymphocytes Percent Auto 4.9 % (20-40); Mean Corpuscular Hemoglobin 26.7 pg (27.0-33.0); Mean Corpuscular Volume 86.2 fL (80.0-98.0); Mean Platelet Volume 9.9 fL (9.4-12.4); Monocytes Absolute Auto 0.9 X10*3/uL (0.1-1.2); Monocytes Percent Auto 7.8 % (2-11); Neutrophils Absolute Auto 10.1 x10*3/uL (2.0-8.3); Neutrophils Percent Auto 83.6 % (45-73); Platelet Count 313 X10*3/uL (160-400); Red Blood Count 5.43 X10*6/uL (4.60-5.80); Red Cell Distribution Width 19.4 % (11.0-16.0); White Blood Count 12.1 X10*3/uL (4.8-10.8)
[2022-10-10 03:44] LABS: PTT Heparin Drip 82.1 SEC (53-77.9)
[2022-10-10 03:48] VITALS: BP 135/70; PULSE 63; RESP 14; TEMP 37.2; O2SAT 91
[2022-10-10 03:55] LABS: Anion Gap 17 (12-20); Blood Urea Nitrogen 33 mg/dL (9-16); Calcium 8.9 mg/dL (8.4-10.2); Carbon Dioxide 31 mmol/L (22-29); Chloride 101 mmol/L (96-108); Creatinine Clr Calc Pharmacy 66.2; Estimated Glomerular Filt Rate > 60; Glucose Random 143 mg/dL (60-115); Potassium 4.4 mmol/L (3.3-5.1); Sodium 145 mmol/L (135-145)
[2022-10-10] MEDS: Heparin Sodium,Porcine/1/2NS 25,000 UNIT/250 ML IV.SOLN 11.1 UNIT IVCONT (04:17)
[2022-10-10 07:23] VITALS: BP 146/83; PULSE 85; RESP 20; TEMP 37; O2SAT 94
[2022-10-10 07:30] LABS: Glucose, Whole Blood 118 mg/dL (60-115)
[2022-10-10] MEDS: Sacubitril/Valsartan 24/26 1 TAB TABLET PO (07:52)
[2022-10-10] MEDS: Atorvastatin Calcium 80 MG TABLET PO (07:52)
[2022-10-10] MEDS: Empagliflozin 10 MG TABLET PO (07:52)
[2022-10-10] MEDS: Gabapentin 100 MG CAPSULE PO ×3 (07:52→21:11)
[2022-10-10] MEDS: Tamsulosin HCL 0.4 MG CAPSULE PO (07:52)
[2022-10-10] MEDS: Metoprolol Succinate ER 50 MG TAB.ER.24H PO (07:52)
[2022-10-10] MEDS: Aspirin Enteric Coated 81 MG TABLET.DR PO (07:52)
[2022-10-10] MEDS: Acetaminophen 325 MG TABLET 650 MG PO ×2 (07:53→16:31)
[2022-10-10] MEDS: Nicotine 14 MG PATCH.TD24 TRANSDERMA (07:53)
[2022-10-10] MEDS: Furosemide 40 MG/4 ML VIAL IVPUSH (07:53)
[2022-10-10] MEDS: 0.9 % Sodium Chloride Flush 3 ML SYRINGE IVFLUSH ×3 (07:54→21:15)
--- NOTE | 2022-10-10 09:06 | P.PNIM_ITS ---
Subjective Subjective Date of Service: 10/10/22 Interval History: sob Physical Exam Vital Signs: Vital Signs: Last Vital Signs Temp 98.6 F 10/10/22 07:23 Pulse 85 10/10/22 07:23 Resp 20 10/10/22 07:23 BP 146/83 H 10/10/22 07:23 Pulse Ox 94 10/10/22 07:23 O2 Del Method 10/10/22 07:23 O2 Flow Rate 2 10/10/22 03:48 BMI result Body Mass Index 24.7 dissheveled, hard of hearing, crackles bilateral, 2-3+ bilateral edema Objective Data Active Medications Acetaminophen (Acetaminophen 325 Mg Tablet) 650 mg PO Q6H PRN PRN Reason: Pain, Mild (Pain Scale 1-3) Last Admin: 10/10/22 07:53 Dose: 650 mg Documented By: SAAD Aspirin (Aspirin Enteric Coated 81 Mg Tablet.) 81 mg PO DAILY [facility] Last Admin: 10/10/22 07:52 Dose: 81 mg Documented By: SAAD Atorvastatin Calcium (Atorvastatin Calcium 80 Mg Tablet) 80 mg PO DAILY [facility] Last Admin: 10/10/22 07:52 Dose: 80 mg Documented By: SAAD Dextrose (Dextrose 50 % 25 Gm/50 Ml Syringe) 25 gm IVPUSH Q15M PRN; Protocol PRN Reason: per Hypoglycemia Standing Ord. Empagliflozin (Empagliflozin 10 Mg Tablet) 10 mg PO DAILY [facility] Last Admin: 10/10/22 07:52 Dose: 10 mg Documented By: SAAD Furosemide (Furosemide 40 Mg/4 Ml Vial) 40 mg IVPUSH BID@0900,1800 [facility]; Protocol Last Admin: 10/10/22 07:53 Dose: 40 mg Documented By: SAAD Gabapentin (Gabapentin 100 Mg Capsule) 100 mg PO TID [facility] Last Admin: 10/10/22 07:52 Dose: 100 mg Documented By: SAAD Glucose (Glucose Gel 15 Gm Gel..Gram.) 15 gm PO Q15M PRN; Protocol PRN Reason: per Hypoglycemia Standing Ord. Heparin Sodium (Porcine) (Heparin Sodium,Porcine 5,000 Unit/Ml Vial) 2,800 unit 40 unit/kg (2800 unit) IVPUSH PROTOCOL BOLUS PRN; Protocol PRN Reason: 40 unit/kg - Heparin Protocol Last Admin: 10/09/22 14:35 Dose: 2,800 unit Documented By: ERASMO Heparin Sodium (Porcine) (Heparin Sodium,Porcine 5,000 Unit/Ml Vial) 5,600 unit 80 unit/kg (5600 unit) IVPUSH PROTOCOL BOLUS PRN; Protocol PRN Reason: 80 unit/kg - Heparin Protocol Last Admin: 10/09/22 21:25 Dose: 5,600 unit Documented By: CISCO Heparin Sodium/Sodium Chloride (Heparin Sodium,Porcine/1/2ns) 25,000 unit in 250 mls @ 0 mls/hr IVCONT .Q0M [facility]; Protocol Last Admin: 10/10/22 04:17 Dose: 16 units/kg/hr, 11.1 mls/hr Documented By: JEWELL Co-signed By: AMEENA Insulin Glargine (Insulin Glargine,Hum.Rec.Anlog 100 Unit/Ml 10 Ml Vial) 20 unit SUBCUT BEDTIME [facility] Last Admin: 10/09/22 21:11 Dose: 20 unit Documented By: CISCO Insulin Human Lispro (Insulin Lispro 100 Unit/Ml 3 Ml Vial) 0 unit SUBCUT QIDACHS [facility]; Protocol Last Admin: 10/10/22 08:09 Dose: Not Given Documented By: SAAD Non-Admin Reason: No Insulin Coverage Melatonin (Melatonin 3 Mg Tablet) 6 mg PO BEDTIME PRN PRN Reason: Insomnia Metoprolol Succinate (Metoprolol Succinate Er 50 Mg Tab.Er.24h) 50 mg PO DAILY [facility]; Protocol Last Admin: 10/10/22 07:52 Dose: 50 mg Documented By: SAAD Nicotine (Nicotine 14 Mg Patch.Td24) 14 mg TRANSDERMA DAILY [facility] Last Admin: 10/10/22 07:53 Dose: 14 mg Documented By: SAAD Ondansetron HCl (Ondansetron Hcl 4 Mg/2 Ml Vial) 4 mg IVPUSH Q8H PRN PRN Reason: Nausea and Vomiting Pharmacy Consult (Consult Rx Perform Med Rec) 1 each MISCELLANE ONCE PRN PRN Reason: Consult order Sacubitril/Valsartan (Sacubitril/Valsartan 1 Tab Tablet) 1 tab PO BID [facility]; Protocol Last Admin: 10/10/22 07:52 Dose: 1 tab Documented By: SAAD Sodium Chloride (0.9 % Sodium Chloride Flush 3 Ml Syringe) 3 ml IVFLUSH QSHIFT [facility] Last Admin: 10/10/22 07:54 Dose: 3 ml Documented By: SAAD Tamsulosin HCl (Tamsulosin Hcl 0.4 Mg Capsule) 0.4 mg PO DAILY [facility] Last Admin: 10/10/22 07:52 Dose: 0.4 mg Documented By: SAAD Labs 10/10/22 03:28 10/10/22 03:28 Labs: Laboratory Results - last 24 hr 10/09/22 10/09/22 10/09/22 10:52 12:58 16:29 MCV MCH MCHC RDW Plt Count MPV Immature Gran % (Auto) Neut % (Auto) Lymph % (Auto) Bath % (Auto) Eos % (Auto) Baso % (Auto) Lymph # (Auto) Bath # (Auto) Eos # (Auto) Baso # (Auto) Abs Immat Gran (auto) Absolute Neuts (auto) Absolute Nucleated RBC Nucleated RBC % (auto) aPTT Heparin Protocol 39.9 L Anion Gap Estim Creat Clear Calc Estimated GFR POC Glucose 183 H 147 H Random Glucose Calcium 10/09/22 10/09/22 10/10/22 19:19 20:41 03:28 MCV 86.2 MCH 26.7 L MCHC 31.0 RDW 19.4 H Plt Count 313 MPV 9.9 Immature Gran % (Auto) 0.5 H Neut % (Auto) 83.6 H Lymph % (Auto) 4.9 L Bath % (Auto) 7.8 Eos % (Auto) 2.9 Baso % (Auto) 0.3 Lymph # (Auto) 0.6 L Bath # (Auto) 0.9 Eos # (Auto) 0.4 Baso # (Auto) 0.0 Abs Immat Gran (auto) 0.06 H Absolute Neuts (auto) 10.1 H Absolute Nucleated RBC 0.000 Nucleated RBC % (auto) 0.0 aPTT Heparin Protocol 35.2 L Anion Gap Estim Creat Clear Calc Estimated GFR POC Glucose 218 H Random Glucose Calcium 10/10/22 10/10/22 10/10/22 03:28 03:28 07:26 MCV MCH MCHC RDW Plt Count MPV Immature Gran % (Auto) Neut % (Auto) Lymph % (Auto) Bath % (Auto) Eos % (Auto) Baso % (Auto) Lymph # (Auto) Bath # (Auto) Eos # (Auto) Baso # (Auto) Abs Immat Gran (auto) Absolute Neuts (auto) Absolute Nucleated RBC Nucleated RBC % (auto) aPTT Heparin Protocol 82.1 H D Anion Gap 17 Estim Creat Clear Calc 66.2 Estimated GFR > 60 POC Glucose 118 H Random Glucose 143 H Calcium 8.9 D Assessment and Plan (1) Pulmonary embolism: Status: Acute Plan 57-year-old male with pertinent history of insulin-dependent diabetes mellitus, essential hypertension, mixed hyperlipidemia, combined systolic and diastolic congestive heart failure, coronary artery disease presented for evaluation of bilateral lower extremity edema and dyspnea. acute hypoxic respiratory failure due to Acute on chronic combined systolic and diastolic heart failure and acute pulmonary embolism iv lasix, iv heparin, cardio eval echo with reduced EF, apical thrombus continue beta jonnathan, entresto, jardiance NSTEMI Initiated on heparin drip asa, statin cardio Insulin-dependent diabetes mellitus with hyperglycemia and neuropathy insulin, pocs will start gabapentin urinary retention continue souza, flomax TOV when ambulating CAD asa, statin hypertension metoprolol, entresto hyperlipidemia On statin Tobacco use disorder: Nicotine patch DVT prophylaxis: Heparin drip Full code reason for continued hospitalization:hypoxia Time Spent With Patient Time: Total time managing care of this patient today ____ minutes. Quality Stroke Does the patient have a stroke diagnosis?: No VTE Prior VTE?: No VTE Risk Level:: Medical - moderate - high VTE Device Contraindication: Treatment Not Indicated VTE Drug Contraindication: N/A - Med Ordered
[2022-10-10 11:00] LABS: Glucose, Whole Blood 346 mg/dL (60-115)
[2022-10-10 11:23] VITALS: BP 86/54; PULSE 75; RESP 20; TEMP 36.3; O2SAT 91
[2022-10-10] MEDS: Heparin Sodium,Porcine 5,000 UNIT/ML VIAL 2800 UNIT IVPUSH (11:31)
[2022-10-10] MEDS: Insulin Lispro 100 UNIT/ML 3 ML VIAL SUBCUT ×3 (12:00→21:11)
[2022-10-10] MEDS: 0.9 % Sodium Chloride 500 ML IV (12:01)
[2022-10-10 16:00] VITALS: BP 120/60; PULSE 84; RESP 18; TEMP 37; O2SAT 93
[2022-10-10 16:05] LABS: Glucose, Whole Blood 223 mg/dL (60-115)
[2022-10-10 18:47] LABS: PTT Heparin Drip 63.9 SEC (53-77.9)
[2022-10-10 20:00] VITALS: BP 100/60; PULSE 73; RESP 19; TEMP 37.1; O2SAT 93
[2022-10-10 20:05] LABS: Glucose, Whole Blood 180 mg/dL (60-115)
[2022-10-10 20:08] LABS: PTT Heparin Drip 61.9 SEC (53-77.9)
[2022-10-10] MEDS: Insulin Glargine,Hum.rec.anlog 100 UNIT/ML 10 ML VIAL 20 UNIT SUBCUT (21:11)
[2022-10-10] MEDS: Heparin Sodium,Porcine/1/2NS 25,000 UNIT/250 ML IV.SOLN 12.49 UNIT IVCONT (21:55)
[2022-10-10 23:48] VITALS: BP 115/69; PULSE 67; RESP 15; TEMP 36.7; O2SAT 92
[2022-10-11 02:18] LABS: PTT Heparin Drip 50.3 SEC (53-77.9)
[2022-10-11] MEDS: Heparin Sodium,Porcine/1/2NS 25,000 UNIT/250 ML IV.SOLN 13.88 UNIT IVCONT ×2 (02:31→04:12)
[2022-10-11] MEDS: Heparin Sodium,Porcine 5,000 UNIT/ML VIAL 2800 UNIT IVPUSH ×2 (02:33→17:17)
[2022-10-11 04:00] VITALS: BP 118/76; PULSE 84; RESP 19; TEMP 37.6; O2SAT 94
--- NOTE | 2022-10-11 05:38 | PM.EVENT ---
Event Note Date of Service: 10/11/22 Event Note: patient noted to have no popliteal pulses in the right lower extremity, cooler to touch as compared to left leg. No change in skin tone. Patient already on heparin drip. Will obtain arterial duplex Time Spent With Patient Time: Total time managing care of this patient today ____ minutes.
[2022-10-11 07:01] LABS: Hemoglobin 13.7 g/dl (14.0-18.0); Mean Corpuscular HGB Conc 31.1 g/dl (31.0-36.0); Mean Corpuscular Hemoglobin 27.1 pg (27.0-33.0); Mean Platelet Volume 10.2 fL (9.4-12.4); Platelet Count 353 X10*3/uL (160-400); Red Blood Count 5.06 X10*6/uL (4.60-5.80); Red Cell Distribution Width 19.2 % (11.0-16.0); White Blood Count 10.8 X10*3/uL (4.8-10.8)
[2022-10-11 07:06] LABS: PTT Heparin Drip 68.2 SEC (53-77.9)
[2022-10-11 07:13] LABS: Glucose, Whole Blood 144 mg/dL (60-115)
[2022-10-11 07:17] LABS: Anion Gap 14 (12-20); Blood Urea Nitrogen 28 mg/dL (9-16); Calcium 8.3 mg/dL (8.4-10.2); Carbon Dioxide 32 mmol/L (22-29); Chloride 103 mmol/L (96-108); Estimated Glomerular Filt Rate > 60; Glucose Fasting 161 mg/dL (60-99); Potassium 4.4 mmol/L (3.3-5.1); Sodium 145 mmol/L (135-145)
[2022-10-11 07:21] VITALS: BP 150/81; PULSE 101; TEMP 36.9; O2SAT 97
[2022-10-11 09:14] LABS: PTT Heparin Drip 64.2 SEC (53-77.9)
[2022-10-11] MEDS: Aspirin Enteric Coated 81 MG TABLET.DR PO (09:45)
[2022-10-11] MEDS: Atorvastatin Calcium 80 MG TABLET PO (09:46)
[2022-10-11] MEDS: Nicotine 14 MG PATCH.TD24 TRANSDERMA (09:47)
[2022-10-11] MEDS: 0.9 % Sodium Chloride Flush 3 ML SYRINGE IVFLUSH ×3 (09:47→21:35)
[2022-10-11] MEDS: Empagliflozin 10 MG TABLET PO (09:47)
[2022-10-11] MEDS: Gabapentin 100 MG CAPSULE PO ×3 (09:47→21:33)
--- NOTE | 2022-10-11 09:47 | P.PNIM_ITS ---
Subjective Subjective Date of Service: 10/11/22 Interval History: sob, leg pain Physical Exam Vital Signs: Vital Signs: Last Vital Signs Temp 98.4 F 10/11/22 07:21 Pulse 101 H 10/11/22 07:21 Resp 19 10/11/22 04:00 BP 150/81 H 10/11/22 07:21 Pulse Ox 97 10/11/22 07:21 O2 Del Method 10/11/22 07:21 O2 Flow Rate 6 10/11/22 07:21 BMI result Body Mass Index 24.7 dissheveled, hard of hearing, crackles bilateral, 2-3+ bilateral edema Objective Data Active Medications Acetaminophen (Acetaminophen 325 Mg Tablet) 650 mg PO Q6H PRN PRN Reason: Pain, Mild (Pain Scale 1-3) Last Admin: 10/10/22 16:31 Dose: 650 mg Documented By: SAAD Aspirin (Aspirin Enteric Coated 81 Mg Tablet.) 81 mg PO DAILY [facility] Last Admin: 10/10/22 07:52 Dose: 81 mg Documented By: SAAD Atorvastatin Calcium (Atorvastatin Calcium 80 Mg Tablet) 80 mg PO DAILY [facility] Last Admin: 10/10/22 07:52 Dose: 80 mg Documented By: SAAD Dextrose (Dextrose 50 % 25 Gm/50 Ml Syringe) 25 gm IVPUSH Q15M PRN; Protocol PRN Reason: per Hypoglycemia Standing Ord. Empagliflozin (Empagliflozin 10 Mg Tablet) 10 mg PO DAILY [facility] Last Admin: 10/10/22 07:52 Dose: 10 mg Documented By: SAAD Furosemide (Furosemide 20 Mg/2 Ml Vial) 20 mg IVPUSH BID@0900,1800 [facility]; Protocol Gabapentin (Gabapentin 100 Mg Capsule) 100 mg PO TID [facility] Last Admin: 10/10/22 21:11 Dose: 100 mg Documented By: LUZ MARINA Glucose (Glucose Gel 15 Gm Gel..Gram.) 15 gm PO Q15M PRN; Protocol PRN Reason: per Hypoglycemia Standing Ord. Heparin Sodium (Porcine) (Heparin Sodium,Porcine 5,000 Unit/Ml Vial) 2,800 unit 40 unit/kg (2800 unit) IVPUSH PROTOCOL BOLUS PRN; Protocol PRN Reason: 40 unit/kg - Heparin Protocol Last Admin: 10/11/22 02:33 Dose: 2,800 unit Documented By: LUZ MARINA Heparin Sodium (Porcine) (Heparin Sodium,Porcine 5,000 Unit/Ml Vial) 5,600 unit 80 unit/kg (5600 unit) IVPUSH PROTOCOL BOLUS PRN; Protocol PRN Reason: 80 unit/kg - Heparin Protocol Last Admin: 10/09/22 21:25 Dose: 5,600 unit Documented By: CISCO Heparin Sodium/Sodium Chloride (Heparin Sodium,Porcine/1/2ns) 25,000 unit in 250 mls @ 0 mls/hr IVCONT .Q0M [facility]; Protocol Last Admin: 10/11/22 04:12 Dose: 20 units/kg/hr, 13.88 mls/hr Documented By: LUZ MARINA Co-signed By: FRANCHESCA Insulin Glargine (Insulin Glargine,Hum.Rec.Anlog 100 Unit/Ml 10 Ml Vial) 20 unit SUBCUT BEDTIME [facility] Last Admin: 10/10/22 21:11 Dose: 20 unit Documented By: LUZ MARINA Insulin Human Lispro (Insulin Lispro 100 Unit/Ml 3 Ml Vial) 0 unit SUBCUT QIDACHS [facility]; Protocol Last Admin: 10/11/22 07:44 Dose: Not Given Documented By: SAAD Non-Admin Reason: No Insulin Coverage Melatonin (Melatonin 3 Mg Tablet) 6 mg PO BEDTIME PRN PRN Reason: Insomnia Metoprolol Succinate (Metoprolol Succinate Er 50 Mg Tab.Er.24h) 50 mg PO DAILY [facility]; Protocol Last Admin: 10/10/22 07:52 Dose: 50 mg Documented By: SAAD Nicotine (Nicotine 14 Mg Patch.Td24) 14 mg TRANSDERMA DAILY [facility] Last Admin: 10/10/22 07:53 Dose: 14 mg Documented By: SAAD Ondansetron HCl (Ondansetron Hcl 4 Mg/2 Ml Vial) 4 mg IVPUSH Q8H PRN PRN Reason: Nausea and Vomiting Pharmacy Consult (Consult Rx Perform Med Rec) 1 each MISCELLANE ONCE PRN PRN Reason: Consult order Sacubitril/Valsartan (Sacubitril/Valsartan 1 Tab Tablet) 1 tab PO BID [facility]; Protocol Last Admin: 10/10/22 07:52 Dose: 1 tab Documented By: SAAD Sodium Chloride (0.9 % Sodium Chloride Flush 3 Ml Syringe) 3 ml IVFLUSH QSHIFT [facility] Last Admin: 10/10/22 21:15 Dose: 3 ml Documented By: LUZ MARINA Tamsulosin HCl (Tamsulosin Hcl 0.4 Mg Capsule) 0.4 mg PO DAILY [facility] Last Admin: 10/10/22 07:52 Dose: 0.4 mg Documented By: SAAD Labs 10/11/22 06:42 10/11/22 06:42 Labs: Laboratory Results - last 24 hr 10/10/22 10/10/22 10/10/22 03:28 10:33 10:55 MCV MCH MCHC RDW Plt Count MPV Absolute Nucleated RBC Nucleated RBC % (auto) aPTT Heparin Protocol 82.1 H D 45.0 L D Anion Gap Estim Creat Clear Calc Estimated GFR POC Glucose 346 H Fasting Glucose Calcium 10/10/22 10/10/22 10/10/22 16:01 17:35 19:40 MCV MCH MCHC RDW Plt Count MPV Absolute Nucleated RBC Nucleated RBC % (auto) aPTT Heparin Protocol 63.9 D 61.9 Anion Gap Estim Creat Clear Calc Estimated GFR POC Glucose 223 H Fasting Glucose Calcium 10/10/22 10/11/22 10/11/22 20:00 01:59 06:42 MCV 87.0 MCH 27.1 MCHC 31.1 RDW 19.2 H Plt Count 353 MPV 10.2 Absolute Nucleated RBC 0.000 Nucleated RBC % (auto) 0.0 aPTT Heparin Protocol 50.3 L Anion Gap Estim Creat Clear Calc Estimated GFR POC Glucose 180 H Fasting Glucose Calcium 10/11/22 10/11/22 10/11/22 06:42 06:42 07:08 MCV MCH MCHC RDW Plt Count MPV Absolute Nucleated RBC Nucleated RBC % (auto) aPTT Heparin Protocol 68.2 D Anion Gap 14 Estim Creat Clear Calc 70.0 Estimated GFR > 60 POC Glucose 144 H Fasting Glucose 161 H Calcium 8.3 L D 10/11/22 08:43 MCV MCH MCHC RDW Plt Count MPV Absolute Nucleated RBC Nucleated RBC % (auto) aPTT Heparin Protocol 64.2 Anion Gap Estim Creat Clear Calc Estimated GFR POC Glucose Fasting Glucose Calcium Assessment and Plan (1) Pulmonary embolism: Status: Acute Plan 57-year-old male with pertinent history of insulin-dependent diabetes mellitus, essential hypertension, mixed hyperlipidemia, combined systolic and diastolic congestive heart failure, coronary artery disease presented for evaluation of bilateral lower extremity edema and dyspnea. acute hypoxic respiratory failure due to Acute on chronic combined systolic and diastolic heart failure and acute pulmonary embolism iv lasix, iv heparin, cardio following echo with reduced EF complicated by apical thrombus continue entresto, jardiance holding metoprolol for hypotension NSTEMI Initiated on heparin drip asa, statin cardio Insulin-dependent diabetes mellitus with hyperglycemia and neuropathy insulin, pocs started gabapentin urinary retention continue souza, flomax TOV when ambulating CAD asa, statin hypertension metoprolol, entresto hyperlipidemia On statin Tobacco use disorder: Nicotine patch DVT prophylaxis: Heparin drip Full code poor prognosis reason for continued hospitalization:hypoxia Time Spent With Patient Time: Total time managing care of this patient today ____ minutes. Quality Stroke Does the patient have a stroke diagnosis?: No VTE Prior VTE?: No VTE Risk Level:: Medical - moderate - high VTE Device Contraindication: Treatment Not Indicated VTE Drug Contraindication: N/A - Med Ordered
--- NOTE | 2022-10-11 10:05 | PM.CNCAR ---
History of Present Illness History of Present Illness Date of Service: 10/11/22 Chief complaint: Edema Narrative: This is a cardiology consultation regarding congestive heart failure. He was seen in the clinic once last year. Otherwise, per prior data [place] the last [place]. Multiple cardiac catheterizations in many hospitals according to him. Most recently had NSTEMI last year and seen at [facility] and then sent to [place]. There cardiac catheterization performed but no interventions. Otherwise, he does have severe LV dysfunction. Current admission is for shortness of breath and leg swelling. Per patient, he does take his medications but we directly call his pharmacy and they stated that he picked up medications in May for 30 days but nothing since. Hence does not look like he is actually taking anything recently. Review of Systems Review of Systems: Yes all other systems are reviewed and are negative Constitutional: Constitutional: Reports as per HPI and Reports no additional constitutional complaints Eyes: Eyes: Reports as per HPI and Denies no additional eye complaints ENT: Denies system reviewed and no additional complaints, except as documented and Reports as per HPI Cardiovascular: Cardiovascular: Reports as per HPI, Reports no additional cardiovascular complaints, Denies acrocyanosis, Denies cool extremities, Denies chest pain, Reports leg edema, Denies lightheadedness, Denies palpitations and Reports dyspnea Respiratory: Respiratory: Reports as per HPI, Denies no additional respiratory complaints and Reports dyspnea Gastrointestinal: Gastrointestinal: Reports as per HPI and Denies no additional gastrointestinal complaints Genitourinary: Genitourinary: Reports no additional male genitourinary complaints and Reports as per HPI Musculoskeletal: Musculoskeletal: Reports no additional musculoskeletal complaints and Reports as per HPI Integumentary/Breasts: Skin/Breast: Reports system reviewed and no additional complaints, except as docu Neurologic: Reports system reviewed and no additional complaints, except as documented and Reports as per HPI Psychiatric: Psychiatric: Reports no additional psychiatric complaints and Reports as per HPI Endocrine: Endocrine: Reports no additional endocrine complaints, Reports as per HPI and Denies palpitations Hematologic/Lymphatic: Hematologic/Lymphatic: Reports no additional hematologic/lymphatic complaints and Reports as per HPI Allergic/Immunologic: Allergic/Immunologic: Reports no additional allergic/immunologic complaints and Reports as per HPI ON LICENSE OF [facility] Past Medical History Medical History Abdominal pain CAD (coronary artery disease) CHF (congestive heart failure) Diabetes Elevated troponin HLD (hyperlipidemia) Hypertension Pulmonary embolism PVD (peripheral vascular disease) Family History Family History Other No family history of coronary artery disease Surgical History Surgical History History of angioplasty of peripheral vessel History of heart artery stent Social History Social History Household Members: Family Housing: Other Do you presently have visiting nurse or other home services: No Alcohol intake: former Patient Tobacco Use Status: Current everyday Tobacco user Tobacco use type: Cigarette Cigarettes Per Day: 10 e-Cigarette/Vaping Use: Never Used Second Hand Smoke Exposure: Yes service: No Current occupational status: unemployed Cognitive needs: No Hearing needs: No Vision needs: No Meds Allergies Allergy/AdvReac Type Severity Reaction Status Date / Time No Known Allergies Allergy Verified 04/26/22 12:24 Active Medications: Current Medications Acetaminophen (Acetaminophen 325 Mg Tablet) 650 mg PO Q6H PRN PRN Reason: Pain, Mild (Pain Scale 1-3) Last Admin: 10/10/22 16:31 Dose: 650 mg Aspirin (Aspirin Enteric Coated 81 Mg Tablet.) 81 mg PO DAILY [facility] Last Admin: 10/11/22 09:45 Dose: 81 mg Atorvastatin Calcium (Atorvastatin Calcium 80 Mg Tablet) 80 mg PO DAILY [facility] Last Admin: 10/11/22 09:46 Dose: 80 mg Dextrose (Dextrose 50 % 25 Gm/50 Ml Syringe) 25 gm IVPUSH Q15M PRN; Protocol PRN Reason: per Hypoglycemia Standing Ord. Empagliflozin (Empagliflozin 10 Mg Tablet) 10 mg PO DAILY [facility] Last Admin: 10/11/22 09:47 Dose: 10 mg Furosemide (Furosemide 20 Mg/2 Ml Vial) 20 mg IVPUSH BID@0900,1800 [facility]; Protocol Gabapentin (Gabapentin 100 Mg Capsule) 100 mg PO TID [facility] Last Admin: 10/11/22 09:47 Dose: 100 mg Glucose (Glucose Gel 15 Gm Gel..Gram.) 15 gm PO Q15M PRN; Protocol PRN Reason: per Hypoglycemia Standing Ord. Heparin Sodium (Porcine) (Heparin Sodium,Porcine 5,000 Unit/Ml Vial) 2,800 unit 40 unit/kg (2800 unit) IVPUSH PROTOCOL BOLUS PRN; Protocol PRN Reason: 40 unit/kg - Heparin Protocol Last Admin: 10/11/22 02:33 Dose: 2,800 unit Heparin Sodium (Porcine) (Heparin Sodium,Porcine 5,000 Unit/Ml Vial) 5,600 unit 80 unit/kg (5600 unit) IVPUSH PROTOCOL BOLUS PRN; Protocol PRN Reason: 80 unit/kg - Heparin Protocol Last Admin: 10/09/22 21:25 Dose: 5,600 unit Heparin Sodium/Sodium Chloride (Heparin Sodium,Porcine/1/2ns) 25,000 unit in 250 mls @ 0 mls/hr IVCONT .Q0M [facility]; Protocol Last Titration: 10/11/22 09:54 Dose: 20 units/kg/hr, 13.88 mls/hr Insulin Glargine (Insulin Glargine,Hum.Rec.Anlog 100 Unit/Ml 10 Ml Vial) 20 unit SUBCUT BEDTIME [facility] Last Admin: 10/10/22 21:11 Dose: 20 unit Insulin Human Lispro (Insulin Lispro 100 Unit/Ml 3 Ml Vial) 0 unit SUBCUT QIDACHS [facility]; Protocol Last Admin: 10/11/22 07:44 Dose: Not Given Melatonin (Melatonin 3 Mg Tablet) 6 mg PO BEDTIME PRN PRN Reason: Insomnia Metoprolol Succinate (Metoprolol Succinate Er 50 Mg Tab.Er.24h) 50 mg PO DAILY [facility]; Protocol Last Admin: 10/10/22 07:52 Dose: 50 mg Nicotine (Nicotine 14 Mg Patch.Td24) 14 mg TRANSDERMA DAILY [facility] Last Admin: 10/11/22 09:47 Dose: 14 mg Ondansetron HCl (Ondansetron Hcl 4 Mg/2 Ml Vial) 4 mg IVPUSH Q8H PRN PRN Reason: Nausea and Vomiting Pharmacy Consult (Consult Rx Perform Med Rec) 1 each MISCELLANE ONCE PRN PRN Reason: Consult order Sacubitril/Valsartan (Sacubitril/Valsartan 1 Tab Tablet) 1 tab PO BID [facility]; Protocol Last Admin: 10/10/22 07:52 Dose: 1 tab Sodium Chloride (0.9 % Sodium Chloride Flush 3 Ml Syringe) 3 ml IVFLUSH QSHIFT [facility] Last Admin: 10/11/22 09:47 Dose: 3 ml Tamsulosin HCl (Tamsulosin Hcl 0.4 Mg Capsule) 0.4 mg PO DAILY [facility] Last Admin: 10/10/22 07:52 Dose: 0.4 mg Home Medications Medication Instructions Recorded Confirmed Last Taken Type nitroglycerin 0.4 mg sublingual 1 tab sublingual USEASDIRECTD 02/19/22 10/09/22 Unknown History tablet furosemide 80 mg tablet 80 mg PO DAILY 03/22/22 10/09/22 Unknown History metoprolol succinate 50 mg 50 mg PO DAILY 03/22/22 10/09/22 Unknown History tablet,extended release 24 hr sacubitril 24 mg-valsartan 26 mg 1 tab PO BID 03/22/22 10/09/22 Unknown History tablet (Entresto) apixaban 2.5 mg tablet (Eliquis) 2.5 mg PO BID 04/06/22 10/09/22 Unknown History atorvastatin 80 mg tablet 80 mg PO DAILY 04/06/22 10/09/22 Unknown History aspirin 81 mg tablet,delayed 81 mg PO DAILY 10/09/22 10/09/22 Unknown History release metformin 500 mg tablet 500 mg PO BID 10/09/22 10/09/22 Unknown History Physical Exam Vital Signs: Vital Signs: Last Vital Signs Temp 98.4 F 10/11/22 07:21 Pulse 101 H 10/11/22 07:21 Resp 19 10/11/22 04:00 BP 150/81 H 10/11/22 07:21 Pulse Ox 97 10/11/22 07:21 O2 Del Method 10/11/22 07:21 O2 Flow Rate 6 10/11/22 07:21 BMI result Body Mass Index 24.7 Const: General: comfortable, no acute distress, ill appearing and poor hygiene Orientation/consciousness: patient oriented x3 HEENT: Other: Unremarkable Head: Yes normal to inspection Neck: Neck: Yes normal visual inspection Chest: Chest palpation & inspection: normal inspection of the chest Resp: Auscultation: crackles Cardio: Palpation: normal PMI Heart sounds: S1 normal heart sound present, S2 normal heart sound present, no gallops, no murmurs and no rubs GI: Palpation (GI): Soft to palpation Back/Spine/Pelvis: Other: unremarkable Skin: General skin exam: no rashes or lesions noted Neuro: General: patient oriented x3 Extrem: Other: 1+ edema General: Yes normal to inspection Psych: Mental Status: mental status grossly normal Objective Labs and Meds 10/11/22 06:42 10/11/22 06:42 Lab results: Laboratory Results - last 24 hr 10/10/22 10/10/22 10/10/22 03:28 10:33 10:55 WBC RBC Hgb Hct MCV MCH MCHC RDW Plt Count MPV Absolute Nucleated RBC Nucleated RBC % (auto) aPTT Heparin Protocol 82.1 H D 45.0 L D Sodium Potassium Chloride Carbon Dioxide Anion Gap BUN Creatinine Estim Creat Clear Calc Estimated GFR POC Glucose 346 H Fasting Glucose Calcium 10/10/22 10/10/22 10/10/22 16:01 17:35 19:40 WBC RBC Hgb Hct MCV MCH MCHC RDW Plt Count MPV Absolute Nucleated RBC Nucleated RBC % (auto) aPTT Heparin Protocol 63.9 D 61.9 Sodium Potassium Chloride Carbon Dioxide Anion Gap BUN Creatinine Estim Creat Clear Calc Estimated GFR POC Glucose 223 H Fasting Glucose Calcium 10/10/22 10/11/22 10/11/22 20:00 01:59 06:42 WBC 10.8 RBC 5.06 Hgb 13.7 L Hct 44.0 MCV 87.0 MCH 27.1 MCHC 31.1 RDW 19.2 H Plt Count 353 MPV 10.2 Absolute Nucleated RBC 0.000 Nucleated RBC % (auto) 0.0 aPTT Heparin Protocol 50.3 L Sodium Potassium Chloride Carbon Dioxide Anion Gap BUN Creatinine Estim Creat Clear Calc Estimated GFR POC Glucose 180 H Fasting Glucose Calcium 10/11/22 10/11/22 10/11/22 06:42 06:42 07:08 WBC RBC Hgb Hct MCV MCH MCHC RDW Plt Count MPV Absolute Nucleated RBC Nucleated RBC % (auto) aPTT Heparin Protocol 68.2 D Sodium 145 Potassium 4.4 Chloride 103 Carbon Dioxide 32 H Anion Gap 14 BUN 28 H Creatinine 1.05 Estim Creat Clear Calc 70.0 Estimated GFR > 60 POC Glucose 144 H Fasting Glucose 161 H Calcium 8.3 L D 10/11/22 08:43 WBC RBC Hgb Hct MCV MCH MCHC RDW Plt Count MPV Absolute Nucleated RBC Nucleated RBC % (auto) aPTT Heparin Protocol 64.2 Sodium Potassium Chloride Carbon Dioxide Anion Gap BUN Creatinine Estim Creat Clear Calc Estimated GFR POC Glucose Fasting Glucose Calcium ECG Interpretation: EKG with sinus rhythm at 87/Min; old anteroseptal infarct. Imaging Radiologist's impression: Impressions Duplex Scan Lower Extremity Artery 10/11/22 01:55 IMPRESSION: The SFA stent is patent but with extremely slow monophasic flow. Slow monophasic flow noted throughout the remainder of the lower extremity with the exception of the common femoral artery which demonstrates biphasic flow. Assessment and Plan (1) Acute on chronic combined systolic and diastolic ACC/AHA stage C congestive heart failure: Status: Acute (2) LV (left ventricular) mural thrombus: Status: Acute (3) Ischemic cardiomyopathy: Status: Acute (4) Type 2 diabetes mellitus with unspecified complications: Status: Acute (5) Atherosclerotic cardiovascular disease: Status: Acute Plan Echocardiogram as today with LVEF of 10-15%. Advanced diastolic dysfunction. LV apical thrombi. Cardiac BNP 4244. Last year, 2874. High sensitivity troponins are 672 followed by 765. Cardiac catheterization last year with occluded circumflex. No critical stenosis elsewhere. Upon directly very fine with pharmacy, has not picked up any medications since May when he got a 30 day supply. Hence it does seem that he is quite noncompliant. Current admission is with acute decompensated failure/underlying severe LV dysfunction/coronary disease/LV thrombi. IV diuretics. Resume Entresto. Once blood pressure is more stable then possibly beta-blockers but otherwise hold for now. IV heparin for the time being and then probably Eliquis. Guarded prognosis. Discussed with hospitalist. Time Spent With Patient Time: Total time managing care of this patient today 75 minutes. Procedures Date of Service Date of Service: 10/11/22
[2022-10-11 11:12] LABS: Glucose, Whole Blood 300 mg/dL (60-115)
[2022-10-11 11:23] VITALS: BP 144/69; PULSE 98; RESP 24; TEMP 37.5; O2SAT 93
[2022-10-11] MEDS: Insulin Lispro 100 UNIT/ML 3 ML VIAL SUBCUT ×2 (12:45→21:34)
[2022-10-11] MEDS: Sacubitril/Valsartan 24/26 1 TAB TABLET PO ×2 (12:46→21:33)
[2022-10-11] MEDS: LORazepam 0.5 MG TABLET 0.25 MG PO (12:57)
[2022-10-11 15:20] VITALS: BP 123/72; PULSE 78; RESP 18; TEMP 209.7; TEMP 98.7; O2SAT 98
[2022-10-11 15:55] LABS: Glucose, Whole Blood 90 mg/dL (60-115)
[2022-10-11 16:30] LABS: PTT Heparin Drip 39.4 SEC (53-77.9)
[2022-10-11] MEDS: Furosemide 20 MG/2 ML VIAL IVPUSH (17:16)
[2022-10-11 19:39] VITALS: BP 114/66; PULSE 89; RESP 18; TEMP 36.6; O2SAT 91
[2022-10-11 20:08] LABS: Glucose, Whole Blood 220 mg/dL (60-115)
[2022-10-11] MEDS: Insulin Glargine,Hum.rec.anlog 100 UNIT/ML 10 ML VIAL 20 UNIT SUBCUT (21:34)
[2022-10-12] VITALS (7 sets, daily range): BP systolic 112–151; BP diastolic 63–88; PULSE 79–97; RESP 15–20; TEMP 36.1–37.7; O2SAT 93–96
[2022-10-12 00:29] LABS: PTT Heparin Drip 114.6 SEC (53-77.9)
[2022-10-12] MEDS: Heparin Sodium,Porcine/1/2NS 25,000 UNIT/250 ML IV.SOLN 12.49 UNIT IVCONT (05:19)
[2022-10-12 07:23] LABS: Hematocrit 41.6 % (42.0-52.0); Mean Corpuscular HGB Conc 31.3 g/dl (31.0-36.0); Mean Corpuscular Hemoglobin 26.6 pg (27.0-33.0); Mean Corpuscular Volume 85.1 fL (80.0-98.0); Mean Platelet Volume 9.7 fL (9.4-12.4); Platelet Count 425 X10*3/uL (160-400); Red Blood Count 4.89 X10*6/uL (4.60-5.80); White Blood Count 10.5 X10*3/uL (4.8-10.8)
[2022-10-12 07:28] LABS: Glucose, Whole Blood 168 mg/dL (60-115)
[2022-10-12 07:31] LABS: PTT Heparin Drip 49.1 SEC (53-77.9)
[2022-10-12 07:51] LABS: Anion Gap 13 (12-20); Blood Urea Nitrogen 21 mg/dL (9-16); Carbon Dioxide 28 mmol/L (22-29); Chloride 107 mmol/L (96-108); Creatinine Clr Calc Pharmacy 82.6; Estimated Glomerular Filt Rate > 60; Glucose Fasting 149 mg/dL (60-99); Potassium 3.8 mmol/L (3.3-5.1); Sodium 144 mmol/L (135-145)
[2022-10-12] MEDS: Nicotine 14 MG PATCH.TD24 TRANSDERMA (09:52)
[2022-10-12] MEDS: Aspirin Enteric Coated 81 MG TABLET.DR PO (09:52)
[2022-10-12] MEDS: Atorvastatin Calcium 80 MG TABLET PO (09:52)
[2022-10-12] MEDS: Furosemide 20 MG/2 ML VIAL IVPUSH ×2 (09:52→17:54)
[2022-10-12] MEDS: Sacubitril/Valsartan 24/26 1 TAB TABLET PO ×2 (09:52→22:02)
[2022-10-12] MEDS: Empagliflozin 10 MG TABLET PO (09:52)
[2022-10-12] MEDS: Gabapentin 100 MG CAPSULE PO ×3 (09:52→22:02)
[2022-10-12] MEDS: Insulin Lispro 100 UNIT/ML 3 ML VIAL SUBCUT ×4 (09:53→22:03)
[2022-10-12] MEDS: 0.9 % Sodium Chloride Flush 3 ML SYRINGE IVFLUSH ×3 (09:53→22:03)
--- NOTE | 2022-10-12 11:12 | P.PNCA_ITS ---
Subjective Subjective Date of Service: 10/12/22 Interval history: Somewhat sleepy. Otherwise, does not give any specific complaints. When questioned about his home medications, now he is rather shaking his head that he was not taking anything at all. Review of Systems Review of Systems Yes all other systems are reviewed and are negative Constitutional: Reports as per HPI and Reports no additional constitutional complaints Eyes: Reports as per HPI and Denies no additional eye complaints Denies system reviewed and no additional complaints, except as documented and Reports as per HPI Cardiovascular: Reports as per HPI, Reports no additional cardiovascular complaints, Denies acrocyanosis, Denies cool extremities, Denies chest pain, Reports leg edema, Denies lightheadedness, Denies palpitations and Reports dyspnea Respiratory: Reports as per HPI, Denies no additional respiratory complaints and Reports dyspnea Gastrointestinal: Reports as per HPI and Denies no additional gastrointestinal complaints Genitourinary: Reports no additional male genitourinary complaints and Reports as per HPI Musculoskeletal: Reports no additional musculoskeletal complaints and Reports as per HPI Skin/Breast: Reports system reviewed and no additional complaints, except as docu Reports system reviewed and no additional complaints, except as documented and Reports as per HPI Psychiatric: Reports no additional psychiatric complaints and Reports as per HPI Endocrine: Reports no additional endocrine complaints, Reports as per HPI and Denies palpitations Hematologic/Lymphatic: Reports no additional hematologic/lymphatic complaints and Reports as per HPI Allergic/Immunologic: Reports no additional allergic/immunologic complaints and Reports as per HPI Physical Exam Vital Signs: Last Vital Signs Temp 98.5 F 10/12/22 07:41 Pulse 97 10/12/22 07:41 Resp 20 10/12/22 07:41 BP 151/88 H 10/12/22 07:41 Pulse Ox 96 10/12/22 07:41 O2 Del Method 10/12/22 07:41 O2 Flow Rate 3 10/12/22 07:41 BMI result Body Mass Index 24.7 Const General: comfortable, no acute distress, ill appearing and poor hygiene Orientation/consciousness: patient oriented x3 HEENT Other: Unremarkable Head: Yes normal to inspection Neck Neck: Yes normal visual inspection Chest Chest palpation & inspection: normal inspection of the chest Resp Auscultation: crackles Cardio Palpation: normal PMI Heart sounds: S1 normal heart sound present, S2 normal heart sound present, no gallops, no murmurs and no rubs GI Palpation (GI): Soft to palpation Back/Spine/Pelvis Other: unremarkable Skin General skin exam: no rashes or lesions noted Neuro General: patient oriented x3 Extrem Other: 1+ edema General: Yes normal to inspection Psych Mental Status: mental status grossly normal Objective Labs and Meds 10/12/22 06:56 10/12/22 06:56 Lab results: Laboratory Results - last 24 hr 10/11/22 10/11/22 10/11/22 11:06 15:18 16:14 WBC RBC Hgb Hct MCV MCH MCHC RDW Plt Count MPV Absolute Nucleated RBC Nucleated RBC % (auto) aPTT Heparin Protocol 39.4 L D Sodium Potassium Chloride Carbon Dioxide Anion Gap BUN Creatinine Estim Creat Clear Calc Estimated GFR POC Glucose 300 H 90 Fasting Glucose Calcium 10/11/22 10/11/22 10/12/22 19:34 23:14 02:00 WBC RBC Hgb Hct MCV MCH MCHC RDW Plt Count MPV Absolute Nucleated RBC Nucleated RBC % (auto) aPTT Heparin Protocol 114.6 H* D 33.0 L D Sodium Potassium Chloride Carbon Dioxide Anion Gap BUN Creatinine Estim Creat Clear Calc Estimated GFR POC Glucose 220 H Fasting Glucose Calcium 10/12/22 10/12/22 10/12/22 06:56 06:56 06:56 WBC 10.5 RBC 4.89 Hgb 13.0 L Hct 41.6 L MCV 85.1 MCH 26.6 L MCHC 31.3 RDW 19.0 H Plt Count 425 H MPV 9.7 Absolute Nucleated RBC 0.000 Nucleated RBC % (auto) 0.0 aPTT Heparin Protocol 49.1 L D Sodium 144 Potassium 3.8 Chloride 107 Carbon Dioxide 28 Anion Gap 13 BUN 21 H Creatinine 0.89 Estim Creat Clear Calc 82.6 Estimated GFR > 60 POC Glucose Fasting Glucose 149 H Calcium 8.0 L 10/12/22 07:19 WBC RBC Hgb Hct MCV MCH MCHC RDW Plt Count MPV Absolute Nucleated RBC Nucleated RBC % (auto) aPTT Heparin Protocol Sodium Potassium Chloride Carbon Dioxide Anion Gap BUN Creatinine Estim Creat Clear Calc Estimated GFR POC Glucose 168 H Fasting Glucose Calcium Progress Note: A&P Assessment and plan (1) Acute on chronic combined systolic and diastolic ACC/AHA stage C congestive heart failure: Status: Acute (2) LV (left ventricular) mural thrombus: Status: Acute (3) Ischemic cardiomyopathy: Status: Acute (4) Type 2 diabetes mellitus with unspecified complications: Status: Acute (5) Atherosclerotic cardiovascular disease: Status: Acute Plan Echocardiogram LVEF of 10-15%. Advanced diastolic dysfunction. LV apical thrombi. Cardiac BNP 4244. Last year, 2874. High sensitivity troponins are 672 followed by 765. Cardiac catheterization last year with occluded circumflex. No critical stenosis elsewhere. Noncompliance and has not taken any medications recently. Hence recent for decompensation. IV diuretics. Based on input output data, seems he is-9.7 L since the time of a dmission. Probably some diuresis. Optimization as much able including Entresto, beta-blockers, Jardiance. However, home compliance is still questionable. Eliquis for LV thrombus. Prognosis guarded. Discussed with Dr. Lauren. Time Spent With Patient Time: Total time managing care of this patient today 45 minutes. Progress Note: Quality Stroke Does the patient have a stroke diagnosis?: No Procedures Date of Service Date of Service: 10/12/22
[2022-10-12 11:13] LABS: Glucose, Whole Blood 211 mg/dL (60-115)
[2022-10-12] MEDS: Apixaban 5 MG TABLET 10 MG PO ×2 (12:17→22:02)
--- NOTE | 2022-10-12 13:50 | P.PNIM_ITS ---
Subjective Subjective Date of Service: 10/12/22 Interval History: Seen and evaluated this morning Decreased oxygen requirement overnight Making good amount of urine Feeling weak and having no energy Souza catheter still in place No reported other overnight events Review of Systems Review of Systems: Yes all other systems are reviewed and are negative Physical Exam Vital Signs: Vital Signs: Last Vital Signs Temp 97.0 F 10/12/22 11:37 Pulse 93 10/12/22 11:37 Resp 20 10/12/22 07:41 BP 136/84 10/12/22 11:37 Pulse Ox 95 10/12/22 11:37 O2 Del Method 10/12/22 11:37 O2 Flow Rate 3 10/12/22 11:37 BMI result Body Mass Index 24.7 Const: Other: Constitutional : Awake, interactive, not in distress Neck : Normal inspection, Supple Cardiovascular : RRR, no JVP, trace bilateral lower extremity edema Respiratory : good bilateral air entry, basal fine bilateral crackles, no wheezes or rhonchi Gastrointestinal: soft, lax, Normal bowel sounds, Non tender Skin : Warm, Dry Neurological : Alert & oriented to time and place, No focal deficit , CN 2-12 within normal Objective Data Active Medications Acetaminophen (Acetaminophen 325 Mg Tablet) 650 mg PO Q6H PRN PRN Reason: Pain, Mild (Pain Scale 1-3) Last Admin: 10/10/22 16:31 Dose: 650 mg Documented By: SAAD Apixaban (Apixaban 5 Mg Tablet) 10 mg PO BID [facility] Stop: 10/18/22 21:01 Last Admin: 10/12/22 12:17 Dose: 10 mg Documented By: SAAD Aspirin (Aspirin Enteric Coated 81 Mg Tablet.) 81 mg PO DAILY [facility] Last Admin: 10/12/22 09:52 Dose: 81 mg Documented By: SAAD Atorvastatin Calcium (Atorvastatin Calcium 80 Mg Tablet) 80 mg PO DAILY [facility] Last Admin: 10/12/22 09:52 Dose: 80 mg Documented By: SAAD Dextrose (Dextrose 50 % 25 Gm/50 Ml Syringe) 25 gm IVPUSH Q15M PRN; Protocol PRN Reason: per Hypoglycemia Standing Ord. Empagliflozin (Empagliflozin 10 Mg Tablet) 10 mg PO DAILY [facility] Last Admin: 10/12/22 09:52 Dose: 10 mg Documented By: SAAD Furosemide (Furosemide 20 Mg/2 Ml Vial) 20 mg IVPUSH BID@0900,1800 [facility]; Protocol Last Admin: 10/12/22 09:52 Dose: 20 mg Documented By: SAAD Gabapentin (Gabapentin 100 Mg Capsule) 100 mg PO TID [facility] Last Admin: 10/12/22 09:52 Dose: 100 mg Documented By: SAAD Glucose (Glucose Gel 15 Gm Gel..Gram.) 15 gm PO Q15M PRN; Protocol PRN Reason: per Hypoglycemia Standing Ord. Insulin Glargine (Insulin Glargine,Hum.Rec.Anlog 100 Unit/Ml 10 Ml Vial) 20 unit SUBCUT BEDTIME [facility] Last Admin: 10/11/22 21:34 Dose: 20 unit Documented By: MIAKL Insulin Human Lispro (Insulin Lispro 100 Unit/Ml 3 Ml Vial) 0 unit SUBCUT QIDACHS [facility]; Protocol Last Admin: 10/12/22 12:17 Dose: 4 unit Documented By: SAAD Melatonin (Melatonin 3 Mg Tablet) 6 mg PO BEDTIME PRN PRN Reason: Insomnia Metoprolol Succinate (Metoprolol Succinate Er 50 Mg Tab.Er.24h) 50 mg PO DAILY [facility]; Protocol Last Admin: 10/11/22 12:46 Dose: Not Given Documented By: SAAD Non-Admin Reason: Medication Discontinued Nicotine (Nicotine 14 Mg Patch.Td24) 14 mg TRANSDERMA DAILY [facility] Last Admin: 10/12/22 09:52 Dose: 14 mg Documented By: SAAD Ondansetron HCl (Ondansetron Hcl 4 Mg/2 Ml Vial) 4 mg IVPUSH Q8H PRN PRN Reason: Nausea and Vomiting Pharmacy Consult (Consult Rx Perform Med Rec) 1 each MISCELLANE ONCE PRN PRN Reason: Consult order Sacubitril/Valsartan (Sacubitril/Valsartan 1 Tab Tablet) 1 tab PO BID [facility]; Protocol Last Admin: 10/12/22 09:52 Dose: 1 tab Documented By: SAAD Sodium Chloride (0.9 % Sodium Chloride Flush 3 Ml Syringe) 3 ml IVFLUSH QSHIFT [facility] Last Admin: 10/12/22 09:53 Dose: 3 ml Documented By: SAAD Tamsulosin HCl (Tamsulosin Hcl 0.4 Mg Capsule) 0.4 mg PO DAILY [facility] Last Admin: 10/10/22 07:52 Dose: 0.4 mg Documented By: SAAD Labs 10/12/22 06:56 10/12/22 06:56 Labs: Laboratory Results - last 24 hr 10/11/22 10/11/22 10/11/22 15:18 16:14 19:34 MCV MCH MCHC RDW Plt Count MPV Absolute Nucleated RBC Nucleated RBC % (auto) aPTT Heparin Protocol 39.4 L D Anion Gap Estim Creat Clear Calc Estimated GFR POC Glucose 90 220 H Fasting Glucose Calcium 10/11/22 10/12/22 10/12/22 23:14 02:00 06:56 MCV 85.1 MCH 26.6 L MCHC 31.3 RDW 19.0 H Plt Count 425 H MPV 9.7 Absolute Nucleated RBC 0.000 Nucleated RBC % (auto) 0.0 aPTT Heparin Protocol 114.6 H* D 33.0 L D Anion Gap Estim Creat Clear Calc Estimated GFR POC Glucose Fasting Glucose Calcium 10/12/22 10/12/22 10/12/22 06:56 06:56 07:19 MCV MCH MCHC RDW Plt Count MPV Absolute Nucleated RBC Nucleated RBC % (auto) aPTT Heparin Protocol 49.1 L D Anion Gap 13 Estim Creat Clear Calc 82.6 Estimated GFR > 60 POC Glucose 168 H Fasting Glucose 149 H Calcium 8.0 L 10/12/22 11:05 MCV MCH MCHC RDW Plt Count MPV Absolute Nucleated RBC Nucleated RBC % (auto) aPTT Heparin Protocol Anion Gap Estim Creat Clear Calc Estimated GFR POC Glucose 211 H Fasting Glucose Calcium Assessment and Plan (1) LV (left ventricular) mural thrombus: Status: Acute (2) Acute on chronic combined systolic and diastolic ACC/AHA stage C congestive heart failure: Status: Acute (3) Pulmonary embolism: Status: Acute (4) Non-STEMI (non-ST elevated myocardial infarction): Status: Acute Plan 57-year-old male with pertinent history of insulin-dependent diabetes mellitus, essential hypertension, mixed hyperlipidemia, combined systolic and diastolic congestive heart failure, coronary artery disease presented for evaluation of bilateral lower extremity edema and dyspnea. acute hypoxic respiratory failure due to Acute on chronic combined systolic and diastolic heart failure and acute pulmonary embolism Continue iv lasix, Discontinue iv heparin, start full-dose Eliquis Cardiology input appreciated, continue Entresto, beta-jonnathan and Jardiance echo with reduced EF complicated and apical thrombus NSTEMI Finished 48 hours of heparin drip asa, statin Cardiology recommended medical treatment for the time being Insulin-dependent diabetes mellitus with hyperglycemia and neuropathy insulin, pocs Continue gabapentin urinary retention continue souza, flomax Start voiding trials CAD asa, statin hypertension metoprolol, entresto hyperlipidemia On statin Tobacco use disorder: Nicotine patch DVT prophylaxis: Eliquis Full code poor/guarded prognosis reason for continued hospitalization:hypoxia requiring IV Lasix Time Spent With Patient Time: Total time managing care of this patient today ____ minutes. Quality Stroke Does the patient have a stroke diagnosis?: No VTE Prior VTE?: No VTE Risk Level:: Medical - moderate - high VTE Device Contraindication: Treatment Not Indicated VTE Drug Contraindication: N/A - Med Ordered
[2022-10-12 15:46] LABS: Glucose, Whole Blood 274 mg/dL (60-115)
[2022-10-12 19:54] LABS: Glucose, Whole Blood 252 mg/dL (60-115)
[2022-10-12] MEDS: Insulin Glargine,Hum.rec.anlog 100 UNIT/ML 10 ML VIAL 20 UNIT SUBCUT (22:02)
[2022-10-13 04:00] VITALS: BP 126/72; PULSE 82; RESP 14; TEMP 37.1; O2SAT 94
[2022-10-13 06:41] LABS: Hematocrit 43.9 % (42.0-52.0); Hemoglobin 13.4 g/dl (14.0-18.0); Mean Corpuscular HGB Conc 30.5 g/dl (31.0-36.0); Mean Corpuscular Hemoglobin 26.1 pg (27.0-33.0); Mean Corpuscular Volume 85.4 fL (80.0-98.0); Mean Platelet Volume 9.2 fL (9.4-12.4); Platelet Count 438 X10*3/uL (160-400); Red Blood Count 5.14 X10*6/uL (4.60-5.80); Red Cell Distribution Width 18.8 % (11.0-16.0); White Blood Count 8.9 X10*3/uL (4.8-10.8)
[2022-10-13 07:03] LABS: Anion Gap 15 (12-20); Blood Urea Nitrogen 22 mg/dL (9-16); Calcium 8.3 mg/dL (8.4-10.2); Carbon Dioxide 34 mmol/L (22-29); Chloride 100 mmol/L (96-108); Creatinine Clr Calc Pharmacy 69.3; Estimated Glomerular Filt Rate > 60; Glucose Random 174 mg/dL (60-115); Potassium 3.7 mmol/L (3.3-5.1); Sodium 145 mmol/L (135-145)
[2022-10-13 07:41] LABS: Glucose, Whole Blood 169 mg/dL (60-115)
[2022-10-13 08:00] VITALS: BP 114/64; PULSE 80; RESP 18; TEMP 36.7; O2SAT 95
[2022-10-13] MEDS: Insulin Lispro 100 UNIT/ML 3 ML VIAL SUBCUT ×3 (08:42→20:26)
[2022-10-13] MEDS: Nicotine 14 MG PATCH.TD24 TRANSDERMA (08:43)
[2022-10-13] MEDS: Atorvastatin Calcium 80 MG TABLET PO (08:43)
[2022-10-13] MEDS: Apixaban 5 MG TABLET 10 MG PO ×2 (08:43→19:58)
[2022-10-13] MEDS: Gabapentin 100 MG CAPSULE PO ×3 (08:43→19:58)
[2022-10-13] MEDS: Furosemide 20 MG/2 ML VIAL IVPUSH ×2 (08:44→18:02)
[2022-10-13] MEDS: Sacubitril/Valsartan 24/26 1 TAB TABLET PO ×2 (08:44→19:58)
[2022-10-13] MEDS: Aspirin Enteric Coated 81 MG TABLET.DR PO (08:44)
[2022-10-13] MEDS: Empagliflozin 10 MG TABLET PO (08:44)
[2022-10-13] MEDS: 0.9 % Sodium Chloride Flush 3 ML SYRINGE IVFLUSH ×3 (08:49→19:59)
[2022-10-13 11:06] LABS: Glucose, Whole Blood 295 mg/dL (60-115)
[2022-10-13] MEDS: Lactulose 20 GM/30 ML SOLUTION PO (11:24)
[2022-10-13] MEDS: Baclofen 10 MG TABLET PO ×2 (11:24→19:58)
--- NOTE | 2022-10-13 11:48 | P.PNCA_ITS ---
Subjective Subjective Date of Service: 10/13/22 Interval history: Somewhat sleepy and lethargic. No clear complaints. Nonspecific aches and pains. Leg cramps. Review of Systems Review of Systems Yes all other systems are reviewed and are negative Constitutional: Reports as per HPI and Reports no additional constitutional complaints Eyes: Reports as per HPI and Denies no additional eye complaints Denies system reviewed and no additional complaints, except as documented and Reports as per HPI Cardiovascular: Reports as per HPI, Reports no additional cardiovascular complaints, Denies acrocyanosis, Denies cool extremities, Denies chest pain, Denies leg edema, Denies lightheadedness, Denies palpitations and Denies dyspnea Respiratory: Reports as per HPI, Denies no additional respiratory complaints and Denies dyspnea Gastrointestinal: Reports as per HPI and Denies no additional gastrointestinal c omplaints Genitourinary: Reports no additional male genitourinary complaints and Reports as per HPI Musculoskeletal: Reports no additional musculoskeletal complaints and Reports as per HPI Skin/Breast: Reports system reviewed and no additional complaints, except as docu Reports system reviewed and no additional complaints, except as documented and Reports as per HPI Psychiatric: Reports no additional psychiatric complaints and Reports as per HPI Endocrine: Reports no additional endocrine complaints, Reports as per HPI and Denies palpitations Hematologic/Lymphatic: Reports no additional hematologic/lymphatic complaints and Reports as per HPI Allergic/Immunologic: Reports no additional allergic/immunologic complaints and Reports as per HPI Physical Exam Vital Signs: Last Vital Signs Temp 98.1 F 10/13/22 08:00 Pulse 80 10/13/22 08:00 Resp 18 10/13/22 08:00 BP 114/64 10/13/22 08:00 Pulse Ox 95 10/13/22 08:00 O2 Del Method 10/13/22 08:00 O2 Flow Rate 3 10/13/22 08:00 BMI result Body Mass Index 24.7 Const General: comfortable, no acute distress, ill appearing and poor hygiene Orientation/consciousness: patient oriented x3 HEENT Other: Unremarkable Head: Yes normal to inspection Neck Neck: Yes normal visual inspection Chest Chest palpation & inspection: normal inspection of the chest Resp Auscultation: crackles Cardio Palpation: normal PMI Heart sounds: S1 normal heart sound present, S2 normal heart sound present, no gallops, no murmurs and no rubs GI Palpation (GI): Soft to palpation Back/Spine/Pelvis Other: unremarkable Skin General skin exam: no rashes or lesions noted Neuro General: patient oriented x3 Extrem Other: No significant edema. General: Yes normal to inspection Psych Mental Status: mental status grossly normal Objective Labs and Meds 10/13/22 06:03 10/13/22 06:03 Lab results: Laboratory Results - last 24 hr 10/12/22 10/12/22 10/13/22 15:12 19:23 06:03 WBC 8.9 RBC 5.14 Hgb 13.4 L Hct 43.9 MCV 85.4 MCH 26.1 L MCHC 30.5 L RDW 18.8 H Plt Count 438 H MPV 9.2 L Absolute Nucleated RBC 0.000 Nucleated RBC % (auto) 0.0 Sodium Potassium Chloride Carbon Dioxide Anion Gap BUN Creatinine Estim Creat Clear Calc Estimated GFR POC Glucose 274 H 252 H Random Glucose Calcium 10/13/22 10/13/22 10/13/22 06:03 07:36 10:54 WBC RBC Hgb Hct MCV MCH MCHC RDW Plt Count MPV Absolute Nucleated RBC Nucleated RBC % (auto) Sodium 145 Potassium 3.7 Chloride 100 Carbon Dioxide 34 H Anion Gap 15 BUN 22 H Creatinine 1.06 Estim Creat Clear Calc 69.3 Estimated GFR > 60 POC Glucose 169 H 295 H Random Glucose 174 H Calcium 8.3 L Progress Note: A&P Assessment and plan (1) Acute on chronic combined systolic and diastolic ACC/AHA stage C congestive heart failure: Status: Acute (2) LV (left ventricular) mural thrombus: Status: Acute (3) Ischemic cardiomyopathy: Status: Acute (4) Type 2 diabetes mellitus with unspecified complications: Status: Acute (5) Atherosclerotic cardiovascular disease: Status: Acute Plan Echocardiogram LVEF of 10-15%. Advanced diastolic dysfunction. LV apical thrombi. Cardiac BNP 4244. Last year, 2874. High sensitivity troponins are 672 followed by 765. Cardiac catheterization last year with occluded circumflex. No critical stenosis elsewhere. Decompensated heart failure primarily from on compliance as he is not be taking medications. Confirm directly with pharmacy. According to him, meds were last picked up in May. Thirty day supply. So far, he is almost 10 L negative. Another day of IV diuretics and then switch TO P.O. Entresto; Jardiance; eventually some [id number] on blood pressure. Anticoagulation for LV thrombus. High risk of . Guarded prognosis. Discussed with Dr. Lauren. Time Spent With Patient Time: Total time managing care of this patient today 50 minutes. Progress Note: Quality Stroke Does the patient have a stroke diagnosis?: No Procedures Date of Service Date of Service: 10/13/22
[2022-10-13 12:00] VITALS: BP 122/66; PULSE 84; RESP 19; TEMP 36.4; O2SAT 95
--- NOTE | 2022-10-13 14:01 | HO.PM.IMPN ---
Subjective Subjective Date of Service: 10/13/22 Interval History: Seen and evaluated this morning feeling weak and tired and complaining of pain in his legs Decreased oxygen requirement Feeling weak and having no energy No reported other overnight events Review of Systems Review of Systems: Yes all other systems are reviewed and are negative Physical Exam Vital Signs: Vital Signs: Last Vital Signs Temp 97.6 F 10/13/22 12:00 Pulse 84 10/13/22 12:00 Resp 19 10/13/22 12:00 BP 122/66 10/13/22 12:00 Pulse Ox 95 10/13/22 12:00 O2 Del Method 10/13/22 12:00 O2 Flow Rate 3 10/13/22 12:00 BMI result Body Mass Index 24.7 Const: Other: Constitutional : Awake, interactive, not in distress Neck : Normal inspection, Supple Cardiovascular : RRR, no JVP, trace bilateral lower extremity edema Respiratory : good bilateral air entry, basal fine bilateral crackles, no wheezes or rhonchi Gastrointestinal: soft, lax, Normal bowel sounds, Non tender Skin : Warm, Dry Neurological : Alert & oriented to time and place, No focal deficit Objective Data Active Medications Acetaminophen (Acetaminophen 325 Mg Tablet) 650 mg PO Q6H PRN PRN Reason: Pain, Mild (Pain Scale 1-3) Last Admin: 10/10/22 16:31 Dose: 650 mg Documented By: SAAD Apixaban (Apixaban 5 Mg Tablet) 10 mg PO BID [facility]S [facility]CLUDE 234 BEDS AT THE [facility] Stop: 10/18/22 21:01 Last Admin: 10/13/22 08:43 Dose: 10 mg Documented By: SALO Aspirin (Aspirin Enteric Coated 81 Mg Tablet.) 81 mg PO DAILY COUNTS INCLUDE 234 BEDS AT THE [facility] Last Admin: 10/13/22 08:44 Dose: 81 mg Documented By: SALO Atorvastatin Calcium (Atorvastatin Calcium 80 Mg Tablet) 80 mg PO DAILY [facility]S INCLUDE 234 BEDS AT THE [facility] Last Admin: 10/13/22 08:43 Dose: 80 mg Documented By: SALO Baclofen (Baclofen 10 Mg Tablet) 10 mg PO BID COUNTS INCLUDE 234 BEDS AT THE [facility] Last Admin: 10/13/22 11:24 Dose: 10 mg Documented By: SALO Dextrose (Dextrose 50 % 25 Gm/50 Ml Syringe) 25 gm IVPUSH Q15M PRN; Protocol PRN Reason: per Hypoglycemia Standing Ord. Empagliflozin (Empagliflozin 10 Mg Tablet) 10 mg PO DAILY [facility]S [facility]CLUDE 234 BEDS AT THE [facility] Last Admin: 10/13/22 08:44 Dose: 10 mg Documented By: SALO Furosemide (Furosemide 20 Mg/2 Ml Vial) 20 mg IVPUSH BID@0900,1800 COUNTS [facility]CLUDE 234 BEDS AT THE [facility]; Protocol Last Admin: 10/13/22 08:44 Dose: 20 mg Documented By: SALO Gabapentin (Gabapentin 100 Mg Capsule) 100 mg PO TID [facility]S INCLUDE 234 BEDS AT THE [facility] Last Admin: 10/13/22 08:43 Dose: 100 mg Documented By: SALO Glucose (Glucose Gel 15 Gm Gel..Gram.) 15 gm PO Q15M PRN; Protocol PRN Reason: per Hypoglycemia Standing Ord. Insulin Glargine (Insulin Glargine,Hum.Rec.Anlog 100 Unit/Ml 10 Ml Vial) 20 unit SUBCUT BEDTIME COUNTS INCLUDE 234 BEDS AT THE [facility] Last Admin: 10/12/22 22:02 Dose: 20 unit Documented By: MIKAL Insulin Human Lispro (Insulin Lispro 100 Unit/Ml 3 Ml Vial) 0 unit SUBCUT QIDACHS COUNTS INCLUDE 234 BEDS AT THE [facility]; Protocol Last Admin: 10/13/22 11:24 Dose: 6 unit Documented By: SALO Lactulose (Lactulose 20 Gm/30 Ml Solution) 20 gm PO DAILY [facility]S INCLUDE 234 BEDS AT THE [facility] Last Admin: 10/13/22 11:24 Dose: 20 gm Documented By: SALO Melatonin (Melatonin 3 Mg Tablet) 6 mg PO BEDTIME PRN PRN Reason: Insomnia Metoprolol Succinate (Metoprolol Succinate Er 50 Mg Tab.Er.24h) 50 mg PO DAILY [facility]S [facility]CLUDE 234 BEDS AT THE [facility]; Protocol Last Admin: 10/11/22 12:46 Dose: Not Given Documented By: SAAD Non-Admin Reason: Medication Discontinued Nicotine (Nicotine 14 Mg Patch.Td24) 14 mg TRANSDERMA DAILY [facility]S [facility]CLUDE 234 BEDS AT THE [facility] Last Admin: 10/13/22 08:43 Dose: 14 mg Documented By: SALO Ondansetron HCl (Ondansetron Hcl 4 Mg/2 Ml Vial) 4 mg IVPUSH Q8H PRN PRN Reason: Nausea and Vomiting Pharmacy Consult (Consult Rx Perform Med Rec) 1 each MISCELLANE ONCE PRN PRN Reason: Consult order Sacubitril/Valsartan (Sacubitril/Valsartan 1 Tab Tablet) 1 tab PO BID [facility]S [facility]CLUDE 234 BEDS AT THE [facility]; Protocol Last Admin: 10/13/22 08:44 Dose: 1 tab Documented By: SALO Sodium Chloride (0.9 % Sodium Chloride Flush 3 Ml Syringe) 3 ml IVFLUSH QSHIFT COUNTS INCLUDE 234 BEDS AT THE [facility] Last Admin: 10/13/22 08:49 Dose: 3 ml Documented By: SALO Tamsulosin HCl (Tamsulosin Hcl 0.4 Mg Capsule) 0.4 mg PO DAILY [facility]S [facility]CLUDE 234 BEDS AT THE [facility] Last Admin: 10/10/22 07:52 Dose: 0.4 mg Documented By: SAAD Labs 10/13/22 06:03 10/13/22 06:03 Labs: Laboratory Results - last 24 hr 10/12/22 10/12/22 10/13/22 15:12 19:23 06:03 MCV 85.4 MCH 26.1 L MCHC 30.5 L RDW 18.8 H Plt Count 438 H MPV 9.2 L Absolute Nucleated RBC 0.000 Nucleated RBC % (auto) 0.0 Anion Gap Estim Creat Clear Calc Estimated GFR POC Glucose 274 H 252 H Random Glucose Calcium 10/13/22 10/13/22 10/13/22 06:03 07:36 10:54 MCV MCH MCHC RDW Plt Count MPV Absolute Nucleated RBC Nucleated RBC % (auto) Anion Gap 15 Estim Creat Clear Calc 69.3 Estimated GFR > 60 POC Glucose 169 H 295 H Random Glucose 174 H Calcium 8.3 L Assessment and Plan (1) LV (left ventricular) mural thrombus: Status: Acute (2) Acute on 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 acute hypoxic respiratory failure due to Acute on chronic combined systolic and diastolic heart failure and acute pulmonary embolism Continue iv lasix, Discontinue iv heparin, start full-dose Eliquis Cardiology input appreciated, continue Entresto, beta-jonnathan and Jardiance echo with reduced EF complicated and apical thrombus NSTEMI Finished 48 hours of heparin drip asa, statin Cardiology recommended medical treatment for the time being, guarded prognosis Insulin-dependent diabetes mellitus with hyperglycemia and neuropathy insulin, pocs Continue gabapentin urinary retention flomax DC [place] CAD asa, statin hypertension metoprolol, entresto hyperlipidemia On statin Tobacco use disorder: Nicotine patch DVT prophylaxis: Jeanette Full code poor/guarded prognosis reason for continued hospitalization:hypoxia requiring IV Lasix Time Spent With Patient Time: Total time managing care of this patient today ____ minutes. Quality Stroke Does the patient have a stroke diagnosis?: No VTE Prior VTE?: No VTE Risk Level:: Medical - moderate - high VTE Device Contraindication: Treatment Not Indicated VTE Drug Contraindication: N/A - Med Ordered
--- NOTE | 2022-10-13 15:43 | MHC.CM.PN ---
per rounds pt not ready for dc dc plan home w/servcies vs str referrals made
[2022-10-13 16:00] VITALS: BP 124/68; PULSE 80; RESP 18; TEMP 36.6; O2SAT 97
[2022-10-13 17:33] LABS: Glucose, Whole Blood 136 mg/dL (60-115)
[2022-10-13 20:07] VITALS: BP 114/75; PULSE 87; RESP 18; TEMP 37; O2SAT 91
[2022-10-13 20:07] LABS: Glucose, Whole Blood 174 mg/dL (60-115)
[2022-10-13] MEDS: Insulin Glargine,Hum.rec.anlog 100 UNIT/ML 10 ML VIAL 20 UNIT SUBCUT (20:26)
[2022-10-14] VITALS (7 sets, daily range): BP systolic 90–125; BP diastolic 60–77; PULSE 70–96; RESP 14–22; TEMP 36.1–37.1; O2SAT 92–96
[2022-10-14 07:15] LABS: Anion Gap 15 (12-20); Blood Urea Nitrogen 26 mg/dL (9-16); Calcium 8.4 mg/dL (8.4-10.2); Carbon Dioxide 30 mmol/L (22-29); Chloride 105 mmol/L (96-108); Creatinine Clr Calc Pharmacy 68.7; Estimated Glomerular Filt Rate > 60; Glucose Random 95 mg/dL (60-115); Magnesium 1.8 mg/dL (1.6-2.6); Sodium 146 mmol/L (135-145)
[2022-10-14 07:51] LABS: Glucose, Whole Blood 105 mg/dL (60-115)
[2022-10-14] MEDS: 0.9 % Sodium Chloride Flush 3 ML SYRINGE IVFLUSH ×3 (09:13→20:03)
[2022-10-14] MEDS: Lactulose 20 GM/30 ML SOLUTION PO (09:13)
[2022-10-14] MEDS: Nicotine 14 MG PATCH.TD24 TRANSDERMA (09:13)
[2022-10-14] MEDS: Atorvastatin Calcium 80 MG TABLET PO (09:14)
[2022-10-14] MEDS: Gabapentin 100 MG CAPSULE PO ×3 (09:14→20:03)
[2022-10-14] MEDS: Sacubitril/Valsartan 24/26 1 TAB TABLET PO ×2 (09:14→20:03)
[2022-10-14] MEDS: Baclofen 10 MG TABLET PO ×2 (09:14→20:03)
[2022-10-14] MEDS: Furosemide 20 MG/2 ML VIAL IVPUSH (09:14)
[2022-10-14] MEDS: Apixaban 5 MG TABLET 10 MG PO ×2 (09:14→20:03)
[2022-10-14] MEDS: Aspirin Enteric Coated 81 MG TABLET.DR PO (09:14)
[2022-10-14] MEDS: Empagliflozin 10 MG TABLET PO (09:14)
[2022-10-14 11:23] LABS: B Type Natriuretic Peptide 624 pg/mL (<100)
[2022-10-14 11:26] LABS: Glucose, Whole Blood 269 mg/dL (60-115)
[2022-10-14] MEDS: Insulin Lispro 100 UNIT/ML 3 ML VIAL SUBCUT ×3 (11:41→21:06)
[2022-10-14] MEDS: Acetaminophen 325 MG TABLET 650 MG PO (14:36)
--- NOTE | 2022-10-14 14:44 | P.PNIM_ITS ---
Subjective Subjective Date of Service: 10/14/22 Interval History: Seen and evaluated this morning improved pain in his legs Decreased oxygen requirement Feeling little better today No reported other overnight events Review of Systems Review of Systems: Yes all other systems are reviewed and are negative Physical Exam Vital Signs: Vital Signs: Last Vital Signs Temp 98.7 F 10/14/22 11:03 Pulse 96 10/14/22 11:03 Resp 14 10/14/22 11:03 BP 90/60 10/14/22 11:03 Pulse Ox 94 10/14/22 11:03 O2 Del Method 10/14/22 11:03 O2 Flow Rate 1 10/14/22 11:03 BMI result Body Mass Index 24.7 Const: Other: Constitutional : Awake, interactive, not in distress Neck : Normal inspection, Supple Cardiovascular : RRR, no JVP, trace bilateral lower extremity edema Respiratory : good bilateral air entry, basal fine bilateral crackles, no wheezes or rhonchi Gastrointestinal: soft, lax, Normal bowel sounds, Non tender Skin : Warm, Dry Neurological : Alert & oriented to time and place, No focal deficit Objective Data Active Medications Acetaminophen (Acetaminophen 325 Mg Tablet) 650 mg PO Q6H PRN PRN Reason: Pain, Mild (Pain Scale 1-3) Last Admin: 10/14/22 14:36 Dose: 650 mg Documented By: SYLVIA Apixaban (Apixaban 5 Mg Tablet) 10 mg PO BID [facility] Stop: 10/18/22 21:01 Last Admin: 10/14/22 09:14 Dose: 10 mg Documented By: SYLVIA Aspirin (Aspirin Enteric Coated 81 Mg Tablet.) 81 mg PO DAILY [facility] Last Admin: 10/14/22 09:14 Dose: 81 mg Documented By: SYLVIA Atorvastatin Calcium (Atorvastatin Calcium 80 Mg Tablet) 80 mg PO DAILY [facility] Last Admin: 10/14/22 09:14 Dose: 80 mg Documented By: SYLVIA Baclofen (Baclofen 10 Mg Tablet) 10 mg PO BID [facility] Last Admin: 10/14/22 09:14 Dose: 10 mg Documented By: SYLVIA Dextrose (Dextrose 50 % 25 Gm/50 Ml Syringe) 25 gm IVPUSH Q15M PRN; Protocol PRN Reason: per Hypoglycemia Standing Ord. Empagliflozin (Empagliflozin 10 Mg Tablet) 10 mg PO DAILY [facility] Last Admin: 10/14/22 09:14 Dose: 10 mg Documented By: SYLVIA Furosemide (Furosemide 20 Mg/2 Ml Vial) 20 mg IVPUSH BID@0900,1800 [facility]; Protoc ol Last Admin: 10/14/22 09:14 Dose: 20 mg Documented By: SYLVIA Gabapentin (Gabapentin 100 Mg Capsule) 100 mg PO TID [facility] Last Admin: 10/14/22 14:36 Dose: 100 mg Documented By: SYLVIA Glucose (Glucose Gel 15 Gm Gel..Gram.) 15 gm PO Q15M PRN; Protocol PRN Reason: per Hypoglycemia Standing Ord. Insulin Glargine (Insulin Glargine,Hum.Rec.Anlog 100 Unit/Ml 10 Ml Vial) 20 unit SUBCUT BEDTIME [facility] Last Admin: 10/13/22 20:26 Dose: 20 unit Documented By: RL Insulin Human Lispro (Insulin Lispro 100 Unit/Ml 3 Ml Vial) 0 unit SUBCUT Q IDACHS [facility]; Protocol Last Admin: 10/14/22 11:41 Dose: 6 unit Documented By: SYLVIA Lactulose (Lactulose 20 Gm/30 Ml Solution) 20 gm PO DAILY [facility] Last Admin: 10/14/22 09:13 Dose: 20 gm Documented By: SYLVIA Melatonin (Melatonin 3 Mg Tablet) 6 mg PO BEDTIME PRN PRN Reason: Insomnia Metoprolol Succinate (Metoprolol Succinate Er 50 Mg Tab.Er.24h) 50 mg PO DAILY [facility]; Protocol Last Admin: 10/11/22 12:46 Dose: Not Given Documented By: SAAD Non-Admin Reason: Medication Discontinued Nicotine (Nicotine 14 Mg Patch.Td24) 14 mg TRANSDERMA DAILY [facility] Last Admin: 10/14/22 09:13 Dose: 14 mg Documented By: SYLVIA Ondansetron HCl (Ondansetron Hcl 4 Mg/2 Ml Vial) 4 mg IVPUSH Q8H PRN PRN Reason: Nausea and Vomiting Pharmacy Consult (Consult Rx Perform Med Rec) 1 each MISCELLANE ONCE PRN PRN Reason: Consult order Sacubitril/Valsartan (Sacubitril/Valsartan 1 Tab Tablet) 1 tab PO BID [facility]; Protocol Last Admin: 10/14/22 09:14 Dose: 1 tab Documented By: SYLVIA Sodium Chloride (0.9 % Sodium Chloride Flush 3 Ml Syringe) 3 ml IVFLUSH QSHIFT [facility] Last Admin: 10/14/22 09:13 Dose: 3 ml Documented By: SYLVIA Tamsulosin HCl (Tamsulosin Hcl 0.4 Mg Capsule) 0.4 mg PO DAILY [facility] Last Admin: 10/10/22 07:52 Dose: 0.4 mg Documented By: SAAD Labs 10/13/22 06:03 10/14/22 05:56 Labs: Laboratory Results - last 24 hr 10/13/22 10/13/22 10/14/22 17:17 20:01 05:56 Anion Gap Estim Creat Clear Calc Estimated GFR POC Glucose 136 H 174 H Random Glucose Calcium Magnesium B-Natriuretic Peptide 624 H 10/14/22 10/14/22 10/14/22 05:56 07:27 10:59 Anion Gap 15 Estim Creat Clear Calc 68.7 Estimated GFR > 60 POC Glucose 105 269 H Random Glucose 95 Calcium 8.4 Magnesium 1.8 B-Natriuretic Peptide Assessment and Plan (1) LV (left ventricular) mural thrombus: Status: Acute (2) Acute on 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 acute hypoxic respiratory failure due to Acute on chronic combined systolic and diastolic heart failure and acute pulmonary embolism Continue iv lasix, full-dose Eliquis Cardiology input appreciated, continue Entresto, beta-jonnathan and Jardiance echo with reduced EF complicated and apical thrombus NSTEMI Finished 48 hours of heparin drip asa, statin Cardiology recommended medical treatment for the time being, guarded prognosis Insulin-dependent diabetes mellitus with hyperglycemia and neuropathy insulin, pocs Continue gabapentin urinary retention flomax DC [place] CAD asa, statin hypertension metoprolol, entresto hyperlipidemia On statin Tobacco use disorder: Nicotine patch DVT prophylaxis: Eliquis Full code poor/guarded prognosis reason for continued hospitalization:pending safe discharge plan Time Spent With Patient Time: Total time managing care of this patient today ____ minutes. Quality Stroke Does the patient have a stroke diagnosis?: No VTE Prior VTE?: No VTE Risk Level:: Medical - moderate - high VTE Device Contraindication: Treatment Not Indicated VTE Drug Contraindication: N/A - Med Ordered
[2022-10-14 16:20] LABS: Glucose, Whole Blood 190 mg/dL (60-115)
[2022-10-14 20:35] LABS: Glucose, Whole Blood 159 mg/dL (60-115)
[2022-10-14] MEDS: Insulin Glargine,Hum.rec.anlog 100 UNIT/ML 10 ML VIAL 20 UNIT SUBCUT (21:05)
[2022-10-15] MEDS: Melatonin 3 MG TABLET 6 MG PO (01:21)
[2022-10-15] MEDS: Acetaminophen 325 MG TABLET 650 MG PO ×2 (01:21→15:46)
[2022-10-15 04:00] VITALS: BP 102/64; PULSE 76; RESP 18; TEMP 36.7; O2SAT 96
[2022-10-15 07:25] VITALS: BP 97/67; PULSE 73; RESP 14; TEMP 36.3; O2SAT 94
[2022-10-15 07:53] LABS: Glucose, Whole Blood 194 mg/dL (60-115)
[2022-10-15 08:15] LABS: Anion Gap 16 (12-20); Blood Urea Nitrogen 33 mg/dL (9-16); Calcium 7.9 mg/dL (8.4-10.2); Carbon Dioxide 29 mmol/L (22-29); Chloride 102 mmol/L (96-108); Creatinine Clr Calc Pharmacy 63.9; Estimated Glomerular Filt Rate > 60; Glucose Random 185 mg/dL (60-115); Potassium 4.1 mmol/L (3.3-5.1); Sodium 143 mmol/L (135-145)
[2022-10-15] MEDS: Nicotine 14 MG PATCH.TD24 TRANSDERMA (08:15)
[2022-10-15] MEDS: Insulin Lispro 100 UNIT/ML 3 ML VIAL SUBCUT ×4 (08:16→20:53)
[2022-10-15] MEDS: Lactulose 20 GM/30 ML SOLUTION PO (08:16)
[2022-10-15] MEDS: Gabapentin 100 MG CAPSULE PO ×3 (08:16→20:52)
[2022-10-15] MEDS: Atorvastatin Calcium 80 MG TABLET PO (08:16)
[2022-10-15] MEDS: Furosemide 40 MG TABLET 80 MG PO (08:16)
[2022-10-15] MEDS: Apixaban 5 MG TABLET 10 MG PO ×2 (08:16→20:52)
[2022-10-15] MEDS: 0.9 % Sodium Chloride Flush 3 ML SYRINGE IVFLUSH ×2 (08:17→15:46)
[2022-10-15] MEDS: Empagliflozin 10 MG TABLET PO (08:17)
[2022-10-15] MEDS: Sacubitril/Valsartan 24/26 1 TAB TABLET PO (08:17)
[2022-10-15] MEDS: Aspirin Enteric Coated 81 MG TABLET.DR PO (08:17)
[2022-10-15] MEDS: Baclofen 10 MG TABLET PO ×2 (08:17→20:52)
[2022-10-15 11:37] VITALS: BP 113/72; PULSE 80; RESP 14; TEMP 36.6; O2SAT 96
[2022-10-15 11:42] LABS: Glucose, Whole Blood 220 mg/dL (60-115)
--- NOTE | 2022-10-15 11:42 | P.PNIM_ITS ---
Subjective Subjective Date of Service: 10/15/22 Interval History: Seen and evaluated this morning improved pain in his legs Decreased oxygen requirement Feeling little better today No reported other overnight events Review of Systems Review of Systems: Yes all other systems are reviewed and are negative Physical Exam Vital Signs: Vital Signs: Last Vital Signs Temp 97.8 F 10/15/22 11:37 Pulse 80 10/15/22 11:37 Resp 14 10/15/22 11:37 BP 113/72 10/15/22 11:37 Pulse Ox 96 10/15/22 11:37 O2 Del Method 10/15/22 11:37 O2 Flow Rate 2 10/15/22 11:37 BMI result Body Mass Index 24.7 Const: Other: Constitutional : Awake, interactive, not in distress Neck : Normal inspection, Supple Cardiovascular : RRR, no JVP, trace bilateral lower extremity edema Respiratory : good bilateral air entry, basal fine bilateral crackles, no wheezes or rhonchi Gastrointestinal: soft, lax, Normal bowel sounds, Non tender Skin : Warm, Dry Neurological : Alert & oriented to time and place, No focal deficit Objective Data Active Medications Acetaminophen (Acetaminophen 325 Mg Tablet) 650 mg PO Q6H PRN PRN Reason: Pain, Mild (Pain Scale 1-3) Last Admin: 10/15/22 01:21 Dose: 650 mg Documented By: RL Apixaban (Apixaban 5 Mg Tablet) 10 mg PO BID [facility] Stop: 10/18/22 21:01 Last Admin: 10/15/22 08:16 Dose: 10 mg Documented By: SYLVIA Aspirin (Aspirin Enteric Coated 81 Mg Tablet.) 81 mg PO DAILY [facility] Last Admin: 10/15/22 08:17 Dose: 81 mg Documented By: SYLVIA Atorvastatin Calcium (Atorvastatin Calcium 80 Mg Tablet) 80 mg PO DAILY [facility] Last Admin: 10/15/22 08:16 Dose: 80 mg Documented By: SYLVIA Baclofen (Baclofen 10 Mg Tablet) 10 mg PO BID [facility] Last Admin: 10/15/22 08:17 Dose: 10 mg Documented By: SYLVIA Dextrose (Dextrose 50 % 25 Gm/50 Ml Syringe) 25 gm IVPUSH Q15M PRN; Protocol PRN Reason: per Hypoglycemia Standing Ord. Empagliflozin (Empagliflozin 10 Mg Tablet) 10 mg PO DAILY [facility] Last Admin: 10/15/22 08:17 Dose: 10 mg Documented By: SYLVIA Furosemide (Furosemide 40 Mg Tablet) 80 mg PO DAILY [facility]; Protocol Last Admin: 10/15/22 08:16 Dose: 80 mg Documented By: SYLVIA Gabapentin (Gabapentin 100 Mg Capsule) 100 mg PO TID [facility] Last Admin: 10/15/22 08:16 Dose: 100 mg Documented By: SYLVIA Glucose (Glucose Gel 15 Gm Gel..Gram.) 15 gm PO Q15M PRN; Protocol PRN Reason: per Hypoglycemia Standing Ord. Insulin Glargine (Insulin Glargine,Hum.Rec.Anlog 100 Unit/Ml 10 Ml Vial) 20 unit SUBCUT BEDTIME [facility] Last Admin: 10/14/22 21:05 Dose: 20 unit Documented By: RL Insulin Human Lispro (Insulin Lispro 100 Unit/Ml 3 Ml Vial) 0 unit SUBCUT QIDACHS [facility]; Protocol Last Admin: 10/15/22 08:16 Dose: 2 unit Documented By: SYLVIA Lactulose (Lactulose 20 Gm/30 Ml Solution) 20 gm PO DAILY [facility] Last Admin: 10/15/22 08:16 Dose: 20 gm Documented By: SYLVIA Melatonin (Melatonin 3 Mg Tablet) 6 mg PO BEDTIME PRN PRN Reason: Insomnia Last Admin: 10/15/22 01:21 Dose: 6 mg Documented By: RL Metoprolol Succinate (Metoprolol Succinate Er 50 Mg Tab.Er.24h) 50 mg PO DAILY [facility]; Protocol Last Admin: 10/11/22 12:46 Dose: Not Given Documented By: SAAD Non-Admin Reason: Medication Discontinued Nicotine (Nicotine 14 Mg Patch.Td24) 14 mg TRANSDERMA DAILY [facility] Last Admin: 10/15/22 08:15 Dose: 14 mg Documented By: SYLVIA Ondansetron HCl (Ondansetron Hcl 4 Mg/2 Ml Vial) 4 mg IVPUSH Q8H PRN PRN Reason: Nausea and Vomiting Pharmacy Consult (Consult Rx Perform Med Rec) 1 each MISCELLANE ONCE PRN PRN Reason: Consult order Sacubitril/Valsartan (Sacubitril/Valsartan 1 Tab Tablet) 1 tab PO BID [facility]; Protocol Last Admin: 10/15/22 08:17 Dose: 1 tab Documented By: SYLVIA Sodium Chloride (0.9 % Sodium Chloride Flush 3 Ml Syringe) 3 ml IVFLUSH QSHIFT [facility] Last Admin: 10/15/22 08:17 Dose: 3 ml Documented By: SYLVIA Tamsulosin HCl (Tamsulosin Hcl 0.4 Mg Capsule) 0.4 mg PO DAILY [facility] Last Admin: 10/10/22 07:52 Dose: 0.4 mg Documented By: SAAD Labs 10/13/22 06:03 10/15/22 06:53 Labs: Laboratory Results - last 24 hr 10/14/22 10/14/22 10/15/22 16:16 20:30 06:53 Anion Gap 16 Estim Creat Clear Calc 63.9 Estimated GFR > 60 POC Glucose 190 H 159 H Random Glucose 185 H Calcium 7.9 L 10/15/22 07:24 Anion Gap Estim Creat Clear Calc Estimated GFR POC Glucose 194 H Random Glucose Calcium Assessment and Plan (1) Acute on chronic 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 acute hypoxic respiratory failure due to Acute on chronic combined systolic and diastolic heart failure and acute pulmonary embolism improving Change to PO lasix full-dose Eliquis Cardiology input appreciated, continue Entresto, beta-jonnathan and Jardiance echo with reduced EF complicated and apical thrombus NSTEMI Finished 48 hours of heparin drip asa, statin Cardiology recommended medical treatment for the time being, guarded prognosis Insulin-dependent diabetes mellitus with hyperglycemia and neuropathy insulin, pocs Continue gabapentin urinary retention flomax DC [place] CAD asa, statin hypertension metoprolol, entresto hyperlipidemia On statin Tobacco use disorder: Nicotine patch DVT prophylaxis: Eliquis Full code poor/guarded prognosis I had the chance to speak with 2 sisters the patient who lives out of the area and report being his healthcare proxies. Explained his current medical condition and guarded prognosis given his heart failure, pulmonary embolism and ischemic heart disease specially if he continues to being non adherent to the medical therapy and treatments. They both understand and were hoping to find him a long-term placement so we can assure he is taking his medications. They will discuss with the manager rn case regarding discharge plan. reason for continued hospitalization:pending safe discharge plan Time Spent With Patient Time: Total time managing care of this patient today ____ minutes. Quality Stroke Does the patient have a stroke diagnosis?: No VTE Prior VTE?: No VTE Risk Level:: Medical - moderate - high VTE Device Contraindication: Treatment Not Indicated VTE Drug Contraindication: N/A - Med Ordered
[2022-10-15 13:27] LABS: Magnesium 1.9 mg/dL (1.6-2.6)
--- NOTE | 2022-10-15 15:44 | MHC.CM.PN ---
CM met with Patient's 2 Sisters: 1ST Contact/Sister/Karissa @ [phone] and 2nd Contact/Sister/Jaleesa @[phone] and Patient's Mother. The 2 Sisters explain that Sister/Karissa can no longer take care of both her Mother and Father and that the goal is STR into likely LTC. All are agreeable to a broad SNF search and referrals have been updated and expanded. CM will follow.
[2022-10-15] MEDS: Metoprolol Succinate ER 25 MG TAB.ER.24H PO (15:46)
[2022-10-15] MEDS: Magnesium Sulfate/H2O 2 GM/50 ML PIGGYBACK IV (15:47)
[2022-10-15 15:52] VITALS: BP 123/75; PULSE 100; RESP 20; TEMP 36.3; O2SAT 96
[2022-10-15 16:44] LABS: Glucose, Whole Blood 157 mg/dL (60-115)
[2022-10-15 20:00] VITALS: BP 88/54; PULSE 82; RESP 19; TEMP 36.7; O2SAT 95
[2022-10-15 20:15] LABS: Glucose, Whole Blood 225 mg/dL (60-115)
[2022-10-15] MEDS: Insulin Glargine,Hum.rec.anlog 100 UNIT/ML 10 ML VIAL 20 UNIT SUBCUT (20:52)
[2022-10-15 23:25] VITALS: BP 98/63; PULSE 64; RESP 16; TEMP 36.9; O2SAT 92
[2022-10-16 03:42] VITALS: BP 138/65; PULSE 69; RESP 15; TEMP 37.2; O2SAT 90
[2022-10-16 07:20] LABS: Glucose, Whole Blood 153 mg/dL (60-115)
[2022-10-16 07:48] VITALS: BP 100/63; PULSE 80; RESP 16; TEMP 36.8; O2SAT 95
[2022-10-16] MEDS: Gabapentin 100 MG CAPSULE PO ×3 (08:18→20:57)
[2022-10-16] MEDS: Furosemide 40 MG TABLET 80 MG PO (08:18)
[2022-10-16] MEDS: Aspirin Enteric Coated 81 MG TABLET.DR PO (08:18)
[2022-10-16] MEDS: Lactulose 20 GM/30 ML SOLUTION PO (08:18)
[2022-10-16] MEDS: Insulin Lispro 100 UNIT/ML 3 ML VIAL SUBCUT ×4 (08:18→20:58)
[2022-10-16] MEDS: Atorvastatin Calcium 80 MG TABLET PO (08:18)
[2022-10-16] MEDS: Baclofen 10 MG TABLET PO ×2 (08:18→20:57)
[2022-10-16] MEDS: Sacubitril/Valsartan 24/26 1 TAB TABLET PO ×2 (08:18→20:57)
[2022-10-16] MEDS: 0.9 % Sodium Chloride Flush 3 ML SYRINGE IVFLUSH ×3 (08:19→21:04)
[2022-10-16] MEDS: Metoprolol Succinate ER 25 MG TAB.ER.24H PO (08:19)
[2022-10-16] MEDS: Nicotine 14 MG PATCH.TD24 TRANSDERMA (08:19)
[2022-10-16] MEDS: Apixaban 5 MG TABLET 10 MG PO ×2 (08:19→20:57)
[2022-10-16] MEDS: Empagliflozin 10 MG TABLET PO (08:19)
[2022-10-16 11:04] LABS: Glucose, Whole Blood 207 mg/dL (60-115)
[2022-10-16 11:05] VITALS: BP 90/58; PULSE 83; RESP 16; TEMP 36.7; O2SAT 92
--- NOTE | 2022-10-16 13:32 | P.PNIM_ITS ---
Subjective Subjective Date of Service: 10/16/22 Interval History: Seen and evaluated this morning Weaned down to room air improved pain in his legs Feeling little better today No reported other overnight events Review of Systems Review of Systems: Yes all other systems are reviewed and are negative Physical Exam Vital Signs: Vital Signs: Last Vital Signs Temp 98.1 F 10/16/22 11:05 Pulse 83 10/16/22 11:05 Resp 16 10/16/22 11:05 BP 90/58 L 10/16/22 11:05 Pulse Ox 92 10/16/22 11:05 O2 Del Method 10/16/22 11:05 O2 Flow Rate 2 10/16/22 03:42 BMI result Body Mass Index 24.7 Const: Other: Constitutional : Awake, interactive, not in distress Neck : Normal inspection, Supple Cardiovascular : RRR, no JVP, trace bilateral lower extremity edema Respiratory : good bilateral air entry, no crackles, no wheezes or rhonchi Gastrointestinal: soft, lax, Normal bowel sounds, Non tender Skin : Warm, Dry Neurological : Alert & oriented to time and place, No focal deficit Objective Data Active Medications Acetaminophen (Acetaminophen 325 Mg Tablet) 650 mg PO Q6H PRN PRN Reason: Pain, Mild (Pain Scale 1-3) Last Admin: 10/15/22 15:46 Dose: 650 mg Documented By: SYLVIA Apixaban (Apixaban 5 Mg Tablet) 10 mg PO BID [facility] Stop: 10/18/22 21:01 Last Admin: 10/16/22 08:19 Dose: 10 mg Documented By: SLYVIA Aspirin (Aspirin Enteric Coated 81 Mg Tablet.) 81 mg PO DAILY [facility] Last Admin: 10/16/22 08:18 Dose: 81 mg Documented By: SYLVIA Atorvastatin Calcium (Atorvastatin Calcium 80 Mg Tablet) 80 mg PO DAILY [facility] Last Admin: 10/16/22 08:18 Dose: 80 mg Documented By: SYLVIA Baclofen (Baclofen 10 Mg Tablet) 10 mg PO BID [facility] Last Admin: 10/16/22 08:18 Dose: 10 mg Documented By: SYLVIA Dextrose (Dextrose 50 % 25 Gm/50 Ml Syringe) 25 gm IVPUSH Q15M PRN; Protocol PRN Reason: per Hypoglycemia Standing Ord. Empagliflozin (Empagliflozin 10 Mg Tablet) 10 mg PO DAILY [facility] Last Admin: 10/16/22 08:19 Dose: 10 mg Documented By: SYLVIA Furosemide (Furosemide 40 Mg Tablet) 80 mg PO DAILY [facility]; Protocol Last Admin: 10/16/22 08:18 Dose: 80 mg Documented By: SYLVIA Gabapentin (Gabapentin 100 Mg Capsule) 100 mg PO TID [facility] Last Admin: 10/16/22 08:18 Dose: 100 mg Documented By: SYLVIA Glucose (Glucose Gel 15 Gm Gel..Gram.) 15 gm PO Q15M PRN; Protocol PRN Reason: per Hypoglycemia Standing Ord. Insulin Glargine (Insulin Glargine,Hum.Rec.Anlog 100 Unit/Ml 10 Ml Vial) 20 unit SUBCUT BEDTIME [facility] Last Admin: 10/15/22 20:52 Dose: 20 unit Documented By: [place] Insulin Human Lispro (Insulin Lispro 100 Unit/Ml 3 Ml Vial) 0 unit SUBCUT QIDACHS [facility]; Protocol Last Admin: 10/16/22 11:52 Dose: 4 unit Documented By: SYLVIA Lactulose (Lactulose 20 Gm/30 Ml Solution) 20 gm PO DAILY [facility] Last Admin: 10/16/22 08:18 Dose: 20 gm Documented By: SYLVIA Melatonin (Melatonin 3 Mg Tablet) 6 mg PO BEDTIME PRN PRN Reason: Insomnia Last Admin: 10/15/22 01:21 Dose: 6 mg Documented By: RL Metoprolol Succinate (Metoprolol Succinate Er 25 Mg Tab.Er.24h) 25 mg PO DAILY [facility]; Protocol Last Admin: 10/16/22 08:19 Dose: 25 mg Documented By: SYLVIA Nicotine (Nicotine 14 Mg Patch.Td24) 14 mg TRANSDERMA DAILY [facility] Last Admin: 10/16/22 08:19 Dose: 14 mg Documented By: SYLVIA Ondansetron HCl (Ondansetron Hcl 4 Mg/2 Ml Vial) 4 mg IVPUSH Q8H PRN PRN Reason: Nausea and Vomiting Pharmacy Consult (Consult Rx Perform Med Rec) 1 each MISCELLANE ONCE PRN PRN Reason: Consult order Sacubitril/Valsartan (Sacubitril/Valsartan 1 Tab Tablet) 1 tab PO BID [facility]; Protocol Last Admin: 02/27/23 08:18 Dose: 1 tab Documented By: SYLVIA Sodium Chloride (0.9 % Sodium Chloride Flush 3 Ml Syringe) 3 ml IVFLUSH QSHIFT [facility] Last Admin: 10/16/22 08:19 Dose: 3 ml Documented By: SYLVIA Tamsulosin HCl (Tamsulosin Hcl 0.4 Mg Capsule) 0.4 mg PO DAILY [facility] Last Admin: 10/10/22 07:52 Dose: 0.4 mg Documented By: SAAD Labs 10/13/22 06:03 10/15/22 06:53 Labs: Laboratory Results - last 24 hr 10/15/22 10/15/22 10/16/22 16:36 20:06 07:08 POC Glucose 157 H 225 H 153 H 10/16/22 10:51 POC Glucose 207 H Assessment and Plan (1) LV (left ventricular) mural thrombus: Status: Acute (2) Acute on 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 acute hypoxic respiratory failure due to Acute on chronic combined systolic and diastolic heart failure and acute pulmonary embolism improving PO lasix full-dose Eliquis Cardiology input appreciated, continue Entresto, beta-jonnathan and Jardiance echo with reduced EF complicated and apical thrombus NSTEMI Finished 48 hours of heparin drip asa, statin Cardiology recommended medical treatment for the time being, guarded prognosis Physical deconditioning PT recommended SNF vs home PT, patient prefers to go to SNF Insulin-dependent diabetes mellitus with hyperglycemia and neuropathy insulin, pocs Continue gabapentin urinary retention flomax DC [place] CAD asa, statin hypertension metoprolol, entresto hyperlipidemia On statin Tobacco use disorder: Nicotine patch DVT prophylaxis: Eliquis Full code poor/guarded prognosis I had the chance to speak with 2 sisters the patient who lives out of the area and report being his healthcare proxies. Explained his current medical condition and guarded prognosis given his heart failure, pulmonary embolism and ischemic heart disease specially if he continues to being non adherent to the medical therapy and treatments. They both understand and were hoping to find him a long-term placement so we can assure he is taking his medications. They will discuss with the bottle caser regarding discharge plan. reason for continued hospitalization:pending safe discharge plan to sNF Time Spent With Patient Time: Total time managing care of this patient today ____ minutes. Quality Stroke Does the patient have a stroke diagnosis?: No VTE Prior VTE?: No VTE Risk Level:: Medical - moderate - high VTE Device Contraindication: Treatment Not Indicated VTE Drug Contraindication: N/A - Med Ordered
[2022-10-16] MEDS: Acetaminophen 325 MG TABLET 650 MG PO ×2 (13:48→20:57)
--- NOTE | 2022-10-16 14:23 | MHC.CM.PN ---
pt is now agreeable to going to str prior to returning home w/ vna bed search in progress
[2022-10-16 15:03] VITALS: BP 101/61; PULSE 79; RESP 18; TEMP 36.8; O2SAT 93
[2022-10-16 15:38] LABS: Glucose, Whole Blood 183 mg/dL (60-115)
[2022-10-16 19:38] VITALS: BP 105/56; PULSE 69; RESP 17; TEMP 36.2; O2SAT 94
[2022-10-16 20:10] LABS: Glucose, Whole Blood 263 mg/dL (60-115)
[2022-10-16] MEDS: Melatonin 3 MG TABLET 6 MG PO (20:57)
[2022-10-16] MEDS: Insulin Glargine,Hum.rec.anlog 100 UNIT/ML 10 ML VIAL 20 UNIT SUBCUT (20:58)
[2022-10-17] VITALS: BP 96/62; PULSE 52; RESP 20; TEMP 36.2; O2SAT 94
[2022-10-17] MEDS: Acetaminophen 325 MG TABLET 650 MG PO ×3 (03:01→15:03)
[2022-10-17 03:17] VITALS: BP 92/53; PULSE 60; RESP 20; TEMP 36.2; O2SAT 93
[2022-10-17 07:36] LABS: Glucose, Whole Blood 104 mg/dL (60-115)
[2022-10-17 07:51] VITALS: BP 101/69; PULSE 66; RESP 18; TEMP 36.1; O2SAT 94
[2022-10-17] MEDS: Tamsulosin HCL 0.4 MG CAPSULE PO (09:28)
[2022-10-17] MEDS: Apixaban 5 MG TABLET 10 MG PO ×2 (09:28→21:50)
[2022-10-17] MEDS: Gabapentin 100 MG CAPSULE PO ×3 (09:29→21:50)
[2022-10-17] MEDS: Aspirin Enteric Coated 81 MG TABLET.DR PO (09:29)
[2022-10-17] MEDS: Baclofen 10 MG TABLET PO ×2 (09:29→21:50)
[2022-10-17] MEDS: Atorvastatin Calcium 80 MG TABLET PO (09:29)
[2022-10-17] MEDS: Nicotine 14 MG PATCH.TD24 TRANSDERMA (09:29)
[2022-10-17] MEDS: Lactulose 20 GM/30 ML SOLUTION PO (09:29)
[2022-10-17] MEDS: Sacubitril/Valsartan 24/26 1 TAB TABLET PO (09:29)
[2022-10-17] MEDS: Empagliflozin 10 MG TABLET PO (09:29)
[2022-10-17] MEDS: 0.9 % Sodium Chloride Flush 3 ML SYRINGE IVFLUSH (09:30)
--- NOTE | 2022-10-17 11:26 | HO.PM.IMPN ---
Subjective Subjective Date of Service: 10/17/22 Interval History: Seen and evaluated this morning Weaned down to room air, which region on a of Complaining pain in his legs More ambulatory No reported other overnight events Physical Exam Vital Signs: Vital Signs: Last Vital Signs Temp 96.9 F 10/17/22 07:51 Pulse 66 10/17/22 07:51 Resp 18 10/17/22 07:51 BP 101/69 10/17/22 07:51 Pulse Ox 94 10/17/22 07:51 O2 Del Method 10/17/22 07:51 O2 Flow Rate 1.0 10/17/22 07:51 BMI result Body Mass Index 24.7 Const: Other: Constitutional : Awake, interactive, not in distress Neck : Normal inspection, Supple Cardiovascular : RRR, no JVP, trace bilateral lower extremity edema Respiratory : good bilateral air entry, no crackles, no wheezes or rhonchi Gastrointestinal: soft, lax, Normal bowel sounds, Non tender Skin : Warm, Dry Neurological : Alert & oriented to time and place, No focal deficit Objective Data Active Medications Acetaminophen (Acetaminophen 325 Mg Tablet) 650 mg PO Q6H PRN PRN Reason: Pain, Mild (Pain Scale 1-3) Last Admin: 10/17/22 09:27 Dose: 650 mg Documented By: DINORAH Apixaban (Apixaban 5 Mg Tablet) 10 mg PO BID [facility] Stop: 10/18/22 21:01 Last Admin: 10/17/22 09:28 Dose: 10 mg Documented By: DINORAH Aspirin (Aspirin Enteric Coated 81 Mg Tablet.) 81 mg PO DAILY [facility] Last Admin: 10/17/22 09:29 Dose: 81 mg Documented By: DINORAH Atorvastatin Calcium (Atorvastatin Calcium 80 Mg Tablet) 80 mg PO DAILY [facility] Last Admin: 10/17/22 09:29 Dose: 80 mg Documented By: DINORAH Baclofen (Baclofen 10 Mg Tablet) 10 mg PO BID [facility] Last Admin: 10/17/22 09:29 Dose: 10 mg Documented By: DINORAH Dextrose (Dextrose 50 % 25 Gm/50 Ml Syringe) 25 gm IVPUSH Q15M PRN; Protocol PRN Reason: per Hypoglycemia Standing Ord. Empagliflozin (Empagliflozin 10 Mg Tablet) 10 mg PO DAILY [facility] Last Admin: 10/17/22 09:29 Dose: 10 mg Documented By: DINORAH Furosemide (Furosemide 40 Mg Tablet) 80 mg PO DAILY [facility]; Protocol Last Admin: 10/17/22 09:30 Dose: Not Given Documented By: DINORAH Non-Admin Reason: Physician Held Med Gabapentin (Gabapentin 100 Mg Capsule) 100 mg PO TID [facility] Last Admin: 10/17/22 09:29 Dose: 100 mg Documented By: DINORAH Glucose (Glucose Gel 15 Gm Gel..Gram.) 15 gm PO Q15M PRN; Protocol PRN Reason: per Hypoglycemia Standing Ord. Insulin Glargine (Insulin Glargine,Hum.Rec.Anlog 100 Unit/Ml 10 Ml Vial) 20 unit SUBCUT BEDTIME [facility] Last Admin: 10/16/22 20:58 Dose: 20 unit Documented By: LUZ MARINA Insulin Human Lispro (Insulin Lispro 100 Unit/Ml 3 Ml Vial) 0 unit SUBCUT QIDACHS [facility]; Protocol Last Admin: 10/17/22 07:44 Dose: Not Given Documented By: DINORAH Non-Admin Reason: No Insulin Coverage Lactulose (Lactulose 20 Gm/30 Ml Solution) 20 gm PO DAILY [facility] Last Admin: 10/17/22 09:29 Dose: 20 gm Documented By: DINORAH Melatonin (Melatonin 3 Mg Tablet) 6 mg PO BEDTIME PRN PRN Reason: Insomnia Last Admin: 10/16/22 20:57 Dose: 6 mg Documented By: LUZ MARINA Metoprolol Succinate (Metoprolol Succinate Er 25 Mg Tab.Er.24h) 25 mg PO DAILY [facility]; Protocol Last Admin: 10/17/22 09:30 Dose: Not Given Documented By: DINORAH Non-Admin Reason: Physician Held Med Nicotine (Nicotine 14 Mg Patch.Td24) 14 mg TRANSDERMA DAILY [facility] Last Admin: 10/17/22 09:29 Dose: 14 mg Documented By: DINORAH Ondansetron HCl (Ondansetron Hcl 4 Mg/2 Ml Vial) 4 mg IVPUSH Q8H PRN PRN Reason: Nausea and Vomiting Pharmacy Consult (Consult Rx Perform Med Rec) 1 each MISCELLANE ONCE PRN PRN Reason: Consult order Sacubitril/Valsartan (Sacubitril/Valsartan 1 Tab Tablet) 1 tab PO BID [facility]; Protocol Last Admin: 10/17/22 09:29 Dose: 1 tab Documented By: DINORAH Sodium Chloride (0.9 % Sodium Chloride Flush 3 Ml Syringe) 3 ml IVFLUSH QSHIFT [facility] Last Admin: 10/17/22 09:30 Dose: 3 ml Documented By: DINORAH Tamsulosin HCl (Tamsulosin Hcl 0.4 Mg Capsule) 0.4 mg PO DAILY [facility] Last Admin: 10/17/22 09:28 Dose: 0.4 mg Documented By: DINORAH Labs 10/13/22 06:03 10/15/22 06:53 Labs: Laboratory Results - last 24 hr 10/16/22 10/16/22 10/17/22 15:05 19:45 07:32 POC Glucose 183 H 263 H 104 Assessment and Plan (1) LV (left ventricular) mural thrombus: Status: Acute (2) Acute on 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 acute hypoxic respiratory failure due to Acute on chronic combined systolic and diastolic heart failure and acute pulmonary embolism improving PO lasix full-dose Eliquis Cardiology input appreciated, continue Entresto, beta-jonnathan and Jardiance echo with reduced EF complicated and apical thrombus NSTEMI Finished 48 hours of heparin drip asa, statin, BB Cardiology recommended medical treatment for the time being, guarded prognosis NSVT Electrolyte acceptable Cardiology recommended starting low-dose metoprolol Change metoprolol to bedtime for low pressure readings Physical deconditioning PT recommended SNF vs home PT, patient prefers to go to SNF Insulin-dependent diabetes mellitus with hyperglycemia and neuropathy insulin, pocs Continue gabapentin urinary retention flomax KARI [place] CAD asa, statin hypertension metoprolol, entresto hyperlipidemia On statin Tobacco use disorder: Nicotine patch DVT prophylaxis: Eliquis Full code poor/guarded prognosis I had the chance to speak with 2 sisters the patient who lives out of the area and report being his healthcare proxies. Explained his current medical condition and guarded prognosis given his heart failure, pulmonary embolism and ischemic heart disease specially if he continues to being non adherent to the medical therapy and treatments. They both understand and were hoping to find him a long-term placement so we can assure he is taking his medications. They will discuss with the senior case manager regarding discharge plan. reason for continued hospitalization:pending safe discharge plan to sNF Time Spent With Patient Time: Total time managing care of this patient today ____ minutes. Quality Stroke Does the patient have a stroke diagnosis?: No VTE Prior VTE?: No VTE Risk Level:: Medical - moderate - high VTE Device Contraindication: Treatment Not Indicated VTE Drug Contraindication: N/A - Med Ordered
[2022-10-17 11:40] LABS: Glucose, Whole Blood 218 mg/dL (60-115)
[2022-10-17 11:53] VITALS: BP 91/57; PULSE 86; RESP 18; TEMP 36.7; O2SAT 88
[2022-10-17] MEDS: Insulin Lispro 100 UNIT/ML 3 ML VIAL SUBCUT ×2 (12:02→21:49)
--- NOTE | 2022-10-17 14:06 | P.CONGS_ITS ---
History of Present Illness Consult details Consult date: 10/17/22 Reason for consult: other (Leg pain) Narrative: Very complex 57-year-old gentleman presents for evaluation regarding leg pain. He was admitted approximately a week prior with congestive heart failure. He has been complaining of persistent leg pain. He actually had a history of peripheral vascular disease and has had prior stenting he reports nearly a year ago in [place]. He has not had any surveillance follow-up since that time. He was actually requested to move back this way to be with family. He now presents to us for vascular evaluation. Review of Systems Review of Systems: Yes all other systems are reviewed and are negative Constitutional: Constitutional: Reports no additional constitutional complaints ENT: Reports Normal hearing present Cardiovascular: Cardiovascular: Denies chest pain, Denies chest pain at rest, Denies chest pain with activity and Denies pedal edema Respiratory: Respiratory: Denies cough Gastrointestinal: Gastrointestinal: Denies abdominal pain Musculoskeletal: Musculoskeletal: Denies abnormal gait, Denies muscle cramps and Denies radiating pain into limb Integumentary/Breasts: Skin/Breast: Denies skin ulcer and Denies wounds Neurologic: Reports Normal hearing present and Denies abnormal gait Psychiatric: Psychiatric: Reports no additional psychiatric complaints PMFSH Past Medical History Medical History Abdominal pain CAD (coronary artery disease) CHF (congestive heart failure) Diabetes Elevated troponin HLD (hyperlipidemia) Hypertension Pulmonary embolism PVD (peripheral vascular disease) Family History Family History Other No family history of coronary artery disease Surgical History Surgical History History of angioplasty of peripheral vessel History of heart artery stent Social History Social History Household Members: Family Housing: Other Do you presently have visiting nurse or other home services: No Alcohol intake: former Patient Tobacco Use Status: Current everyday Tobacco user Tobacco use type: Cigarette Cigarettes Per Day: 10 e-Cigarette/Vaping Use: Never Used Second Hand Smoke Exposure: Yes service: No Current occupational status: unemployed Cognitive needs: No Hearing needs: No Vision needs: No Meds Allergies Allergy/AdvReac Type Severity Reaction Status Date / Time No Known Allergies Allergy Verified 04/26/22 12:24 Active Medications: Current Medications Acetaminophen (Acetaminophen 325 Mg Tablet) 650 mg PO Q6H PRN PRN Reason: Pain, Mild (Pain Scale 1-3) Last Admin: 10/17/22 09:27 Dose: 650 mg Apixaban (Apixaban 5 Mg Tablet) 10 mg PO BID [facility] Stop: 10/18/22 21:01 Last Admin: 10/17/22 09:28 Dose: 10 mg Aspirin (Aspirin Enteric Coated 81 Mg Tablet.Dr) 81 mg PO DAILY [facility] Last Admin: 10/17/22 09:29 Dose: 81 mg Atorvastatin Calcium (Atorvastatin Calcium 80 Mg Tablet) 80 mg PO DAILY [facility] Last Admin: 10/17/22 09:29 Dose: 80 mg Baclofen (Baclofen 10 Mg Tablet) 10 mg PO BID [facility] Last Admin: 10/17/22 09:29 Dose: 10 mg Dextrose (Dextrose 50 % 25 Gm/50 Ml Syringe) 25 gm IVPUSH Q15M PRN; Protocol PRN Reason: per Hypoglycemia Standing Ord. Empagliflozin (Empagliflozin 10 Mg Tablet) 10 mg PO DAILY [facility] Last Admin: 10/17/22 09:29 Dose: 10 mg Furosemide (Furosemide 40 Mg Tablet) 80 mg PO DAILY [facility]; Protocol Last Admin: 10/17/22 09:30 Dose: Not Given Gabapentin (Gabapentin 100 Mg Capsule) 100 mg PO TID [facility] Last Admin: 10/17/22 09:29 Dose: 100 mg Glucose (Glucose Gel 15 Gm Gel..Gram.) 15 gm PO Q15M PRN; Protocol PRN Reason: per Hypoglycemia Standing Ord. Insulin Glargine (Insulin Glargine,Hum.Rec.Anlog 100 Unit/Ml 10 Ml Vial) 20 unit SUBCUT BEDTIME [facility] Last Admin: 10/16/22 20:58 Dose: 20 unit Insulin Human Lispro (Insulin Lispro 100 Unit/Ml 3 Ml Vial) 0 unit SUBCUT QIDACHS [facility]; Protocol Last Admin: 10/17/22 12:02 Dose: 4 unit Lactulose (Lactulose 20 Gm/30 Ml Solution) 20 gm PO DAILY [facility] Last Admin: 10/17/22 09:29 Dose: 20 gm Melatonin (Melatonin 3 Mg Tablet) 6 mg PO BEDTIME PRN PRN Reason: Insomnia Last Admin: 10/16/22 20:57 Dose: 6 mg Metoprolol Succinate (Metoprolol Succinate Er 25 Mg Tab.Er.24h) 25 mg PO BEDTIME [facility]; Protocol Nicotine (Nicotine 14 Mg Patch.Td24) 14 mg TRANSDERMA DAILY [facility] Last Admin: 10/17/22 09:29 Dose: 14 mg Ondansetron HCl (Ondansetron Hcl 4 Mg/2 Ml Vial) 4 mg IVPUSH Q8H PRN PRN Reason: Nausea and Vomiting Pharmacy Consult (Consult Rx Perform Med Rec) 1 each MISCELLANE ONCE PRN PRN Reason: Consult order Sacubitril/Valsartan (Sacubitril/Valsartan 24/ 1 Tab Tablet) 1 tab PO BID [facility]; Protocol Last Admin: 10/17/22 09:29 Dose: 1 tab Sodium Chloride (0.9 % Sodium Chloride Flush 3 Ml Syringe) 3 ml IVFLUSH QSHIFT [facility] Last Admin: 10/17/22 09:30 Dose: 3 ml Tamsulosin HCl (Tamsulosin Hcl 0.4 Mg Capsule) 0.4 mg PO DAILY [facility] Last Admin: 10/17/22 09:28 Dose: 0.4 mg Home Medications Medication Instructions Recorded Confirmed Last Taken Type nitroglycerin 0.4 mg sublingual 1 tab sublingual USEASDIRECTD 02/19/22 10/09/22 Unknown History tablet furosemide 80 mg tablet 80 mg PO DAILY 03/22/22 10/09/22 Unknown History metoprolol succinate 50 mg 50 mg PO DAILY 03/22/22 10/09/22 Unknown History tablet,extended release 24 hr sacubitril 24 mg-valsartan 26 mg 1 tab PO BID 03/22/22 10/09/22 Unknown History tablet (Entresto) apixaban 2.5 mg tablet (Eliquis) 2.5 mg PO BID 04/06/22 10/09/22 Unknown History atorvastatin 80 mg tablet 80 mg PO DAILY 04/06/22 10/09/22 Unknown History aspirin 81 mg tablet,delayed 81 mg PO DAILY 10/09/22 10/09/22 Unknown History release metformin 500 mg tablet 500 mg PO BID 10/09/22 10/09/22 Unknown History Physical Exam Vital Signs: Vital Signs: Last Vital Signs Temp 98.0 F 10/17/22 11:53 Pulse 86 10/17/22 11:53 Resp 18 10/17/22 11:53 BP 91/57 L 10/17/22 11:53 Pulse Ox 88 L 10/17/22 11:53 O2 Del Method 10/17/22 11:53 O2 Flow Rate 1.0 10/17/22 07:51 BMI result Body Mass Index 24.7 Const: General: cooperative, healthy appearing and comfortable Orientation/consciousness: oriented to person, oriented to place and oriented to time HEENT: Head: Yes normal to inspection Neck: Neck: Yes normal visual inspection Carotids: no bruits Chest: Chest palpation & inspection: normal inspection of the chest Resp: Effort & Inspection: normal respiratory effort and able to speak in complete sentences Auscultation: clear to auscultation bilaterally, no crackles, no rales, no rhonchi and no wheezes Cardio: Other: Bilateral DP signals Rate: regular rate Rhythm: regular rhythm Heart sounds: S1 normal heart sound present and S2 normal heart sound present Bruits: no carotid bruits GI: Inspection: Yes normal to inspection Skin: Wounds: no wounds Hair: normal Neuro: General: oriented to person, oriented to place and oriented to time Cranial nerves: Yes CN's II-XII intact bilaterally and Yes Normal hearing present Cognition (Neuro): normal cognition Motor exam (neuro): 5/5 motor strength present throughout Extrem: Other: venous exam: No significant superficial varicosities or spider telangiectasias, minimal edema General: No clubbing, No cyanosis and No edema Psych: Appearance: grossly normal Mental Status: mental status grossly normal Speech and movement: Normal speech and movement present Results Labs 10/13/22 06:03 10/15/22 06:53 Labs: Abnormal lab results 10/16/22 10/16/22 10/17/22 Range/Units 15:05 19:45 11:33 POC Glucose 183 H 263 H 218 H (60-115) mg/dL Urine 10/09/22 Range/Units 05:33 Urine Color Yellow Urine Appearance Clear Urine pH 5.5 (5.0-9.0) Ur Specific [place] 1.015 (1.005-1.025) Urine Protein 100 (2+) H (Neg-Trace) mg/dL Urine Glucose (UA) >=1000 H (Negative) mg/dL All other labs normal. Assessment and Plan (1) PAD (peripheral artery disease): Status: Acute Plan In short patient has history of peripheral vascular disease. It appears that he has a right lower extremity mid stent stenosis/occlusion. This appears to be more chronic in nature and does not explain his foot pain per se. At the current time would like his congestive heart to resolve and him to be more stable medically. Would be happy to see this as an outpatient. Thank you for allowing us to assist in this patient's care. If there are any questions or concerns please do not hesitate to contact us. Time Spent With Patient Time: Total time managing care of this patient today ____ minutes. Procedures Date of Service Date of Service: 10/17/22
--- NOTE | 2022-10-17 17:54 | PC.NURSE ---
pt refused 1630 blood sugar check. rn was therefore unable to administer insulin (if needed). Dr Lauren was made aware.
[2022-10-17 20:16] LABS: Glucose, Whole Blood 218 mg/dL (60-115)
[2022-10-17] MEDS: Metoprolol Succinate ER 25 MG TAB.ER.24H PO (21:49)
[2022-10-17] MEDS: Insulin Glargine,Hum.rec.anlog 100 UNIT/ML 10 ML VIAL 20 UNIT SUBCUT (21:49)
[2022-10-17 23:21] VITALS: BP 119/65; PULSE 81; RESP 17; TEMP 37.1; O2SAT 91
[2022-10-18] MEDS: 0.9 % Sodium Chloride Flush 3 ML SYRINGE IVFLUSH ×4 (00:15→21:25)
[2022-10-18 03:19] VITALS: BP 108/65; PULSE 83; RESP 15; TEMP 36.8; O2SAT 92
[2022-10-18 07:39] VITALS: BP 110/71; PULSE 71; RESP 18; TEMP 36.8; O2SAT 93
[2022-10-18 07:47] LABS: Glucose, Whole Blood 142 mg/dL (60-115)
[2022-10-18] MEDS: Baclofen 10 MG TABLET PO ×2 (07:57→20:47)
[2022-10-18] MEDS: Apixaban 5 MG TABLET 10 MG PO (07:57)
[2022-10-18] MEDS: Furosemide 40 MG TABLET 80 MG PO (07:58)
[2022-10-18] MEDS: Sacubitril/Valsartan 24/26 1 TAB TABLET PO ×2 (07:58→20:47)
[2022-10-18] MEDS: Gabapentin 100 MG CAPSULE PO ×3 (07:58→20:47)
[2022-10-18] MEDS: Aspirin Enteric Coated 81 MG TABLET.DR PO (07:58)
[2022-10-18] MEDS: Atorvastatin Calcium 80 MG TABLET PO (07:58)
[2022-10-18] MEDS: Tamsulosin HCL 0.4 MG CAPSULE PO (07:58)
[2022-10-18] MEDS: Nicotine 14 MG PATCH.TD24 TRANSDERMA (07:59)
[2022-10-18] MEDS: Empagliflozin 10 MG TABLET PO (07:59)
[2022-10-18] MEDS: Lactulose 20 GM/30 ML SOLUTION PO (08:00)
[2022-10-18 11:15] VITALS: BP 101/62; PULSE 80; RESP 18; TEMP 37.1; O2SAT 95
[2022-10-18 11:22] LABS: Glucose, Whole Blood 138 mg/dL (60-115)
--- NOTE | 2022-10-18 11:51 | P.PNIM_ITS ---
Subjective Subjective Date of Service: 10/18/22 Interval History: leg pain ENT Ears, Nose, Mouth, and Throat: Reports Normal hearing present Neurologic Neurologic: Reports Normal hearing present Physical Exam Vital Signs: Vital Signs: Last Vital Signs Temp 98.7 F 10/18/22 11:15 Pulse 80 10/18/22 11:15 Resp 18 10/18/22 11:15 BP 101/62 10/18/22 11:15 Pulse Ox 95 10/18/22 11:15 O2 Del Method 10/18/22 11:15 O2 Flow Rate 2 10/18/22 07:39 BMI result Body Mass Index 24.7 Const: General: cooperative, healthy appearing and comfortable Orientation/consciousness: oriented to person, oriented to place and oriented to time HEENT: Head: Yes normal to inspection Neck: Neck: Yes normal visual inspection Carotids: no bruits Chest: Chest palpation & inspection: normal inspection of the chest Resp: Effort & Inspection: normal respiratory effort and able to speak in complete sentences Auscultation: clear to auscultation bilaterally, no crackles, no rales, no rhonchi and no wheezes Cardio: Other: Bilateral DP signals Rate: regular rate Rhythm: regular rhythm Heart sounds: S1 normal heart sound present and S2 normal heart sound present Bruits: no carotid bruits GI: Inspection: Yes normal to inspection Skin: Wounds: no wounds Hair: normal Neuro: General: oriented to person, oriented to place and oriented to time Cranial nerves: Yes CN's II-XII intact bilaterally and Yes Normal hearing prese nt Cognition (Neuro): normal cognition Motor exam (neuro): 5/5 motor strength present throughout Extrem: Other: venous exam: No significant superficial varicosities or spider amanda ngiectasias, minimal edema General: No clubbing, No cyanosis and No edema Psych: Appearance: grossly normal Mental Status: mental status grossly normal Speech and movement: Normal speech and movement present Objective Data Active Medications Acetaminophen (Acetaminophen 325 Mg Tablet) 650 mg PO Q6H PRN PRN Reason: Pain, Mild (Pain Scale 1-3) Last Admin: 10/17/22 15:03 Dose: 650 mg Documented By: DINORAH Apixaban (Apixaban 5 Mg Tablet) 10 mg PO BID [facility] Stop: 10/18/22 21:01 Last Admin: 10/18/22 07:57 Dose: 10 mg Documented By: JOSE ALEJANDRO Aspirin (Aspirin Enteric Coated 81 Mg Tablet.) 81 mg PO DAILY [facility] Last Admin: 10/18/22 07:58 Dose: 81 mg Documented By: JOSE ALEJANDRO Atorvastatin Calcium (Atorvastatin Calcium 80 Mg Tablet) 80 mg PO DAILY [facility] Last Admin: 10/18/22 07:58 Dose: 80 mg Documented By: JOSE ALEJANDRO Baclofen (Baclofen 10 Mg Tablet) 10 mg PO BID [facility] Last Admin: 10/18/22 07:57 Dose: 10 mg Documented By: JOSE ALEJANDRO Dextrose (Dextrose 50 % 25 Gm/50 Ml Syringe) 25 gm IVPUSH Q15M PRN; Protocol PRN Reason: per Hypoglycemia Standing Ord. Empagliflozin (Empagliflozin 10 Mg Tablet) 10 mg PO DAILY [facility] Last Admin: 10/18/22 07:59 Dose: 10 mg Documented By: JOSE ALEJANDRO Furosemide (Furosemide 40 Mg Tablet) 80 mg PO DAILY [facility]; Protocol Last Admin: 10/18/22 07:58 Dose: 80 mg Documented By: JOSE ALEJANDRO Gabapentin (Gabapentin 100 Mg Capsule) 100 mg PO TID [facility] Last Admin: 10/18/22 07:58 Dose: 100 mg Documented By: JOSE ALEJANDRO Glucose (Glucose Gel 15 Gm Gel..Gram.) 15 gm PO Q15M PRN; Protocol PRN Reason: per Hypoglycemia Standing Ord. Insulin Glargine (Insulin Glargine,Hum.Rec.Anlog 100 Unit/Ml 10 Ml Vial) 20 unit SUBCUT BEDTIME [facility] Last Admin: 10/17/22 21:49 Dose: 20 unit Documented By: [place] Insulin Human Lispro (Insulin Lispro 100 Unit/Ml 3 Ml Vial) 0 unit SUBCUT QIDACHS [facility]; Protocol Last Admin: 10/18/22 11:26 Dose: Not Given Documented By: JOSE ALEJANDRO Non-Admin Reason: No Insulin Coverage Lactulose (Lactulose 20 Gm/30 Ml Solution) 20 gm PO DAILY [facility] Last Admin: 10/18/22 08:00 Dose: 20 gm Documented By: JOSE ALEJANDRO Melatonin (Melatonin 3 Mg Tablet) 6 mg PO BEDTIME PRN PRN Reason: Insomnia Last Admin: 10/16/22 20:57 Dose: 6 mg Documented By: LUZ MARINA Metoprolol Succinate (Metoprolol Succinate Er 25 Mg Tab.Er.24h) 25 mg PO BEDTIME [facility]; Protocol Last Admin: 10/17/22 21:49 Dose: 25 mg Documented By: [place] Nicotine (Nicotine 14 Mg Patch.Td24) 14 mg TRANSDERMA DAILY [facility] Last Admin: 10/18/22 07:59 Dose: 14 mg Documented By: JOSE ALEJANDRO Ondansetron HCl (Ondansetron Hcl 4 Mg/2 Ml Vial) 4 mg IVPUSH Q8H PRN PRN Reason: Nausea and Vomiting Pharmacy Consult (Consult Rx Perform Med Rec) 1 each MISCELLANE ONCE PRN PRN Reason: Consult order Sacubitril/Valsartan (Sacubitril/Valsartan 1 Tab Tablet) 1 tab PO BID [facility]; Protocol Last Admin: 10/18/22 07:58 Dose: 1 tab Documented By: JOSE ALEJANDRO Sodium Chloride (0.9 % Sodium Chloride Flush 3 Ml Syringe) 3 ml IVFLUSH QSHIFT [facility] Last Admin: 10/18/22 08:02 Dose: 3 ml Documented By: JOSE ALEJANDRO Tamsulosin HCl (Tamsulosin Hcl 0.4 Mg Capsule) 0.4 mg PO DAILY [facility] Last Admin: 10/18/22 07:58 Dose: 0.4 mg Documented By: JOSE ALEJANDRO Labs 10/13/22 06:03 10/15/22 06:53 Labs: Laboratory Results - last 24 hr 10/17/22 10/18/22 10/18/22 20:13 07:40 11:17 POC Glucose 218 H 142 H 138 H Assessment and Plan (1) LV (left ventricular) mural thrombus: Status: Acute (2) Acute on 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 acute hypoxic respiratory failure due to Acute on chronic combined systolic and diastolic heart failure and acute pulmonary embolism and LV thrombus improving now on PO lasix Jeanette Cardiology input appreciated, continue Entresto, beta-jonnathan and Jardiance echo with reduced EF complicated and apical thrombus NSTEMI Finished 48 hours of heparin drip asa, statin, BB Cardiology recommended medical treatment for the time being, guarded prognosis NSVT Electrolyte acceptable Cardiology recommended starting low-dose metoprolol Change metoprolol to bedtime for low pressure readings Physical deconditioning PT recommended SNF vs home PT, patient prefers to go to SNF Insulin-dependent diabetes mellitus with hyperglycemia and neuropathy insulin, pocs Continue gabapentin urinary retention flomax souza dced CAD asa, statin hypertension metoprolol, entresto hyperlipidemia On statin Tobacco use disorder: Nicotine patch DVT prophylaxis: Alexandraquemre Full code poor/guarded prognosis from Dr. Lauren's note I had the chance to speak with 2 sisters the patient who lives out of the area and report being his healthcare proxies. Explained his current medical condition and guarded prognosis given his heart failure, pulmonary embolism and ischemic heart disease specially if he continues to being non adherent to the medical therapy and treatments. They both understand and were hoping to find him a long-term placement so we can assure he is taking his medications. They will discuss with the patient case coordinator regarding discharge plan. reason for continued hospitalization:pending safe discharge plan to sNF Time Spent With Patient Time: Total time managing care of this patient today ____ minutes. Quality Stroke Does the patient have a stroke diagnosis?: No VTE Prior VTE?: No VTE Risk Level:: Medical - moderate - high VTE Device Contraindication: Treatment Not Indicated VTE Drug Contraindication: N/A - Med Ordered
[2022-10-18 15:19] VITALS: BP 110/62; PULSE 80; RESP 14; TEMP 36.1; O2SAT 88
--- NOTE | 2022-10-18 15:39 | MHC.CM.PN ---
per rounds pt is dc ready no facilites have accepted pt yet,re did hcp phone number was incorrect met with pts 2 sisters
[2022-10-18 16:06] LABS: Glucose, Whole Blood 155 mg/dL (60-115)
[2022-10-18] MEDS: Insulin Lispro 100 UNIT/ML 3 ML VIAL SUBCUT ×2 (17:24→20:48)
[2022-10-18 19:19] VITALS: BP 102/68; PULSE 90; RESP 18; TEMP 37.1; O2SAT 91
[2022-10-18 19:56] LABS: Glucose, Whole Blood 200 mg/dL (60-115)
[2022-10-18] MEDS: Metoprolol Succinate ER 25 MG TAB.ER.24H PO (20:47)
[2022-10-18] MEDS: Insulin Glargine,Hum.rec.anlog 100 UNIT/ML 10 ML VIAL 20 UNIT SUBCUT (20:47)
[2022-10-18] MEDS: Apixaban 5 MG TABLET PO (21:25)
[2022-10-18 23:56] VITALS: BP 138/76; PULSE 76; RESP 18; TEMP 36.6; O2SAT 96
[2022-10-19 03:15] VITALS: BP 119/56; PULSE 76; RESP 20; TEMP 36.6; O2SAT 96
[2022-10-19 06:12] LABS: Hematocrit 45.7 % (42.0-52.0); Hemoglobin 14.2 g/dl (14.0-18.0); Mean Corpuscular HGB Conc 31.1 g/dl (31.0-36.0); Mean Corpuscular Hemoglobin 26.3 pg (27.0-33.0); Mean Corpuscular Volume 84.8 fL (80.0-98.0); Mean Platelet Volume 9.4 fL (9.4-12.4); Platelet Count 402 X10*3/uL (160-400); Red Blood Count 5.39 X10*6/uL (4.60-5.80); Red Cell Distribution Width 18.4 % (11.0-16.0); White Blood Count 10.8 X10*3/uL (4.8-10.8)
[2022-10-19 06:32] LABS: Anion Gap 15 (12-20); Blood Urea Nitrogen 25 mg/dL (9-16); Calcium 8.6 mg/dL (8.4-10.2); Carbon Dioxide 29 mmol/L (22-29); Chloride 102 mmol/L (96-108); Creatinine Clr Calc Pharmacy 76.6; Estimated Glomerular Filt Rate > 60; Glucose Fasting 87 mg/dL (60-99); Potassium 4.3 mmol/L (3.3-5.1); Sodium 142 mmol/L (135-145)
[2022-10-19 07:31] LABS: Glucose, Whole Blood 97 mg/dL (60-115)
[2022-10-19 08:00] VITALS: BP 109/69; PULSE 68; RESP 20; TEMP 36.9; O2SAT 91
--- NOTE | 2022-10-19 09:16 | P.PNIM_ITS ---
Subjective Subjective Date of Service: 10/19/22 Interval History: leg pain ENT Ears, Nose, Mouth, and Throat: Reports Normal hearing present Neurologic Neurologic: Reports Normal hearing present Physical Exam Vital Signs: Vital Signs: Last Vital Signs Temp 98.5 F 10/19/22 08:00 Pulse 68 10/19/22 08:00 Resp 20 10/19/22 08:00 BP 109/69 10/19/22 08:00 Pulse Ox 91 L 10/19/22 08:00 O2 Del Method 10/19/22 08:00 O2 Flow Rate 2 10/19/22 03:15 BMI result Body Mass Index 24.7 Const: General: cooperative, healthy appearing and comfortable Orientation/consciousness: oriented to person, oriented to place and oriented to time HEENT: Head: Yes normal to inspection Neck: Neck: Yes normal visual inspection Carotids: no bruits Chest: Chest palpation & inspection: normal inspection of the chest Resp: Effort & Inspection: normal respiratory effort and able to speak in complete sentences Auscultation: clear to auscultation bilaterally, no crackles, no rales, no rhonchi and no wheezes Cardio: Other: Bilateral DP signals Rate: regular rate Rhythm: regular rhythm Heart sounds: S1 normal heart sound present and S2 normal heart sound present Bruits: no carotid bruits GI: Inspection: Yes normal to inspection Skin: Wounds: no wounds Hair: normal Neuro: General: oriented to person, oriented to place and oriented to time Cranial nerves: Yes Normal hearing present Cognition (Neuro): normal cognition Motor exam (neuro): 5/5 motor strength present throughout Extrem: Other: venous exam: No significant superficial varicosities or spider telangiectasias, minimal edema General: No clubbing, No cyanosis and No edema Psych: Appearance: grossly normal Mental Status: mental status grossly normal Speech and movement: Normal speech and movement present Objective Data Active Medications Acetaminophen (Acetaminophen 325 Mg Tablet) 650 mg PO Q6H PRN PRN Reason: Pain, Mild (Pain Scale 1-3) Last Admin: 10/17/22 15:03 Dose: 650 mg Documented By: DINORAH Aspirin (Aspirin Enteric Coated 81 Mg Tablet.) 81 mg PO DAILY [facility] Last Admin: 10/18/22 07:58 Dose: 81 mg Documented By: JOSE ALEJANDRO Atorvastatin Calcium (Atorvastatin Calcium 80 Mg Tablet) 80 mg PO DAILY [facility] Last Admin: 10/18/22 07:58 Dose: 80 mg Documented By: JOSE ALEJANDRO Baclofen (Baclofen 10 Mg Tablet) 10 mg PO BID [facility] Last Admin: 10/18/22 20:47 Dose: 10 mg Documented By: ROYCE Dextrose (Dextrose 50 % 25 Gm/50 Ml Syringe) 25 gm IVPUSH Q15M PRN; Protocol PRN Reason: per Hypoglycemia Standing Ord. Empagliflozin (Empagliflozin 10 Mg Tablet) 10 mg PO DAILY [facility] Last Admin: 10/18/22 07:59 Dose: 10 mg Documented By: JOSE ALEJANDRO Furosemide (Furosemide 40 Mg Tablet) 80 mg PO DAILY [facility]; Protocol Last Admin: 10/18/22 07:58 Dose: 80 mg Documented By: JOSE ALEJANDRO Gabapentin (Gabapentin 100 Mg Capsule) 100 mg PO TID [facility] Last Admin: 10/18/22 20:47 Dose: 100 mg Documented By: ROYCE Glucose (Glucose Gel 15 Gm Gel..Gram.) 15 gm PO Q15M PRN; Protocol PRN Reason: per Hypoglycemia Standing Ord. Insulin Glargine (Insulin Glargine,Hum.Rec.Anlog 100 Unit/Ml 10 Ml Vial) 20 unit SUBCUT BEDTIME [facility] Last Admin: 10/18/22 20:47 Dose: 20 unit Documented By: ROYCE Insulin Human Lispro (Insulin Lispro 100 Unit/Ml 3 Ml Vial) 0 unit SUBCUT QIDACHS [facility]; Protocol Last Admin: 10/19/22 08:15 Dose: Not Given Documented By: DINORAH Non-Admin Reason: No Insulin Coverage Lactulose (Lactulose 20 Gm/30 Ml Solution) 20 gm PO DAILY [facility] Last Admin: 10/18/22 08:00 Dose: 20 gm Documented By: JOSE ALEJANDRO Melatonin (Melatonin 3 Mg Tablet) 6 mg PO BEDTIME PRN PRN Reason: Insomnia Last Admin: 10/16/22 20:57 Dose: 6 mg Documented By: LUZ MARINA Metoprolol Succinate (Metoprolol Succinate Er 25 Mg Tab.Er.24h) 25 mg PO BEDTIME [facility]; Protocol Last Admin: 10/18/22 20:47 Dose: 25 mg Documented By: ROYCE Nicotine (Nicotine 14 Mg Patch.Td24) 14 mg TRANSDERMA DAILY [facility] Last Admin: 10/18/22 07:59 Dose: 14 mg Documented By: JOSE ALEJANDRO Ondansetron HCl (Ondansetron Hcl 4 Mg/2 Ml Vial) 4 mg IVPUSH Q8H PRN PRN Reason: Nausea and Vomiting Pharmacy Consult (Consult Rx Perform Med Rec) 1 each MISCELLANE ONCE PRN PRN Reason: Consult order Sacubitril/Valsartan (Sacubitril/Valsartan 1 Tab Tablet) 1 tab PO BID [facility]; Protocol Last Admin: 10/18/22 20:47 Dose: 1 tab Documented By: ROYCE Sodium Chloride (0.9 % Sodium Chloride Flush 3 Ml Syringe) 3 ml IVFLUSH QSHIFT [facility] Last Admin: 10/18/22 21:25 Dose: 3 ml Documented By: ROYCE Tamsulosin HCl (Tamsulosin Hcl 0.4 Mg Capsule) 0.4 mg PO DAILY [facility] Last Admin: 10/18/22 07:58 Dose: 0.4 mg Documented By: JOSE ALEJANDRO Labs 10/19/22 05:34 10/19/22 05:34 Labs: Laboratory Results - last 24 hr 10/18/22 10/18/22 10/18/22 11:17 16:02 19:17 MCV MCH MCHC RDW Plt Count MPV Absolute Nucleated RBC Nucleated RBC % (auto) Anion Gap Estim Creat Clear Calc Estimated GFR POC Glucose 138 H 155 H 200 H Fasting Glucose Calcium 10/19/22 10/19/22 10/19/22 05:34 05:34 07:24 MCV 84.8 MCH 26.3 L MCHC 31.1 RDW 18.4 H Plt Count 402 H MPV 9.4 Absolute Nucleated RBC 0.000 Nucleated RBC % (auto) 0.0 Anion Gap 15 Estim Creat Clear Calc 76.6 Estimated GFR > 60 POC Glucose 97 Fasting Glucose 87 Calcium 8.6 D Assessment and Plan (1) LV (left ventricular) mural thrombus: Status: Acute (2) Acute on 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 acute hypoxic respiratory failure due to Acute on chronic combined systolic and diastolic heart failure and acute pulmonary embolism and LV thrombus improved continue PO lasix Jeanette Cardiology input appreciated, continue Entresto, beta-jonnathan and Jardiance echo with reduced EF complicated and apical thrombus NSTEMI Finished 48 hours of heparin drip asa, statin, BB Cardiology recommended medical treatment for the time being, guarded prognosis NSVT toprol 25mg bedtime Physical deconditioning PT recommended SNF vs home PT, patient prefers to go to SNF Insulin-dependent diabetes mellitus with hyperglycemia and neuropathy insulin, pocs Continue gabapentin urinary retention flomax souza dced CAD asa, statin hypertension metoprolol, entresto hyperlipidemia On statin Tobacco use disorder: Nicotine patch DVT prophylaxis: Jeanette Full code poor/guarded prognosis from Dr. Lauren's note I had the chance to speak with 2 sisters the patient who lives out of the area and report being his healthcare proxies. Explained his current medical condition and guarded prognosis given his heart failure, pulmonary embolism and ischemic heart disease specially if he continues to being non adherent to the medical therapy and treatments. They both understand and were hoping to find him a long-term placement so we can assure he is taking his medications. They will discuss with the top case assembler regarding discharge plan. reason for continued hospitalization:pending safe discharge plan to sNF Time Spent With Patient Time: Total time managing care of this patient today ____ minutes. Quality Stroke Does the patient have a stroke diagnosis?: No VTE Prior VTE?: No VTE Risk Level:: Medical - moderate - high VTE Device Contraindication: Treatment Not Indicated VTE Drug Contraindication: N/A - Med Ordered
[2022-10-19] MEDS: Sacubitril/Valsartan 24/26 1 TAB TABLET PO ×2 (09:51→20:47)
[2022-10-19] MEDS: Acetaminophen 325 MG TABLET 650 MG PO (09:51)
[2022-10-19] MEDS: Tamsulosin HCL 0.4 MG CAPSULE PO (09:51)
[2022-10-19] MEDS: Atorvastatin Calcium 80 MG TABLET PO (09:51)
[2022-10-19] MEDS: Baclofen 10 MG TABLET PO ×2 (09:52→20:47)
[2022-10-19] MEDS: Furosemide 40 MG TABLET 80 MG PO (09:52)
[2022-10-19] MEDS: Nicotine 14 MG PATCH.TD24 TRANSDERMA (09:52)
[2022-10-19] MEDS: Empagliflozin 10 MG TABLET PO (09:52)
[2022-10-19] MEDS: Gabapentin 100 MG CAPSULE PO ×2 (09:53→21:04)
[2022-10-19] MEDS: 0.9 % Sodium Chloride Flush 3 ML SYRINGE IVFLUSH ×3 (09:53→20:49)
[2022-10-19] MEDS: Aspirin Enteric Coated 81 MG TABLET.DR PO (09:53)
[2022-10-19 11:24] LABS: Glucose, Whole Blood 265 mg/dL (60-115)
[2022-10-19 11:46] VITALS: BP 100/67; PULSE 90; RESP 20; TEMP 36.7; O2SAT 95
[2022-10-19] MEDS: Insulin Lispro 100 UNIT/ML 3 ML VIAL SUBCUT ×2 (11:59→20:48)
[2022-10-19 15:39] VITALS: BP 145/59; PULSE 86; RESP 17; TEMP 37.1; O2SAT 94
[2022-10-19 16:05] LABS: Glucose, Whole Blood 121 mg/dL (60-115)
[2022-10-19 19:54] VITALS: BP 108/72; PULSE 79; RESP 19; TEMP 37; O2SAT 97
[2022-10-19 20:06] LABS: Glucose, Whole Blood 230 mg/dL (60-115)
[2022-10-19] MEDS: Metoprolol Succinate ER 25 MG TAB.ER.24H PO (20:47)
[2022-10-19] MEDS: Insulin Glargine,Hum.rec.anlog 100 UNIT/ML 10 ML VIAL 20 UNIT SUBCUT (20:48)
[2022-10-19 23:21] VITALS: BP 116/66; PULSE 88; RESP 18; TEMP 36.7; O2SAT 95
[2022-10-20] VITALS (7 sets, daily range): BP systolic 92–134; BP diastolic 57–76; PULSE 65–96; RESP 18–22; TEMP 36.3–37.2; O2SAT 91–97
[2022-10-20] MEDS: Gabapentin 100 MG CAPSULE PO ×2 (04:34→21:11)
[2022-10-20 07:34] LABS: Glucose, Whole Blood 126 mg/dL (60-115)
[2022-10-20] MEDS: Nicotine 14 MG PATCH.TD24 TRANSDERMA (09:28)
[2022-10-20] MEDS: Tamsulosin HCL 0.4 MG CAPSULE PO (09:28)
[2022-10-20] MEDS: Lactulose 20 GM/30 ML SOLUTION PO (09:28)
[2022-10-20] MEDS: Baclofen 10 MG TABLET PO ×2 (09:29→21:11)
[2022-10-20] MEDS: Furosemide 40 MG TABLET 80 MG PO (09:29)
[2022-10-20] MEDS: Atorvastatin Calcium 80 MG TABLET PO (09:29)
[2022-10-20] MEDS: Empagliflozin 10 MG TABLET PO (09:29)
[2022-10-20] MEDS: Sacubitril/Valsartan 24/26 1 TAB TABLET PO ×2 (09:29→21:11)
[2022-10-20] MEDS: Aspirin Enteric Coated 81 MG TABLET.DR PO (09:29)
[2022-10-20] MEDS: 0.9 % Sodium Chloride Flush 3 ML SYRINGE IVFLUSH ×3 (09:30→21:28)
--- NOTE | 2022-10-20 11:04 | HO.PM.IMPN ---
Subjective Subjective Date of Service: 10/20/22 Interval History: leg pain ENT Ears, Nose, Mouth, and Throat: Reports Normal hearing present Neurologic Neurologic: Reports Normal hearing present Physical Exam Vital Signs: Vital Signs: Last Vital Signs Temp 98.5 F 10/20/22 08:00 Pulse 95 10/20/22 09:24 Resp 18 10/20/22 09:24 BP 119/69 10/20/22 09:24 Pulse Ox 91 L 10/20/22 09:24 O2 Del Method 10/20/22 09:24 O2 Flow Rate 2 10/20/22 09:24 BMI result Body Mass Index 24.7 Const: General: cooperative, healthy appearing and comfortable Orientation/consciousness: oriented to person, oriented to place and oriented to time HEENT: Head: Yes normal to inspection Neck: Neck: Yes normal visual inspection Carotids: no bruits Chest: Chest palpation & inspection: normal inspection of the chest Resp: Effort & Inspection: normal respiratory effort and able to speak in complete sentences Auscultation: clear to auscultation bilaterally, no crackles, no rales, no rhonchi and no wheezes Cardio: Other: Bilateral DP signals Rate: regular rate Rhythm: regular rhythm Heart sounds: S1 normal heart sound present and S2 normal heart sound present Bruits: no carotid bruits GI: Inspection: Yes normal to inspection Skin: Wounds: no wounds Hair: normal Neuro: General: oriented to person, oriented to place and oriented to time Cranial nerves: Yes Normal hearing present Cognition (Neuro): normal cognition Motor exam (neuro): 5/5 motor strength present throughout Extrem: Other: venous exam: No significant superficial varicosities or spider telangiectasias, minimal edema General: No clubbing, No cyanosis and No edema Psych: Appearance: grossly normal Mental Status: mental status grossly normal Speech and movement: Normal speech and movement present Objective Data Active Medications Acetaminophen (Acetaminophen 325 Mg Tablet) 650 mg PO Q6H PRN PRN Reason: Pain, Mild (Pain Scale 1-3) Last Admin: 10/19/22 09:51 Dose: 650 mg Documented By: MARIELLE Aspirin (Aspirin Enteric Coated 81 Mg Tablet.) 81 mg PO DAILY [facility] Last Admin: 10/20/22 09:29 Dose: 81 mg Documented By: LEANNE Atorvastatin Calcium (Atorvastatin Calcium 80 Mg Tablet) 80 mg PO DAILY [facility] Last Admin: 10/20/22 09:29 Dose: 80 mg Documented By: LEANNE Baclofen (Baclofen 10 Mg Tablet) 10 mg PO BID [facility] Last Admin: 10/20/22 09:29 Dose: 10 mg Documented By: LEANNE Dextrose (Dextrose 50 % 25 Gm/50 Ml Syringe) 25 gm IVPUSH Q15M PRN; Protocol PRN Reason: per Hypoglycemia Standing Ord. Empagliflozin (Empagliflozin 10 Mg Tablet) 10 mg PO DAILY [facility] Last Admin: 10/20/22 09:29 Dose: 10 mg Documented By: LEANNE Furosemide (Furosemide 40 Mg Tablet) 80 mg PO DAILY [facility]; Protocol Last Admin: 10/20/22 09:29 Dose: 80 mg Documented By: LEANNE Gabapentin (Gabapentin 100 Mg Capsule) 100 mg PO TID [facility] Last Admin: 10/20/22 04:34 Dose: 100 mg Documented By: ABDIAZIZ Glucose (Glucose Gel 15 Gm Gel..Gram.) 15 gm PO Q15M PRN; Protocol PRN Reason: per Hypoglycemia Standing Ord. Insulin Glargine (Insulin Glargine,Hum.Rec.Anlog 100 Unit/Ml 10 Ml Vial) 20 unit SUBCUT BEDTIME [facility] Last Admin: 10/19/22 20:48 Dose: 20 unit Documented By: STEPHY Insulin Human Lispro (Insulin Lispro 100 Unit/Ml 3 Ml Vial) 0 unit SUBCUT QIDACHS [facility]; Protocol Last Admin: 10/20/22 09:30 Dose: Not Given Documented By: LEANNE Non-Admin Reason: No Insulin Coverage Lactulose (Lactulose 20 Gm/30 Ml Solution) 20 gm PO DAILY [facility] Last Admin: 10/20/22 09:28 Dose: 20 gm Documented By: LEANNE Melatonin (Melatonin 3 Mg Tablet) 6 mg PO BEDTIME PRN PRN Reason: Insomnia Last Admin: 10/16/22 20:57 Dose: 6 mg Documented By: LUZ MARINA Metoprolol Succinate (Metoprolol Succinate Er 25 Mg Tab.Er.24h) 25 mg PO BEDTIME [facility]; Protocol Last Admin: 10/19/22 20:47 Dose: 25 mg Documented By: STEPHY Nicotine (Nicotine 14 Mg Patch.Td24) 14 mg TRANSDERMA DAILY [facility] Last Admin: 10/20/22 09:28 Dose: 14 mg Documented By: LEANNE Ondansetron HCl (Ondansetron Hcl 4 Mg/2 Ml Vial) 4 mg IVPUSH Q8H PRN PRN Reason: Nausea and Vomiting Pharmacy Consult (Consult Rx Perform Med Rec) 1 each MISCELLANE ONCE PRN PRN Reason: Consult order Sacubitril/Valsartan (Sacubitril/Valsartan 1 Tab Tablet) 1 tab PO BID [facility]; Protocol Last Admin: 10/20/22 09:29 Dose: 1 tab Documented By: LEANNE Sodium Chloride (0.9 % Sodium Chloride Flush 3 Ml Syringe) 3 ml IVFLUSH QSHIFT [facility] Last Admin: 10/20/22 09:30 Dose: 3 ml Documented By: LEANNE Tamsulosin HCl (Tamsulosin Hcl 0.4 Mg Capsule) 0.4 mg PO DAILY [facility] Last Admin: 10/20/22 09:28 Dose: 0.4 mg Documented By: LEANNE Labs 10/19/22 05:34 10/19/22 05:34 Labs: Laboratory Results - last 24 hr 10/19/22 10/19/22 10/19/22 11:13 15:42 19:53 POC Glucose 265 H 121 H 230 H 10/20/22 07:27 POC Glucose 126 H Assessment and Plan (1) LV (left ventricular) mural thrombus: Status: Acute (2) Acute on 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 acute hypoxic respiratory failure due to Acute on chronic combined systolic and diastolic heart failure and acute pulmonary embolism and LV thrombus improved continue PO lasix Eliquis Cardiology input appreciated, continue Entresto, beta-jonnathan and Jardiance echo with reduced EF complicated and apical thrombus NSTEMI Finished 48 hours of heparin drip asa, statin, BB Cardiology recommended medical treatment for the time being, guarded prognosis NSVT toprol 25mg bedtime Physical deconditioning PT recommended SNF vs home PT, patient prefers to go to SNF Insulin-dependent diabetes mellitus with hyperglycemia and neuropathy insulin, pocs Continue gabapentin urinary retention flomax souza dced CAD asa, statin hypertension metoprolol, entresto hyperlipidemia On statin Tobacco use disorder: Nicotine patch DVT prophylaxis: Eliquemre Full code poor/guarded prognosis from Dr. Lauren's note I had the chance to speak with 2 sisters the patient who lives out of the area and report being his healthcare proxies. Explained his current medical condition and guarded prognosis given his heart failure, pulmonary embolism and ischemic heart disease specially if he continues to being non adherent to the medical therapy and treatments. They both understand and were hoping to find him a long-term placement so we can assure he is taking his medications. They will discuss with the medical case manager regarding discharge plan. reason for continued hospitalization:pending safe discharge plan to sNF Time Spent With Patient Time: Total time managing care of this patient today ____ minutes. Quality Stroke Does the patient have a stroke diagnosis?: No VTE Prior VTE?: No VTE Risk Level:: Medical - moderate - high VTE Device Contraindication: Treatment Not Indicated VTE Drug Contraindication: N/A - Med Ordered
[2022-10-20 11:05] LABS: Glucose, Whole Blood 271 mg/dL (60-115)
[2022-10-20] MEDS: Insulin Lispro 100 UNIT/ML 3 ML VIAL SUBCUT ×3 (11:26→21:10)
[2022-10-20] MEDS: Docusate Sodium 100 MG CAPSULE PO (15:23)
[2022-10-20 16:53] LABS: Glucose, Whole Blood 186 mg/dL (60-115)
[2022-10-20 20:14] LABS: Glucose, Whole Blood 297 mg/dL (60-115)
[2022-10-20] MEDS: Insulin Glargine,Hum.rec.anlog 100 UNIT/ML 10 ML VIAL 20 UNIT SUBCUT (21:11)
[2022-10-20] MEDS: Melatonin 3 MG TABLET 6 MG PO (21:11)
[2022-10-20] MEDS: Metoprolol Succinate ER 25 MG TAB.ER.24H PO (21:11)
[2022-10-20] MEDS: Acetaminophen 325 MG TABLET 650 MG PO (21:27)
[2022-10-21 02:38] VITALS: BP 110/66; PULSE 69; RESP 22; TEMP 36.6; O2SAT 94
[2022-10-21 06:40] LABS: Hematocrit 43.9 % (42.0-52.0); Hemoglobin 13.5 g/dl (14.0-18.0); Mean Corpuscular HGB Conc 30.8 g/dl (31.0-36.0); Mean Corpuscular Hemoglobin 25.9 pg (27.0-33.0); Mean Corpuscular Volume 84.1 fL (80.0-98.0); Mean Platelet Volume 9.3 fL (9.4-12.4); Platelet Count 411 X10*3/uL (160-400); Red Blood Count 5.22 X10*6/uL (4.60-5.80); Red Cell Distribution Width 18.5 % (11.0-16.0); White Blood Count 9.7 X10*3/uL (4.8-10.8)
[2022-10-21 06:58] LABS: Anion Gap 17 (12-20); Blood Urea Nitrogen 34 mg/dL (9-16); Calcium 8.9 mg/dL (8.4-10.2); Carbon Dioxide 28 mmol/L (22-29); Chloride 100 mmol/L (96-108); Estimated Glomerular Filt Rate > 60; Glucose Fasting 123 mg/dL (60-99); Potassium 4.3 mmol/L (3.3-5.1); Sodium 141 mmol/L (135-145)
[2022-10-21 07:23] VITALS: BP 102/60; PULSE 73; RESP 18; TEMP 36.3; O2SAT 95
[2022-10-21 07:51] LABS: Glucose, Whole Blood 210 mg/dL (60-115)
[2022-10-21] MEDS: Insulin Lispro 100 UNIT/ML 3 ML VIAL SUBCUT ×3 (08:34→21:22)
[2022-10-21] MEDS: Nicotine 14 MG PATCH.TD24 TRANSDERMA (08:34)
[2022-10-21] MEDS: Furosemide 40 MG TABLET 80 MG PO (08:35)
[2022-10-21] MEDS: 0.9 % Sodium Chloride Flush 3 ML SYRINGE IVFLUSH ×3 (08:35→21:20)
[2022-10-21] MEDS: Gabapentin 100 MG CAPSULE PO ×3 (08:35→21:20)
[2022-10-21] MEDS: Baclofen 10 MG TABLET PO ×2 (08:35→21:21)
[2022-10-21] MEDS: Atorvastatin Calcium 80 MG TABLET PO (08:35)
[2022-10-21] MEDS: Tamsulosin HCL 0.4 MG CAPSULE PO (08:35)
[2022-10-21] MEDS: Sacubitril/Valsartan 24/26 1 TAB TABLET PO ×2 (08:35→21:21)
[2022-10-21] MEDS: Empagliflozin 10 MG TABLET PO (08:35)
[2022-10-21] MEDS: Lactulose 20 GM/30 ML SOLUTION PO (08:35)
[2022-10-21] MEDS: Aspirin Enteric Coated 81 MG TABLET.DR PO (08:35)
[2022-10-21] MEDS: Acetaminophen 325 MG TABLET 650 MG PO ×3 (08:43→21:21)
--- NOTE | 2022-10-21 10:15 | HO.PM.IMPN ---
Subjective Subjective Date of Service: 10/21/22 Interval History: leg pain ENT Ears, Nose, Mouth, and Throat: Reports Normal hearing present Neurologic Neurologic: Reports Normal hearing present Physical Exam Vital Signs: Vital Signs: Last Vital Signs Temp 97.4 F 10/21/22 07:23 Pulse 73 10/21/22 07:23 Resp 18 10/21/22 07:23 BP 102/60 10/21/22 07:23 Pulse Ox 95 10/21/22 07:23 O2 Del Method 10/21/22 07:23 O2 Flow Rate 2 10/21/22 07:23 BMI result Body Mass Index 24.7 Const: General: cooperative, healthy appearing and comfortable Orientation/consciousness: oriented to person, oriented to place and oriented to time HEENT: Head: Yes normal to inspection Neck: Neck: Yes normal visual inspection Carotids: no bruits Chest: Chest palpation & inspection: normal inspection of the chest Resp: Effort & Inspection: normal respiratory effort and able to speak in complete sentences Auscultation: clear to auscultation bilaterally, no crackles, no rales, no rhonchi and no wheezes Cardio: Other: Bilateral DP signals Rate: regular rate Rhythm: regular rhythm Heart sounds: S1 normal heart sound present and S2 normal heart sound present Bruits: no carotid bruits GI: Inspection: Yes normal to inspection Skin: Wounds: no wounds Hair: normal Neuro: General: oriented to person, oriented to place and oriented to time Cranial nerves: Yes Normal hearing present Cognition (Neuro): normal cognition Motor exam (neuro): 5/5 motor strength present throughout Extrem: Other: venous exam: No significant superficial varicosities or spider telangiectasias, minimal edema General: No clubbing, No cyanosis and No edema Psych: Appearance: grossly normal Mental Status: mental status grossly normal Speech and movement: Normal speech and movement present Objective Data Active Medications Acetaminophen (Acetaminophen 325 Mg Tablet) 650 mg PO Q6H PRN PRN Reason: Pain, Mild (Pain Scale 1-3) Last Admin: 10/21/22 08:43 Dose: 650 mg Documented By: BITA Aspirin (Aspirin Enteric Coated 81 Mg Tablet.) 81 mg PO DAILY [facility] Last Admin: 10/21/22 08:35 Dose: 81 mg Documented By: BITA Atorvastatin Calcium (Atorvastatin Calcium 80 Mg Tablet) 80 mg PO DAILY [facility] Last Admin: 10/21/22 08:35 Dose: 80 mg Documented By: BITA Baclofen (Baclofen 10 Mg Tablet) 10 mg PO BID [facility] Last Admin: 10/21/22 08:35 Dose: 10 mg Documented By: BITA Dextrose (Dextrose 50 % 25 Gm/50 Ml Syringe) 25 gm IVPUSH Q15M PRN; Protocol PRN Reason: per Hypoglycemia Standing Ord. Docusate Sodium (Docusate Sodium 100 Mg Capsule) 100 mg PO BID PRN PRN Reason: constipation Last Admin: 10/20/22 15:23 Dose: 100 mg Documented By: LEANNE Empagliflozin (Empagliflozin 10 Mg Tablet) 10 mg PO DAILY [facility] Last Admin: 10/21/22 08:35 Dose: 10 mg Documented By: BITA Furosemide (Furosemide 40 Mg Tablet) 80 mg PO DAILY [facility]; Protocol Last Admin: 10/21/22 08:35 Dose: 80 mg Documented By: BITA Gabapentin (Gabapentin 100 Mg Capsule) 100 mg PO TID [facility] Last Admin: 10/21/22 08:35 Dose: 100 mg Documented By: BITA Glucose (Glucose Gel 15 Gm Gel..Gram.) 15 gm PO Q15M PRN; Protocol PRN Reason: per Hypoglycemia Standing Ord. Insulin Glargine (Insulin Glargine,Hum.Rec.Anlog 100 Unit/Ml 10 Ml Vial) 20 unit SUBCUT BEDTIME [facility] Last Admin: 10/20/22 21:11 Dose: 20 unit Documented By: CHARLY Insulin Human Lispro (Insulin Lispro 100 Unit/Ml 3 Ml Vial) 0 unit SUBCUT QIDACHS [facility]; Protocol Last Admin: 10/21/22 08:34 Dose: 4 unit Documented By: BITA Lactulose (Lactulose 20 Gm/30 Ml Solution) 20 gm PO DAILY [facility] Last Admin: 10/21/22 08:35 Dose: 20 gm Documented By: BITA Melatonin (Melatonin 3 Mg Tablet) 6 mg PO BEDTIME PRN PRN Reason: Insomnia Last Admin: 10/20/22 21:11 Dose: 6 mg Documented By: CHARLY Metoprolol Succinate (Metoprolol Succinate Er 25 Mg Tab.Er.24h) 25 mg PO BEDTIME [facility]; Protocol Last Admin: 10/20/22 21:11 Dose: 25 mg Documented By: CHARLY Nicotine (Nicotine 14 Mg Patch.Td24) 14 mg TRANSDERMA DAILY [facility] Last Admin: 10/21/22 08:34 Dose: 14 mg Documented By: BITA Ondansetron HCl (Ondansetron Hcl 4 Mg/2 Ml Vial) 4 mg IVPUSH Q8H PRN PRN Reason: Nausea and Vomiting Pharmacy Consult (Consult Rx Perform Med Rec) 1 each MISCELLANE ONCE PRN PRN Reason: Consult order Sacubitril/Valsartan (Sacubitril/Valsartan 1 Tab Tablet) 1 tab PO BID [facility]; Protocol Last Admin: 10/21/22 08:35 Dose: 1 tab Documented By: BITA Sodium Chloride (0.9 % Sodium Chloride Flush 3 Ml Syringe) 3 ml IVFLUSH QSHIFT [facility] Last Admin: 10/21/22 08:35 Dose: 3 ml Documented By: BITA Tamsulosin HCl (Tamsulosin Hcl 0.4 Mg Capsule) 0.4 mg PO DAILY [facility] Last Admin: 10/21/22 08:35 Dose: 0.4 mg Documented By: BITA Labs 10/21/22 06:10 10/21/22 06:10 Labs: Laboratory Results - last 24 hr 10/20/22 10/20/22 10/20/22 10:54 15:38 20:04 MCV MCH MCHC RDW Plt Count MPV Absolute Nucleated RBC Nucleated RBC % (auto) Anion Gap Estim Creat Clear Calc Estimated GFR POC Glucose 271 H 186 H 297 H Fasting Glucose Calcium 10/21/22 10/21/22 10/21/22 06:10 06:10 07:25 MCV 84.1 MCH 25.9 L MCHC 30.8 L RDW 18.5 H Plt Count 411 H MPV 9.3 L Absolute Nucleated RBC 0.000 Nucleated RBC % (auto) 0.0 Anion Gap 17 Estim Creat Clear Calc 68.0 Estimated GFR > 60 POC Glucose 210 H Fasting Glucose 123 H Calcium 8.9 Assessment and Plan (1) LV (left ventricular) mural thrombus: Status: Acute (2) Acute on 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 acute hypoxic respiratory failure due to Acute on chronic combined systolic and diastolic heart failure and acute pulmonary embolism and LV thrombus improved continue PO lasix Jeanette Cardiology input appreciated, continue Entresto, beta-jonnathan and Jardiance echo with reduced EF complicated and apical thrombus NSTEMI Finished 48 hours of heparin drip asa, statin, BB Cardiology recommended medical treatment for the time being, guarded prognosis NSVT toprol 25mg bedtime Physical deconditioning PT recommended SNF vs home PT, patient prefers to go to SNF Insulin-dependent diabetes mellitus with hyperglycemia and neuropathy insulin, pocs Continue gabapentin urinary retention flomax souza dced CAD asa, statin hypertension metoprolol, entresto hyperlipidemia On statin Tobacco use disorder: Nicotine patch DVT prophylaxis: Jeanette Full code poor/guarded prognosis from Dr. Lauren's note I had the chance to speak with 2 sisters the patient who lives out of the area and report being his healthcare proxies. Explained his current medical condition and guarded prognosis given his heart failure, pulmonary embolism and ischemic heart disease specially if he continues to being non adherent to the medical therapy and treatments. They both understand and were hoping to find him a long-term placement so we can assure he is taking his medications. They will discuss with the case assembler regarding discharge plan. reason for continued hospitalization:pending safe discharge plan to sNF Time Spent With Patient Time: Total time managing care of this patient today ____ minutes. Quality Stroke Does the patient have a stroke diagnosis?: No VTE Prior VTE?: No VTE Risk Level:: Medical - moderate - high VTE Device Contraindication: Treatment Not Indicated VTE Drug Contraindication: N/A - Med Ordered
[2022-10-21 11:14] VITALS: BP 91/53; PULSE 76; RESP 18; TEMP 36.7; O2SAT 92
[2022-10-21 11:30] LABS: Glucose, Whole Blood 212 mg/dL (60-115)
[2022-10-21 15:50] VITALS: BP 96/64; PULSE 91; RESP 15; TEMP 36.2; O2SAT 93
[2022-10-21 15:59] LABS: Glucose, Whole Blood 126 mg/dL (60-115)
[2022-10-21 19:35] VITALS: BP 101/63; PULSE 87; RESP 14; TEMP 36.3; O2SAT 93
[2022-10-21 20:52] LABS: Glucose, Whole Blood 361 mg/dL (60-115)
[2022-10-21] MEDS: Metoprolol Succinate ER 25 MG TAB.ER.24H PO (21:21)
[2022-10-21] MEDS: Insulin Glargine,Hum.rec.anlog 100 UNIT/ML 10 ML VIAL 20 UNIT SUBCUT (21:22)
[2022-10-21] MEDS: Melatonin 3 MG TABLET 6 MG PO (21:25)
[2022-10-22] VITALS (9 sets, daily range): BP systolic 76–116; BP diastolic 52–74; PULSE 72–92; RESP 16–20; TEMP 36.2–36.8; O2SAT 91–97
[2022-10-22 06:47] LABS: Hematocrit 42.3 % (42.0-52.0); Hemoglobin 12.9 g/dl (14.0-18.0); Mean Corpuscular HGB Conc 30.5 g/dl (31.0-36.0); Mean Corpuscular Hemoglobin 25.8 pg (27.0-33.0); Mean Corpuscular Volume 84.6 fL (80.0-98.0); Mean Platelet Volume 9.7 fL (9.4-12.4); Platelet Count 398 X10*3/uL (160-400); Red Cell Distribution Width 18.2 % (11.0-16.0); White Blood Count 10.7 X10*3/uL (4.8-10.8)
[2022-10-22 07:11] LABS: Anion Gap 16 (12-20); Blood Urea Nitrogen 37 mg/dL (9-16); Calcium 8.5 mg/dL (8.4-10.2); Carbon Dioxide 27 mmol/L (22-29); Chloride 100 mmol/L (96-108); Estimated Glomerular Filt Rate > 60; Glucose Fasting 94 mg/dL (60-99); Sodium 139 mmol/L (135-145)
[2022-10-22 07:45] LABS: Glucose, Whole Blood 116 mg/dL (60-115)
--- NOTE | 2022-10-22 08:54 | P.PNIM_ITS ---
Subjective Subjective Date of Service: 10/22/22 Interval History: leg pain ENT Ears, Nose, Mouth, and Throat: Reports Normal hearing present Neurologic Neurologic: Reports Normal hearing present Physical Exam Vital Signs: Vital Signs: Last Vital Signs Temp 97.8 F 10/22/22 07:33 Pulse 78 10/22/22 07:33 Resp 18 10/22/22 07:33 BP 104/68 10/22/22 07:33 Pulse Ox 95 10/22/22 07:33 O2 Del Method 10/22/22 07:33 O2 Flow Rate 2 10/22/22 07:33 BMI result Body Mass Index 24.7 Const: General: cooperative, healthy appearing and comfortable Orientation/consciousness: oriented to person, oriented to place and oriented to time HEENT: Head: Yes normal to inspection Neck: Neck: Yes normal visual inspection Carotids: no bruits Chest: Chest palpation & inspection: normal inspection of the chest Resp: Effort & Inspection: normal respiratory effort and able to speak in complete sentences Auscultation: clear to auscultation bilaterally, no crackles, no rales, no rhonchi and no wheezes Cardio: Other: Bilateral DP signals Rate: regular rate Rhythm: regular rhythm Heart sounds: S1 normal heart sound present and S2 normal heart sound present Bruits: no carotid bruits GI: Inspection: Yes normal to inspection Skin: Wounds: no wounds Hair: normal Neuro: General: oriented to person, oriented to place and oriented to time Cranial nerves: Yes Normal hearing present Cognition (Neuro): normal cognition Motor exam (neuro): 5/5 motor strength present throughout Extrem: Other: venous exam: No significant superficial varicosities or spider telangiectasias, minimal edema General: No clubbing, No cyanosis and No edema Psych: Appearance: grossly normal Mental Status: mental status grossly normal Speech and movement: Normal speech and movement present Objective Data Active Medications Acetaminophen (Acetaminophen 325 Mg Tablet) 650 mg PO Q6H PRN PRN Reason: Pain, Mild (Pain Scale 1-3) Last Admin: 10/21/22 21:21 Dose: 650 mg Documented By: CHARLY Aspirin (Aspirin Enteric Coated 81 Mg Tablet.) 81 mg PO DAILY [facility] Last Admin: 10/21/22 08:35 Dose: 81 mg Documented By: BITA Atorvastatin Calcium (Atorvastatin Calcium 80 Mg Tablet) 80 mg PO DAILY [facility] Last Admin: 10/21/22 08:35 Dose: 80 mg Documented By: BITA Baclofen (Baclofen 10 Mg Tablet) 10 mg PO BID [facility] Last Admin: 10/21/22 21:21 Dose: 10 mg Documented By: CHARLY Dextrose (Dextrose 50 % 25 Gm/50 Ml Syringe) 25 gm IVPUSH Q15M PRN; Protocol PRN Reason: per Hypoglycemia Standing Ord. Docusate Sodium (Docusate Sodium 100 Mg Capsule) 100 mg PO BID PRN PRN Reason: constipation Last Admin: 10/20/22 15:23 Dose: 100 mg Documented By: LEANNE Empagliflozin (Empagliflozin 10 Mg Tablet) 10 mg PO DAILY [facility] Last Admin: 10/21/22 08:35 Dose: 10 mg Documented By: BITA Furosemide (Furosemide 40 Mg Tablet) 80 mg PO DAILY [facility]; Protocol Last Admin: 10/21/22 08:35 Dose: 80 mg Documented By: BITA Gabapentin (Gabapentin 100 Mg Capsule) 100 mg PO TID [facility] Last Admin: 10/21/22 21:20 Dose: 100 mg Documented By: CHARLY Glucose (Glucose Gel 15 Gm Gel..Gram.) 15 gm PO Q15M PRN; Protocol PRN Reason: per Hypoglycemia Standing Ord. Insulin Glargine (Insulin Glargine,Hum.Rec.Anlog 100 Unit/Ml 10 Ml Vial) 20 unit SUBCUT BEDTIME [facility] Last Admin: 10/21/22 21:22 Dose: 20 unit Documented By: CHARLY Insulin Human Lispro (Insulin Lispro 100 Unit/Ml 3 Ml Vial) 0 unit SUBCUT QIDACHS [facility]; Protocol Last Admin: 10/22/22 08:25 Dose: Not Given Documented By: BITA Non-Admin Reason: No Insulin Coverage Lactulose (Lactulose 20 Gm/30 Ml Solution) 20 gm PO DAILY [facility] Last Admin: 10/21/22 08:35 Dose: 20 gm Documented By: BITA Melatonin (Melatonin 3 Mg Tablet) 6 mg PO BEDTIME PRN PRN Reason: Insomnia Last Admin: 10/21/22 21:25 Dose: 6 mg Documented By: CHARLY Metoprolol Succinate (Metoprolol Succinate Er 25 Mg Tab.Er.24h) 25 mg PO BEDTIME [facility]; Protocol Last Admin: 10/21/22 21:21 Dose: 25 mg Documented By: CHARLY Nicotine (Nicotine 14 Mg Patch.Td24) 14 mg TRANSDERMA DAILY [facility] Last Admin: 10/21/22 08:34 Dose: 14 mg Documented By: BITA Ondansetron HCl (Ondansetron Hcl 4 Mg/2 Ml Vial) 4 mg IVPUSH Q8H PRN PRN Reason: Nausea and Vomiting Pharmacy Consult (Consult Rx Perform Med Rec) 1 each MISCELLANE ONCE PRN PRN Reason: Consult order Sacubitril/Valsartan (Sacubitril/Valsartan 1 Tab Tablet) 1 tab PO BID [facility]; Protocol Last Admin: 10/21/22 21:21 Dose: 1 tab Documented By: CHARLY Sodium Chloride (0.9 % Sodium Chloride Flush 3 Ml Syringe) 3 ml IVFLUSH QSHIFT [facility] Last Admin: 10/21/22 21:20 Dose: 3 ml Documented By: CHARLY Tamsulosin HCl (Tamsulosin Hcl 0.4 Mg Capsule) 0.4 mg PO DAILY [facility] Last Admin: 10/21/22 08:35 Dose: 0.4 mg Documented By: BITA Labs 10/22/22 06:19 10/22/22 06:19 Labs: Laboratory Results - last 24 hr 10/21/22 10/21/22 10/21/22 11:16 15:56 19:42 MCV MCH MCHC RDW Plt Count MPV Absolute Nucleated RBC Nucleated RBC % (auto) Anion Gap Estim Creat Clear Calc Estimated GFR POC Glucose 212 H 126 H 361 H* Fasting Glucose Calcium 10/22/22 10/22/22 10/22/22 06:19 06:19 07:35 MCV 84.6 MCH 25.8 L MCHC 30.5 L RDW 18.2 H Plt Count 398 MPV 9.7 Absolute Nucleated RBC 0.000 Nucleated RBC % (auto) 0.0 Anion Gap 16 Estim Creat Clear Calc 70.0 Estimated GFR > 60 POC Glucose 116 H Fasting Glucose 94 Calcium 8.5 Assessment and Plan (1) LV (left ventricular) mural thrombus: Status: Acute (2) Acute on 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 acute hypoxic respiratory failure due to Acute on chronic combined systolic and diastolic heart failure and acute pulmonary embolism and LV thrombus improved continue PO lasix Jeanette Cardiology input appreciated, continue Entresto, beta-jonnathan and Jardiance echo with reduced EF complicated and apical thrombus NSTEMI Finished 48 hours of heparin drip asa, statin, BB Cardiology recommended medical treatment for the time being, guarded prognosis NSVT toprol 25mg bedtime Physical deconditioning PT recommended SNF vs home PT, patient prefers to go to SNF Insulin-dependent diabetes mellitus with hyperglycemia and neuropathy insulin, pocs Continue gabapentin urinary retention flomax souza dced CAD asa, statin hypertension metoprolol, entresto hyperlipidemia On statin Tobacco use disorder: Nicotine patch DVT prophylaxis: Jeanette Full code poor/guarded prognosis from Dr. Lauren's note I had the chance to speak with 2 sisters the patient who lives out of the area and report being his healthcare proxies. Explained his current medical condition and guarded prognosis given his heart failure, pulmonary embolism and ischemic heart disease specially if he continues to being non adherent to the medical therapy and treatments. They both understand and were hoping to find him a long-term placement so we can assure he is taking his medications. They will discuss with the case technician regarding discharge plan. reason for continued hospitalization:pending safe discharge plan to sNF Time Spent With Patient Time: Total time managing care of this patient today ____ minutes. Quality Stroke Does the patient have a stroke diagnosis?: No VTE Prior VTE?: No VTE Risk Level:: Medical - moderate - high VTE Device Contraindication: Treatment Not Indicated VTE Drug Contraindication: N/A - Med Ordered
[2022-10-22] MEDS: 0.9 % Sodium Chloride Flush 3 ML SYRINGE IVFLUSH ×3 (09:58→21:39)
[2022-10-22] MEDS: Acetaminophen 325 MG TABLET 650 MG PO ×3 (09:59→21:37)
[2022-10-22] MEDS: Tamsulosin HCL 0.4 MG CAPSULE PO (09:59)
[2022-10-22] MEDS: Aspirin Enteric Coated 81 MG TABLET.DR PO (09:59)
[2022-10-22] MEDS: Sacubitril/Valsartan 24/26 1 TAB TABLET PO (09:59)
[2022-10-22] MEDS: Gabapentin 100 MG CAPSULE PO ×3 (10:00→21:38)
[2022-10-22] MEDS: Baclofen 10 MG TABLET PO ×2 (10:00→21:38)
[2022-10-22] MEDS: Furosemide 40 MG TABLET 80 MG PO (10:00)
[2022-10-22] MEDS: Nicotine 14 MG PATCH.TD24 TRANSDERMA (10:00)
[2022-10-22] MEDS: Empagliflozin 10 MG TABLET PO (10:00)
[2022-10-22] MEDS: Atorvastatin Calcium 80 MG TABLET PO (10:00)
[2022-10-22 11:32] LABS: Glucose, Whole Blood 334 mg/dL (60-115)
[2022-10-22] MEDS: Insulin Lispro 100 UNIT/ML 3 ML VIAL SUBCUT ×2 (12:22→21:47)
[2022-10-22] MEDS: Docusate Sodium 100 MG CAPSULE PO (15:19)
[2022-10-22 16:41] LABS: Glucose, Whole Blood 94 mg/dL (60-115)
[2022-10-22] MEDS: Metoprolol Succinate ER 25 MG TAB.ER.24H PO (21:38)
[2022-10-22] MEDS: Melatonin 3 MG TABLET 6 MG PO (21:39)
[2022-10-22] MEDS: Insulin Glargine,Hum.rec.anlog 100 UNIT/ML 10 ML VIAL 20 UNIT SUBCUT (21:47)
[2022-10-22 22:25] LABS: Glucose, Whole Blood 263 mg/dL (60-115)
[2022-10-23] MEDS: Acetaminophen 325 MG TABLET 650 MG PO (02:19)
[2022-10-23 03:04] VITALS: BP 124/59; PULSE 58; RESP 16; TEMP 36.3; O2SAT 98
[2022-10-23 07:22] VITALS: BP 112/75; PULSE 63; RESP 16; O2SAT 97
[2022-10-23 07:45] LABS: Glucose, Whole Blood 82 mg/dL (60-115)
[2022-10-23] MEDS: Lactulose 20 GM/30 ML SOLUTION PO (08:43)
[2022-10-23] MEDS: Tamsulosin HCL 0.4 MG CAPSULE PO (08:43)
[2022-10-23] MEDS: Nicotine 14 MG PATCH.TD24 TRANSDERMA (08:44)
[2022-10-23] MEDS: Empagliflozin 10 MG TABLET PO (08:44)
[2022-10-23] MEDS: Gabapentin 100 MG CAPSULE PO (08:44)
[2022-10-23] MEDS: Atorvastatin Calcium 80 MG TABLET PO (08:44)
[2022-10-23] MEDS: Baclofen 10 MG TABLET PO (08:44)
[2022-10-23] MEDS: Aspirin Enteric Coated 81 MG TABLET.DR PO (08:44)
[2022-10-23] MEDS: Furosemide 40 MG/4 ML VIAL IVPUSH (08:45)
--- NOTE | 2022-10-23 08:56 | HO.PM.IMPN ---
Subjective Subjective Date of Service: 10/23/22 Interval History: leg pain ENT Ears, Nose, Mouth, and Throat: Reports Normal hearing present Neurologic Neurologic: Reports Normal hearing present Physical Exam Vital Signs: Vital Signs: Last Vital Signs Temp 97.4 F 10/23/22 03:04 Pulse 63 10/23/22 07:22 Resp 16 10/23/22 07:22 BP 112/75 10/23/22 07:22 Pulse Ox 97 10/23/22 07:22 O2 Del Method 10/23/22 07:22 O2 Flow Rate 2 10/23/22 07:22 BMI result Body Mass Index 24.7 Const: General: cooperative, healthy appearing and comfortable Orientation/consciousness: oriented to person, oriented to place and oriented to time HEENT: Head: Yes normal to inspection Neck: Neck: Yes normal visual inspection Carotids: no bruits Chest: Chest palpation & inspection: normal inspection of the chest Resp: Effort & Inspection: normal respiratory effort and able to speak in complete sentences Auscultation: clear to auscultation bilaterally, no crackles, no rales, no rhonchi and no wheezes Cardio: Other: Bilateral DP signals Rate: regular rate Rhythm: regular rhythm Heart sounds: S1 normal heart sound present and S2 normal heart sound present Bruits: no carotid bruits GI: Inspection: Yes normal to inspection Skin: Wounds: no wounds Hair: normal Neuro: General: oriented to person, oriented to place and oriented to time Cranial nerves: Yes Normal hearing present Cognition (Neuro): normal cognition Motor exam (neuro): 5/5 motor strength present throughout Extrem: Other: venous exam: No significant superficial varicosities or spider telangiectasias, minimal edema General: No clubbing, No cyanosis and No edema Psych: Appearance: grossly normal Mental Status: mental status grossly normal Speech and movement: Normal speech and movement present Objective Data Active Medications Acetaminophen (Acetaminophen 325 Mg Tablet) 650 mg PO Q6H PRN PRN Reason: Pain, Mild (Pain Scale 1-3) Last Admin: 10/23/22 02:19 Dose: 650 mg Documented By: RL Aspirin (Aspirin Enteric Coated 81 Mg Tablet.) 81 mg PO DAILY [facility] Last Admin: 10/23/22 08:44 Dose: 81 mg Documented By: ALVAREZ Atorvastatin Calcium (Atorvastatin Calcium 80 Mg Tablet) 80 mg PO DAILY [facility] Last Admin: 10/23/22 08:44 Dose: 80 mg Documented By: ALVAREZ Baclofen (Baclofen 10 Mg Tablet) 10 mg PO BID [facility] Last Admin: 10/23/22 08:44 Dose: 10 mg Documented By: ALVAREZ Dextrose (Dextrose 50 % 25 Gm/50 Ml Syringe) 25 gm IVPUSH Q15M PRN; Protocol PRN Reason: per Hypoglycemia Standing Ord. Docusate Sodium (Docusate Sodium 100 Mg Capsule) 100 mg PO BID PRN PRN Reason: constipation Last Admin: 10/22/22 15:19 Dose: 100 mg Documented By: BITA Empagliflozin (Empagliflozin 10 Mg Tablet) 10 mg PO DAILY [facility] Last Admin: 10/23/22 08:44 Dose: 10 mg Documented By: ALVAREZ Furosemide (Furosemide 40 Mg/4 Ml Vial) 40 mg IVPUSH BID@0900,1800 [facility]; Protocol Last Admin: 10/23/22 08:45 Dose: 40 mg Documented By: ALVAREZ Furosemide (Furosemide 40 Mg Tablet) 80 mg PO DAILY [facility]; Protocol Last Admin: 10/22/22 10:00 Dose: 80 mg Documented By: BITA Gabapentin (Gabapentin 100 Mg Capsule) 100 mg PO TID [facility] Last Admin: 10/23/22 08:44 Dose: 100 mg Documented By: ALVAREZ Glucose (Glucose Gel 15 Gm Gel..Gram.) 15 gm PO Q15M PRN; Protocol PRN Reason: per Hypoglycemia Standing Ord. Insulin Glargine (Insulin Glargine,Hum.Rec.Anlog 100 Unit/Ml 10 Ml Vial) 20 unit SUBCUT BEDTIME [facility] Last Admin: 10/22/22 21:47 Dose: 20 unit Documented By: RL Insulin Human Lispro (Insulin Lispro 100 Unit/Ml 3 Ml Vial) 0 unit SUBCUT QIDACHS [facility]; Protocol Last Admin: 10/23/22 08:24 Dose: Not Given Documented By: ALVAREZ Non-Admin Reason: No Insulin Coverage Comments: poc 82 Lactulose (Lactulose 20 Gm/30 Ml Solution) 20 gm PO DAILY [facility] Last Admin: 10/23/22 08:43 Dose: 20 gm Documented By: ALVAREZ Melatonin (Melatonin 3 Mg Tablet) 6 mg PO BEDTIME PRN PRN Reason: Insomnia Last Admin: 10/22/22 21:39 Dose: 6 mg Documented By: RL Metoprolol Succinate (Metoprolol Succinate Er 25 Mg Tab.Er.24h) 25 mg PO BEDTIME [facility]; Protocol Last Admin: 10/22/22 21:38 Dose: 25 mg Documented By: RL Nicotine (Nicotine 14 Mg Patch.Td24) 14 mg TRANSDERMA DAILY [facility] Last Admin: 10/23/22 08:44 Dose: 14 mg Documented By: ALVAREZ Ondansetron HCl (Ondansetron Hcl 4 Mg/2 Ml Vial) 4 mg IVPUSH Q8H PRN PRN Reason: Nausea and Vomiting Pharmacy Consult (Consult Rx Perform Med Rec) 1 each MISCELLANE ONCE PRN PRN Reason: Consult order Sacubitril/Valsartan (Sacubitril/Valsartan 1 Tab Tablet) 1 tab PO BID [facility]; Protocol Last Admin: 10/22/22 09:59 Dose: 1 tab Documented By: BITA Sodium Chloride (0.9 % Sodium Chloride Flush 3 Ml Syringe) 3 ml IVFLUSH QSHIFT [facility] Last Admin: 10/22/22 21:39 Dose: 3 ml Documented By: RL Tamsulosin HCl (Tamsulosin Hcl 0.4 Mg Capsule) 0.4 mg PO DAILY [facility] Last Admin: 10/23/22 08:43 Dose: 0.4 mg Documented By: ALVAREZ Labs 10/22/22 06:19 10/22/22 06:19 Labs: Laboratory Results - last 24 hr 10/22/22 10/22/22 10/22/22 11:25 16:32 21:42 POC Glucose 334 H 94 263 H 10/23/22 07:21 POC Glucose 82 Assessment and Plan (1) LV (left ventricular) mural thrombus: Status: Acute (2) Acute on 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 acute hypoxic respiratory failure due to Acute on chronic combined systolic and diastolic heart failure and acute pulmonary embolism and LV thrombus improved continue PO lasix Eliquis Cardiology input appreciated, continue Entresto (currently held for hypotension), beta-jonnathan and Jardiance echo with reduced EF complicated and apical thrombus NSTEMI Finished 48 hours of heparin drip asa, statin, BB Cardiology recommended medical treatment for the time being, guarded prognosis NSVT toprol 25mg bedtime Physical deconditioning PT recommended SNF vs home PT, patient prefers to go to SNF Insulin-dependent diabetes mellitus with hyperglycemia and neuropathy insulin, pocs Continue gabapentin urinary retention flomax souza dced CAD asa, statin hypertension - currently with hypotension hyperlipidemia On statin Tobacco use disorder: Nicotine patch DVT prophylaxis: Jeanette Full code poor/guarded prognosis from Dr. Lauren's note I had the chance to speak with 2 sisters the patient who lives out of the area and report being his healthcare proxies. Explained his current medical condition and guarded prognosis given his heart failure, pulmonary embolism and ischemic heart disease specially if he continues to being non adherent to the medical therapy and treatments. They both understand and were hoping to find him a long-term placement so we can assure he is taking his medications. They will discuss with the machine adjuster leader case trim regarding discharge plan. reason for continued hospitalization:pending safe discharge plan to sNF Time Spent With Patient Time: Total time managing care of this patient today ____ minutes. Quality Stroke Does the patient have a stroke diagnosis?: No VTE Prior VTE?: No VTE Risk Level:: Medical - moderate - high VTE Device Contraindication: Treatment Not Indicated VTE Drug Contraindication: N/A - Med Ordered
[2022-10-23] MEDS: 0.9 % Sodium Chloride Flush 3 ML SYRINGE IVFLUSH (09:06)
--- NOTE | 2022-10-23 11:10 | PM.DS ---
DS: Providers Provider Date of Service: 10/23/22 Date of admission: 10/09/22 05:21 Primary care physician: JOSSE Caro Consults: 10/09/22 05:21 Consult to Cardiology Routine Consulting Provider: Vahe Contreras Reason for consultation: CHF Has provider been notified: Yes 10/17/22 11:25 Consult to Vascular Surgery Routine Consulting Provider: Laz Sheffield Reason for consultation: Bilateral LE pain, duplex showing slow flow, for your kind eval DS: Diagnosis Discharge Diagnosis (1) LV (left ventricular) mural thrombus: Status: Acute (2) Acute on chronic combined systolic and diastolic ACC/AHA stage C congestive heart failure: Status: Acute (3) Pulmonary embolism: Status: Acute DS: Summary Hospital Course Hospital Course: from initial hpi: Chief Complaint: Bilateral edema This is a 57-year-old female with pertinent history of insulin-dependent diabetes mellitus, essential hypertension, mixed hyperlipidemia, combined systolic and diastolic congestive heart failure, coronary artery disease who presents to the emergency department for evaluation of bilateral lower extremity edema.? Patient states he has had worsening lower extremity edema for the last 2 weeks.? Also complains of dyspnea which is worse with exertion and has been progressive over the last 2 weeks.? Does complain of orthopnea and PND.? States he is compliant with medications and diet.? Patient denies fever, chills, chest discomfort, palpitations, abdominal pain, changes in urinary or bowel habits. In the emergency department, BNP was found to be significantly elevated and patient was given Lasix 40 mg IV hospital course: Patient was admitted for acute hypoxic respiratory failure secondary to acute on chronic combined systolic and diastolic CHF and acute pulmonary embolism complicated by LV thrombus. He received IV diuresis and 48 hours of IV heparin. He diuresed well and eventually was weaned off oxygen. His anticoagulation was changed to apixaban. Due to relative hypotension his Toprol was decreased to 25 mg in changed to bedtime. His interested was held. For NSTEMI he received 48 hours of IV heparin cardiology recommended medical treatment for now. He will continue Eliquis, statin, beta-jonnathan. Course was complicated by SVT was continued on Toprol. For diabetes with hyperglycemia he was continued on insulin. For urinary retention he was started on Flomax. Coronary disease he will continue on aspirin, Eliquis, statin. For hyperlipidemia will continue on statin. Patient initially was recommended short-term rehab for physical deconditioning, however, by time of discharge patient is ambulating well on room air able to do stairs. Therefore, he will be discharged home with services. Time Spent with Patient Time attestation: Total time managing care of this patient today ____ minutes. Discharge coordination time: Greater than 30 minutes Quality: Safe Use of Opioids Does Pt have an Active Cancer Diagnosis on the Problem List?: No Quality: Stroke Does the patient have a stroke diagnosis?: No Physical Exam Vital Signs: Vital Signs: Last Vital Signs Temp 97.4 F 10/23/22 03:04 Pulse 63 10/23/22 07:22 Resp 16 10/23/22 07:22 BP 112/75 10/23/22 07:22 Pulse Ox 97 10/23/22 07:22 O2 Del Method 10/23/22 07:22 O2 Flow Rate 2 10/23/22 07:22 BMI result Body Mass Index 24.7 Const: General: cooperative, healthy appearing and comfortable Orientation/consciousness: oriented to person, oriented to place and oriented to time HEENT: Head: Yes normal to inspection Neck: Neck: Yes normal visual inspection Carotids: no bruits Chest: Chest palpation & inspection: normal inspection of the chest Resp: Effort & Inspection: normal respiratory effort and able to speak in complete sentences Auscultation: clear to auscultation bilaterally, no crackles, no rales, no rhonchi and no wheezes Cardio: Other: Bilateral DP signals Rate: regular rate Rhythm: regular rhythm Heart sounds: S1 normal heart sound present and S2 normal heart sound present Bruits: no carotid bruits GI: Inspection: Yes normal to inspection Skin: Wounds: no wounds Hair: normal Neuro: General: oriented to person, oriented to place and oriented to time Cranial nerves: Yes Normal hearing present Cognition (Neuro): normal cognition Motor exam (neuro): 5/5 motor strength present throughout Extrem: Other: venous exam: No significant superficial varicosities or spider telangiectasias, minimal edema General: No clubbing, No cyanosis and No edema Psych: Appearance: grossly normal Mental Status: mental status grossly normal Speech and movement: Normal speech and movement present DS: Data Data Completed and Pending Labs on day of discharge: Laboratory Results - last 24 hr 10/22/22 10/22/22 10/22/22 11:25 16:32 21:42 POC Glucose 334 H 94 263 H 10/23/22 07:21 POC Glucose 82 Discharge Plan Discharge Anticipated Discharge Date/Time: 10/23/22 10:51 Patient Disposition: Home Health Service Discharge Diagnosis: pe, chf, lv thrombus Referrals: Aldo Gonzalez FNP-BC [Primary Care Provider] - 1 Week Discharge Medications: New tamsulosin 0.4 mg Capsule 0.4 mg PO DAILY Qty: 30 0RF metoprolol succinate 25 mg Tablet Extended Release 24 Hr 25 mg PO BEDTIME Qty: 30 0RF Protocol: Hold for SBP/HR < HOLD for SBP < : 90 HOLD for HR < : 60 apixaban 5 mg tablet 5 mg PO BID Qty: 60 0RF Continued Trulicity 0.75 mg/0.5 mL pen injector 0.75 mg subcut QWEEK 30 Days Qty: 2.5 0RF nitroglycerin 0.4 mg tablet, sublingual 1 tab sublingual USEASDIRECTD atorvastatin 80 mg tablet 80 mg PO DAILY metformin 500 mg Tablet 500 mg PO BID aspirin 81 mg Tablet,Delayed Release (Dr/Ec) 81 mg PO DAILY furosemide 80 mg tablet 80 mg PO DAILY Levemir FlexTouch U-100 Insuln 100 unit/mL (3 mL) insulin pen 25 unit subcut BEDTIME 30 Days Qty: 7.5 2RF Jardiance 10 mg tablet 10 mg PO DAILY 30 Days Qty: 30 0RF Discontinued Eliquis 2.5 mg tablet 2.5 mg PO BID Entresto 24-26 mg tablet 1 tab PO BID metoprolol succinate 50 mg tablet extended release 24 hr 50 mg PO DAILY Discharge Orders: Discharge Order (Routine); Ordered 10/23/22 Ordered By: Gato Cueva Diet: Advance to usual diet Activity on Discharge: As tolerated Stand Alone Forms: Patient Portal Discharge page Care Plan Goals: manage chf Health Concerns: chf, lv thrombus, pe Plan of Treatment: eliquis increased 5mg bid, toprol decreased to 25mg bedtime Assessment: see above
[2022-10-23 11:50] LABS: Glucose, Whole Blood 197 mg/dL (60-115)
--- NOTE | 2022-10-23 12:51 | MHC.CM.PN ---
pt will be going home with hvns when dcd home today pt feels safe to go home and says he is able to get in to the house owned by his brother pt will be transported by [facility] at 2:15 pt to [address] [place] [address] magdaleno gonzalez pt reports that he has been livng there since oct
--- NOTE | 2022-10-25 08:58 | W.MHC.F2F ---
Service Date Service Date: 10/23/22 Encounter Date of encounter: 10/23/22 Reasons for Services Signs and symptoms assessed: some sob on exertion, weaknss Reason for assisted: medication management, medication treatment and teach disease management Homebound: Leaving the home is medically contraindicated at this time without the asist of a device and/or another person due th the listed conditions above and below. Reason homebound: unsteady gait / fall risk Certification: Based on the above findings, I certify that this patient is confined to the home and needs intermittent assisted care, physical therapy and/or speech therapy, or continues to need occupational therapy. The patient is under my care, and I have initiated the establishment of the plan of care. The patient will be followed by a physician who will periodically review the plan of care. Time Spent With Patient Time: Total time managing care of this patient today ____ minutes.
== END 2022-10-23 14:30 | disposition home health service (06) | DRG 280 ==
LOC: HO.ED 03:47 → HO.EDOVER 05:26 → HO.IMC 05:33
PROVIDERS: Internal Medicine; Student in an Organized Health Care Education/Training Program; Admitting Provider Student in an Organized Health Care Education/Training Program; Emergency Provider Internal Medicine; PCP Nurse Practitioner Family; Visit Provider Internal Medicine
DX: I11.0 Hypertensive heart disease with heart failure (principal); I21.4 Non-ST elevation (NSTEMI) myocardial infarction; I26.99 Other pulmonary embolism without acute cor pulmonale; I50.43 Acute on chronic combined systolic (congestive) and diastolic (congestive) heart failure; J96.01 Acute respiratory failure with hypoxia; I23.6 Thrombosis of atrium, auricular appendage, and ventricle as current complications following acute myocardial infarction; I47.20 Ventricular tachycardia, unspecified; E11.51 Type 2 diabetes mellitus with diabetic peripheral angiopathy without gangrene; E11.65 Type 2 diabetes mellitus with hyperglycemia; E11.40 Type 2 diabetes mellitus with diabetic neuropathy, unspecified; I25.10 Atherosclerotic heart disease of native coronary artery without angina pectoris; E78.2 Mixed hyperlipidemia; R33.9 Retention of urine, unspecified; I25.5 Ischemic cardiomyopathy; F17.210 Nicotine dependence, cigarettes, uncomplicated; Z20.822 Contact with and (suspected) exposure to COVID-19; Z91.14 Patient's other noncompliance with medication regimen; Z86.718 Personal history of other venous thrombosis and embolism; Z71.6 Tobacco abuse counseling; Z79.4 Long term (current) use of insulin; Z79.82 Long term (current) use of aspirin; Z79.84 Long term (current) use of oral hypoglycemic drugs; Z79.899 Other long term (current) drug therapy
CPT/HCPCS: 36415; 71045; 71275; 80048; 80053; 81001; 82947; 83735; 83880; 84484; 85025; 85027; 85379; 85610; 85730; 87635; 93005; 93306; 93926; 93970; 97116; 97162; 97530; 99285; C1758; J1643; J1940; J2270; J3475; Q9957; Q9967

== ENCOUNTER 2022-11-06 11:55 | Outpatient (REF) | payer OTHER, MEDICAID, SELFPAY ==
--- NOTE | ~2022-11-06 | XR_ITS ---
EXAMINATION: XR CHEST CLINICAL INFORMATION: Congestion. COMPARISON: 10/09/2022 chest radiograph. TECHNIQUE: 2 views of the chest were obtained. FINDINGS: The lungs are clear. There are no pleural effusions. Multilevel bilateral healed bilateral rib fractures are again noted without interval change. The heart and mediastinal structures are unremarkable. XR/XR chest 2V IMPRESSION: No acute cardiopulmonary process.
[2022-11-06 14:05] LABS: MANUAL DIFF FLAG NO
[2022-11-06 14:11] LABS: Basophils Absolute Auto 0.1 X10*3/uL (0.0-0.2); Basophils Percent Auto 0.9 % (0-2); Eosinophils Absolute Auto 0.4 X10*3/uL (0.0-0.4); Eosinophils Percent Auto 4.4 % (0-4); Hematocrit 39.2 % (42.0-52.0); Hemoglobin 11.9 g/dl (14.0-18.0); Imm Gran Abs Auto 0.03 X10*3/uL (0.00-0.03); Imm Gran Pct Auto 0.3 % (0.0-0.4); Lymphocytes Absolute Auto 1.2 X10*3/uL (1.2-4.9); Lymphocytes Percent Auto 13.4 % (20-40); Mean Corpuscular HGB Conc 30.4 g/dl (31.0-36.0); Mean Corpuscular Hemoglobin 26.6 pg (27.0-33.0); Mean Corpuscular Volume 87.7 fL (80.0-98.0); Mean Platelet Volume 10.5 fL (9.4-12.4); Monocytes Absolute Auto 0.8 X10*3/uL (0.1-1.2); Monocytes Percent Auto 9.3 % (2-11); Neutrophils Absolute Auto 6.3 x10*3/uL (2.0-8.3); Neutrophils Percent Auto 71.7 % (45-73); Platelet Count 298 X10*3/uL (160-400); Red Blood Count 4.47 X10*6/uL (4.60-5.80); Red Cell Distribution Width 19.4 % (11.0-16.0); White Blood Count 8.8 X10*3/uL (4.8-10.8)
[2022-11-06 14:25] LABS: Appearance Urine Cloudy; Color Urine Yellow; Glucose Urine UA >=1000 mg/dL (Negative); Leukocyte Esterase Urine Moderate (2+) (Negative); Nitrite Urine Negative (Negative); PH 6.5 (5.0-9.0); UMIC TRIGGER UACC YES; Urine Blood Trace (Negative); Urine Ketones Negative (Negative); Urine Protein 30 (1+) mg/dL (Neg-Trace)
[2022-11-06 14:31] LABS: Bacteria Urine 3+ (None Seen); Hyaline Casts Urine 0-2 /LPF (0-2); Squamous Epithelial Cell Urine 0-2 /HPF (0-2); UACC Culture Trigger YES; WBC Urine >50 /HPF (0-5)
[2022-11-06 14:47] LABS: B Type Natriuretic Peptide 301 pg/mL (<100)
[2022-11-06 14:50] LABS: Alanine Aminotransferase 10 U/L (0-40); Albumin Level 3.6 g/dL (3.5-5.0); Alkaline Phosphatase 87 U/L (39-117); Anion Gap 12 (12-20); Aspartate Amino Transferase 23 U/L (5-37); Bilirubin Total 0.6 mg/dL (0.0-1.0); Blood Urea Nitrogen 26 mg/dL (9-16); Carbon Dioxide 29 mmol/L (22-29); Chloride 106 mmol/L (96-108); Estimated Glomerular Filt Rate > 60; Glucose Random 116 mg/dL (60-115); Sodium 142 mmol/L (135-145)
[2022-11-06 15:09] LABS: TSH reflex Free T4 0.89 uIU/mL (0.32-4.0)
== END 2022-11-06 11:56 | disposition home or self-care (01) ==
LOC: HO.HMGCX 11:55
PROVIDERS: PCP Nurse Practitioner Family; Visit Provider Nurse Practitioner Family
DX: E11.8 Type 2 diabetes mellitus with unspecified complications (principal); I21.4 Non-ST elevation (NSTEMI) myocardial infarction; I50.43 Acute on chronic combined systolic (congestive) and diastolic (congestive) heart failure; I51.3 Intracardiac thrombosis, not elsewhere classified; R82.90 Unspecified abnormal findings in urine
CPT/HCPCS: 36415; 71046; 80053; 81001; 83880; 84443; 85025; 87086; 87088; 87186

== ENCOUNTER 2022-11-28 11:11 | Outpatient (REF) | payer OTHER, MEDICAID, SELFPAY ==
[2022-11-28 13:53] LABS: MANUAL DIFF FLAG NO
[2022-11-28 14:06] LABS: Basophils Absolute Auto 0.1 X10*3/uL (0.0-0.2); Basophils Percent Auto 0.9 % (0-2); Eosinophils Absolute Auto 0.4 X10*3/uL (0.0-0.4); Eosinophils Percent Auto 5.5 % (0-4); Hematocrit 39.9 % (42.0-52.0); Hemoglobin 12.6 g/dl (14.0-18.0); Imm Gran Abs Auto 0.03 X10*3/uL (0.00-0.03); Imm Gran Pct Auto 0.4 % (0.0-0.4); Immature Retic Fraction 13.2 % (2.3-13.4); Lymphocytes Percent Auto 12.3 % (20-40); Mean Corpuscular HGB Conc 31.6 g/dl (31.0-36.0); Mean Corpuscular Hemoglobin 27.5 pg (27.0-33.0); Mean Corpuscular Volume 86.9 fL (80.0-98.0); Mean Platelet Volume 10.1 fL (9.4-12.4); Monocytes Absolute Auto 0.6 X10*3/uL (0.1-1.2); Monocytes Percent Auto 7.8 % (2-11); Neutrophils Absolute Auto 5.7 x10*3/uL (2.0-8.3); Neutrophils Percent Auto 73.1 % (45-73); Platelet Count 246 X10*3/uL (160-400); Red Blood Count 4.59 X10*6/uL (4.60-5.80); Red Cell Distribution Width 21.7 % (11.0-16.0); Retic HGB Equivalent 35.6 pg (30.0-35.0); Reticulocyte Percent 1.7 % (0.5-1.8); Reticulocytes Absolute 0.077 X10*6/uL (0.026-0.095); White Blood Count 7.8 X10*3/uL (4.8-10.8)
[2022-11-28 14:08] LABS: Appearance Urine Clear; Color Urine Yellow; Glucose Urine UA >=1000 mg/dL (Negative); Leukocyte Esterase Urine Negative (Negative); Nitrite Urine Negative (Negative); Specific Gravity - Urine 1.015 (1.005-1.025); UMIC TRIGGER UACC YES; Urine Blood Negative (Negative); Urine Ketones Negative (Negative); Urine Protein Negative (Neg-Trace)
[2022-11-28 14:15] LABS: Estimated Average Glucose 171 mg/dL; Hemoglobin A1c % 7.6 %
[2022-11-28 14:21] LABS: Bacteria Urine None Seen (None Seen); Hyaline Casts Urine 0-2 /LPF (0-2); RBC Urine 0-2 /HPF (0-2); Squamous Epithelial Cell Urine 0-2 /HPF (0-2); WBC Urine 0-5 /HPF (0-5)
[2022-11-28 14:37] LABS: B Type Natriuretic Peptide 348 pg/mL (<100)
[2022-11-28 14:46] LABS: Alanine Aminotransferase 11 U/L (0-40); Alkaline Phosphatase 76 U/L (39-117); Anion Gap 14 (12-20); Aspartate Amino Transferase 22 U/L (5-37); Bilirubin Total 0.6 mg/dL (0.0-1.0); Blood Urea Nitrogen 19 mg/dL (9-16); Calcium 9.8 mg/dL (8.4-10.2); Carbon Dioxide 32 mmol/L (22-29); Chloride 102 mmol/L (96-108); Cholesterol 118 mg/dL; Estimated Glomerular Filt Rate > 60; Glucose Fasting 236 mg/dL (60-99); Glucose Random 235 mg/dL (60-115); HDL Cholesterol 36 mg/dL; Iron 77 mcg/dL (45-160); LDL Cholesterol Calculated 47 mg/dl; Percent Iron Saturation 25 % (15-50); Sodium 144 mmol/L (135-145); Total Iron Binding Capacity 302 mcg/dL (228-428); Total Protein 7.1 g/dL (6.5-8.0); Triglycerides 178 mg/dL; Unsaturated Iron Binding 225 ug/dL
[2022-11-28 15:08] LABS: Ferritin 183 ng/mL (20-250); Folate > 20.0 ng/mL (> or = 4.0); TSH reflex Free T4 0.72 uIU/mL (0.32-4.0); Vitamin B12 436 pg/mL (200-900)
== END 2022-11-28 11:12 | disposition home or self-care (01) ==
LOC: HO.HMGCLDS 11:11
PROVIDERS: PCP Nurse Practitioner Family; Visit Provider Nurse Practitioner Family
DX: D64.9 Anemia, unspecified (principal); I50.9 Heart failure, unspecified; E11.8 Type 2 diabetes mellitus with unspecified complications
CPT/HCPCS: 36415; 80053; 80061; 81001; 82607; 82728; 82746; 83036; 83540; 83880; 84443; 85025; 85045

== ENCOUNTER → 2022-12-19 15:13 | Outpatient (BNVA) | payer OTHER, MEDICAID, SELFPAY | PROVIDERS: PCP Nurse Practitioner Family; Visit Provider Surgery Vascular Surgery | DX: I73.9 Peripheral vascular disease, unspecified (principal) | CPT/HCPCS: 99212 ==

== ENCOUNTER 2023-01-09 08:28 | Outpatient (REF) | payer OTHER, MEDICAID, SELFPAY ==
--- NOTE | ~2023-01-09 | CT_ITS ---
EXAMINATION: CT ANGIOGRAPHY LEGS WITH RUNOFF CLINICAL INFORMATION: Peripheral vascular disease. History of right SFA stent. COMPARISON: Previous CT of the abdomen and pelvis February 2022 TECHNIQUE: Axial images through the abdomen, pelvis and bilateral lower extremities following 100 mL Omnipaque [address] examination was performed using dose optimization techniques as appropriate, variously including the following: *Automated exposure control *Adjustment of mA and/or kV according to patient size (this includes techniques or standardized protocols for targeted exams where dose is matched to indication/reason for exam; i.e. extremities or head) *Use of iterative reconstruction technique DLP: 633 mGy-cm FINDINGS: The abdominal aorta is normal in caliber. No aneurysm or dissection. No appreciable significant stenosis. There are single patent renal arteries bilaterally. Celiac axis, SMA and MERCED are patent. Right: There is a mild stenosis of the right common iliac artery. There is a moderate long segment stenosis of the proximal right external iliac artery. There are shorter segment mild segmental stenoses of the distal right external iliac artery. . The right internal iliac artery is patent. There is a severe stenosis of the right proximal common femoral artery. The more distal right proximal common femoral artery is occluded. There is occlusion of the right proximal SFA at the origin. The more distal right proximal SFA reconstitutes via collaterals but is small in caliber. There is a proximal right SFA stent that is patent. There is a severe stenosis of the right mid SFA distal to the stent. There is moderate segmental stenoses of the more distal right SFA. The right PFA is patent. There is a short segment [id number] stenosis of the right above-knee popliteal artery. The remainder the popliteal artery is patent. There is 2 vessel anterior tibial and peroneal artery runoff to the right lower leg. The posterior tibial artery is severely attenuated. Left: There is a mild stenosis of the proximal left common iliac artery. There is a moderate short segment stenosis of the distal left common iliac artery. The left external iliac artery is small in caliber but patent. The left internal iliac artery is patent. There is a moderate stenosis of the left common femoral artery. The left proximal SFA is occluded. There is reconstitution of the of the more distal proximal left SFA via collaterals. This is diffusely small in caliber. There is short segment occlusion of the left mid to distal SFA at the adductor canal. The more distal left SFA is small in caliber but patent. There is short segment stenosis of the proximal above-knee popliteal artery. The remainder of the popliteal artery is patent. There is three-vessel runoff to the left lower leg. There is significant atelectasis at the right lung base in the right lower lobe. There is question of 1.1 cm right lower lobe nodule versus nodular appearance of atelectasis. Left is clear. The liver is normal. Large gallstone in the gallbladder. No biliary duct dilatation. Normal spleen, pancreas, and adrenal glands. Multiple bilateral renal. Largest cyst measures 4 cm in the left kidney. No imaging follow-up recommended. The bladder is normal. The seminal vesicles are prominent. The prostate gland does not appear enlarged. Small and large bowel is unremarkable. The stomach is unremarkable. No ascites. No adenopathy. No hernia. Review of bone windows demonstrates degenerative changes of the spine. CT/CT angio abd aorta runoff IMPRESSION: Normal caliber abdominal aorta without focal stenosis. Bilateral common, external iliac, common femoral and SFA and above knee popliteal artery disease. Two-vessel posterior tibial and peroneal artery runoff on the right and three-vessel runoff on the left. There is a patent stent in the right proximal SFA. The right SFA proximal and distal to the stent appears severely diseased.
[2023-01-09] MEDS: iohexoL 350 MG/ML 100 ML INFUS..BTL IV (11:08)
[2023-01-11 06:55] LABS: Creatinine POC 0.1 mg/dL (0.5-1.4); GFR POC > 60
== END 2023-01-09 08:29 | disposition home or self-care (01) ==
LOC: HO.CT 08:28
PROVIDERS: PCP Nurse Practitioner Family; Visit Provider Surgery Vascular Surgery
DX: I73.9 Peripheral vascular disease, unspecified (principal)
CPT/HCPCS: 75635; 82565; Q9967